=== PATIENT | female | born 1940 | race Caucasian/White ===

== ENCOUNTER → 2018-04-12 09:41 | Oncology outpatient (ONC) | payer OTHER, SELFPAY ==
--- NOTE | 2018-04-12 08:49 | ONC.APRN.PN ---
Assessment and Plan (1) Melanoma Current visit: No Status: Acute 04/12/18 08:50 The patient is a 77 year old Female who is being seen in the clinic 04/12/2018. She caries a diagnosis of stage III malignant melanoma in clinical remission since her original diagnosis was made in the summer. Patient presents today for her annual surveillance visit. On exam today patient has no clinical signs or symptoms of disease recurrence. She questions whether or not she needs to continue being seen at this clinic. She is followed by primary care also Dermatology Dr. Weinberg. Per patient's request she can be seen on an as needed basis. If she were to notice any skin changes, lesions she would need to see dermatology as soon as possible for biopsy. 04/12/18 10:14 PN -Subjective Interval history: The patient is a 77 year old Female who is being seen in the clinic 04/12/2018. She care recent diagnosis of stage III malignant melanoma in clinical remission since her original diagnosis was made in the summer. Patient presents today for her annual surveillance visit, her previous visit was April 21, 2017. During the interval she's done well offering no new complaints. Specifically denying any skin changes, lesions, rashes, headaches visual changes she is in no pain. No unusual fatigue abdominal discomfort chest pains or shortness of breath. No change in appetite, weight is stable. Activity tolerance remains unchanged. She will be changing primary care providers from Dr. Mallory to Dr Tasha Lima noting Dr Mallory's long-term from the clinic. Patient remains under the care of shift supervisor Dr. Weinberg whom she was seeing every 6 months, now seeing annually. Past Medical History The patient's past medical history is significant for: 1) malignant melanoma, originally diagnosed in August 2010, stage III presentation. Patient's recent imaging studies included a CT of the chest, abdomen, and pelvis dated January 27, 2015, showing an indeterminate 2-mm hypodense nodule near the hepatic dome. Repeat CT scan of the abdomen with contrast on 03/05/2015 shows resolution of the hypodensity. She remains in clinical remission at this time with her last CT of the chest abdomen and pelvis dated 04/21/2016. This reports no evidence of recurrent disease no evidence of or lesions. Imaging studies at this time aren't a when necessary basis only. Home Medications and Allergies Home Medications Medication Instructions Recorded Confirmed Type lamotrigine [Lamictal] 200 mg PO Q DAY #0 04/21/17 History losartan-hydrochlorothiazide 1 tab PO DAILY 04/12/18 04/12/18 History Allergies Allergy/AdvReac Type Severity Reaction Status Date / Time No Known Allergies Allergy Uncoded 12/27/17 12:13 Exam Narrative: well appearing - Constitutional positive no acute distress - Routine HEENT Exam Head: Present: normocephalic, atraumatic Eye: Present: conjunctivae pink. Absent: conjunctival icterus, scleral injection ENT: Present: mucous membranes moist, oropharynx clear - Routine Neck Exam Present: supple. Absent: lymphadenopathy - Routine Chest/Breast/Axilla Exam Axillae: Absent: lymphadenopathy, mass, tenderness - Routine Respiratory Exam Present: Clear to auscultation bilaterally - Routine Cardiovascular Exam Present: RRR - Routine Abdominal Exam Present: soft, normoactive bowel sounds. Absent: tenderness, distended, organomegaly, mass - Routine Extremities Exam Absent: edema - Routine Skin Exam Present: intact, normal turgor. Absent: petechiae, lesions, rash - Routine Neurological Exam Present: alert, oriented X3
[2018-04-12 09:35] VITALS: BP 157/78; PULSE 68; RESP 18; TEMP 36.2; O2SAT 97
== END ==
LOC: ONC 09:42
PROVIDERS: PCP Internal Medicine; Visit Provider Nurse Practitioner Gerontology
DX: Z85.820 Personal history of malignant melanoma of skin (principal)
CPT/HCPCS: 99214

== ENCOUNTER 2018-10-05 09:15 | Outpatient (RCR) | payer OTHER, SELFPAY ==
--- NOTE | 2018-10-05 10:50 | PT.OIE ---
Current Diagnoses Stress incontinence (female) (male) (10/05/18) Pelvic and perineal pain (10/05/18) Provider Visit Care Team Role Provider Type Tasha Lima MD Attending Provider Physician Primary Care Provider Specialty: Internal Medicine Address: [address] [place] [address], [id number] Email: Physical Therapy Initial Evaluation PT-OP-A Visit Information Start: 10/05/18 09:45 Freq: Status: Active Protocol: Document 10/05/18 09:45 AMB (Rec: 10/07/18 10:20 AMB [email or web address]) Out-Patient Physical Therapy Visit Information Visit Information Visit Type Initial Evaluation Visit Start Time 09:45 Visit Stop Time 10:30 Total Visit Minutes 45 Visit Number 1 PT-OP-B Current Condition Start: 10/05/18 09:45 Freq: Status: Active Protocol: Document 10/05/18 09:45 AMB (Rec: 10/07/18 10:20 AMB [email or web address]) Current Condition History of Current Condition Onset Date 6 months ago Current Complaints Large leaks of urine History of Current Condition Yue reports a recent worsening of urinary incontinence. She has at least a 2 decade history of leaking with activities like dancing, but now the leaks are much worse. She reports she drinks a lot of fluid, and urinates probably once an hour , and she can leak after going to the bathroom. She denies any fecal leakage. She denies pain. She notes that lifting really makes her leak large quantities. She also notes getting up to use the bathroom once per night and she can leak on her way to the bathroom but she denies urgency. Sometimes she is not even aware she is leaking. She had 3 children vaginally and reports no leaking with or after delivery. Prior Functional Status Baseline Function- Other Pt had history of stress urinary incontinence for years , but smaller leaks than this. Current Functional Impairments (Reported) Functional Limitations- Other Not currently wearing pads, but does wet pants with leaking, especially when lifting. Personal Factors Other Personal Factors That May Effect History of stage 3 melanoma Therapy/Recovery with resultant R LE lymphedema . Bipolar. Hypertension. Osteopenia. PT-OP-I Pelvic Floor Start: 10/05/18 09:45 Freq: Status: Active Protocol: Document 10/05/18 09:45 AMB (Rec: 10/07/18 10:30 AMB [email or web address]) Pelvic Floor Assessment Urine Pelvic Floor Surgery No Leakage Size Large Leakage Cause Exercise Lifting Voiding Frequency once an hour Nocturia 1 Bowel Bowel Surgery No Pelvic Clock Pelvic Clock 12-3 Atrophy Pelvic Clock 3-6 Atrophy Pelvic Clock 6-9 Atrophy Pelvic Clock 9-12 Atrophy Prolapse Cystocele Grade 2 Rectocele Grade 3 Contraction Ability Voluntary Contraction Weak Voluntary Relaxation Weak Manual Muscle Testing Left 1 Manual Muscle Testing Right 1 Manual Muscle Testing Anterior 1 Manual Muscle Testing Posterior 2 Muscle Endurance (Seconds) 3 Number of Quick Contractions In 10 4 Seconds Comments Pelvic Floor Comments While no skin irritation was visible, Yue's skin was wet with urine. PT-OP-T Assessment and Plan Start: 10/05/18 09:45 Freq: Status: Active Protocol: Document 10/05/18 09:45 AMB (Rec: 10/07/18 10:49 AMB [email or web address]) Physical Therapy Assessment Rehab Potential Rehabilitation Potential Good Evaluation Complexity Number of Personal Factors/Comorbidities 1-2 Number of Body Systems Impaired 3 Clinical Presentation at Evaluation Evolving Impairments Impairments Functional Activities Sensation Strength Goals Two Impairment Continence Short Term Goal (STG) Yue will lift 5# from the floor with good body mechanics while alee her pelvic floor. STG Duration 4 weeks Assembler Filters Goal (LTG) Yue will lift her suitcase from the floor to waist height without leaking urine. LTG Duration 8 weeks One Impairment Strength Short Term Goal (STG) Yue will be independent with a pelvic floor strengthening HEP. STG Duration 4 weeks Assembler Filters Goal (LTG) Yue will improve her pelvic floor strength to 3/5. LTG Duration 8 weeks Assessment Summary Assessment Yue attends physical therapy with a worsening of her stress urinary incontinence. She is going to be seeing Dr. Victoria soon, for possible pessary placement. I would recommend that she use pads at this time, given her large leaks, for the health of her skin. We will work on strengthening her pelvic floor , but given the long history of her urinary incontinence, progress may be slow. Physical Therapy Plan Frequency and Duration Frequency of Treatment 1x/Week Duration of Treatment 8 weeks Plan of Care Start Date 10/05/18 Plan of Care End Date 11/30/18 Therapeutic Interventions Therapeutic Interventions Home Exercise Program Manual Therapy Neuromuscular Re-education Self-Care/Home Management Therapeutic Activities Therapeutic Exercises Modalities Biofeedback Electric Stimulation Next Visit Focus/Plan Next Note Type Treatment Note Next Visit Plan Trial biofeedback and e-stim
--- NOTE | 2018-10-05 10:51 | PT.OPPOC ---
Current Diagnoses Stress incontinence (female) (male) (10/05/18) Pelvic and perineal pain (10/05/18) Provider Visit Care Team Role Provider Type Tasha Lima MD Attending Provider Physician Primary Care Provider Specialty: Internal Medicine Address: [address] [place] [address], [id number] Email: Plan Of Care PT-OP-T Assessment and Plan Start: 10/05/18 09:45 Freq: Status: Active Protocol: Document 10/05/18 09:45 AMB (Rec: 10/07/18 10:49 AMB [email or web address]) Physical Therapy Assessment Rehab Potential Rehabilitation Potential Good Evaluation Complexity Number of Personal Factors/Comorbidities 1-2 Number of Body Systems Impaired 3 Clinical Presentation at Evaluation Evolving Impairments Impairments Functional Activities Sensation Strength Goals Two Impairment Continence Short Term Goal (STG) Yue will lift 5# from the floor with good body mechanics while alee her pelvic floor. STG Duration 4 weeks Usp Goal (LTG) Yue will lift her suitcase from the floor to waist height without leaking urine. LTG Duration 8 weeks One Impairment Strength Short Term Goal (STG) Yue will be independent with a pelvic floor strengthening HEP. STG Duration 4 weeks Umbrella Finisher Goal (LTG) Yue will improve her pelvic floor strength to 3/5. LTG Duration 8 weeks Assessment Summary Assessment Yue attends physical therapy with a worsening of her stress urinary incontinence. She is going to be seeing Dr. Victoria soon, for possible pessary placement. I would recommend that she use pads at this time, given her large leaks, for the health of her skin. We will work on strengthening her pelvic floor , but given the long history of her urinary incontinence, progress may be slow. Physical Therapy Plan Frequency and Duration Frequency of Treatment 1x/Week Duration of Treatment 8 weeks Plan of Care Start Date 10/05/18 Plan of Care End Date 11/30/18 Therapeutic Interventions Therapeutic Interventions Home Exercise Program Manual Therapy Neuromuscular Re-education Self-Care/Home Management Therapeutic Activities Therapeutic Exercises Modalities Biofeedback Electric Stimulation Next Visit Focus/Plan Next Note Type Treatment Note Next Visit Plan Trial biofeedback and e-stim Plan of Care Dates Plan of Care Start Date 10/05/18 Plan of Care End Date 11/30/18 Please Sign and Return: I have reviewed this Plan of Care and certify that the skilled therapy services above are required to meet the patient?s needs. Physician Signature Date Printed Name and Credentials Clinical Instructor Signature Printed Name and Credentials
--- NOTE | 2018-11-30 07:54 | PT.OPDS ---
Current Diagnoses Stress incontinence (female) (male) (10/05/18) Pelvic and perineal pain (10/05/18) Provider Visit Care Team Role Provider Type Tasah Lima MD Attending Provider Physician Primary Care Provider Specialty: Internal Medicine Address: [address] [place] [address], [facility] Email: Visit Number Visit Number 1 Discharge Summary PT-OP-B Current Condition Start: 10/05/18 09:45 Freq: Status: Active Protocol: Document 10/05/18 09:45 AMB (Rec: 10/07/18 10:20 AMB [email or web address]) Current Condition History of Current Condition Onset Date 6 months ago Current Complaints Large leaks of urine History of Current Condition Yue reports a recent worsening of urinary incontinence. She has at least a 2 decade history of leaking with activities like dancing, but now the leaks are much worse. She reports she drinks a lot of fluid, and urinates probably once an hour , and she can leak after going to the bathroom. She denies any fecal leakage. She denies pain. She notes that lifting really makes her leak large quantities. She also notes getting up to use the bathroom once per night and she can leak on her way to the bathroom but she denies urgency. Sometimes she is not even aware she is leaking. She had 3 children vaginally and reports no leaking with or after delivery. Prior Functional Status Baseline Function- Other Pt had history of stress urinary incontinence for years , but smaller leaks than this. Current Functional Impairments (Reported) Functional Limitations- Other Not currently wearing pads, but does wet pants with leaking, especially when lifting. Personal Factors Other Personal Factors That May Effect History of stage 3 melanoma Therapy/Recovery with resultant R LE lymphedema . Bipolar. Hypertension. Osteopenia. PT-OP-I Pelvic Floor Start: 10/05/18 09:45 Freq: Status: Active Protocol: Document 10/05/18 09:45 AMB (Rec: 10/07/18 10:30 AMB [email or web address]) Pelvic Floor Assessment Urine Pelvic Floor Surgery No Leakage Size Large Leakage Cause Exercise Lifting Voiding Frequency once an hour Nocturia 1 Bowel Bowel Surgery No Pelvic Clock Pelvic Clock 12-3 Atrophy Pelvic Clock 3-6 Atrophy Pelvic Clock 6-9 Atrophy Pelvic Clock 9-12 Atrophy Prolapse Cystocele Grade 2 Rectocele Grade 3 Contraction Ability Voluntary Contraction Weak Voluntary Relaxation Weak Manual Muscle Testing Left 1 Manual Muscle Testing Right 1 Manual Muscle Testing Anterior 1 Manual Muscle Testing Posterior 2 Muscle Endurance (Seconds) 3 Number of Quick Contractions In 10 4 Seconds Comments Pelvic Floor Comments While no skin irritation was visible, Yue's skin was wet with urine. PT-OP-T Assessment and Plan Start: 10/05/18 09:45 Freq: Status: Active Protocol: Document 11/30/18 07:53 AMB (Rec: 11/30/18 07:54 AMB [email or web address]) Physical Therapy Assessment Assessment Summary Assessment Yue has not been seen since her initial evaluation in September. She canceled 3 follow up appointments and then no showed her last scheduled appointment. She has not returned a phone call to discuss scheduling. Please see initial evaluation for all objective data. Physical Therapy Plan Discharge Physical Therapy Discharge Reasons No Longer Attending PT
== END 2018-10-06 11:57 ==
LOC: PHYS 09:15
PROVIDERS: PCP Internal Medicine; Visit Provider Internal Medicine
DX: R10.2 Pelvic and perineal pain (principal); N39.3 Stress incontinence (female) (male)
CPT/HCPCS: 97162

== ENCOUNTER → 2020-02-19 12:52 | Outpatient (CLI) | payer OTHER, SELFPAY ==
--- NOTE | 2020-02-19 | DI.RAD.S_ITS ---
This blank DEXA report has been sent in error by the PACS system. The correct and complete report will be forthcoming in 1-2 days. Thank you for your patience and understanding. Dictated by: Leta Christopher MD, PhD on 02/19/2020 at 16:07 Approved by: Leta Christopher MD, PhD on 02/19/2020 at 16:07
== END ==
PROVIDERS: Visit Provider Nurse Practitioner Family
DX: Z13.820 Encounter for screening for osteoporosis (principal); M85.851 Other specified disorders of bone density and structure, right thigh; Z78.0 Asymptomatic menopausal state; Z82.62 Family history of osteoporosis
CPT/HCPCS: 77080

== ENCOUNTER 2021-01-05 22:01 | Emergency (ER) | payer OTHER, SELFPAY ==
[2021-01-05 22:17] VITALS: BP 176/83; PULSE 83; RESP 17; TEMP 36.9; O2SAT 96; BMI 26.6
--- NOTE | 2021-01-05 22:18 | ED_ITS ---
HPI - General Adult General Chief complaint: Eye Problems Stated complaint: BLEEDING FROM RIGHT EYE HAD SURGERY Time Seen by Provider: 01/05/21 22:06 Source: patient Mode of arrival: Ambulatory Limitations: no limitations History of Present Illness HPI narrative: Patient is an 80-year-old female. She is less than 1 week status post plastic surgery where she had an eyebrow left another cosmetic issues taking care of because of excessively drooping eyelids. She states the procedure went very well. She is not on blood thinners. She states that earlier this afternoon she started noticing bleeding coming from her right eye. She is afebrile. Related Data Home Medications Medication Instructions Recorded Confirmed lamotrigine [Lamictal] 200 mg PO Q DAY #0 04/21/17 losartan-hydrochlorothiazide 1 tab PO DAILY 04/12/18 04/12/18 amlodipine 10 mg tablet 10 mg PO DAILY 11/20/18 11/20/18 Allergies Allergy/AdvReac Type Severity Reaction Status Date / Time No Known Allergies Allergy Uncoded 12/27/17 12:13 Review of Systems Constitutional Constitutional: Denies fatigue, Denies fever(s) and Denies headache(s) Eyes Comments: Bleeding from the right eye ENT Ears, Nose, Mouth, and Throat: Denies headache(s) and Denies sore throat Cardiovascular Cardiovascular: Denies chest pain and Denies dyspnea Respiratory Respiratory: Denies dyspnea Gastrointestinal Gastrointestinal: Denies abdominal pain Integumentary/Breasts Comments: Bruising around her eyes Neurologic Neurologic: Denies behavioral changes and Denies headache(s) Psychiatric Psychiatric: Denies behavioral changes Endocrine Endocrine: Denies fatigue Hematologic/Lymphatic On Anticoagulants: No Allergic/Immunologic Allergic/Immunologic: Denies urticaria Patient History Medical History Contusion of knee, right Melanoma Social History Smoking Status: Never smoker Smoking Status: Never smoker Exam Initial Vital Signs Initial Vital Signs: Vital Signs Temperature 98.4 F 01/05/21 22:17 Pulse Rate 83 01/05/21 22:17 Respiratory Rate 17 01/05/21 22:17 Blood Pressure 176/83 H 01/05/21 22:17 Pulse Oximetry 96 01/05/21 22:17 Const General: cooperative, comfortable and well developed HENVA Nose: external nose normal Mouth: oral mucosae normal Eyes Other: Patient with the stitches in place just above her eyebrows bilaterally consistent with her stated history. She has no active bleeding. Her conjunctiva peer well. Sclera appears well. No foreign bodies noted. Does have bruising in the periorbital regions consistent with her stated surgical hi story but no signs of any infection. Resp Effort & Inspection: normal respiratory effort Skin Other: Surgical incisions and bruising consistent with stated history Neuro General: patient alert and patient awake Extrem General: capillary refill normal Course Vital Signs Vital signs: Vital Signs - 8 hr 01/05/21 22:17 Temperature 98.4 F Pulse Rate 83 Respiratory Rate 17 Blood Pressure 176/83 H Pulse Oximetry 96 Medical Decision Making MDM Narrative Medical decision making narrative: Her surgical incisions appear very well. She does have bruising around bilateral eyes that would expect at this point after her stated procedure. There is no signs of any infection. No signs of any hematoma. I suspect the bleeding that she has was related to the surgery potentially a hematoma that expressed itself through the surgical incisions however her does not appear to be any direct ocular/globe involvement. She has no subconjunctival hemorrhage noted. Patient be safely discharged home. She was instructed to continue all of the postoperative instructions given to her by their provider and also the follow-up instructions. She expressed understan ding and agreement. Discharge Plan Departure Patient Disposition: Home Clinical Impression: Post-op bleeding Activity Restrictions/Additional Instructions: All of the surgical incisions look well. There is no signs of any infections. Recommend that tomorrow you contact the operative provider and keep all of your scheduled follow-up appointments. Return to the emergency department for any new or worsening symptoms Prescriptions: No Action lamotrigine [Lamictal] 100 MG tablet 200 mg PO Q DAY Qty: 0 RF: 0 amlodipine 10 mg tablet 10 mg PO DAILY RF: 0 losartan-hydrochlorothiazide 100-25 mg Tablet 1 tab PO DAILY RF: 0
--- NOTE | 2021-01-05 22:37 | PC.NURSE ---
pt states notice bleeding in right eye tonight while going to be. Had surgery on Monday for an eyelid. sutures at eyebrow line and on Upper eyelid. No active bleeding noted.
== END 2021-01-05 22:30 | disposition home or self-care (01) ==
PROVIDERS: Emergency Provider Emergency Medicine
DX: H59.321 Postprocedural hemorrhage of right eye and adnexa following other procedure (principal)
CPT/HCPCS: 99281

== ENCOUNTER 2022-07-04 00:40 | Emergency (ER) | payer OTHER, SELFPAY ==
[2022-07-04] VITALS (14 sets, daily range): BP systolic 162–185; BP diastolic 83–86; PULSE 68–83; RESP 16–34; TEMP 36.5; O2SAT 94–99; BMI 28.8
--- NOTE | 2022-07-04 00:44 | ED.FALL ---
HPI - Fall General Chief Complaint: Fall Stated Complaint: GLF Time Seen by Provider: 07/04/22 00:44 History of Present Illness HPI Narrative: 82-year-old female nonsmoker with history of hypertension presents by EMS for evaluation of a ground level fall earlier tonight. She states that she was walking and got her feet caught up underneath her and fell to her left side striking the left side of her head and injuring the left side of her ribs. She does not take blood thinners and denies use of alcohol. She did not have any loss of consciousness and has full recall of the event. She denies any nausea, vomiting, blurred vision or any extremity numbness, tingling or weakness. She has no neck pain. She denies any shoulder, elbow, wrist or lower extremity pain. She denies abdominal pain. She does have left-sided rib pain that is sharp and stabbing and seems to be worse with deep breath, motion or palpation. Initially she had no back pain but during transport started noticing some midthoracic tenderness. She states that she has been somewhat short of breath for many months and has had the occasional cough. Related Data Home Medications Medication Instructions Recorded Confirmed lamotrigine 100 mg tablet 200 mg PO Q DAY ##0 04/21/17 (Lamictal) losartan 100 1 tab PO DAILY 04/12/18 04/12/18 mg-hydrochlorothiazide 25 mg tablet amlodipine 10 mg tablet 10 mg PO DAILY 11/20/18 11/20/18 Previous Rx's Medication Instructions Recorded furosemide 40 mg tablet (Lasix) 40 mg PO DAILY #5 tabs 07/04/22 Allergies Allergy/AdvReac Type Severity Reaction Status Date / Time No Known Allergies Allergy Uncoded 12/27/17 12:13 Review of Systems Review of Systems Narrative: GENERAL: Denies chills, fatigue, malaise, fever, sweats. HEENT: Denies sinus pain, ear pain, sore throat, difficulty swallowing, dizziness. RESPIRATORY: Denies dyspnea, cough, wheezing, hemoptysis, sputum. CARDIOVASCULAR: Denies chest pain, palpitations, orthopnea, edema, GASTROINTESTINAL: Denies nausea, vomiting, abdominal pain, diarrhea, constipation, melena. : Denies dysuria, frequency, incontinence, hematuria, urinary retention. MUSCULOSKELETAL: See HPI SKIN: Denies rash, skin lesions, or other NEUROLOGIC: Denies weakness, headache, numbness, change in speech, confusion, seizures, incoordination. PSYCHIATRIC: No concerning psychosocial issues. 12 point review of systems is negative except for those stated above Patient History Medical History Contusion of knee, right Melanoma Social History Smoking Status: Never smoker Smoking Status: Never smoker Substance Use Type: does not use Exam Narrative Exam Narrative: GENERAL: [82] year old patient appears stated age. Well-developed patient, in mild distress. GCS 15 HEAD: Mild hematoma on left forehead, no evidence of depressed skull fracture nor other abrasions, lacerations, contusions or other. EYES: Pupils equal round and reactive. No hyphema Extraocular motions intact. No scleral icterus. No injection or drainage. ENT: Nose without bleeding, purulent drainage. No nasal septal hematoma Throat without erythema, tonsillar hypertrophy or exudate. Airway patent. NECK: Trachea midline. Non tender CARDIOVASCULAR: Regular rate and rhythm without murmurs, gallops, or rubs. Left lateral rib pain to palpation without ecchymosis, crepitance or subcu emphysema RESPIRATORY: Clear to auscultation. Breath sounds equal bilaterally. No wheezes, rales, or rhonchi. GASTROINTESTINAL: Abdomen soft, non-tender, nondistended. EXTREMITIES: No edema or joint tenderness of shoulders, elbows, wrists, hips, knees or ankles. BACK: Nontender without deformity or crepitance. No flank tenderness. NEURO: AOx3. SKIN: No rash or erythema of visible areas Initial Vital Signs Initial Vital Signs: Vital Signs Temperature 97.7 F 07/04/22 00:44 Pulse Rate 79 07/04/22 00:44 Respiratory Rate 22 07/04/22 00:44 Blood Pressure 181/83 H 07/04/22 00:44 Pulse Oximetry 97 07/04/22 00:44 Oxygen Delivery Method 07/04/22 00:44 Course Orders Ordered: ED Orders 07/04/22 00:47 CT head/brain wo con Stat XR ribs LT min 3V w CXR1V Stat XR thoracic spine 3V Stat 07/04/22 02:00 Complete Blood Count AUTO DIFF Stat Comprehensive Metabolic Panel Stat D Dimer Stat NT-proBNP (BNP-Adult 18+) Stat Procalcitonin Stat Troponin & CK Cardiac Panel Stat 07/04/22 02:01 EKG-12 Lead Routine 07/04/22 02:06 COVID19 -Nasal RAPID/Pre-Proc Stat 07/04/22 02:21 CT angio chest PE protocol Stat Discontinued Medications Furosemide (Furosemide 40 Mg/4 Ml Vial) 40 mg IV NOW ONE Stop: 07/04/22 03:11 Last Admin: 07/04/22 03:19 Dose: 40 mg Documented By: HARLAN Reevaluation(s) Reevaluation #1: Upon completion of initial round of imaging we attempted an ambulation trial and she became rather impressively short of breath and had desaturations into the mid to upper 80s. Patient was taken back to her room, IV placed and labs drawn Vital Signs Vital signs: Vital Signs - 8 hr 07/04/22 00:44 07/04/22 00:51 07/04/22 01:21 Temperature 97.7 F Pulse Rate 79 79 82 Respiratory Rate 22 Blood Pressure 181/83 H Pulse Oximetry 97 96 94 Oxygen Delivery Method Room Air 07/04/22 01:30 07/04/22 02:00 07/04/22 02:03 Temperature Pulse Rate 76 82 Respiratory Rate 27 H Blood Pressure 185/86 H Pulse Oximetry 95 96 Oxygen Delivery Method 07/04/22 02:03 07/04/22 02:30 Temperature Pulse Rate 83 72 Respiratory Rate 25 H 22 Blood Pressure Pulse Oximetry 95 98 Oxygen Delivery Method MDM - Fall Lab Data Result diagrams: 07/04/22 02:00 07/04/22 02:00 Labs: Lab Results 07/04/22 07/04/22 07/04/22 Range/Units 02:00 02:00 02:00 WBC 12.6 H (4.5-11.0) X10^3/uL RBC 4.11 (4.0-5.2) X10^6/uL Hgb 10.4 L (12.0-16.0) g/dL Hct 32.3 L (36-46) % MCV 78.6 L (80-100) fL MCH 25.3 L (26-34) PG MCHC 32.2 (30-36) % RDW 16.4 H (11.6-14.8) % Plt Count 346 (150-400) X10^3/uL Neut % (Auto) 86.8 H (50-75) % Lymph % (Auto) 6.8 L (25-40) % [place] % (Auto) 4.8 (3-14) % Eos % (Auto) 1.3 L (2-4) % Baso % (Auto) 0.3 (0-2) % Neut # (Auto) 45900 H (9699-9583) /uL Lymph # (Auto) 900 L (1618-8648) /uL [place] # (Auto) 600 (0-900) /uL Eos # (Auto) 200 (0-450) /uL Baso # (Auto) 0 (0-100) /uL D-Dimer 6549 H (<500) ng/ml Sodium 133 L (137-145) mmol/L Potassium 3.3 L (3.4-5.1) mmol/L Chloride 97 L (98-107) mmol/L Carbon Dioxide 30 (22-32) mmol/L BUN 11 (7-17) mg/dL Creatinine 0.65 (0.52-1.04) mg/dL Estimated GFR > 60 (>60) mL/min BUN/Creatinine Ratio 16.9 (6-22) Glucose 108 (80-110) mg/dL Calcium 8.6 (8.4-10.2) mg/dL Total Bilirubin 0.4 (0.2-1.3) mg/dL AST 20 (14-36) IU/L ALT 11 (<35) IU/L Alkaline Phosphatase 101 (38-126) U/L Total Creatine Kinase 39 (30-135) U/L CK-MB (CK-2) TNP CK-MB (CK-2) Rel Index TNP Troponin I 0.047 H (0.01-0.034) ng/mL NT-Pro-B Natriuret Pep 4980 H (<450) pg/mL Total Protein 7.0 (6.3-8.2) g/dL Albumin 3.7 (3.5-5.0) g/dL Globulin 3.3 (1.7-4.1) g/dL Albumin/Globulin Ratio 1.1 (1.0-2.8) Procalcitonin 0.05 (<0.5) ng/mL SARS-CoV-2 (PCR) (Negative) 07/04/22 Range/Units 02:06 WBC (4.5-11.0) X10^3/uL RBC (4.0-5.2) X10^6/uL Hgb (12.0-16.0) g/dL Hct (36-46) % MCV (80-100) fL MCH (26-34) PG MCHC (30-36) % RDW (11.6-14.8) % Plt Count (150-400) X10^3/uL Neut % (Auto) (50-75) % Lymph % (Auto) (25-40) % [place] % (Auto) (3-14) % Eos % (Auto) (2-4) % Baso % (Auto) (0-2) % Neut # (Auto) (9017-4436) /uL Lymph # (Auto) (5543-2558) /uL [place] # (Auto) (0-900) /uL Eos # (Auto) (0-450) /uL Baso # (Auto) (0-100) /uL D-Dimer (<500) ng/ml Sodium (137-145) mmol/L Potassium (3.4-5.1) mmol/L Chloride (98-107) mmol/L Carbon Dioxide (22-32) mmol/L BUN (7-17) mg/dL Creatinine (0.52-1.04) mg/dL Estimated GFR (>60) mL/min BUN/Creatinine Ratio (6-22) Glucose (80-110) mg/dL Calcium (8.4-10.2) mg/dL Total Bilirubin (0.2-1.3) mg/dL AST (14-36) IU/L ALT (<35) IU/L Alkaline Phosphatase (38-126) U/L Total Creatine Kinase (30-135) U/L CK-MB (CK-2) CK-MB (CK-2) Rel Index Troponin I (0.01-0.034) ng/mL NT-Pro-B Natriuret Pep (<450) pg/mL Total Protein (6.3-8.2) g/dL Albumin (3.5-5.0) g/dL Globulin (1.7-4.1) g/dL Albumin/Globulin Ratio (1.0-2.8) Procalcitonin (<0.5) ng/mL SARS-CoV-2 (PCR) Negative (Negative) Urine Dip Bedside Urine Glucose Negative Bedside Urine Bilirubin - Negative Bedside Urine Ketone - Negative Bedside Urine Occult Blood - Negative Bedside Urine Protein - Negative Bedside Urine Urobilinogen - Negative Bedside Urine Nitrite - Negative Bedside Urine Leukocytes - Negative Esterase Imaging Data CT scan - head: Radiologist's Impression: [address] [address] [address] Scan Report Signed Patient: Yue Chinchilla MR#: [id number] : 1940 Acct:[id number] Age/Sex: 82 / F Date of Service: 07/04/22 Loc: ED Accession Number: [id number] ?? Procedure: CT head/brain wo con Ordering Provider: Isaiah Pepper D.O. PROCEDURE:? CT HEAD/BRAIN WO CON ? INDICATIONS:? fall with head injury ? TECHNIQUE:? Noncontrast 4.5 mm thick angled axial sections acquired from the foramen magnum to the vertex, with coronal and sagittal reformats.? For radiation dose reduction, the following was used:? automated exposure control, adjustment of mA and/or kV according to patient size.? ? COMPARISON:? None. ? FINDINGS:? Image quality:? Excellent.? ? CSF spaces:? Basal cisterns are patent.? No extra-axial fluid collections.? The ventricles are symmetric in size and shape.? ? Brain:? No intracranial bleeds or masses.? There is cerebral volume loss for age, with resultant ventricular and sulcal prominence.? There are periventricular and deep white matter chronic small vessel ischemic changes.? There is intracranial internal carotid artery atherosclerosis.? ? Skull and face:? Calvarium and visualized facial bones appear intact, without suspicious lesions.? ? Sinuses:? Visualized sinuses and mastoids are clear.? ? IMPRESSION:? 1. No CT evidence of acute intracranial bleed, midline shift or mass effect. 2. Diffuse age related volume loss and extensive white matter chronic small vessel ischemic changes. 3. No gross acute skull fracture.? ? ? Dictated by: Ed Jean Baptiste M.D. on 07/04/2022 at 1:36 ? ? Approved by: Ed Jean Baptiste M.D. on 07/04/2022 at 1:37 ? Chest x-ray: Radiologist's Impression: Close Thoracic Spine X-Ray (Signed) Ed Jean Baptiste - 07/04/22 Ribs X-Ray (Signed) Ed Jean Baptiste 07/04/[address] (Signed) Ed Jean Baptiste - 07/04/22 Bone Densitometry (Signed) Leta Christopher - 02/19/20 Launch?[address] [address] XRay Report Signed Patient: Yue Chinchilla MR#: [id number] : 1940 Acct:[id number] Age/Sex: 82 / F Date of Service: 07/04/22 Loc: ED Accession Number: [id number] ?? Procedure: XR ribs LT min 3V w CXR1V Ordering Provider: Isaiah Pepper D.O. PROCEDURE:? XR RIBS LT MIN 3V W CXR1V ? INDICATIONS:? fall with left lateral rib pain ? TECHNIQUE:? 2 views of the left ribs were acquired, along with a single view chest.? ? COMPARISON:? [facility], , XR CHEST 1 VIEW, 12/19/2021, 11:45. ? FINDINGS:? ? Surgical changes and devices:? None.? ? Bones and chest wall:? Chronic appearing left posterior lateral 4th and 5th rib fractures are seen unchanged from 12/19/2021 study.? Old right posterior lateral 5th through 8th rib fractures also seen.? No gross acute left rib fracture is noted? No suspicious bony lesions.? Overlying soft tissues appear unremarkable.? ? Lungs and pleura:? No pleural effusions or pneumothorax.? Lungs appear clear.? ? Mediastinum:? Mediastinal contours appear normal.? Heart size is enlarged.? ? IMPRESSION:? No gross acute displaced left rib fracture is seen. Old healed bilateral posterior lateral upper rib fractures.? No acute cardiopulmonary pathology.? ? Dictated by: Ed Jean Baptiste M.D. on 07/04/2022 at 1:28 ? ? Approved by: Ed Jean Baptiste M.D. on 07/04/2022 at 1:32 ? T Spine Xray: Radiologist's Impression: Close Thoracic Spine X-Ray (Signed) Ed Jean Baptiste 07/04/22 Ribs X-Ray (Signed) Ed Jean Baptiste 07/04/[address] (Signed) Ed Jean Baptiste 07/04/22 Bone Densitometry (Signed) Leta Christopher - 02/19/20 Launch?[address] [address] XRay Report Signed Patient: Yue Chinchilla MR#: [id number] : 1940 Acct:[id number] Age/Sex: 82 / F Date of Service: 07/04/22 Loc: ED Accession Number: [id number] ?? Procedure: XR thoracic spine 3V Ordering Provider: Isaiah Pepper D.O. PROCEDURE:? XR THORACIC SPINE 3V ? INDICATIONS:? fall with midline pain ? TECHNIQUE:? 3 views of the thoracic spine were acquired.? ? COMPARISON:? [facility], CR, XR CHEST 1 VIEW, 12/19/2021, 11:45. ? FINDINGS:? ? Bones:? Chronic appearing anterior wedge compression deformities are noted involving multiple thoracic spine vertebral bodies.? No definite acute vertebral body compression fracture.? Degenerative disc disease throughout thoracic spine is seen.? No suspicious bony lesions.? 12 pairs of ribs are noted, and appear intact where visualized.? ? Soft tissues:? No paravertebral stripe thickening.? ? ? IMPRESSION:? Chronic appearing compression deformities involving multiple mid to lower thoracic spine vertebral bodies.? No gross acute compression fracture or spondylolisthesis is seen in thoracic spine.? Degenerative disc disease throughout thoracic spine. ? ? Dictated by: Ed Jean Baptiste M.D. on 07/04/2022 at 1:32 ? ? Approved by: Ed Jean Baptiste M.D. on 07/04/2022 at 1:34 ? 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 She is had chronic cough for many months and evaluation suggests likely pulmonary edema. Given her critically elevated D-dimer a CT angiogram of her chest was performed which shows no pneumonia, large central pulmonary embolism. She is diuresed and produces a large amount of dilute urine, she is feeling much better. She is been given extensive return precautions and questions have been answered to her apparent satisfaction Discharge Plan Departure Patient Disposition: Home Clinical Impression: Contusion of rib on left side, Back pain, Pulmonary edema Instructions: How to Prevent Falls Activity Restrictions/Additional Instructions: *You have been diagnosed with [fall with minor injuries. As we discussed your history and physical exam are reassuring and imaging shows no rib fracture, collapsed lung, pneumonia, fractures in your back or other concerning findings. Due to your concern about your ongoing cough and trouble breathing we ordered labs and did a CT of your chest which suggests no pneumonia or blood clot but does show some fluid build up which we have treated with diuretic medication. ] *What to do: *Please continue to take your regular medications as directed. [ x] New medication prescriptions sent to your pharmacy: [[facility] ] [ ] New medication written as a paper prescription [ ] No new medications given *Please follow up with your primary care provider in 2-3 days, call for an appointment. Let them know you were seen in the Emergency Department and that we ask that you be seen in follow up. We will electronically transmit a record of today's note if your PCP is in our system *Return to Emergency Department if you should have any new, worsening or concerning symptoms, such as [fever greater than 101 F, shaking chills, worsening pain, persistent vomiting or other bothersome symptoms] Prescriptions: New furosemide [Lasix] 40 mg tablet 40 mg PO DAILY Qty: 5 0RF No Action lamotrigine [Lamictal] 100 MG tablet 200 mg PO Q DAY Qty: 0 amlodipine 10 mg tablet 10 mg PO DAILY losartan-hydrochlorothiazide 100-25 mg Tablet 1 tab PO DAILY Referrals: Rohit Zuniga MD [Primary Care Provider] -
--- NOTE | 2022-07-04 00:47 | DI.RAD.S_ITS ---
PROCEDURE: XR RIBS LT MIN 3V W CXR1V INDICATIONS: fall with left lateral rib pain TECHNIQUE: 2 views of the left ribs were acquired, along with a single view chest. COMPARISON: [facility], CR, XR CHEST 1 VIEW, 12/19/2021, 11:45. FINDINGS: Surgical changes and devices: None. Bones and chest wall: Chronic appearing left posterior lateral 4th and 5th rib fractures are seen unchanged from 12/19/2021 study. Old right posterior lateral 5th through 8th rib fractures also seen. No gross acute left rib fracture is noted No suspicious bony lesions. Overlying soft tissues appear unremarkable. Lungs and pleura: No pleural effusions or pneumothorax. Lungs appear clear. Mediastinum: Mediastinal contours appear normal. Heart size is enlarged. IMPRESSION: No gross acute displaced left rib fracture is seen. Old healed bilateral posterior lateral upper rib fractures. No acute cardiopulmonary pathology. Dictated by: Ed Jean Baptiste M.D. on 07/04/2022 at 1:28 Approved by: Ed Jean Baptiste M.D. on 07/04/2022 at 1:32
--- NOTE | 2022-07-04 00:47 | DI.RAD.S_ITS ---
PROCEDURE: XR THORACIC SPINE 3V INDICATIONS: fall with midline pain TECHNIQUE: 3 views of the thoracic spine were acquired. COMPARISON: [facility], CR, XR CHEST 1 VIEW, 12/19/2021, 11:45. FINDINGS: Bones: Chronic appearing anterior wedge compression deformities are noted involving multiple thoracic spine vertebral bodies. No definite acute vertebral body compression fracture. Degenerative disc disease throughout thoracic spine is seen. No suspicious bony lesions. 12 pairs of ribs are noted, and appear intact where visualized. Soft tissues: No paravertebral stripe thickening. IMPRESSION: Chronic appearing compression deformities involving multiple mid to lower thoracic spine vertebral bodies. No gross acute compression fracture or spondylolisthesis is seen in thoracic spine. Degenerative disc disease throughout thoracic spine. Dictated by: Ed Jean Baptiste M.D. on 07/04/2022 at 1:32 Approved by: Ed Jean Baptiste M.D. on 07/04/2022 at 1:34
--- NOTE | 2022-07-04 00:47 | DI.CT.S_ITS ---
PROCEDURE: CT HEAD/BRAIN WO CON INDICATIONS: fall with head injury TECHNIQUE: Noncontrast 4.5 mm thick angled axial sections acquired from the foramen magnum to the vertex, with coronal and sagittal reformats. For radiation dose reduction, the following was used: automated exposure control, adjustment of mA and/or kV according to patient size. COMPARISON: None. FINDINGS: Image quality: Excellent. CSF spaces: Basal cisterns are patent. No extra-axial fluid collections. The ventricles are symmetric in size and shape. Brain: No intracranial bleeds or masses. There is cerebral volume loss for age, with resultant ventricular and sulcal prominence. There are periventricular and deep white matter chronic small vessel ischemic changes. There is intracranial internal carotid artery atherosclerosis. Skull and face: Calvarium and visualized facial bones appear intact, without suspicious lesions. Sinuses: Visualized sinuses and mastoids are clear. IMPRESSION: 1. No CT evidence of acute intracranial bleed, midline shift or mass effect. 2. Diffuse age related volume loss and extensive white matter chronic small vessel ischemic changes. 3. No gross acute skull fracture. Dictated by: Ed Jean Baptiste M.D. on 07/04/2022 at 1:36 Approved by: Ed Jean Baptiste M.D. on 07/04/2022 at 1:37
[2022-07-04 02:10] LABS: Add Manual Diff / Slide Review NO; Basophils Absolute Auto 0 /uL (0-100); Basophils Percent Auto 0.3 % (0-2); Eosinophils Absolute Auto 200 /uL (0-450); Eosinophils Percent Auto 1.3 % (2-4); Hematocrit 32.3 % (36-46); Hemoglobin 10.4 g/dL (12.0-16.0); Lymphocytes Absolute Auto 900 /uL (1100-4500); Lymphocytes Percent Auto 6.8 % (25-40); Mean Corpuscular HGB Conc 32.2 % (30-36); Mean Corpuscular Hemoglobin 25.3 PG (26-34); Mean Corpuscular Volume 78.6 fL (80-100); Monocytes Absolute Auto 600 /uL (0-900); Monocytes Percent Auto 4.8 % (3-14); Neutrophils Absolute Auto 10900 /uL (1500-7000); Neutrophils Percent Auto 86.8 % (50-75); Platelet Count 346 X10^3/uL (150-400); Red Blood Cell Count 4.11 X10^6/uL (4.0-5.2); Red Cell Distribution Width 16.4 % (11.6-14.8); White Blood Cell Count 12.6 X10^3/uL (4.5-11.0)
--- NOTE | 2022-07-04 02:14 | PC.NURSE ---
[address] and is able to ambulate with slow and steady gait, with one person assist. Patient unsteady independently ambulating. Patient also visibly SOB with ambulation and verbalizes feeling more SOB than usual. Productive cough with large amounts of white sputum noted. notified.
[2022-07-04 02:16] LABS: D Dimer 6549 ng/ml (<500)
[2022-07-04 02:19] LABS: Alanine Aminotransferase 11 IU/L (<35); Albumin 3.7 g/dL (3.5-5.0); Albumin Globulin Ratio 1.1 (1.0-2.8); Alkaline Phosphatase 101 U/L (38-126); Aspartate Aminotransferase 20 IU/L (14-36); BUN Creatinine Ratio 16.9 (6-22); Bilirubin Total 0.4 mg/dL (0.2-1.3); Blood Urea Nitrogen 11 mg/dL (7-17); Calcium 8.6 mg/dL (8.4-10.2); Carbon Dioxide 30 mmol/L (22-32); Chloride 97 mmol/L (98-107); Creatine Kinase 39 U/L (30-135); Estimated Glomerular Filt Rate > 60 mL/min (>60); Globulin 3.3 g/dL (1.7-4.1); Glucose 108 mg/dL (80-110); HEMOLYSIS < 15 (0-50); Potassium 3.3 mmol/L (3.4-5.1); Sodium 133 mmol/L (137-145)
--- NOTE | 2022-07-04 02:21 | DI.CT.S_ITS ---
PROCEDURE: CT ANGIO CHEST PE PROTOCOL INDICATIONS: dyspnea, cough, critical D dimer TECHNIQUE: After the administration of intravenous contrast, 2 mm thick sections acquired from the pulmonary apices to the posterior costophrenic angles. 3-dimensional maximum intensity projection (MIP) coronal and sagittal reformats were then acquired through the thorax. For radiation dose reduction, the following was used: automated exposure control, adjustment of mA and/or kV according to patient size. COMPARISON: [facility], CR, L-SPINE 2-3 VIEWS, 07/20/2011, 13:18. [facility], CR, XR THORACIC SPINE 3V, 07/04/2022, 1:05. [facility], CT, CHEST/ABD/PEL WITH CONTRAST, 04/21/2016, 11:47. CT, CHEST/ABD/PEL WITH CONTRAST, 01/27/2015, 10:08. CT, CHEST/ABD/PEL WITH CONTRAST, 12/26/2013, 10:18. CT, CHEST/ABD/PEL WITH CONTRAST, 12/20/2012, 9:29. CT, CHEST ABDOMEN PELVIS WITH CONTRAST, 01/03/2012, 10:55. [facility], CR, XR CHEST 1 VIEW, 12/19/2021, 11:45. FINDINGS: Image quality: Central pulmonary arteries are slightly under enhanced. Pulmonary arteries: Pulmonary arteries are normal in size, and demonstrate no intraluminal filling defects to suggest central pulmonary embolism. Lungs and pleura: Mild bilateral subpleural septal thickening. Small pleural effusions are present. Bibasilar opacities may be consolidation or atelectasis. No pneumothorax. Central and peripheral airways are patent. Mild centrilobular emphysema. Mediastinum: Heart size is mildly increased. No pericardial effusion. Mild coronary artery calcification. There are enlarged mediastinal and hilar lymph nodes. For example, there is a 1.0 x 1.4 cm AP window lymph node. A 1.7 x 2.2 cm subcarinal lymph node is identified. Right hilar lymph node measures up to 1.9 cm. Moderate atherosclerotic calcifications in thoracic and upper abdominal aorta. There is small focal dissection in the descending thoracic aorta with an intimal flap (series 5, image 76). Small saccular aneurysm at the side of dissection. There is also mild fusiform descending thoracic aortic aneurysm measuring 3.7 cm x 3.6 cm. Esophagus is normal in caliber. There is a moderate-sized hiatal hernia. The ascending aorta is ectatic measuring 3.9 cm AP and 4.2 cm transverse. Bones and chest wall: No suspicious bony lesions. There are moderate compression fractures involving T10, T12 and L1, likely chronic. Old right rib fractures are noted. Thyroid gland is heterogeneous with multiple nodular densities. No axillary or supraclavicular adenopathy. Abdomen: There are multiple cyst in left kidney. The largest cyst measures 5.3 x 4.1 cm and is partially visualized. IMPRESSION: 1. Mild suboptimal opacification of central pulmonary arteries. No definitive pulmonary emboli. 2. 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 3. Mild descending thoracic aortic aneurysm. 4. Small pleural effusions bilaterally. Bibasilar opacities may be consolidations or atelectasis. 5. Mild cardiomegaly. Mildly subpleural septal thickening suggest mild CHF. 6. Mild mediastinal and hilar lymphadenopathy. This finding is nonspecific and may be secondary to infectious, inflammatory or neoplastic etiology. Recommend clinical correlation and follow up. 7. Moderate-sized hiatal hernia. 8. Chronic compression fractures of T10, T12 and L1. No significant discrepancy with the [facility] radiology preliminary report. Dictated by: Angle James M.D. on 07/04/2022 at 7:41 Approved by: Angle James M.D. on 07/04/2022 at 9:04
[2022-07-04 02:25] LABS: COVID19 -Nasal RAPID Negative (Negative)
[2022-07-04 02:31] LABS: NT-proBNP (BNP-Adult 18+) 4980 pg/mL (<450); Troponin I 0.047 ng/mL (0.01-0.034)
[2022-07-04 02:36] LABS: Procalcitonin 0.05 ng/mL (<0.5)
[2022-07-04] MEDS: FUROSEMIDE 40 MG/4 ML VIAL IV (03:19)
--- NOTE | 2022-07-04 05:40 | PC.NURSE ---
Patient verbalizes understanding of discharge. She reports no ride available to take her home. [facility] opens at 0600 which patient agrees to
[2022-07-04] MEDS: ACETAMINOPHEN 325 MG TABLET 975 MG PO (06:25)
== END 2022-07-04 06:40 | disposition home or self-care (01) ==
PROVIDERS: Emergency Provider Emergency Medicine; PCP Internal Medicine
DX: S20.212A Contusion of left front wall of thorax, initial encounter (principal); M54.9 Dorsalgia, unspecified; J81.1 Chronic pulmonary edema; W18.30XA Fall on same level, unspecified, initial encounter
CPT/HCPCS: 36415; 70450; 71101; 71275; 72072; 80053; 81003; 82550; 83880; 84145; 84484; 85025; 85379; 87635; 93005; 99285; C9803; J1940; Q9967

== ENCOUNTER 2022-07-05 12:43 | Emergency (ER) | payer OTHER, SELFPAY ==
[2022-07-05 13:21] VITALS: BP 151/68; PULSE 78; RESP 16; TEMP 36.4; O2SAT 98; BMI 28.3
--- NOTE | 2022-07-05 15:27 | DI.RAD.S_ITS ---
PROCEDURE: XR CHEST 2V INDICATIONS: shortness of breath TECHNIQUE: 2 views of the chest were acquired. [facility], CT, CT ANGIO CHEST PE PROTOCOL, 07/04/2022, 2:35. [facility]ISON: FINDINGS: Surgical changes and devices: None. Lungs and pleura: There is blunting of the costophrenic angles bilaterally. Mediastinum: Mediastinal contours are normal. Heart size is normal. Bones and chest wall: No suspicious bony abnormalities. Soft tissues appear unremarkable. IMPRESSION: Minimal to mild effusions bilaterally. Dictated by: Amalia Orta M.D. on 07/05/2022 at 16:03 Approved by: Amalia Orta M.D. on 07/05/2022 at 16:04
--- NOTE | 2022-07-05 16:13 | PC.NURSE ---
1534-Called patient back to start labs, but she did not answer. She apparently stepped outside for a cigarette.
--- NOTE | 2022-07-05 16:32 | PC.NURSE ---
Called patient again, no answer.
--- NOTE | 2022-07-05 16:38 | PC.NURSE ---
Pt called from [facility] by cubing machine tender multiple times without answer
--- NOTE | 2022-07-05 17:02 | PC.NURSE ---
Per hospital security, patient has been asking people in the hospital to wheel her around to cafeteria and back out front to smoke cigarettes. Asking multiple people for cigarettes. Went out to bring patient back and explained we have been calling her to take her back, patient states finally. Put cigarette out and patient asked for it back to smoke later. Advised patient we cannot have her going in and out to smoke.
--- NOTE | 2022-07-05 17:53 | ED_ITS ---
HPI - SOB/Dyspnea <Travis Blount MD - Last Filed: 07/05/22 17:59> General Chief Complaint: Shortness of Breath/Dyspnea Stated Complaint: SOB Time Seen by Provider: 07/05/22 17:14 Source: patient Mode of arrival: Wheelchair History of Present Illness HPI Narrative: This 82-year-old woman comes to the ER today feeling like she needs more diuretic medicine. She says she was here yesterday for a lengthy ER stay and felt somewhat better. When she got home she had 2 of her water pills left and she took them but it did not help. She got a cab to come back here today. She has waited in the lobby for nearly 5 hours to be seen because of the census. She denies chest pain other than left lateral rib pain which she attributes to a recent injury. She points out that her right leg is more swollen than the left and she says that she has severe lymphedema from extensive lymph node surgery secondary to malignant melanoma in the past. She says she needs the diuretic medicine because of her lymphedema. She denies recent fever or new injuries. Related Data Previous Rx's Medication Instructions Recorded acetaminophen 325 mg tablet 650 mg PO Q4H PRN Fever/Mild Pain 07/07/22 (1-3) #90 tabs amlodipine 5 mg tablet (Norvasc) 10 mg PO DAILY #60 tabs 07/07/22 azithromycin 250 mg tablet 500 mg PO DAILY #1 tab 07/07/22 (Zithromax Z-Anuel) lisinopril 5 mg tablet 5 mg PO DAILY #30 tabs 07/07/22 metoprolol tartrate 25 mg tablet 25 mg PO BID #60 tabs 07/07/22 pantoprazole 40 mg tablet,delayed 40 mg PO 0700 #30 tabs 07/07/22 release tramadol 50 mg tablet 50 mg PO TID PRN Pain, Moderate 07/07/22 (4-6) #30 tabs Allergies Allergy/AdvReac Type Severity Reaction Status Date / Time No Known Drug Allergies Allergy Verified 07/05/22 13:21 Review of Systems <Travis Blount MD - Last Filed: 07/05/22 17:59> Review of Systems Narrative: Complete review of systems is remarkable for no fever, chest pain, shortness of breath, right lower extremity edema, no nausea or vomiting and otherwise negative. Patient History <Travis Blount MD - Last Filed: 07/05/22 17:59> Medical History (Updated 07/06/22 @ 15:12 by Alyce Castro RN) Bipolar 1 disorder Contusion of knee, right Hypertension Melanoma Social History household members: none Smoking Status: Current some day smoker alcohol intake: never Smoking Status: Never smoker alcohol intake frequency: holidays/special occasions only Substance Use Type: does not use Exam <Travis Blount MD - Last Filed: 07/05/22 17:59> Narrative Exam Narrative: GENERAL: Alert, cooperative and in no distress. She speaks haltingly intermittently. It sometimes she will speak in full sentences very fluently and then at other times while she is describing her shortness of breath she will take a breath in between each word. HEAD: Atraumatic. Normocephalic. EYES: Sclera are clear without icterus. Extraocular movements are full. ENT: No rhinorrhea. Oropharynx is moist. Mouth exam is benign. NECK: Supple. Full range of motion. CARDIOVASCULAR: Normal rate and rhythm without murmur gallop or rub. RESPIRATORY: Clear to auscultation. Breath sounds equal bilaterally. No wheezes, rales, or rhonchi. GASTROINTESTINAL: Abdomen soft, non-tender, nondistended. EXTREMITIES: She has asymmetric swelling of her right lower extremity with minimal pitting edema. BACK: Normal inspection, no CVA tenderness. NEURO: Nonfocal examination, normal speech, normal gait. SKIN: No rash or erythema of visible areas PSYCH: Normally oriented. Normal range of affect. Appropriate behavior Initial Vital Signs Initial Vital Signs: Vital Signs Temperature 97.6 F 07/05/22 13:21 Pulse Rate 78 07/05/22 13:21 Respiratory Rate 16 07/05/22 13:21 Blood Pressure 151/68 H 07/05/22 13:21 Pulse Oximetry 98 07/05/22 13:21 Oxygen Delivery Method 07/05/22 13:21 <Isaiah Pepper DO - Last Filed: 07/09/22 07:03> Initial Vital Signs Initial Vital Signs: Vital Signs Temperature 97.6 F 07/05/22 13:21 Pulse Rate 78 07/05/22 13:21 Respiratory Rate 16 10/18/22 13:21 Blood Pressure 151/68 H 07/05/22 13:21 Pulse Oximetry 98 07/05/22 13:21 Oxygen Delivery Method 07/05/22 13:21 Course <Travis Blount MD - Last Filed: 07/05/22 17:59> Orders Ordered: Discontinued Medications Acetaminophen (Acetaminophen 325 Mg Tablet) 650 mg PO NOW ONE Stop: 07/05/22 19:07 Last Admin: 07/05/22 19:36 Dose: 650 mg Documented By: ALEJANDRO Vital Signs Vital signs: Vital Signs - 8 hr 07/05/22 13:21 Temperature 97.6 F Pulse Rate 78 Respiratory Rate 16 Blood Pressure 151/68 H Pulse Oximetry 98 Oxygen Delivery Method Room Air <Isaiah Pepper DO - Last Filed: 07/09/22 07:03> Orders Ordered: Discontinued Medications Acetaminophen (Acetaminophen 325 Mg Tablet) 650 mg PO NOW ONE Stop: 07/05/22 19:07 Last Admin: 07/05/22 19:36 Dose: 650 mg Documented By: ALEJANDRO Consultations Consultation #1: [facility] however patient eloped prior to my ability to hold this discussion Vital Signs Vital signs: Vital Signs - 8 hr 07/05/22 13:21 Temperature 97.6 F Pulse Rate 78 Respiratory Rate 16 Blood Pressure 151/68 H Pulse Oximetry 98 Oxygen Delivery Method Room Air MDM - SOB/Dyspnea <Travis Blount MD - Last Filed: 07/05/22 17:59> Lab Data Result diagrams: 07/05/22 18:25 07/05/22 18:25 Labs: Lab Results 07/05/22 07/05/22 07/05/22 Range/Units 18:25 18:25 18:25 WBC 9.8 (4.5-11.0) X10^3/uL RBC 4.23 (4.0-5.2) X10^6/uL Hgb 10.5 L (12.0-16.0) g/dL Hct 32.8 L (36-46) % MCV 77.6 L (80-100) fL MCH 24.9 L (26-34) PG MCHC 32.1 (30-36) % RDW 16.5 H (11.6-14.8) % Plt Count 342 (150-400) X10^3/uL Neut % (Auto) 72.1 (50-75) % Lymph % (Auto) 14.8 L (25-40) % [place] % (Auto) 7.8 (3-14) % Eos % (Auto) 4.5 H (2-4) % Baso % (Auto) 0.8 (0-2) % Neut # (Auto) 7100 H (0674-3633) /uL Lymph # (Auto) 1400 (7771-2193) /uL [place] # (Auto) 800 (0-900) /uL Eos # (Auto) 400 (0-450) /uL Baso # (Auto) 100 (0-100) /uL PT 11.9 (10.1-12.7) SECONDS INR 1.0 (0.9-1.3) Sodium 135 L (137-145) mmol/L Potassium 4.2 (3.4-5.1) mmol/L Chloride 98 (98-107) mmol/L Carbon Dioxide 29 (22-32) mmol/L BUN 22 H (7-17) mg/dL Creatinine 1.08 H (0.52-1.04) mg/dL Estimated GFR 51 L (>60) mL/min BUN/Creatinine Ratio 20.4 (6-22) Glucose 99 (80-110) mg/dL Lactate (0.7-2.1) mmol/L Calcium 8.6 (8.4-10.2) mg/dL Total Bilirubin 0.3 (0.2-1.3) mg/dL AST 20 (14-36) IU/L ALT 11 (<35) IU/L Alkaline Phosphatase 84 (38-126) U/L NT-Pro-B Natriuret Pep 1900 H (<450) pg/mL Total Protein 6.9 (6.3-8.2) g/dL Albumin 3.6 (3.5-5.0) g/dL Globulin 3.3 (1.7-4.1) g/dL Albumin/Globulin Ratio 1.1 (1.0-2.8) 07/05/22 Range/Units 18:25 WBC (4.5-11.0) X10^3/uL RBC (4.0-5.2) X10^6/uL Hgb (12.0-16.0) g/dL Hct (36-46) % MCV (80-100) fL MCH (26-34) PG MCHC (30-36) % RDW (11.6-14.8) % Plt Count (150-400) X10^3/uL Neut % (Auto) (50-75) % Lymph % (Auto) (25-40) % [place] % (Auto) (3-14) % Eos % (Auto) (2-4) % Baso % (Auto) (0-2) % Neut # (Auto) (5426-3678) /uL Lymph # (Auto) (6627-7895) /uL [place] # (Auto) (0-900) /uL Eos # (Auto) (0-450) /uL Baso # (Auto) (0-100) /uL PT (10.1-12.7) SECONDS INR (0.9-1.3) Sodium (137-145) mmol/L Potassium (3.4-5.1) mmol/L Chloride (98-107) mmol/L Carbon Dioxide (22-32) mmol/L BUN (7-17) mg/dL Creatinine (0.52-1.04) mg/dL Estimated GFR (>60) mL/min BUN/Creatinine Ratio (6-22) Glucose (80-110) mg/dL Lactate 1.4 (0.7-2.1) mmol/L Calcium (8.4-10.2) mg/dL Total Bilirubin (0.2-1.3) mg/dL AST (14-36) IU/L ALT (<35) IU/L Alkaline Phosphatase (38-126) U/L NT-Pro-B Natriuret Pep (<450) pg/mL Total Protein (6.3-8.2) g/dL Albumin (3.5-5.0) g/dL Globulin (1.7-4.1) g/dL Albumin/Globulin Ratio (1.0-2.8) <Isaiah Pepper, - Last Filed: 07/09/22 07:03> Lab Data Labs: Lab Results 07/05/22 07/05/22 07/05/22 Range/Units 18:25 18:25 18:25 WBC 9.8 (4.5-11.0) X10^3/uL RBC 4.23 (4.0-5.2) X10^6/uL Hgb 10.5 L (12.0-16.0) g/dL Hct 32.8 L (36-46) % MCV 77.6 L (80-100) fL MCH 24.9 L (26-34) PG MCHC 32.1 (30-36) % RDW 16.5 H (11.6-14.8) % Plt Count 342 (150-400) X10^3/uL Neut % (Auto) 72.1 (50-75) % Lymph % (Auto) 14.8 L (25-40) % [place] % (Auto) 7.8 (3-14) % Eos % (Auto) 4.5 H (2-4) % Baso % (Auto) 0.8 (0-2) % Neut # (Auto) 7100 H (3403-7519) /uL Lymph # (Auto) 1400 (9831-1707) /uL [place] # (Auto) 800 (0-900) /uL Eos # (Auto) 400 (0-450) /uL Baso # (Auto) 100 (0-100) /uL PT 11.9 (10.1-12.7) SECONDS INR 1.0 (0.9-1.3) Sodium 135 L (137-145) mmol/L Potassium 4.2 (3.4-5.1) mmol/L Chloride 98 (98-107) mmol/L Carbon Dioxide 29 (22-32) mmol/L BUN 22 H (7-17) mg/dL Creatinine 1.08 H (0.52-1.04) mg/dL Estimated GFR 51 L (>60) mL/min BUN/Creatinine Ratio 20.4 (6-22) Glucose 99 (80-110) mg/dL Lactate (0.7-2.1) mmol/L Calcium 8.6 (8.4-10.2) mg/dL Total Bilirubin 0.3 (0.2-1.3) mg/dL AST 20 (14-36) IU/L ALT 11 (<35) IU/L Alkaline Phosphatase 84 (38-126) U/L NT-Pro-B Natriuret Pep 1900 H (<450) pg/mL Total Protein 6.9 (6.3-8.2) g/dL Albumin 3.6 (3.5-5.0) g/dL Globulin 3.3 (1.7-4.1) g/dL Albumin/Globulin Ratio 1.1 (1.0-2.8) 07/05/22 Range/Units 18:25 WBC (4.5-11.0) X10^3/uL RBC (4.0-5.2) X10^6/uL Hgb (12.0-16.0) g/dL Hct (36-46) % MCV (80-100) fL MCH (26-34) PG MCHC (30-36) % RDW (11.6-14.8) % Plt Count (150-400) X10^3/uL Neut % (Auto) (50-75) % Lymph % (Auto) (25-40) % [place] % (Auto) (3-14) % Eos % (Auto) (2-4) % Baso % (Auto) (0-2) % Neut # (Auto) (6551-7008) /uL Lymph # (Auto) (7550-2603) /uL [place] # (Auto) (0-900) /uL Eos # (Auto) (0-450) /uL Baso # (Auto) (0-100) /uL PT (10.1-12.7) SECONDS INR (0.9-1.3) Sodium (137-145) mmol/L Potassium (3.4-5.1) mmol/L Chloride (98-107) mmol/L Carbon Dioxide (22-32) mmol/L BUN (7-17) mg/dL Creatinine (0.52-1.04) mg/dL Estimated GFR (>60) mL/min BUN/Creatinine Ratio (6-22) Glucose (80-110) mg/dL Lactate 1.4 (0.7-2.1) mmol/L Calcium (8.4-10.2) mg/dL Total Bilirubin (0.2-1.3) mg/dL AST (14-36) IU/L ALT (<35) IU/L Alkaline Phosphatase (38-126) U/L NT-Pro-B Natriuret Pep (<450) pg/mL Total Protein (6.3-8.2) g/dL Albumin (3.5-5.0) g/dL Globulin (1.7-4.1) g/dL Albumin/Globulin Ratio (1.0-2.8) Discharge Plan Departure Patient Disposition: Left Against Medical Advice Clinical Impression: Left against medical advice Prescriptions: No Action azithromycin [Zithromax Z-Anuel] 250 mg Tablet 500 mg PO DAILY Qty: 1 0RF amlodipine [Norvasc] 5 mg Tablet 10 mg PO DAILY Qty: 60 0RF tramadol 50 mg Tablet 50 mg PO TID PRN (Reason: Pain, Moderate (4-6)) Qty: 30 0RF pantoprazole 40 mg Tablet,Delayed Release (Dr/Ec) 40 mg PO 0700 Qty: 30 0RF lisinopril 5 mg Tablet 5 mg PO DAILY Qty: 30 0RF metoprolol tartrate 25 mg Tablet 25 mg PO BID Qty: 60 0RF acetaminophen 325 mg Tablet 650 mg PO Q4H PRN (Reason: Fever/Mild Pain (1-3)) Qty: 90 0RF Referrals: Rohit Zuniga MD [Primary Care Provider] - Stand Alone Forms: Against Medical Advice
[2022-07-05 18:30] VITALS: BP 159/71; PULSE 79; RESP 16; O2SAT 97
[2022-07-05 18:42] LABS: Prothrombin Time 11.9 SECONDS (10.1-12.7)
[2022-07-05 18:43] LABS: Add Manual Diff / Slide Review NO; Basophils Absolute Auto 100 /uL (0-100); Basophils Percent Auto 0.8 % (0-2); Eosinophils Absolute Auto 400 /uL (0-450); Eosinophils Percent Auto 4.5 % (2-4); Hematocrit 32.8 % (36-46); Hemoglobin 10.5 g/dL (12.0-16.0); Lymphocytes Absolute Auto 1400 /uL (1100-4500); Lymphocytes Percent Auto 14.8 % (25-40); Mean Corpuscular HGB Conc 32.1 % (30-36); Mean Corpuscular Hemoglobin 24.9 PG (26-34); Mean Corpuscular Volume 77.6 fL (80-100); Monocytes Absolute Auto 800 /uL (0-900); Monocytes Percent Auto 7.8 % (3-14); Neutrophils Absolute Auto 7100 /uL (1500-7000); Neutrophils Percent Auto 72.1 % (50-75); Platelet Count 342 X10^3/uL (150-400); Red Blood Cell Count 4.23 X10^6/uL (4.0-5.2); Red Cell Distribution Width 16.5 % (11.6-14.8); White Blood Cell Count 9.8 X10^3/uL (4.5-11.0)
[2022-07-05 18:46] LABS: Alanine Aminotransferase 11 IU/L (<35); Albumin 3.6 g/dL (3.5-5.0); Albumin Globulin Ratio 1.1 (1.0-2.8); Alkaline Phosphatase 84 U/L (38-126); Aspartate Aminotransferase 20 IU/L (14-36); BUN Creatinine Ratio 20.4 (6-22); Bilirubin Total 0.3 mg/dL (0.2-1.3); Blood Urea Nitrogen 22 mg/dL (7-17); Calcium 8.6 mg/dL (8.4-10.2); Carbon Dioxide 29 mmol/L (22-32); Chloride 98 mmol/L (98-107); Estimated Glomerular Filt Rate 51 mL/min (>60); Globulin 3.3 g/dL (1.7-4.1); Glucose 99 mg/dL (80-110); HEMOLYSIS 46 (0-50); Potassium 4.2 mmol/L (3.4-5.1); Sodium 135 mmol/L (137-145); Total Protein 6.9 g/dL (6.3-8.2)
[2022-07-05 18:47] LABS: Lactate (Lactic Acid) 1.4 mmol/L (0.7-2.1)
[2022-07-05 18:55] LABS: NT-proBNP (BNP-Adult 18+) 1900 pg/mL (<450)
--- NOTE | 2022-07-05 18:59 | CM.SWNOTE ---
MANAGER POWER/DCP Note Patient is 82 y/o female who presents to ED due to concern for SOB. Patient presented to ED yesterday due to concern for GLF. Patient's PCP is Dr. Zuniga, patient has [facility] insurance. Patient has hx of Hypertension, Melanoma, Contusion of right knee & Bipolar Disorder. Patient presents as A/Ox3, SOB when speaking and Anxious with concerns regarding her pets at home. Patient is repetitive with statement that she was reported to APS due to concern for her ability to care for her pets and self at home. Patient requests to call LE to f/u regarding this concern. 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 MANAGER POWER observes patient walk independently to bathroom without issues. Patient endorses she drives her car. Patient endorses she was too weak and sick to sweet pickled fruit maker rx for Lasix yesterday. Per ED provider and CT scan, patient has a small dissection of descending thoracic aorta which will likely need further medical attention. Plan: ED provider to evaluate patient further to determine POC. MANAGER POWER to f/u further for DCP needs. Jessica Valentin, [employer]
[2022-07-05 19:00] VITALS: BP 166/74; PULSE 78; RESP 17; O2SAT 95
[2022-07-05 19:30] VITALS: BP 153/69; PULSE 76; RESP 17; O2SAT 99
--- NOTE | 2022-07-05 19:35 | DI.US.S_ITS ---
PROCEDURE: US PERIPH VENOUS LOW EXTREM RT INDICATIONS: EDEMA TECHNIQUE: Real-time imaging, as well as color and pulse Doppler interrogation, were performed of the lower extremity deep veins from the inguinal ligament to the popliteal fossa. COMPARISON: None. FINDINGS: The common femoral, femoral and popliteal veins are normally compressible, and free of intraluminal thrombus. Color and pulse Doppler demonstrate normal phasic intraluminal flow. There is normal augmentation response to distal compression maneuver. IMPRESSION: No right lower extremity DVT. Dictated by: Von Chanel M.D. on 07/05/2022 at 20:38 Approved by: Von Chanel M.D. on 07/05/2022 at 20:39
[2022-07-05] MEDS: ACETAMINOPHEN 325 MG TABLET 650 MG PO (19:36)
--- NOTE | 2022-07-05 19:40 | PC.NURSE ---
185 Patient has refused all Iv, labs, commercial leasing agent until she is seen by Dr. Pepper. Dr. Pepper at bedside.
--- NOTE | 2022-07-05 19:41 | PC.NURSE ---
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 Has various complaints and requests. Has requested coffee upwards of 15 times despite being told repeatedly that she is NPO until Dr. Pepper speaks with the Vascular surgeon. She reports she is unhappy with this and continues to ask. Is A&Ox3, however does have Bipolar. Jessica has been invovled with the patient's case and helping to calm her and provide for any needs. She requested tylenol, this was provided by Dr. Pepper. Dr. Pepper has been at bedside multiple times to reassure patient and inform her of his process of care.
[2022-07-05 20:30] VITALS: BP 155/76; PULSE 87; RESP 18; O2SAT 99
--- NOTE | 2022-07-05 22:25 | PC.NURSE ---
2044 Patient requesting to leave at this time, wants to sign out AMA. Dr. Pepper informed and aware and approved AMA paperwork.
--- NOTE | 2022-07-05 22:27 | PC.NURSE ---
2100 AMA Paperwork signed. Patient given clean paper pants upon request. Taken out to lobby by GIGI Davis in Wheelchair for DC. [employer] taxi to home in [place] approved by Chrissy YU and called by Dominique YU.
== END 2022-07-05 21:00 | disposition left against medical advice (07) ==
PROVIDERS: Family Medicine Addiction Medicine; Emergency Provider Emergency Medicine; PCP Internal Medicine
DX: R06.02 Shortness of breath (principal); I89.0 Lymphedema, not elsewhere classified; Z53.29 Procedure and treatment not carried out because of patient's decision for other reasons
CPT/HCPCS: 36415; 71046; 80053; 83605; 83880; 85025; 85610; 93005; 93971; 99284

== ENCOUNTER 2022-07-06 04:23 | Inpatient (IN) | payer OTHER, SELFPAY ==
[2022-07-06] VITALS (50 sets, daily range): BP systolic 96–195; BP diastolic 50–92; PULSE 57–84; RESP 18–36; TEMP 36.6; O2SAT 90–98; BMI 28.3
--- NOTE | 2022-07-06 04:53 | PC.NURSE ---
0453 This RN left a message with patients son- Ashkan- as patient appears unable to take care of self at home. Patient verbalizes understanding and that she needs help and cannot make it to grocery store or medical appointments independently.
--- NOTE | 2022-07-06 05:57 | ED.SOB ---
HPI - SOB/Dyspnea <Isaiah Templeton, DO - Last Filed: 07/09/22 07:31> General Chief Complaint: Shortness of Breath/Dyspnea Stated Complaint: Shortness of Breath Time Seen by Provider: 07/06/22 04:36 Source: patient and EMS Mode of arrival: EMS Limitations: no limitations History of Present Illness HPI Narrative: 82-year-old female nonsmoker with history of hypertension presents by EMS for evaluation of ongoing cough and shortness of breath. She is been here multiple times in the past few days with complaints of ground level fall and shortness of breath. 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 She is been negative for COVID and has had no pneumonia or evidence of heart attack. She did have a CT scan of her chest to rule out PE but a follow-up over-read noted a possible small thoracic dissection with flap, however she left AMA before vascular consultation could be obtained. Patient left earlier today and went home then proceeded to the [facility] for awhile before going home again and developed shortness of breath and called EMS. There is some discussion about the living arrangements and there has been question of whether she can care for herself. She denies any suicidal or homicidal ideation and states that she is doing just fine. Apparently there was an APS activation recently Related Data Previous Rx's Medication Instructions Recorded acetaminophen 325 mg tablet 650 mg PO Q4H PRN Fever/Mild Pain 07/07/22 (1-3) #90 tabs amlodipine 5 mg tablet (Norvasc) 10 mg PO DAILY #60 tabs 07/07/22 azithromycin 250 mg tablet 500 mg PO DAILY #1 tab 07/07/22 (Zithromax Z-Anuel) lisinopril 5 mg tablet 5 mg PO DAILY #30 tabs 07/07/22 metoprolol tartrate 25 mg tablet 25 mg PO BID #60 tabs 07/07/22 pantoprazole 40 mg tablet,delayed 40 mg PO 0700 #30 tabs 07/07/22 release tramadol 50 mg tablet 50 mg PO TID PRN Pain, Moderate 07/07/22 (4-6) #30 tabs Allergies Allergy/AdvReac Type Severity Reaction Status Date / Time No Known Drug Allergies Allergy Verified 07/05/22 13:21 Review of Systems <Isaiah Pepper DO - Last Filed: 07/09/22 07:31> Review of Systems Narrative: GENERAL: Denies chills, fatigue, malaise, fever, sweats. HEENT: Denies sinus pain, ear pain, sore throat, difficulty swallowing, dizziness. RESPIRATORY: See HPI CARDIOVASCULAR: Denies chest pain, palpitations, orthopnea, edema, GASTROINTESTINAL: Denies nausea, vomiting, abdominal pain, diarrhea, constipation, melena. : Denies dysuria, frequency, incontinence, hematuria, urinary retention. MUSCULOSKELETAL: denies weakness, joint pain, or bony pain SKIN: Denies rash, skin lesions, or other NEUROLOGIC: Denies weakness, headache, numbness, change in speech, confusion, seizures, incoordination. PSYCHIATRIC: No concerning psychosocial issues. 12 point review of systems is negative except for those stated above Patient History <Isaiah Pepper DO - Last Filed: 07/09/22 07:31> Medical History (Updated 07/06/22 @ 15:12 by Alyce Castro RN) Bipolar 1 disorder Contusion of knee, right Hypertension Melanoma Social History household members: none Smoking Status: Current some day smoker alcohol intake: never Smoking Status: Never smoker alcohol intake frequency: holidays/special occasions only Substance Use Type: does not use Exam <Isaiah Pepper DO - Last Filed: 07/09/22 07:31> Narrative Exam Narrative: GENERAL: [82] year old patient appears stated age. Well-developed patient, in mild distress. Alert and oriented, no significant respiratory distress HEAD: Atraumatic. Normocephalic. EYES: Pupils equal round and reactive. Extraocular motions intact. No scleral icterus. No injection or drainage. ENT: Nose without bleeding, purulent drainage. Throat without erythema, tonsillar hypertrophy or exudate. Airway patent. NECK: Trachea midline. Non tender CARDIOVASCULAR: Regular rate and rhythm without murmurs, gallops, or rubs. RESPIRATORY: C no significant respiratory distress, faint crackles bilaterally, no need for supplemental oxygen GASTROINTESTINAL: Abdomen soft, non-tender, nondistended. EXTREMITIES: Right lower extremity with chronic 1+ edema BACK: Nontender without deformity or crepitance. No flank tenderness. NEURO: AOx3. SKIN: No rash or erythema of visible areas Initial Vital Signs Initial Vital Signs: Vital Signs Pulse Rate 84 07/06/22 04:34 Pulse Oximetry 98 07/06/22 04:34 <Marivel Mandujano DO - Last Filed: 07/06/22 15:56> Initial Vital Signs Initial Vital Signs: Vital Signs Pulse Rate 84 07/06/22 04:34 Pulse Oximetry 98 07/06/22 04:34 Course <Isaiah Pepper DO - Last Filed: 07/09/22 07:31> Orders Ordered: Discontinued Medications Acetaminophen (Acetaminophen 325 Mg Tablet) 975 mg PO NOW ONE Stop: 07/06/22 08:16 Last Admin: 07/06/22 08:21 Dose: 975 mg Documented By: CJ Acetaminophen (Acetaminophen 325 Mg Tablet) 650 mg PO Q4H PRN PRN Reason: Fever/Mild Pain (1-3) Last Admin: 07/07/22 10:24 Dose: 650 mg Documented By: Admin: 07/07/22 04:04 Dose: 650 mg Documented By: Admin: 07/06/22 22:06 Dose: 650 mg Documented By: Admin: 07/06/22 12:03 Dose: 650 mg Documented By: FERNY Amlodipine Besylate (Amlodipine 5 Mg Tablet) 10 mg PO NOW ONE Stop: 07/06/22 06:12 Last Admin: 07/06/22 06:25 Dose: 10 mg Documented By: HARLAN Amlodipine Besylate (Amlodipine 5 Mg Tablet) 10 mg PO DAILY [facility] Last Admin: 07/07/22 07:34 Dose: 10 mg Documented By: EMILY Amlodipine Besylate (Amlodipine 5 Mg Tablet) 10 mg PO DAILY Stop: 07/07/22 23:59 Azithromycin (Azithromycin 250 Mg Tablet) 500 mg PO DAILY [facility] Stop: 07/08/22 16:00 Last Admin: 07/07/22 09:23 Dose: 500 mg Documented By: Admin: 07/06/22 15:33 Dose: 500 mg Documented By: ZULEIMA Azithromycin (Azithromycin 250 Mg Tablet) 500 mg PO DAILY Stop: 07/07/22 23:59 Enoxaparin Sodium (Enoxaparin 40 Mg/0.4 Ml Syringe) 40 mg 0.5 mg/kg (40 mg) SUBCUT DAILY [facility] Last Admin: 07/07/22 09:22 Dose: 40 mg Documented By: EMILY Furosemide (Furosemide 40 Mg/4 Ml Vial) 40 mg IV NOW ONE Stop: 07/06/22 05:59 Last Admin: 07/06/22 06:31 Dose: 40 mg Documented By: HARLAN Sodium Chloride (Normal Saline 0.9%) 1,000 mls @ 150 mls/hr IV CONT [facility] Last Infusion: 07/06/22 10:40 Dose: 0 mls/hr Documented By: Admin: 07/06/22 06:30 Dose: 150 mls/hr Documented By: HARLAN Esmolol HCl (Brevibloc) 2.5 gm in 250 mls @ 23.133 mls/hr IV TITRATE [facility]; Protocol Last Titration: 07/06/22 14:30 Dose: 0 mcg/kg/min, 0 mls/hr Documented By: Titration: 07/06/22 13:03 Dose: 50 mcg/kg/min, 23.133 mls/hr Documented By: Titration: 07/06/22 10:42 Dose: 100 mcg/kg/min, 46.267 mls/hr Documented By: Titration: 07/06/22 09:08 Dose: 100 mcg/kg/min, 46.267 mls/hr Documented By: Admin: 07/06/22 08:45 Dose: 50 mcg/kg/min, 23.133 mls/hr Documented By: CJ Lisinopril (Lisinopril 5 Mg Tablet) 5 mg PO DAILY [facility] Last Admin: 07/07/22 09:25 Dose: 5 mg Documented By: EMILY Lisinopril (Lisinopril 5 Mg Tablet) 5 mg PO DAILY Stop: 07/07/22 23:59 Metoprolol Tartrate (Metoprolol Ir 25 Mg Tablet) 25 mg PO BID [facility] Last Admin: 07/07/22 16:59 Dose: 25 mg Documented By: Admin: 07/07/22 07:33 Dose: 25 mg Documented By: Admin: 07/06/22 20:38 Dose: 25 mg Documented By: Admin: 07/06/22 12:03 Dose: 25 mg Documented By: FERNY Metoprolol Tartrate (Metoprolol Ir 25 Mg Tablet) 25 mg PO DAILY Stop: 07/07/22 23:59 Pantoprazole Sodium (Pantoprazole Dr 40 Mg Tablet) 40 mg PO 0700 [facility] Last Admin: 07/07/22 06:10 Dose: 40 mg Documented By: TAMARA Pantoprazole Sodium (Pantoprazole Dr 40 Mg Tablet) 40 mg PO DAILY Stop: 07/07/22 23:59 Sodium Chloride (Sodium Chloride 0.9% Flush) 10 ml IV PRN PRN PRN Reason: Flush Sodium Chloride (Sodium Chloride 0.9% Flush) 10 ml IV BID [facility] Last Admin: 07/07/22 09:50 Dose: 10 ml Documented By: Admin: 07/06/22 20:38 Dose: 10 ml Documented By: TAMARA Tramadol HCl (Tramadol 50 Mg Tablet) 50 mg PO TID PRN PRN Reason: Pain, Moderate (4-6) Last Admin: 07/07/22 16:42 Dose: 50 mg Documented By: Admin: 07/07/22 12:42 Dose: 50 mg Documented By: EMILY Vital Signs Vital signs: Vital Signs - 8 hr 07/06/22 08:00 07/06/22 08:00 07/06/22 08:30 Pulse Rate 77 Respiratory Rate 26 H Blood Pressure 170/88 H 174/79 H Pulse Oximetry 96 07/06/22 08:30 07/06/22 08:55 07/06/22 08:55 Pulse Rate 74 73 Respiratory Rate 30 H 28 H Blood Pressure 168/77 H Pulse Oximetry 97 95 <Marivel Mandujano DO - Last Filed: 07/06/22 15:56> Orders Ordered: Discontinued Medications Acetaminophen (Acetaminophen 325 Mg Tablet) 975 mg PO NOW ONE Stop: 07/06/22 08:16 Last Admin: 07/06/22 08:21 Dose: 975 mg Documented By: CJ Acetaminophen (Acetaminophen 325 Mg Tablet) 650 mg PO Q4H PRN PRN Reason: Fever/Mild Pain (1-3) Last Admin: 07/07/22 10:24 Dose: 650 mg Documented By: Admin: 07/07/22 04:04 Dose: 650 mg Documented By: Admin: 07/06/22 22:06 Dose: 650 mg Documented By: Admin: 07/06/22 12:03 Dose: 650 mg Documented By: FERNY Amlodipine Besylate (Amlodipine 5 Mg Tablet) 10 mg PO NOW ONE Stop: 07/06/22 06:12 Last Admin: 07/06/22 06:25 Dose: 10 mg Documented By: HARLAN Amlodipine Besylate (Amlodipine 5 Mg Tablet) 10 mg PO DAILY [facility] Last Admin: 07/07/22 07:34 Dose: 10 mg Documented By: EMILY Amlodipine Besylate (Amlodipine 5 Mg Tablet) 10 mg PO DAILY Stop: 07/07/22 23:59 Azithromycin (Azithromycin 250 Mg Tablet) 500 mg PO DAILY [facility] Stop: 07/08/22 16:00 Last Admin: 07/07/22 09:23 Dose: 500 mg Documented By: Admin: 07/06/22 15:33 Dose: 500 mg Documented By: ZULEIMA Azithromycin (Azithromycin 250 Mg Tablet) 500 mg PO DAILY Stop: 07/07/22 23:59 Enoxaparin Sodium (Enoxaparin 40 Mg/0.4 Ml Syringe) 40 mg 0.5 mg/kg (40 mg) SUBCUT DAILY [facility] Last Admin: 07/07/22 09:22 Dose: 40 mg Documented By: EMILY Furosemide (Furosemide 40 Mg/4 Ml Vial) 40 mg IV NOW ONE Stop: 07/06/22 05:59 Last Admin: 07/06/22 06:31 Dose: 40 mg Documented By: HARLAN Sodium Chloride (Normal Saline 0.9%) 1,000 mls @ 150 mls/hr IV CONT [facility] Last Infusion: 07/06/22 10:40 Dose: 0 mls/hr Documented By: Admin: 07/06/22 06:30 Dose: 150 mls/hr Documented By: HARLAN Esmolol HCl (Brevibloc) 2.5 gm in 250 mls @ 23.133 mls/hr IV TITRATE [facility]; Protocol Last Titration: 07/06/22 14:30 Dose: 0 mcg/kg/min, 0 mls/hr Documented By: Titration: 07/06/22 13:03 Dose: 50 mcg/kg/min, 23.133 mls/hr Documented By: Titration: 07/06/22 10:42 Dose: 100 mcg/kg/min, 46.267 mls/hr Documented By: Titration: 07/06/22 09:08 Dose: 100 mcg/kg/min, 46.267 mls/hr Documented By: Admin: 07/06/22 08:45 Dose: 50 mcg/kg/min, 23.133 mls/hr Documented By: CJ Lisinopril (Lisinopril 5 Mg Tablet) 5 mg PO DAILY [facility] Last Admin: 07/07/22 09:25 Dose: 5 mg Documented By: EMILY Lisinopril (Lisinopril 5 Mg Tablet) 5 mg PO DAILY Stop: 07/07/22 23:59 Metoprolol Tartrate (Metoprolol Ir 25 Mg Tablet) 25 mg PO BID [facility] Last Admin: 07/07/22 16:59 Dose: 25 mg Documented By: Admin: 07/07/22 07:33 Dose: 25 mg Documented By: Admin: 07/06/22 20:38 Dose: 25 mg Documented By: Admin: 07/06/22 12:03 Dose: 25 mg Documented By: FERNY Metoprolol Tartrate (Metoprolol Ir 25 Mg Tablet) 25 mg PO DAILY Stop: 07/07/22 23:59 Pantoprazole Sodium (Pantoprazole Dr 40 Mg Tablet) 40 mg PO 0700 [facility] Last Admin: 07/07/22 06:10 Dose: 40 mg Documented By: TAMARA Pantoprazole Sodium (Pantoprazole Dr 40 Mg Tablet) 40 mg PO DAILY Stop: 07/07/22 23:59 Sodium Chloride (Sodium Chloride 0.9% Flush) 10 ml IV PRN PRN PRN Reason: Flush Sodium Chloride (Sodium Chloride 0.9% Flush) 10 ml IV BID [facility] Last Admin: 07/07/22 09:50 Dose: 10 ml Documented By: Admin: 07/06/22 20:38 Dose: 10 ml Documented By: TAMARA Tramadol HCl (Tramadol 50 Mg Tablet) 50 mg PO TID PRN PRN Reason: Pain, Moderate (4-6) Last Admin: 07/07/22 16:42 Dose: 50 mg Documented By: Admin: 07/07/22 12:42 Dose: 50 mg Documented By: EMILY Vital Signs Vital signs: Vital Signs - 8 hr 07/06/22 08:00 07/06/22 08:00 07/06/22 08:30 Pulse Rate 77 Respiratory Rate 26 H Blood Pressure 170/88 H 174/79 H Pulse Oximetry 96 07/06/22 08:30 07/06/22 08:55 07/06/22 08:55 Pulse Rate 74 73 Respiratory Rate 30 H 28 H Blood Pressure 168/77 H Pulse Oximetry 97 95 MDM - SOB/Dyspnea <Isaiah Pepper, DO - Last Filed: 07/09/22 07:31> Lab Data Result diagrams: 07/07/22 Unknown 07/07/22 08:02 Labs: Lab Results 07/06/22 07/06/22 07/06/22 Range/Units 04:35 04:35 07:14 WBC 9.5 (4.5-11.0) X10^3/uL RBC 4.19 (4.0-5.2) X10^6/uL Hgb 10.6 L (12.0-16.0) g/dL Hct 32.9 L (36-46) % MCV 78.5 L (80-100) fL MCH 25.3 L (26-34) PG MCHC 32.2 (30-36) % RDW 16.4 H (11.6-14.8) % Plt Count 354 (150-400) X10^3/uL Neut % (Auto) 74.2 (50-75) % Lymph % (Auto) 13.9 L (25-40) % [place] % (Auto) 7.5 (3-14) % Eos % (Auto) 3.9 (2-4) % Baso % (Auto) 0.5 (0-2) % Neut # (Auto) 7000 (1156-7286) /uL Lymph # (Auto) 1300 (0224-6340) /uL [place] # (Auto) 700 (0-900) /uL Eos # (Auto) 400 (0-450) /uL Baso # (Auto) 0 (0-100) /uL Sodium 136 L (137-145) mmol/L Potassium 3.6 (3.4-5.1) mmol/L Chloride 97 L (98-107) mmol/L Carbon Dioxide 28 (22-32) mmol/L BUN 21 H (7-17) mg/dL Creatinine 0.95 (0.52-1.04) mg/dL Estimated GFR 59 L (>60) mL/min BUN/Creatinine Ratio 22.1 H (6-22) Glucose 99 (80-110) mg/dL Calcium 9.1 (8.4-10.2) mg/dL Total Bilirubin 0.3 (0.2-1.3) mg/dL AST 21 (14-36) IU/L ALT 10 (<35) IU/L Alkaline Phosphatase 99 (38-126) U/L Total Creatine Kinase 40 (30-135) U/L CK-MB (CK-2) TNP CK-MB (CK-2) Rel Index TNP Troponin I 0.027 (0.01-0.034) ng/mL NT-Pro-B Natriuret Pep 1300 H (<450) pg/mL Total Protein 7.2 (6.3-8.2) g/dL Albumin 3.9 (3.5-5.0) g/dL Globulin 3.3 (1.7-4.1) g/dL Albumin/Globulin Ratio 1.2 (1.0-2.8) Lipase 55 (23-300) U/L Chlamy pneumoniae PCR Not detected (Not Detect) Adenovirus (PCR) Not detected (Not Detect) B. pertussis DNA (PCR) Not detected (Not Detecte) B.parapertussis DNA PCR Not detected (Not Detecte) Coronavirus OC43 (PCR) Not detected (Not Detect) Coronavirus HKU1 (PCR) Not detected (Not Detect) Coronavirus 229E (PCR) Not detected (Not Detect) SARS-CoV-2 (PCR) Not detected (Not Detecte) Coronavirus NL63 (PCR) Not detected (Not Detect) Human Metapneumovir PCR Not detected (Not Detect) Influenza Type A (PCR) Not detected (Not Detect) Influenza Type B (PCR) Not detected (Not Detect) M. pneumoniae (PCR) Not detected (Not Detect) Parainfluenza 1 (PCR) Not detected (Not Detect) Parainfluenza 2 (PCR) Not detected (Not Detect) Parainfluenza 3 (PCR) Not detected (Not Detect) Parainfluenza 4 (PCR) Not detected (Not Detect) RSV (PCR) Not detected (Not Detect) Entero/Rhino (PCR) Detected H (Not Detect) <Marivel Mandujano, - Last Filed: 07/06/22 15:56> Lab Data Labs: Lab Results 07/06/22 07/06/22 07/06/22 Range/Units 04:35 04:35 07:14 WBC 9.5 (4.5-11.0) X10^3/uL RBC 4.19 (4.0-5.2) X10^6/uL Hgb 10.6 L (12.0-16.0) g/dL Hct 32.9 L (36-46) % MCV 78.5 L (80-100) fL MCH 25.3 L (26-34) PG MCHC 32.2 (30-36) % RDW 16.4 H (11.6-14.8) % Plt Count 354 (150-400) X10^3/uL Neut % (Auto) 74.2 (50-75) % Lymph % (Auto) 13.9 L (25-40) % [place] % (Auto) 7.5 (3-14) % Eos % (Auto) 3.9 (2-4) % Baso % (Auto) 0.5 (0-2) % Neut # (Auto) 7000 (1471-4628) /uL Lymph # (Auto) 1300 (4283-2630) /uL [place] # (Auto) 700 (0-900) /uL Eos # (Auto) 400 (0-450) /uL Baso # (Auto) 0 (0-100) /uL Sodium 136 L (137-145) mmol/L Potassium 3.6 (3.4-5.1) mmol/L Chloride 97 L (98-107) mmol/L Carbon Dioxide 28 (22-32) mmol/L BUN 21 H (7-17) mg/dL Creatinine 0.95 (0.52-1.04) mg/dL Estimated GFR 59 L (>60) mL/min BUN/Creatinine Ratio 22.1 H (6-22) Glucose 99 (80-110) mg/dL Calcium 9.1 (8.4-10.2) mg/dL Total Bilirubin 0.3 (0.2-1.3) mg/dL AST 21 (14-36) IU/L ALT 10 (<35) IU/L Alkaline Phosphatase 99 (38-126) U/L Total Creatine Kinase 40 (30-135) U/L CK-MB (CK-2) TNP CK-MB (CK-2) Rel Index TNP Troponin I 0.027 (0.01-0.034) ng/mL NT-Pro-B Natriuret Pep 1300 H (<450) pg/mL Total Protein 7.2 (6.3-8.2) g/dL Albumin 3.9 (3.5-5.0) g/dL Globulin 3.3 (1.7-4.1) g/dL Albumin/Globulin Ratio 1.2 (1.0-2.8) Lipase 55 (23-300) U/L Chlamy pneumoniae PCR Not detected (Not Detect) Adenovirus (PCR) Not detected (Not Detect) B. pertussis DNA (PCR) Not detected (Not Detecte) B.parapertussis DNA PCR Not detected (Not Detecte) Coronavirus OC43 (PCR) Not detected (Not Detect) Coronavirus HKU1 (PCR) Not detected (Not Detect) Coronavirus 229E (PCR) Not detected (Not Detect) SARS-CoV-2 (PCR) Not detected (Not Detecte) Coronavirus NL63 (PCR) Not detected (Not Detect) Human Metapneumovir PCR Not detected (Not Detect) Influenza Type A (PCR) Not detected (Not Detect) Influenza Type B (PCR) Not detected (Not Detect) M. pneumoniae (PCR) Not detected (Not Detect) Parainfluenza 1 (PCR) Not detected (Not Detect) Parainfluenza 2 (PCR) Not detected (Not Detect) Parainfluenza 3 (PCR) Not detected (Not Detect) Parainfluenza 4 (PCR) Not detected (Not Detect) RSV (PCR) Not detected (Not Detect) Entero/Rhino (PCR) Detected H (Not Detect) Imaging Data CT chest 07/04/22: Radiologist's Impression: Signed Patient: Yue Chinchilla MR#: [id number] : 1940 Acct:[id number] Age/Sex: 82 / F Date of Service: 07/04/22 Loc: ED Accession Number: [id number] ?? Procedure: CT angio chest PE protocol Ordering Provider: Isaiah Pepper D.O. PROCEDURE:? CT ANGIO CHEST PE PROTOCOL ? INDICATIONS:? dyspnea, cough, critical D dimer ? TECHNIQUE:? After the administration of intravenous contrast, 2 mm thick sections acquired from the pulmonary apices to the posterior costophrenic angles.? 3-dimensional maximum intensity projection (MIP) coronal and sagittal reformats were then acquired through the thorax.? For radiation dose reduction, the following was used:? automated exposure control, adjustment of mA and/or kV according to patient size.? ? COMPARISON:? [facility], CR, L-SPINE 2-3 VIEWS, 07/20/2011, 13:18.? [facility], CR, XR THORACIC SPINE 3V, 07/04/2022, 1:05.? [facility], CT, CHEST/ABD/PEL WITH CONTRAST, 04/21/2016, 11:47.? CT, CHEST/ABD/PEL WITH CONTRAST, 01/27/2015, 10:08.? CT, CHEST/ABD/PEL WITH CONTRAST, 12/26/2013, 10:18.? CT, CHEST/ABD/PEL WITH CONTRAST, 12/20/2012, 9:29.? CT, CHEST ABDOMEN PELVIS WITH CONTRAST, 01/03/2012, 10:55.? [facility], CR, XR CHEST 1 VIEW, 12/19/2021, 11:45. ? FINDINGS:? Image quality:? Central pulmonary arteries are slightly under enhanced.? ? Pulmonary arteries:? Pulmonary arteries are normal in size, and demonstrate no intraluminal filling defects to suggest central pulmonary embolism.? ? Lungs and pleura:? Mild bilateral subpleural septal thickening.? Small pleural effusions are present.? Bibasilar opacities may be consolidation or atelectasis.? No pneumothorax.? Central and peripheral airways are patent.? Mild centrilobular emphysema. ? Mediastinum:? Heart size is mildly increased.? No pericardial effusion.? Mild coronary artery calcification.? ? There are enlarged mediastinal and hilar lymph nodes.? For example, there is a 1.0 x 1.4 cm AP window lymph node.? A 1.7 x 2.2 cm subcarinal lymph node is identified.? Right hilar lymph node measures up to 1.9 cm. ? Moderate atherosclerotic calcifications in thoracic and upper abdominal aorta.? There is small focal dissection in the descending thoracic aorta with an intimal flap (series 5, image 76).? Small saccular aneurysm at the side of dissection.? There is also mild fusiform descending thoracic aortic aneurysm measuring 3.7 cm x 3.6 cm.? Esophagus is normal in caliber.? There is a moderate-sized hiatal hernia.? ? The ascending aorta is ectatic measuring 3.9 cm AP and 4.2 cm transverse.? ? Bones and chest wall:? No suspicious bony lesions.? There are moderate compression fractures involving T10, T12 and L1, likely chronic.? Old right rib fractures are noted.? Thyroid gland is heterogeneous with multiple nodular densities.? No axillary or supraclavicular adenopathy.? ? Abdomen:? There are multiple cyst in left kidney.? The largest cyst measures 5.3 x 4.1 cm and is partially visualized.? ? IMPRESSION:? ? 1. Mild suboptimal opacification of central pulmonary arteries.? No definitive pulmonary emboli.? ? 2. 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 ? 3. Mild descending thoracic aortic aneurysm. ? 4. Small pleural effusions bilaterally. Bibasilar opacities may be consolidations or atelectasis. ? 5. Mild cardiomegaly.? Mildly subpleural septal thickening suggest mild CHF. ? 6. Mild mediastinal and hilar lymphadenopathy.? ? This finding is nonspecific and may be secondary to infectious, inflammatory or neoplastic etiology.? Recommend clinical correlation and follow up. ? 7. Moderate-sized hiatal hernia. ? 8. Chronic compression fractures of T10, T12 and L1.? No significant discrepancy with the police shift commander radiology preliminary report. ? ? Dictated by: Angle James M.D. on 07/04/2022 at 7:41 ? ? Approved by: Angle James M.D. on 07/04/2022 at 9:04 ? MDM Narrative Medical decision making narrative: Patient signed out to me by Dr. Pepper. Is seen evaluated patient currently in no respiratory distress or having any chest discomfort. Patient has multiple social issues. Concern for ability to care for self. Was seen by social work APS report was made. 8:00am Dr. Cortes, vascular a [facility] has been updated on patient's symptoms he has reviewed patient's CT from 2 days ago he says due to patient's noncompliance elevated blood pressure and very small dissection he says medication management only. He said is not surgical at this time and even if it for surgical it would not be surgical for the next 2-3 weeks. Recommended an esmolol drip with blood pressure goal less than 140 ideally 120 and heart rate 60-80. States that usually takes 12-24 hours for blood pressure to stabilize transfer over to p.o. meds. Bigger concern is obviously her social needs. Also recommends repeat CT in about 2 days (07/07/22) to be sure that there is no worsening Dr. McFarlene accepts patient Discharge Plan Departure Patient Disposition: Admitted As Inpatient Clinical Impression: Dissection of aorta, thoracic, Hypertension Admit Date/Time: 07/06/22 08:55 Admit Provider: Lauren Ferreira
--- NOTE | 2022-07-06 05:58 | DI.RAD.S_ITS ---
PROCEDURE: XR CHEST 1V INDICATIONS: SOB TECHNIQUE: One view of the chest was acquired. COMPARISON: [facility], CT, CT ANGIO CHEST PE PROTOCOL, 07/04/2022, 2:35. [facility], CR, XR CHEST 2V, 07/05/2022, 15:42. FINDINGS: Surgical changes and devices: None. Lungs and pleura: Small left pleural effusion with left basilar atelectasis, unchanged. Prominent pulmonary interstitium. No focal consolidation. No pneumothorax. Mediastinum: Mediastinal contours appear normal. Heart size is normal. Bones and chest wall: Intramedullary gustavo and fixation screw in left humerus. No suspicious bony lesions. Overlying soft tissues appear unremarkable. IMPRESSION: Small left pleural effusion with left basilar atelectasis. No significant discrepancy with the maintenance mechanic 2nd shift radiology preliminary report. Dictated by: Angle James M.D. on 07/06/2022 at 8:32 Approved by: Angle James M.D. on 07/06/2022 at 8:33
[2022-07-06 06:08] LABS: Add Manual Diff / Slide Review NO; Basophils Absolute Auto 0 /uL (0-100); Basophils Percent Auto 0.5 % (0-2); Eosinophils Absolute Auto 400 /uL (0-450); Eosinophils Percent Auto 3.9 % (2-4); Hematocrit 32.9 % (36-46); Hemoglobin 10.6 g/dL (12.0-16.0); Lymphocytes Absolute Auto 1300 /uL (1100-4500); Lymphocytes Percent Auto 13.9 % (25-40); Mean Corpuscular HGB Conc 32.2 % (30-36); Mean Corpuscular Hemoglobin 25.3 PG (26-34); Mean Corpuscular Volume 78.5 fL (80-100); Monocytes Absolute Auto 700 /uL (0-900); Monocytes Percent Auto 7.5 % (3-14); Neutrophils Absolute Auto 7000 /uL (1500-7000); Neutrophils Percent Auto 74.2 % (50-75); Platelet Count 354 X10^3/uL (150-400); Red Blood Cell Count 4.19 X10^6/uL (4.0-5.2); Red Cell Distribution Width 16.4 % (11.6-14.8); White Blood Cell Count 9.5 X10^3/uL (4.5-11.0)
[2022-07-06 06:11] LABS: Alanine Aminotransferase 10 IU/L (<35); Albumin 3.9 g/dL (3.5-5.0); Albumin Globulin Ratio 1.2 (1.0-2.8); Alkaline Phosphatase 99 U/L (38-126); Aspartate Aminotransferase 21 IU/L (14-36); BUN Creatinine Ratio 22.1 (6-22); Bilirubin Total 0.3 mg/dL (0.2-1.3); Blood Urea Nitrogen 21 mg/dL (7-17); Calcium 9.1 mg/dL (8.4-10.2); Carbon Dioxide 28 mmol/L (22-32); Chloride 97 mmol/L (98-107); Creatine Kinase 40 U/L (30-135); Estimated Glomerular Filt Rate 59 mL/min (>60); Globulin 3.3 g/dL (1.7-4.1); Glucose 99 mg/dL (80-110); HEMOLYSIS < 15 (0-50); Lipase 55 U/L (23-300); Potassium 3.6 mmol/L (3.4-5.1); Sodium 136 mmol/L (137-145); Total Protein 7.2 g/dL (6.3-8.2)
[2022-07-06 06:23] LABS: NT-proBNP (BNP-Adult 18+) 1300 pg/mL (<450); Troponin I 0.027 ng/mL (0.01-0.034)
[2022-07-06] MEDS: AMLODIPINE 5 MG TABLET 10 MG PO (06:25)
[2022-07-06] MEDS: SODIUM CHLORIDE 0.9% 1,000 ML 150 ML IV (06:30)
[2022-07-06] MEDS: FUROSEMIDE 40 MG/4 ML VIAL IV (06:31)
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
[2022-07-06] MEDS: ACETAMINOPHEN 325 MG TABLET 975 MG PO (08:21)
[2022-07-06 08:37] LABS: Adenovirus Not Detected (Not Detect); B. parapertussis Not Detected (Not Detecte); Bordetella pertussis Not Detected (Not Detecte); Chlamydophila pneumoniae Not Detected (Not Detect); Coronavirus 229E Not Detected (Not Detect); Coronavirus HKU1 Not Detected (Not Detect); Coronavirus NL 63 Not Detected (Not Detect); Coronavirus OC43 Not Detected (Not Detect); Human Metapneumovirus Not Detected (Not Detect); Human Rhinovirus/Enterovirus Detected (Not Detect); Influenza A Not Detected (Not Detect); Influenza B Not Detected (Not Detect); Mycoplasma pneumoniae Not Detected (Not Detect); Parainfluenza Virus 1 Not Detected (Not Detect); Parainfluenza Virus 2 Not Detected (Not Detect); Parainfluenza Virus 3 Not Detected (Not Detect); Parainfluenza Virus 4 Not Detected (Not Detect); Respiratory Syncytial Virus Not Detected (Not Detect); SARS- CoV-2 Not Detected (Not Detecte)
[2022-07-06] MEDS: ESMOLOL 2.5 GM/250 ML IV.SOLN IV (08:45)
--- NOTE | 2022-07-06 09:31 | DI.ECHO.S_ITS ---
[place] [facility] +---------+ : : [address] : [address] : : : : [id number] : : : : Phone: [phone]+ Echocardiogram Report + + :Name: JAYSON GOTTI Study Date: 07/06/2022 Height: 65 in : :[facility] ReadingLocation: Weight: 170 lb : : Gender: Female BSA: 1.8 m2 : :: 1940 Age: 82 yrs BP: 106/54 mmHg: :Reason For Study: SHORTNESS OF BREATH, HYPERTENSION : :Ordering Physician: KRISTEN, : :BELEN GOMEZ Performed By: Angie Morales : :Referring: BELEN PETERSON MD : + + Interpretation Summary The left ventricle is normal in size. Left ventricular systolic function is borderline reduced. The ejection fraction is estimated to be 45-50%. Diastolic parameters suggest a pseudonormalization pattern, consistent with probable elevated filling pressures. The right ventricle is borderline dilated. The right ventricular systolic function is normal. The right ventricular systolic pressure is estimated to be at least 37 mmHg based on an estimated right atrial pressure of 3 mm Hg. The left atrium is severely dilated. The right atrium is mild to moderately dilated. There is mild mitral regurgitation. There is no other significant valvular heart disease. The aortic root is normal size. Procedure: A two-dimensional transthoracic echocardiogram with color flow and Doppler was performed. The study quality was technically adequate. There is no prior echocardiogram noted for this patient. The patient was in sinus rhythm with heart rates between 62-69 bpm during the exam. Left Ventricle: The left ventricle is normal in size. Left ventricular wall thickness is borderline increased. Left ventricular systolic function is borderline reduced. The ejection fraction is estimated to be 45-50%. There is borderline global hypokinesis of the left ventricle. Diastolic parameters suggest a pseudonormalization pattern, consistent with probable elevated filling pressures. Right Ventricle: The right ventricle is borderline dilated. The right ventricular systolic function is normal. Atria: The left atrium is severely dilated. The right atrium is mild to moderately dilated. There is no Doppler evidence for an interatrial shunt. Mitral Valve: The mitral valve leaflets appear mildly thickened, but open well. There is mild mitral annular calcification. There is mild mitral regurgitation. Aortic Valve: The aortic valve is trileaflet. The aortic valve opens well. There is no aortic valve stenosis. There is trace aortic regurgitation. Tricuspid Valve: The tricuspid valve is normal in structure and function. There is mild tricuspid regurgitation. The right ventricular systolic pressure is estimated to be at least 37 mmHg based on an estimated right atrial pressure of 3 mm Hg. Pulmonic Valve: The pulmonic valve leaflets are thin and pliable; valve motion is normal. There is mild pulmonic regurgitation. There is no other significant valvular heart disease. Great Vessels: The aortic root is normal size. The dimensions of the ascending aorta are normal. The IVC is of normal diameter and collapses greater than 50% with a sniff. This suggests a low right atrial pressure of 3 mm Hg. Pericardium/ Pleura There is no pericardial effusion. There is no pleural effusion. MMode/2D Measurements & Calculations LVIDd: 5.1 cm LVOT diam: 2.2 cm LVIDs: 3.7 cm Ao root diam: 3.8 cm FS: 26.4 % asc Aorta Diam: 3.7 cm EPSS: 1.7 cm Ao Arch Diam (Prox Trans): 2.8 cm IVSd: 1.1 cm LVPWd: 1.0 cm LV quiñones. diameter/BSA (cm/m^2): 2.7 LV sys. diameter/BSA (cm/m^2): 2.0 LA A2 area: 29.5 cm2 RA long axis: 5.6 cm LA A4 area: 26.4 cm2 RA area: 22.6 cm2 LA length (vol): 6.2 cm RA vol: 76.7 ml LA vol: 107.5 ml RA : 41.5 ml/m2 LA vol index: 58.2 ml/m2 IVC diam: 1.8 cm RVD1 (basal): 4.2 cm RVD2 (mid): 3.2 cm TAPSE: 2.3 cm Doppler Measurements & Calculations Ao V2 max: 124.5 cm/sec LVOT Max Daniel: 69.9 cm/sec Ao V2 mean: 83.5 cm/sec LV V1 max P.0 mmHg Ao max P.2 mmHg LV V1 VTI: 14.6 cm Ao mean P.2 mmHg MIESHA(I,D): 2.3 cm2 Ao V2 VTI: 23.5 cm MIESHA(V,D): 2.1 cm2 sev ratio: 0.62 MIESHA indexed to BSA (cm^2/m^2): 1.3 MV E max daniel: 81.6 cm/sec TR max daniel: 290.0 cm/sec MV A max daniel: 110.9 cm/sec TR max P.6 mmHg MV E/A: 0.74 PA V2 max: 88.5 cm/sec Med Peak E' Daniel: 5.3 cm/sec PA V2 mean: 55.6 cm/sec E/E' med: 15.3 PA mean P.5 mmHg Lat Peak E' Daniel: 5.9 cm/sec PA pr(Accel): 43.0 mmHg E/E' lat: 13.8 E/e' average: 14.5 MV dec time: 0.28 sec SV(LVOT): 54.6 ml Reading Physician:06:17 PM
[2022-07-06 11:49] LABS: Creatine Kinase 37 U/L (30-135)
--- NOTE | 2022-07-06 11:58 | PM.CN.EICU ---
History of Present Illness Consult details IF CAMERA ACTIVATED, patient seen via real-time interactive audiovisual communication: Camera activated Chief complaint: Shortness of Breath Consent obtained for tele-commodities trader care: Yes Patient Location: ICU Provider location (State): [place] Other participants/roles: na [facility] Medical History Contusion of knee, right Melanoma Social History household members: none Smoking Status: Current some day smoker alcohol intake: never Current Medications Current Medications Medications: Home Medications lamotrigine 100 mg tablet (Lamictal) 200 mg PO Q DAY ##0 04/21/17 [History] losartan 100 mg-hydrochlorothiazide 25 mg tablet 1 tab PO DAILY 04/12/18 [History Confirmed 04/12/18] amlodipine 10 mg tablet 10 mg PO DAILY 11/20/18 [History Confirmed 11/20/18] furosemide 40 mg tablet (Lasix) 40 mg PO DAILY #5 tabs 07/04/22 [Rx] Visit Medications (administered) Generic Name Dose Route Start Last Admin Trade Name Freq PRN Reason Stop Dose Admin Sodium Chloride 1,000 mls @ 150 mls/hr 07/06/22 06:00 07/06/22 10:40 Normal Saline 0.9% IV 0 mls/hr CONT SHEILA Infusion Esmolol HCl 2.5 gm in 250 mls @ 23.133 mls/hr 07/06/22 08:15 07/06/22 10:42 Brevibloc IV 100 mcg/kg/min TITRATE HSEILA 46.267 mls/hr Titration Protocol 50 MCG/KG/MIN Exam Vital Signs (past 8 hours): - 07/06/22 04:38 07/06/22 04:34 07/06/22 05:00 Temperature 97.8 F Pulse Rate 80 84 79 Respiratory Rate 24 Blood Pressure 191/92 H Pulse Oximetry 98 98 97 Oxygen Delivery Method Room Air 07/06/22 05:30 07/06/22 07:10 07/06/22 07:10 Temperature Pulse Rate 81 69 Respiratory Rate 32 H Blood Pressure 195/83 H Pulse Oximetry 98 Oxygen Delivery Method 07/06/22 07:30 07/06/22 07:31 07/06/22 07:31 Temperature Pulse Rate 80 81 Respiratory Rate 24 31 H Blood Pressure 174/77 H Pulse Oximetry 97 96 Oxygen Delivery Method 07/06/22 08:00 07/06/22 08:00 07/06/22 08:30 Temperature Pulse Rate 77 Respiratory Rate 26 H Blood Pressure 170/88 H 174/79 H Pulse Oximetry 96 Oxygen Delivery Method 07/06/22 08:30 07/06/22 08:55 07/06/22 08:55 Temperature Pulse Rate 74 73 Respiratory Rate 30 H 28 H Blood Pressure 168/77 H Pulse Oximetry 97 95 Oxygen Delivery Method 07/06/22 09:00 07/06/22 09:00 07/06/22 09:05 Temperature Pulse Rate 67 65 Respiratory Rate 22 22 Blood Pressure 162/72 H Pulse Oximetry 97 95 Oxygen Delivery Method 07/06/22 09:05 07/06/22 09:10 07/06/22 09:10 Temperature Pulse Rate 63 Respiratory Rate 21 Blood Pressure 151/70 H 148/81 H Pulse Oximetry 96 Oxygen Delivery Method 07/06/22 09:15 07/06/22 09:15 07/06/22 09:21 Temperature Pulse Rate 63 Respiratory Rate 20 Blood Pressure 139/62 152/65 H Pulse Oximetry 96 Oxygen Delivery Method 07/06/22 09:21 07/06/22 09:25 07/06/22 09:25 Temperature Pulse Rate 64 64 Respiratory Rate 19 21 Blood Pressure 145/64 H Pulse Oximetry 97 95 Oxygen Delivery Method 07/06/22 09:30 07/06/22 09:30 07/06/22 09:36 Temperature Pulse Rate 62 63 Respiratory Rate 20 18 Blood Pressure 141/57 H Pulse Oximetry 94 96 Oxygen Delivery Method 07/06/22 09:36 07/06/22 09:40 07/06/22 09:40 Temperature Pulse Rate 63 Respiratory Rate 19 Blood Pressure 144/64 H 130/59 L Pulse Oximetry 96 Oxygen Delivery Method 07/06/22 09:45 07/06/22 09:45 07/06/22 09:50 Temperature Pulse Rate 62 62 Respiratory Rate 21 18 Blood Pressure 126/61 Pulse Oximetry 96 95 Oxygen Delivery Method 07/06/22 09:50 07/06/22 09:55 07/06/22 09:55 Temperature Pulse Rate 63 Respiratory Rate 25 H Blood Pressure 116/57 L 122/60 Pulse Oximetry 96 Oxygen Delivery Method 07/06/22 10:00 07/06/22 10:01 07/06/22 10:01 Temperature Pulse Rate 62 64 Respiratory Rate 22 20 Blood Pressure 124/55 L Pulse Oximetry 95 96 Oxygen Delivery Method 07/06/22 10:05 07/06/22 10:05 07/06/22 10:10 Temperature Pulse Rate 63 61 Respiratory Rate 24 18 Blood Pressure 108/56 L Pulse Oximetry 95 94 Oxygen Delivery Method 07/06/22 10:10 07/06/22 10:15 07/06/22 10:15 Temperature Pulse Rate 61 Respiratory Rate 19 Blood Pressure 101/54 L 100/51 L Pulse Oximetry 94 Oxygen Delivery Method 07/06/22 10:20 07/06/22 10:20 07/06/22 10:25 Temperature Pulse Rate 61 60 Respiratory Rate 19 19 Blood Pressure 96/50 L Pulse Oximetry 95 95 Oxygen Delivery Method 07/06/22 10:25 07/06/22 10:30 07/06/22 10:30 Temperature Pulse Rate 60 Respiratory Rate 20 Blood Pressure 106/54 L 103/52 L Pulse Oximetry 94 Oxygen Delivery Method 07/06/22 07:30 Temperature 98 F Pulse Rate Respiratory Rate Blood Pressure Pulse Oximetry Oxygen Delivery Method Oxygen Delivery Method Room Air Objective Labs Result Diagrams: 07/06/22 04:35 07/06/22 04:35 Labs: Laboratory Results - last 24 hr 07/06/22 07/06/22 07/06/22 04:35 04:35 07:14 WBC 9.5 RBC 4.19 Hgb 10.6 L Hct 32.9 L MCV 78.5 L MCH 25.3 L MCHC 32.2 RDW 16.4 H Plt Count 354 Neut % (Auto) 74.2 Lymph % (Auto) 13.9 L Apache % (Auto) 7.5 Eos % (Auto) 3.9 Baso % (Auto) 0.5 Neut # (Auto) 7000 Lymph # (Auto) 1300 [place] # (Auto) 700 Eos # (Auto) 400 Baso # (Auto) 0 Sodium 136 L Potassium 3.6 Chloride 97 L Carbon Dioxide 28 BUN 21 H Creatinine 0.95 Estimated GFR 59 L BUN/Creatinine Ratio 22.1 H Glucose 99 Calcium 9.1 Total Bilirubin 0.3 AST 21 ALT 10 Alkaline Phosphatase 99 Total Creatine Kinase 40 CK-MB (CK-2) TNP CK-MB (CK-2) Rel Index TNP Troponin I 0.027 NT-Pro-B Natriuret Pep 1300 H Total Protein 7.2 Albumin 3.9 Globulin 3.3 Albumin/Globulin Ratio 1.2 Lipase 55 Chlamy pneumoniae PCR Not detected Adenovirus (PCR) Not detected B. pertussis DNA (PCR) Not detected B.parapertussis DNA PCR Not detected Coronavirus OC43 (PCR) Not detected Coronavirus HKU1 (PCR) Not detected Coronavirus 229E (PCR) Not detected SARS-CoV-2 (PCR) Not detected Coronavirus NL63 (PCR) Not detected Human Metapneumovir PCR Not detected Influenza Type A (PCR) Not detected Influenza Type B (PCR) Not detected M. pneumoniae (PCR) Not detected Parainfluenza 1 (PCR) Not detected Parainfluenza 2 (PCR) Not detected Parainfluenza 3 (PCR) Not detected Parainfluenza 4 (PCR) Not detected RSV (PCR) Not detected Entero/Rhino (PCR) Detected H 07/06/22 11:01 WBC RBC Hgb Hct MCV MCH MCHC RDW Plt Count Neut % (Auto) Lymph % (Auto) Apache % (Auto) Eos % (Auto) Baso % (Auto) Neut # (Auto) Lymph # (Auto) [place] # (Auto) Eos # (Auto) Baso # (Auto) Sodium Potassium Chloride Carbon Dioxide BUN Creatinine Estimated GFR BUN/Creatinine Ratio Glucose Calcium Total Bilirubin AST ALT Alkaline Phosphatase Total Creatine Kinase 37 CK-MB (CK-2) TNP CK-MB (CK-2) Rel Index TNP Troponin I NT-Pro-B Natriuret Pep Total Protein Albumin Globulin Albumin/Globulin Ratio Lipase Chlamy pneumoniae PCR Adenovirus (PCR) B. pertussis DNA (PCR) B.parapertussis DNA PCR Coronavirus OC43 (PCR) Coronavirus HKU1 (PCR) Coronavirus 229E (PCR) SARS-CoV-2 (PCR) Coronavirus NL63 (PCR) Human Metapneumovir PCR Influenza Type A (PCR) Influenza Type B (PCR) M. pneumoniae (PCR) Parainfluenza 1 (PCR) Parainfluenza 2 (PCR) Parainfluenza 3 (PCR) Parainfluenza 4 (PCR) RSV (PCR) Entero/Rhino (PCR) Assessment & Plan Assessment & Plan narrative: patient seen with bedside nurse and d/w Dr. 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
[2022-07-06] MEDS: METOPROLOL IR 25 MG TABLET PO ×2 (12:03→20:38)
[2022-07-06] MEDS: ACETAMINOPHEN 325 MG TABLET 650 MG PO ×2 (12:03→22:06)
--- NOTE | 2022-07-06 12:43 | CM.SWNOTE ---
Addendum entered by Jessica Valentin 07/06/22 16:47: CHILD CARE TEAM LEAD/SRIDHARP Note CHILD CARE TEAM LEAD receives call from APS SW Todd (Ph. # [phone]) it is reported that he is the assigned APS SW and will plan to meet with patient tomorrow or Monday, or f/u with patient at home next week. Todd requests H&P, CHILD CARE TEAM LEAD faxes records to APS. DAVID Dueñas Original Note: CHILD CARE TEAM LEAD Note CHILD CARE TEAM LEAD reviews EMR and identifies that this patient left ED AMA yesterday and proceeded to return to ED today. Due to RN note regarding patient concerns for self neglect CHILD CARE TEAM LEAD reports to APS to ensure there is a current APS investigation for patient. APS Online Report Confirmation Number: [id number] Plan: CHILD CARE TEAM LEAD and DCP to assess patient for further patient needs and identify POC once patient is medically stable. DAVID Dueñas
--- NOTE | 2022-07-06 12:55 | OT.IP.EVAL ---
Past Medical History (Last Reviewed 07/06/22 @ 06:01 by Isaiah Pepper DO) Contusion of knee, right Melanoma Occupational Therapy Inpatient Evaluation/Re-Eval M1 PT/OT-IP Prior Functional Status Start: 07/06/22 14:13 Freq: NEEDED Status: Active Protocol: Document 07/06/22 14:14 [facility] (Rec: 07/06/22 14:45 [facility] [id number]) Medical Review Prior Functional Status Mobility and Gait Pt states able to walk without any devices. 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 Pt states since her car has gotten a flat tire and in the shop, that in the past week has used a taxi for transportation. Social History Household Members none Living Arrangements House Number of Floors (Floors) Two Floors Number of Stairs To Enter/Railing? 4 steps with right hand rail to enter her iWatt style house and able to stay on the main level. Home Environment Standard Height Toilet,Walk in Shower,Tub/Shower Home Equipment Hand Held Shower,Grab Bars Near Toilet,Grab Bars In Shower M2 OT-IP Current Condition Start: 07/06/22 14:13 Freq: Status: Active Protocol: Document 07/06/22 14:14 [facility] (Rec: 07/06/22 14:45 [facility] [id number]) Occupational Therapy Current Condition Current Condition Evaluation Date 07/06/22 Treatment Diagnosis Acute respiratory failure, small left pleural effusion Diagnosis Onset Date 07/06/22 M3 OT- IP Subjective and Pain Start: 07/06/22 14:13 Freq: Status: Active Protocol: Document 07/06/22 14:14 [facility] (Rec: 07/06/22 14:45 [facility] [id number]) OT- Subjective Occupational Therapy Visit Type Type Initial Evaluation Visit Start Time 12:17 Visit Stop Time 12:55 Total Visit Minutes 38 Occupational Therapy Visit Comments Patient Comments Pt's nurse states best to have pt stay in bed do to IV drip at this time, but able to do cognitive eval with the pt. Patient/Caregiver Goals TO go home. OT Pain Assessment Pain When Pain Assessed At Rest Pain Present Pain Present Pain Reported Location Ribs Intensity 3 Scale Used Numeric (0 - 10) M4 OT- IP ADL's Start: 07/06/22 14:13 Freq: Status: Active Protocol: Document 07/06/22 14:14 [facility] (Rec: 07/06/22 14:45 [facility] [id number]) OT [id number] Comments OT Self-Feeding Comments Not at meal time. OT ADL-Grooming Comments OT Grooming Comments Pt able to wash her face after set-up of wash cloth. OT ADL-Oral Care Comments Oral Care Comments Not performed. OT ADL-Dressing Comments OT Dressing Comments NOt performed. OT ADL-Toileting Comments OT Toileting Comments Pt not having to go. OT ADL-Bathing Comments OT Bathing Comments Not performed. M5 OT- IP IADL's Start: 07/06/22 14:13 Freq: Status: Active Protocol: Document 07/06/22 14:14 [facility] (Rec: 07/06/22 14:45 [facility] [id number]) OT-Instrumental Activities of Daily Living Deficits IADL Deficits Identified Deficits Home Safety Awareness Awareness of Need for Assistance at Home Good Awareness Ability to Problem Solve Emergency Able to Problem Solve Situations Home Safety Comments Pt is very SOB and if going home would benefit from assist for at least IADl needs. Pt feels that she is not thinking as clearly but able to answer all home safety situations with good accuracy. Pt states that she has not slept well due to being in the ER for 8hrs and 12 hrs at a time. Driving Driving Concerns Identified Regarding Safety Driving Comments Concerns for safety as pt not thinking well due to lack of sleep. M6 OT- IP Functional Cognition Start: 07/06/22 14:13 Freq: Status: Active Protocol: Document 07/06/22 14:14 [facility] (Rec: 07/06/22 14:45 [facility] [id number]) Cognitive Factors Limiting Selfcare Function Cognitive Ability Level of Alertness Alert Patient Orientation Name,Place,Situation Attention Span Ability Capable of Focused Attention, Capable of Sustained Attention Ability to Follow Commands Able to Follow Multi-Step Commands Memory Description Working Impaired Cognitive Tests SLUMS Pt scored 25/30 which implies mild cognitive deficits however may be influenced by the fact the pt has not slept well. Pt able to recall 4/5 objects after time passed, pt not able to draw the numbers on the clock proportionally , and not able to draw the numbers of the clock accurately after time given Cognitive Comments Cognitive Assessment Comments Pt scored 180 seconds on Carey Making B which implies severe impairment for speed of processing, task switching, visual attention, mental flexibility, and executive functioning. Pt feels that she is not thinking well from lack of sleep and would be good to reassess when pt is more alert and has rested well . OT- Vision and Hearing OT- Hearing Assessment OT- Hearing Assessment WFL OT- Vision Assessment Visual Acuity Glasses For Reading Vision Assessment Comments Pt wears glasses at twilight and for computer work. M7 OT- IP Mobility and Balance Start: 07/06/22 14:13 Freq: Status: Active Protocol: Document 07/06/22 14:14 [facility] (Rec: 07/06/22 14:45 [facility] [id number]) OT-Transfer Assessment Comments Mobility Comments To assess mobility tomorrow. M8 OT- IP Objective Assessments Start: 07/06/22 14:13 Freq: Status: Active Protocol: Document 07/06/22 14:14 [facility] (Rec: 07/06/22 14:45 [facility] [id number]) OT Gross Range of Motion Upper Extremity Range of Motion Assessment Left Impaired OT Strength Upper Extremity Strength Assessment Left Impaired Comments Strength Comments Pt states fell and broke her arm on black ice 4 years ago and recently had arm surgery on the same arm 4 mos ago. M9 OT- IP Assessment and Plan Start: 07/06/22 14:13 Freq: Status: Active Protocol: Document 07/06/22 14:14 [facility] (Rec: 07/06/22 14:45 [facility] [id number]) OT Summary Assessment and Plan Potential Rehabilitation Potential Good Analytic Complexity at Evaluation Moderate Summary OT Impairments Functional Mobility,Activity Tolerance Progress Towards Goals Slow Progress due to Medical Issues,Slow Progress due to Activity Tolerance Assessment Summary Pt MOD complexity and main barriers are pt is complaining of being SOB and feels that she is not thinking well due to lack of sleep. Pt scored 25 /30 on the SLUMS which implies mild congitive impairments. Pt on IV drip and therefore agreed with nursing to do assessment while in bed and therefore to fully assess mobility needs tomorrow. Goals Grooming Goal Independent Dressing Goal Independent Toileting Goal Independent Bathing Goal Independent Toilet Transfer Goal Independent Shower Transfer Goal Independent Days to Meet Goals 10 Frequency of Treatment Frequency Of Treatment Once a Day Treatment Plan OT Treatment Plan ADL Training,Functional Mobility,Patient/Family Education,Discharge Planning Other Treatment Recommendations and Next assess mobility for ADl and Treatment Focus IADl needs Discharge Recommendations OT Discharge Recommendations Home with Assistance, possible needs for home health Other Discharge Recommendations pending ADl mobility needs most likely when pt medically stable to go home with assist and possibly home health
--- NOTE | 2022-07-06 13:45 | CM.DANOTE ---
Pt is an 82 year old female with history of hypertension presents for evaluation of ongoing cough and shortness of breath. Pt reports that she lives alone and has friends/employed caregivers that assist her. Pt reports that one particular friend is supposed to be visiting her house today to help clean up the mess that her new puppy made. Pt reports that she has not been able to work, as she has been feeling sick and weak for several months. Pt has two sons; Ashkan who lives in [place] and Brian who lives in [place]. Pt reports that she does not take any medication, besides my water pills. Pt reports that she stopped taking her lamotrigine 6 weeks ago and that her PCP, Dr. Zuniga is aware. Pt is open to help at home and is agreeable to HH referral. Pt does not have a preference for agency. Plan: continue to follow pt until she is medically ready to discharge home. Send HH referral when appropriate. WILDA Rios Discharge Planning/Care Management Advanced directive, confirm from FAMILY Start: 07/06/22 11:50 Freq: Q24H Status: Active Protocol: Document 07/06/22 12:16 [facility] (Rec: 07/06/22 12:16 [facility] [id number]) Advance Directive, confirm on record Time 12:16 Person contacted pt Copy received No CM Discharge Assessment Start: 07/06/22 13:39 Freq: Status: Active Protocol: Document 07/06/22 13:39 [facility] (Rec: 07/06/22 13:45 [facility] [id number]) Discharge Planning Assessment Assigned Tank Carpenter WILDA Rios Advance Directives? Yes Advance Directives on File No History Provided By Patient Has Patient been admitted in last 30 No days? Prior Living Arrangements House Household Members none Type of transporation used prior to Drives own vehicle admit Comment Pt reports that she drives herself, takes a shuttle, and sometimes takes a taxi for transport. Independent with ADL's Yes Is patient alert and oriented? Yes Needs Assistance With Managing Medications,Home Chores / Shopping Caregiver for Another No Comment none Patient/Family Preference Home with Home Health Barriers to Discharge No Discharge Plan Home with Home Health Community Services Home Health Aid,Home Delivered Meals,Social Work Referrals Initiated Home Health If patient plan is home with home health Yes : Has signed face to face form been completed? Medicare Choice List Provided Yes SNF/HH Preference no preference Has Agency SNF been contacted No Whiteboard Updated in Patient Room with Yes name and ext. # of Tank Carpenter Review Status In Process Please Provide Date Initial DC 07/06/22 Assessment Was Performed Next Review Type Continued Stay Review
--- NOTE | 2022-07-06 13:55 | PM.HP.1 ---
History of Present Illness History of Present Illness Chief complaint: Shortness of Breath Narrative: Presented to the hospital following an episode of coughing and shortness of breath. Benefit from intravenous furosemide in the ER. Patient continues to complain of cough with mucus production that is yellow tinge. 82-year-old female nonsmoker with history of hypertension presented by EMS for evaluation of ongoing cough and shortness of breath.? She is been here multiple times in the past few days with complaints of ground level fall and shortness of breath.? 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 On this presentation the ER physician discussed this finding with the vascular surgery at . Their recommendation was no surgery but very good control of hypertension with admission initially with intravenous control with esmolol and then transitioning to oral medication with control of ideally 120 or less systolic but acceptable 140 or less. Patient not complaining of any fever chills and nausea vomiting. No diaphoresis. No chest pain. No palpitations. No wheezing. No abdominal pain constipation or diarrhea. No dysuria or hematuria. Has been treated in the past with Lamictal but the side effects made her shaky and her psychiatrist advised her to discontinue the medication. Was apparently taking this for bipolar disorder. With the advice of her psychiatrist to discontinue the medication she feels that she does not need this medication or any other treatment for supposed diagnosis of bipolar disorder. 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 Patient History Medical History Contusion of knee, right Melanoma Family & Social History Social History: household members none Prior Living Arrangements House Safety & Behavioral: Feels Safe in Current Yes Environment Been Physically Hurt or No Threatened By a Person Tobacco & Substance use: Tobacco type cigarettes Smoking Status Current some day smoker alcohol intake never alcohol intake frequency holiday/special occasion Substance Use Type does not use Meds Home Medications and Allergies Home Medications Medication Instructions Recorded Confirmed Type lamotrigine 100 mg tablet 200 mg PO Q DAY ##0 04/21/17 History (Lamictal) losartan 100 1 tab PO DAILY 04/12/18 04/12/18 History mg-hydrochlorothiazide 25 mg tablet amlodipine 10 mg tablet 10 mg PO DAILY 11/20/18 11/20/18 History furosemide 40 mg tablet (Lasix) 40 mg PO DAILY #5 tabs 07/04/22 Rx Allergies Allergy/AdvReac Type Severity Reaction Status Date / Time No Known Drug Allergies Allergy Verified 07/05/22 13:21 Review of Systems Review of Systems Narrative: Fourteen systems were reviewed and pertinent findings are in history of chief complaint. Exam Vital Signs (past 8 hours): - 07/06/22 07:10 07/06/22 07:10 07/06/22 07:30 Temperature Pulse Rate 69 80 Respiratory Rate 32 H 24 Blood Pressure 195/83 H Pulse Oximetry 98 97 Oxygen Delivery Method 07/06/22 07:31 07/06/22 07:31 07/06/22 08:00 Temperature Pulse Rate 81 Respiratory Rate 31 H Blood Pressure 174/77 H 170/88 H Pulse Oximetry 96 Oxygen Delivery Method 07/06/22 08:00 07/06/22 08:30 07/06/22 08:30 Temperature Pulse Rate 77 74 Respiratory Rate 26 H 30 H Blood Pressure 174/79 H Pulse Oximetry 96 97 Oxygen Delivery Method 07/06/22 08:55 07/06/22 08:55 07/06/22 09:00 Temperature Pulse Rate 73 Respiratory Rate 28 H Blood Pressure 168/77 H 162/72 H Pulse Oximetry 95 Oxygen Delivery Method 07/06/22 09:00 07/06/22 09:05 07/06/22 09:05 Temperature Pulse Rate 67 65 Respiratory Rate 22 22 Blood Pressure 151/70 H Pulse Oximetry 97 95 Oxygen Delivery Method 07/06/22 09:10 07/06/22 09:10 07/06/22 09:15 Temperature Pulse Rate 63 Respiratory Rate 21 Blood Pressure 148/81 H 139/62 Pulse Oximetry 96 Oxygen Delivery Method 07/06/22 09:15 07/06/22 09:21 07/06/22 09:21 Temperature Pulse Rate 63 64 Respiratory Rate 20 19 Blood Pressure 152/65 H Pulse Oximetry 96 97 Oxygen Delivery Method 07/06/22 09:25 07/06/22 09:25 07/06/22 09:30 Temperature Pulse Rate 64 Respiratory Rate 21 Blood Pressure 145/64 H 141/57 H Pulse Oximetry 95 Oxygen Delivery Method 07/06/22 09:30 07/06/22 09:36 07/06/22 09:36 Temperature Pulse Rate 62 63 Respiratory Rate 20 18 Blood Pressure 144/64 H Pulse Oximetry 94 96 Oxygen Delivery Method 07/06/22 09:40 07/06/22 09:40 07/06/22 09:45 Temperature Pulse Rate 63 Respiratory Rate 19 Blood Pressure 130/59 L 126/61 Pulse Oximetry 96 Oxygen Delivery Method 07/06/22 09:45 07/06/22 09:50 07/06/22 09:50 Temperature Pulse Rate 62 62 Respiratory Rate 21 18 Blood Pressure 116/57 L Pulse Oximetry 96 95 Oxygen Delivery Method 07/06/22 09:55 07/06/22 09:55 07/06/22 10:00 Temperature Pulse Rate 63 62 Respiratory Rate 25 H 22 Blood Pressure 122/60 Pulse Oximetry 96 95 Oxygen Delivery Method 07/06/22 10:01 07/06/22 10:01 07/06/22 10:05 Temperature Pulse Rate 64 63 Respiratory Rate 20 24 Blood Pressure 124/55 L Pulse Oximetry 96 95 Oxygen Delivery Method 07/06/22 10:05 07/06/22 10:10 07/06/22 10:10 Temperature Pulse Rate 61 Respiratory Rate 18 Blood Pressure 108/56 L 101/54 L Pulse Oximetry 94 Oxygen Delivery Method 07/06/22 10:15 07/06/22 10:15 07/06/22 10:20 Temperature Pulse Rate 61 Respiratory Rate 19 Blood Pressure 100/51 L 96/50 L Pulse Oximetry 94 Oxygen Delivery Method 07/06/22 10:20 07/06/22 10:25 07/06/22 10:25 Temperature Pulse Rate 61 60 Respiratory Rate 19 19 Blood Pressure 106/54 L Pulse Oximetry 95 95 Oxygen Delivery Method 07/06/22 10:30 07/06/22 10:30 07/06/22 07:30 Temperature 98 F Pulse Rate 60 Respiratory Rate 20 Blood Pressure 103/52 L Pulse Oximetry 94 Oxygen Delivery Method 07/06/22 12:16 Temperature Pulse Rate Respiratory Rate Blood Pressure Pulse Oximetry Oxygen Delivery Method Room Air Oxygen Delivery Method Room Air Narrative Exam Narrative: GENERAL: appears stated age. Well-developed patient, in no distress.? Alert and oriented, no significant respiratory distress HEAD: Atraumatic. Normocephalic. EYES: Pupils equal round and reactive. Extraocular motions intact. No scleral icterus. No injection or drainage. ENT: Nose without bleeding, purulent drainage. Throat without erythema, tonsillar hypertrophy or exudate. Airway patent. NECK: Trachea midline. Non tender CARDIOVASCULAR: Regular rate and rhythm without murmurs, gallops, or rubs. RESPIRATORY: no significant respiratory distress, faint crackles bilaterally, no need for supplemental oxygen GASTROINTESTINAL: Abdomen soft, non-tender, nondistended. EXTREMITIES:? Right lower extremity with chronic 1+ edema BACK: Nontender without deformity or crepitance. No flank tenderness. NEURO: AOx3. Speech is somewhat staccato and it is unclear whether this is part of her bipolar disorder. SKIN: No rash or erythema of visible areas. Objective Labs Result Diagrams: 07/06/22 04:35 07/06/22 04:35 Labs: Laboratory Results - last 24 hr 07/06/22 07/06/22 07/06/22 04:35 04:35 07:14 WBC 9.5 RBC 4.19 Hgb 10.6 L Hct 32.9 L MCV 78.5 L MCH 25.3 L MCHC 32.2 RDW 16.4 H Plt Count 354 Neut % (Auto) 74.2 Lymph % (Auto) 13.9 L [place] % (Auto) 7.5 Eos % (Auto) 3.9 Baso % (Auto) 0.5 Neut # (Auto) 7000 Lymph # (Auto) 1300 [place] # (Auto) 700 Eos # (Auto) 400 Baso # (Auto) 0 Sodium 136 L Potassium 3.6 Chloride 97 L Carbon Dioxide 28 BUN 21 H Creatinine 0.95 Estimated GFR 59 L BUN/Creatinine Ratio 22.1 H Glucose 99 Calcium 9.1 Total Bilirubin 0.3 AST 21 ALT 10 Alkaline Phosphatase 99 Total Creatine Kinase 40 CK-MB (CK-2) TNP CK-MB (CK-2) Rel Index TNP Troponin I 0.027 NT-Pro-B Natriuret Pep 1300 H Total Protein 7.2 Albumin 3.9 Globulin 3.3 Albumin/Globulin Ratio 1.2 Lipase 55 Nasal Screen MRSA (PCR) Chlamy pneumoniae PCR Not detected Adenovirus (PCR) Not detected B. pertussis DNA (PCR) Not detected B.parapertussis DNA PCR Not detected Coronavirus OC43 (PCR) Not detected Coronavirus HKU1 (PCR) Not detected Coronavirus 229E (PCR) Not detected SARS-CoV-2 (PCR) Not detected Coronavirus NL63 (PCR) Not detected Human Metapneumovir PCR Not detected Influenza Type A (PCR) Not detected Influenza Type B (PCR) Not detected M. pneumoniae (PCR) Not detected Parainfluenza 1 (PCR) Not detected Parainfluenza 2 (PCR) Not detected Parainfluenza 3 (PCR) Not detected Parainfluenza 4 (PCR) Not detected RSV (PCR) Not detected Entero/Rhino (PCR) Detected H 07/06/22 07/06/22 11:01 11:28 WBC RBC Hgb Hct MCV MCH MCHC RDW Plt Count Neut % (Auto) Lymph % (Auto) [place] % (Auto) Eos % (Auto) Baso % (Auto) Neut # (Auto) Lymph # (Auto) [place] # (Auto) Eos # (Auto) Baso # (Auto) Sodium Potassium Chloride Carbon Dioxide BUN Creatinine Estimated GFR BUN/Creatinine Ratio Glucose Calcium Total Bilirubin AST ALT Alkaline Phosphatase Total Creatine Kinase 37 CK-MB (CK-2) TNP CK-MB (CK-2) Rel Index TNP Troponin I 0.020 NT-Pro-B Natriuret Pep Total Protein Albumin Globulin Albumin/Globulin Ratio Lipase Nasal Screen MRSA (PCR) Negative for mrsa Chlamy pneumoniae PCR Adenovirus (PCR) B. pertussis DNA (PCR) B.parapertussis DNA PCR Coronavirus OC43 (PCR) Coronavirus HKU1 (PCR) Coronavirus 229E (PCR) SARS-CoV-2 (PCR) Coronavirus NL63 (PCR) Human Metapneumovir PCR Influenza Type A (PCR) Influenza Type B (PCR) M. pneumoniae (PCR) Parainfluenza 1 (PCR) Parainfluenza 2 (PCR) Parainfluenza 3 (PCR) Parainfluenza 4 (PCR) RSV (PCR) Entero/Rhino (PCR) Assessment & Plan Assessment & Plan narrative: 1. Hypertensive emergency. Patient admitted to ICU for esmolol infusion to control blood pressure as per recommendation of the vascular surgeon. 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 Ideally with systolic 120 or less but acceptable to be 140 or less. Told the blood pressure is a best prevention for further dissection of the descending thoracic aorta as per vascular surgery advised from .. Reestablish patient's regular use of furosemide and amlodipine. Continue metoprolol initiated by casing cleaner. 2. Noncompliance with use of furosemide. Reestablish uses furosemide in the hospital stay. Patient has underlying pleural effusion needing treatment. 3. Apparent bipolar disorder under psychiatric care with advice from the psychiatrist to discontinue Lamictal due to side effects. Patient has once monthly visits with his psychiatrist. 4. History of melanoma with no active treatment currently. 5. Productive sputum. Will cover with a short course of azithromycin 500 mg daily for 3 days orally mainly for preventative treatment. Patient has been admitted for inpatient care regarding diagnosis is requiring medically necessary hospital care that can be only safely given an inpatient basis due to the complexity and severity of the diagnoses which include hypertensive emergency requiring intravenous medication to control and settle. Hospital stay is expected to be at least 2 midnight to treated with intravenous medication as well as transition to oral medication for appropriate control of her blood pressure. Code status: Full code Surrogate decision maker: Patient's son Johnnie Chinchilla who lives in [place]. DVT prophylaxis: Lovenox 40 mg subQ daily GI prophylaxis: Pantoprazole 40 mg daily Time Spent With Patient Critical Care time: I spent a total of [] minutes of critical care time on this patient's care today; this time is exclusive of procedural time.
[2022-07-06] MEDS: AZITHROMYCIN 250 MG TABLET 500 MG PO (15:33)
--- NOTE | 2022-07-06 18:19 | PC.NURSE ---
Admit Note Pt arrived to room 1105 from ER via stretcher, assisted to bed via slider board. Bed bath given as pt was soaked in urine. Skin intact, rashes present under both breasts. Scattered bruising to BUEs. Alert and oriented x3. Coarse cough, crackles to bases. Denies pain, denies shortness of breath when sitting up. SpO2 94-96% on RA. HR in the 60s SR and SBP in the 120-130s, remaining within goals. PO metoprolol administered and esmolol gtt titrated to off at 1430. Denies pain. Purewick in place to low suction (40 mmHg). Oriented to room and to bed/tv/call light controls. Call light within reach, using appropriately to make needs known.
[2022-07-06] MEDS: SODIUM CHLORIDE 0.9% FLUSH 10 ML IV (20:38)
[2022-07-07] VITALS (13 sets, daily range): BP systolic 123–163; BP diastolic 59–72; PULSE 59–69; RESP 19–32; TEMP 36.9–37.3; O2SAT 93–96
[2022-07-07] MEDS: ACETAMINOPHEN 325 MG TABLET 650 MG PO ×2 (04:04→10:24)
[2022-07-07] MEDS: PANTOPRAZOLE DR 40 MG TABLET PO (06:10)
--- NOTE | 2022-07-07 06:52 | PC.NURSE ---
Director Of Special Education Note-Patient has dozed intermittently, Tylenol given for rib pain from coughing. Goal to keep HR 60-80 and SBP < 140 was met until 0600 when BP 155/72, reported to hospitalist, order received to give am dose amlodipine and metoprolol now.
[2022-07-07] MEDS: METOPROLOL IR 25 MG TABLET PO ×2 (07:33→16:59)
[2022-07-07] MEDS: AMLODIPINE 5 MG TABLET 10 MG PO (07:34)
[2022-07-07 07:53] LABS: Add Manual Diff / Slide Review NO; Basophils Absolute Auto 0 /uL (0-100); Basophils Percent Auto 0.2 % (0-2); Eosinophils Absolute Auto 600 /uL (0-450); Eosinophils Percent Auto 5.6 % (2-4); Hematocrit 29.6 % (36-46); Hemoglobin 9.7 g/dL (12.0-16.0); Lymphocytes Absolute Auto 1400 /uL (1100-4500); Lymphocytes Percent Auto 13.4 % (25-40); Mean Corpuscular HGB Conc 32.8 % (30-36); Mean Corpuscular Hemoglobin 25.3 PG (26-34); Mean Corpuscular Volume 77.1 fL (80-100); Monocytes Absolute Auto 800 /uL (0-900); Monocytes Percent Auto 7.5 % (3-14); Neutrophils Absolute Auto 7400 /uL (1500-7000); Neutrophils Percent Auto 73.3 % (50-75); Platelet Count 307 X10^3/uL (150-400); Red Blood Cell Count 3.84 X10^6/uL (4.0-5.2); Red Cell Distribution Width 15.8 % (11.6-14.8); White Blood Cell Count 10.1 X10^3/uL (4.5-11.0)
[2022-07-07 08:10] LABS: Alanine Aminotransferase 11 IU/L (<35); Albumin 3.1 g/dL (3.5-5.0); Alkaline Phosphatase 77 U/L (38-126); Aspartate Aminotransferase 18 IU/L (14-36); Bilirubin Total 0.5 mg/dL (0.2-1.3); Blood Urea Nitrogen 16 mg/dL (7-17); Calcium 8.4 mg/dL (8.4-10.2); Carbon Dioxide 27 mmol/L (22-32); Chloride 89 mmol/L (98-107); Estimated Glomerular Filt Rate > 60 mL/min (>60); Globulin 3.1 g/dL (1.7-4.1); Glucose 102 mg/dL (80-110); HEMOLYSIS 19 (0-50); Potassium 3.8 mmol/L (3.4-5.1); Sodium 122 mmol/L (137-145); Total Protein 6.2 g/dL (6.3-8.2)
[2022-07-07 08:19] LABS: NT-proBNP (BNP-Adult 18+) 803 pg/mL (<450)
[2022-07-07] MEDS: ENOXAPARIN 40 MG/0.4 ML SYRINGE SUBCUT (09:22)
[2022-07-07] MEDS: AZITHROMYCIN 250 MG TABLET 500 MG PO (09:23)
[2022-07-07] MEDS: lisinopriL 5 MG TABLET PO (09:25)
--- NOTE | 2022-07-07 09:31 | CM.DPC ---
DCP Cont: [facility] referral to be faxed. Orders placed. [facility] was called and updated on new referral. Pt anticipating discharge today 07/07. Tracey Choudhury RN/DCP
[2022-07-07] MEDS: SODIUM CHLORIDE 0.9% FLUSH 10 ML IV (09:50)
--- NOTE | 2022-07-07 12:21 | PC.NURSE ---
Addendum entered by Didi Carranza R.N. 07/07/22 18:23: I agree with all assessments and interventions completed by this student nurse-Didi Carranza RN Original Note: Day shift note: patient hypertensive at start of shift. Given metoprolol and amlodipine early per provider to manage BP and pulse. Responded with BP and pulse within parameters set. Assisted patient to shower with SBA. Tolerated well. Complaints of rib pain. PRN acetaminophen given. Pain persisted. Obtained provider order for tramadol. Up to chair for lunch. Chair locked, alarm set, call light within reach and able to verbal needs and use call light. Will continue to monitor.
--- NOTE | 2022-07-07 12:25 | OT.IP.TRT ---
Occupational Therapy Treatment Note M2 OT-IP Current Condition Start: 07/06/22 14:13 Freq: Status: Active Protocol: Document 07/06/22 14:14 [facility] (Rec: 07/06/22 14:45 [facility] [id number]) Occupational Therapy Current Condition Current Condition Evaluation Date 07/06/22 Treatment Diagnosis Acute respiratory failure, small left pleural effusion Diagnosis Onset Date 07/06/22 M3 OT- IP Subjective and Pain Start: 07/06/22 14:13 Freq: Status: Active Protocol: Document 07/07/22 12:59 [facility] (Rec: 07/07/22 13:15 [facility] [id number]) OT- Subjective Occupational Therapy Visit Type Type Treatment Note Visit Start Time 11:45 Visit Stop Time 12:25 Total Visit Minutes 40 Occupational Therapy Visit Comments Patient Comments Pt agreed to do balance assessment. Per nursing aid, pt able to shower with SBA. Patient/Caregiver Goals To go home. OT Pain Assessment Pain When Pain Assessed During Mobility Pain Present Pain Present Pain Reported Location Ribs Pain Behaviors Facial Grimacing,Guarding, Wincing M4 OT- IP ADL's Start: 07/06/22 14:13 Freq: Status: Active Protocol: Document 07/07/22 12:59 [facility] (Rec: 07/07/22 13:15 [facility] [id number]) OT [id number] General Evaluation Self-Feeding Ability Independent Comments OT Self-Feeding Comments Not at meal time. OT ADL-Grooming Comments OT Grooming Comments Not performed. OT ADL-Oral Care General Eval Oral Care Ability Independent OT ADL-Dressing General Eval Lower Body Dressing Ability Independent Comments OT Dressing Comments Pt independently able to aj her sandals while seated. OT ADL-Toileting Comments OT Toileting Comments Pt not having to go. OT ADL-Bathing Comments OT Bathing Comments Nursing aid states just needing SBA. M6 OT- IP Functional Cognition Start: 07/06/22 14:13 Freq: Status: Active Protocol: Document 07/07/22 12:59 [facility] (Rec: 07/07/22 13:15 [facility] [id number]) Cognitive Factors Limiting Selfcare Function Cognitive Ability Safety Awareness Underestimates Need for Assistance Cognitive Comments Cognitive Assessment Comments Pt appears to be thinking better today. Pt is insistent that her balance is off due to being in bed and having left rib pain. Pt states not wanting any devices to use for ambulation and will be fine. M7 OT- IP Mobility and Balance Start: 07/06/22 14:13 Freq: Status: Active Protocol: Document 07/07/22 12:59 [facility] (Rec: 07/07/22 13:15 [facility] [id number]) OT-Transfer Assessment Sit to and From Stand Sit to and from Stand Standby Assistance Transfers Transfer Ability Independent,Standby Assistance Technique Transfer Destination Chair Transfer Technique Stand Step Pivot Devices Transfer Assistive Devices None,Front Wheeled Walker Comments Mobility Comments Pt needing close SBA without the FWW and then to furniture cruise. Pt is independent with the FWW for mobility needs. Pt not wanting to try use of cane at this time and insistent that she will be fine at home. OT- Balance Assessment Sitting Balance and Reactions Static Sitting Balance Ability Normal Dynamic Sitting Balance Ability Normal Standing Balance and Reactions Static Standing Balance Ability Good Dynamic Standing Balance Ability Fair M8 OT- IP Objective Assessments Start: 07/06/22 14:13 Freq: Status: Active Protocol: Document 07/07/22 12:59 [facility] (Rec: 07/07/22 13:15 [facility] [id number]) OT-Muscle Tone Assessment Muscle Tone WNL Yes M9 OT- IP Assessment and Plan Start: 07/06/22 14:13 Freq: Status: Active Protocol: Document 07/07/22 12:59 [facility] (Rec: 07/07/22 13:15 [facility] [id number]) OT Summary Assessment and Plan Potential Rehabilitation Potential Good Analytic Complexity at Evaluation Moderate Summary OT Impairments Functional Mobility,Activity Tolerance Progress Towards Goals Progressing Toward Goals Assessment Summary Pt scored 32/56 on the THOMASON which implies walking with assistance. Pt insists that being off balance is due to her left rib pain and not having moved much in the past day. Pt states has a cane at home if she needs it. Pt has a caregiver that she uses to assist with her art shows and states can ask the caregiver for assist if needed for IADL needs. Pt would benefit from assist and home health when medically stable. Goals Dressing Goal Independent Bathing Goal Independent Shower Transfer Goal Independent Days to Meet Goals 5 Frequency of Treatment Frequency Of Treatment Once a Day Treatment Plan OT Treatment Plan ADL Training,Functional Mobility,Patient/Family Education,Discharge Planning Discharge Recommendations OT Discharge Recommendations Home with Assistance,Home Health Home Equipment Needs Pt refuses any devices at this time. Safe with FWW and refusing to try a cane at this time. Transportation Needs at Discharge Private Vehicle
[2022-07-07] MEDS: TRAMADOL 50 MG TABLET PO ×2 (12:42→16:42)
--- NOTE | 2022-07-07 16:48 | CM.DPNOTE ---
Discharge Planning Note: Nurse Tanvi notified this afternoon that patient has discharge orders for home. Patient lives alone, apparently has friends and a son Raoul in town. She does not have her phone with her and cannot access any numbers. The face sheet has her son Ashkan listed who lives in [place]. This DCP left message for Ashkan to return my call so I can get Raoul's phone number and he has not returned call for nearly 2 hours. This DCP and [employer] admin called 8 cab or cabulance companies and none are available to transport today. Tyra lemus refuses to service her at all, having had bad experiences with her. Patient states that the [facility] will help, as they have before. This DCP called [facility] office of [facility] [phone] and requested transport. They have no one at this time but will call the ICU nurses station at about 8 pm and let them know if this is possible for them. Called [facility], they have availability but cost would be $1600.00. Let nurse Tanvi and Dr Ferreira know this update. Left message with [facility] for transport in am as she had said earlier they could provide in am. Follow up with them* Nurse Coordinator Alberta is also working on and calling additional cab companies from her list. [place] has just know arranged transport. Patient to leave this pm. Cydney Jane RN/DCP
--- NOTE | 2022-07-13 20:19 | P.DS_ITS ---
History of Present Illness History of Present Illness Date Patient Seen: 07/07/22 Chief complaint: Shortness of Breath Narrative: Presented to the hospital following an episode of coughing and shortness of breath. Benefit from intravenous furosemide in the ER. Patient continues to complain of cough with mucus production that is yellow tinge. 82-year-old female nonsmoker with history of hypertension presented by EMS for evaluation of ongoing cough and shortness of breath.? She is been here multiple times in the past few days with complaints of ground level fall and shortness of breath.? She is had extensive evaluation including multiple sets of labs and was found to be slightly fluid overload and has been given furosemide but is unable to poultry picking machine tender the prescription thus far.? 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 On this presentation the ER physician discussed this finding with the vascular surgery at . Their recommendation was no surgery but very good control of hypertension with admission initially with intravenous control with esmolol and then transitioning to oral medication with control of ideally 120 or less systolic but acceptable 140 or less. Patient not complaining of any fever chills and nausea vomiting. No diaphoresis. No chest pain. No palpitations. No wheezing. No abdominal pain constipation or diarrhea. No dysuria or hematuria. Has been treated in the past with Lamictal but the side effects made her shaky and her psychiatrist advised her to discontinue the medication. Was apparently taking this for bipolar disorder. With the advice of her psychiatrist to discontinue the medication she feels that she does not need this medication or any other treatment for supposed diagnosis of bipolar disorder. 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 Discharge Providers Provider Date of admission: 07/06/22 08:55 Discharge Date: 07/07/22 Primary care physician: Rohit Zuniga MD Consults: 07/06/22 08:38 Consult to ARTIFICIAL LEATHER CALENDER OPERATOR - Idea Worker Stat Comment: 07/06/22 11:02 Consult to Occupational Therapy Evaluate & Treat Comment: SLUMS/cog assess please Physician Instructions: Evaluate and treat 07/07/22 09:23 Consult to Home Health Routine Comment: Reason For Exam: Evaluate and treat- RN, OT, SW, Aide Discharge provider: Lauren Ferreira MD Summary Hospital Course Discharge Diagnosis: Dissection of descending thoracic aorta Hypertensive Emergency Congestive Heart Failure exacerbation (HFrEF) History of Melanoma History of Bipolar Disorder Productive cough Medication noncompliance Bronchitis Hospital Course: Patient presented with shortness and breath and coughing. She had been prescribed furosemide recently but did not get her precsription filled. In the ER, she benefitted from intravenous furosemide. Furosemide was continued as oral medication during the hospital stay. Due to significant hypertension on presentation, with a previously noted descending thoracic aorta dissection with a intimal flap, the ER physician discussed the patient with a Vascular Surgeon at and was advised to treat the patient with intravenous esmolol to control the blood pressure effectively (195/83 on presentation) and keep it controlled with systolic less than 140 and close to 120 if possible prior to discharge. The patient was admitted to the ICU for the intravenous treatment. Patient's regular blood pressure medications were restarted as well as the regular daily furosemide. In conjuction with consultation of the Production Truck Driver, the blood pressure medications were adjusted to effectively control blood pressure and benefit her congestive heart failure as well. On discharge, the patient was on amlodipine, lisinopril and metoprolol. The final dose of the azithromax treatment for productive cough concerning for bronchitis was also prescribed. It was re-iterated with the patient several times prior to discharge the importance of taking her medication and to help with compliance the patient was given medication both for the evening and morning doses so patient did not have to go to the pharmacy on the way home. Patient admitted to recently beginning to smoke cigarettes and cessation counseling was given on both days of her ad mission. Status at Discharge Cognitive/behavioral status at discharge: at baseline, oriented Functional status at discharge: independent ambulation Overall status at discharge: patient is back to baseline Time Spent with Patient Time spent: Greater than 30 minutes Time spent discussing smoking cessation with patient: more than 10 minutes Exam Vital Signs (past 8 hours): Oxygen Delivery Method Room Air Oxygen Flow Rate 0 Narrative Exam Narrative: General: Appears in no acute distress. Cardiovascular: Heart sounds S1 and S2. No pedal edema. Respiratory: Clear to auscultation. MSK: Able to ambulate well. Objective Labs Result Diagrams: 07/07/22 Unknown 07/07/22 08:02 [facility] Medical History Bipolar 1 disorder Contusion of knee, right Hypertension Melanoma Social History household members: none Smoking Status: Current some day smoker alcohol intake: never Discharge Plan Discharge Plan Patient Disposition: Home Health Service Provider Discharge Comment: The patient must take her blood pressure medications. This is important for the problems with the aortic aneurysm/intimal tear. As well, patient should not smoke since this can also have a negative affect. Discharge orders & Medications Prescriptions: New azithromycin [Zithromax Z-Anuel] 250 mg Tablet 500 mg PO DAILY Qty: 1 0RF amlodipine [Norvasc] 5 mg Tablet 10 mg PO DAILY Qty: 60 0RF tramadol 50 mg Tablet 50 mg PO TID PRN (Reason: Pain, Moderate (4-6)) Qty: 30 0RF pantoprazole 40 mg Tablet,Delayed Release (Dr/Ec) 40 mg PO 0700 Qty: 30 0RF lisinopril 5 mg Tablet 5 mg PO DAILY Qty: 30 0RF metoprolol tartrate 25 mg Tablet 25 mg PO BID Qty: 60 0RF acetaminophen 325 mg Tablet 650 mg PO Q4H PRN (Reason: Fever/Mild Pain (1-3)) Qty: 90 0RF Discontinued losartan-hydrochlorothiazide 100-25 mg Tablet 1 tab PO DAILY furosemide [Lasix] 40 mg tablet 40 mg PO DAILY Qty: 5 0RF Follow up/Referrals: Rohit Zuniga MD [Primary Care Provider] - Discharge Data Primary Care Provider: Rohit Zuniga
== END 2022-07-07 17:34 | disposition home health service (06) | DRG 291 ==
LOC: ED 08:21 → AC 08:56 → ICU 10:48
PROVIDERS: Emergency Medicine; Admitting Provider Neuromusculoskeletal Medicine, Sports Medicine; Emergency Provider Emergency Medicine; PCP Internal Medicine; Referring Provider Emergency Medicine; Visit Provider Neuromusculoskeletal Medicine, Sports Medicine
DX: I11.0 Hypertensive heart disease with heart failure (principal); I50.23 Acute on chronic systolic (congestive) heart failure; J96.00 Acute respiratory failure, unspecified whether with hypoxia or hypercapnia; J81.1 Chronic pulmonary edema; I72.8 Aneurysm of other specified arteries; F17.210 Nicotine dependence, cigarettes, uncomplicated; Z91.14 Patient's other noncompliance with medication regimen; Z20.822 Contact with and (suspected) exposure to COVID-19; S20.212A Contusion of left front wall of thorax, initial encounter; M54.9 Dorsalgia, unspecified; W18.30XA Fall on same level, unspecified, initial encounter; I89.0 Lymphedema, not elsewhere classified; Z53.29 Procedure and treatment not carried out because of patient's decision for other reasons
CPT/HCPCS: 36415; 70450; 71045; 71046; 71101; 71275; 72072; 80053; 81003; 82550; 83605; 83690; 83880; 84145; 84484; 85025; 85379; 85610; 87633; 87635; 87797; 93005; 93010; 93306; 93971; 96365; 96366; 96374; 96375; 97166; 97530; 97535; 99283; 99284; 99285; 99291; 99292; C9803; J1650; J1940; Q9967

== ENCOUNTER 2022-07-11 00:24 | Emergency (ER) | payer OTHER, SELFPAY ==
[2022-07-06 11:31] VITALS: BMI 28.3
[2022-07-11 00:29] VITALS: BP 145/71; PULSE 72; RESP 20; TEMP 36.8; O2SAT 98
--- NOTE | 2022-07-11 00:42 | PC.NURSE ---
MD at bedside speaking to pt. Pt requests to be taken to [facility] and to be given food. As MD asks assessment questions, pt keeps redirecting the conversation back to these two requests. After MD leaves room pt begins to eat crackers in bed. Respirations are regular and unlabored.
--- NOTE | 2022-07-11 00:44 | ED_ITS ---
HPI - General Adult General Chief complaint: Shortness of Breath/Dyspnea Stated complaint: SOB Time Seen by Provider: 07/11/22 00:28 Source: patient and EMS Mode of arrival: EMS History of Present Illness HPI narrative: Patient is an 82-year-old female who arrives emergency department by EMS for what she describes as shortness of breath. Patient denies chest pain. She states she was recently admitted here at the hospital was discharged with medications to help decrease the amount of fluid that she was retaining. States that over the weekend she could not feel these medications. We soon found that the patient had just been discharged from [facility] emergency department. Initially these records were not available for review. It turns out that the patient was brought home by the police department. When she retur [facility] home she felt like she needed to come back to the emergency department so she contacted EMS. She asked to be brought to this emergency department. Upon arrival patient states that she is not having any lower extremity swelling. No cough. No fevers. She states she is not eaten all day and would like some food. She also stated that she would like some coffee. Patient has a unopened box of wheat thins in her purse. Related Data Previous Rx's Medication Instructions Recorded acetaminophen 325 mg tablet 650 mg PO Q4H PRN Fever/Mild Pain 07/07/22 (1-3) #90 tabs amlodipine 5 mg tablet (Norvasc) 10 mg PO DAILY #60 tabs 07/07/22 azithromycin 250 mg tablet 500 mg PO DAILY #1 tab 07/07/22 (Zithromax Z-Anuel) lisinopril 5 mg tablet 5 mg PO DAILY #30 tabs 07/07/22 metoprolol tartrate 25 mg tablet 25 mg PO BID #60 tabs 07/07/22 pantoprazole 40 mg tablet,delayed 40 mg PO 0700 #30 tabs 07/07/22 release tramadol 50 mg tablet 50 mg PO TID PRN Pain, Moderate 07/07/22 (4-6) #30 tabs Allergies Allergy/AdvReac Type Severity Reaction Status Date / Time No Known Drug Allergies Allergy Verified 07/05/22 13:21 Review of Systems Review of Systems ROS Unobtainable: All systems reviewed & are unremarkable except as noted in HPI and below Patient History Medical History Bipolar 1 disorder Contusion of knee, right Hypertension Melanoma Social History household members: none Smoking Status: Current some day smoker alcohol intake: never Smoking Status: Current some day smoker alcohol intake frequency: holidays/special occasions only Substance Use Type: does not use Exam Initial Vital Signs Initial Vital Signs: Vital Signs Temperature 98.2 F 07/11/22 00:29 Pulse Rate 72 07/11/22 00:29 Respiratory Rate 20 07/11/22 00:29 Blood Pressure 145/71 H 07/11/22 00:29 Pulse Oximetry 98 07/11/22 00:29 Oxygen Delivery Method 07/11/22 00:29 Const General: cooperative and comfortable HENMT Head: normal to inspection and normocephalic Resp Effort & Inspection: not labored and not tachypneic Auscultation: clear to auscultation bilaterally Cardio Rate: regular rate Rhythm: regular rhythm GI Inspection: normal to inspection Skin General: no rashes or lesions noted Neuro General: patient alert, patient awake and moves all extremities Extrem General: No edema Course Orders Ordered: ED Orders 07/11/22 00:36 Consult to GANG BOSS - Client Experience Specialist Stat 07/11/22 00:44 XR chest 1V Stat 07/11/22 00:45 EKG-12 Lead Stat 07/11/22 00:55 Complete Blood Count AUTO DIFF Stat Comprehensive Metabolic Panel Stat Lipase Stat NT-proBNP (BNP-Adult 18+) Stat Troponin & CK Cardiac Panel Stat Discontinued Medications Acetaminophen (Acetaminophen 325 Mg Tablet) 650 mg PO NOW ONE Stop: 07/11/22 01:47 Last Admin: 07/11/22 01:51 Dose: 650 mg Documented By: HARLAN Furosemide (Furosemide 40 Mg/4 Ml Vial) 40 mg IV NOW ONE Stop: 07/11/22 00:45 Last Admin: 07/11/22 00:55 Dose: 40 mg Documented By: MAK Vital Signs Vital signs: Vital Signs - 8 hr 07/11/22 00:29 07/11/22 01:42 07/11/22 01:42 Temperature 98.2 F Pulse Rate 72 69 Respiratory Rate 20 32 H Blood Pressure 145/71 H 145/65 H Pulse Oximetry 98 Oxygen Delivery Method Room Air 07/11/22 02:00 Temperature Pulse Rate 71 Respiratory Rate 24 Blood Pressure 136/94 H Pulse Oximetry 94 Oxygen Delivery Method Room Air Medical Decision Making Lab Data Lab results reviewed: Yes I reviewed the patient's lab results. Result diagrams: 07/11/22 00:55 07/11/22 00:55 Labs: Lab Results 07/11/22 07/11/22 Range/Units 00:55 00:55 WBC 8.9 (4.5-11.0) X10^3/uL RBC 4.18 (4.0-5.2) X10^6/uL Hgb 10.6 L (12.0-16.0) g/dL Hct 32.2 L (36-46) % MCV 77.0 L (80-100) fL MCH 25.3 L (26-34) PG MCHC 32.8 (30-36) % RDW 16.5 H (11.6-14.8) % Plt Count 391 (150-400) X10^3/uL Neut % (Auto) 76.5 H (50-75) % Lymph % (Auto) 12.0 L (25-40) % Storey % (Auto) 6.6 (3-14) % Eos % (Auto) 3.9 (2-4) % Baso % (Auto) 1.0 (0-2) % Neut # (Auto) 6800 (5636-4680) /uL Lymph # (Auto) 1100 (9111-3749) /uL Storey # (Auto) 600 (0-900) /uL Eos # (Auto) 300 (0-450) /uL Baso # (Auto) 100 (0-100) /uL Sodium 131 L (137-145) mmol/L Potassium 3.9 (3.4-5.1) mmol/L Chloride 95 L (98-107) mmol/L Carbon Dioxide 27 (22-32) mmol/L BUN 15 (7-17) mg/dL Creatinine 0.75 (0.52-1.04) mg/dL Estimated GFR > 60 (>60) mL/min BUN/Creatinine Ratio 20.0 (6-22) Glucose 112 H (80-110) mg/dL Calcium 9.1 (8.4-10.2) mg/dL Total Bilirubin 0.4 (0.2-1.3) mg/dL AST 32 (14-36) IU/L ALT 33 (<35) IU/L Alkaline Phosphatase 117 (38-126) U/L Total Creatine Kinase 36 (30-135) U/L CK-MB (CK-2) TNP CK-MB (CK-2) Rel Index TNP Troponin I 0.015 (0.01-0.034) ng/mL NT-Pro-B Natriuret Pep 1570 H (<450) pg/mL Total Protein 7.6 (6.3-8.2) g/dL Albumin 4.1 (3.5-5.0) g/dL Globulin 3.5 (1.7-4.1) g/dL Albumin/Globulin Ratio 1.2 (1.0-2.8) Lipase 98 D (23-300) U/L Imaging Data Chest x-ray: Radiologist's Impression: [address] [address] XRay Report Signed Patient: Yue Chinchilla MR#: [id number] : 1940 Acct:[id number] Age/Sex: 82 / F Date of Service: 07/11/22 Loc: ED Accession Number: [id number] ?? Procedure: XR chest 1V Ordering Provider: Julio Chavira D.O. PROCEDURE:? XR CHEST 1V ? INDICATIONS:? SOB ? TECHNIQUE:? One view of the chest was acquired.? ? COMPARISON:? [facility], CT, CT ANGIO CHEST PE PROTOCOL, 07/04/2022, 2:35.? [facility], CR, XR CHEST 1 VIEW, 12/19/2021, 11:45.? [facility], CR, XR CHEST 2V, 07/05/2022, 15:42.? [facility], CR, XR CHEST 1V, 07/06/2022, 6:08. ? FINDINGS:? ? Surgical changes and devices:? Surgical hardware partially visualized within the proximal left humerus. ? Lungs and pleura:? There is a persistent small left pleural effusion with associated left basilar opacities consistent with compressive atelectasis or consolidation.? A minimal right pleural effusion is also redemonstrated.? A few linear opacities in the right lung base likely represent atelectasis. ? Mediastinum:? Mediastinal contours are unchanged.? Heart size is mildly enlarged. ? Bones and chest wall:? Multiple healed right rib fractures are redemonstrated.? No suspicious bony lesions.? Overlying soft tissues appear unremarkable.? ? IMPRESSION:? ? 1. Persistent small left and minimal right pleural effusions with associated left basilar compressive atelectasis or consolidation.? Findings appear similar to the recent prior studies. ? ? Dictated by: Hill Chavez M.D. on 07/11/2022 at 1:35 ? ? Approved by: Hill Chavez M.D. on 07/11/2022 at 1:38?? ECG Data Attestation: I personally reviewed and interpreted this ECG as follows: Interpretation: Sinus rhythm Ventricular rate is 68 LVH Left anterior fascicular block No ST T wave changes MDM Narrative Medical decision making narrative: Patient is not in respiratory distress. She is not hypoxic. Lungs are clear. She was given Lasix. The patient made multiple requests for coffee and food. I informed her that she could have some of the weight thins that she had in her purse. We gave her water. Her labs are at baseline. Chest x-ray is at [facility]. Patient made multiple statements that she wanted a ?private ambulance ?to take her to [facility] because they had ?[employer] money ?. I informed her that I did not have a reason to transfer her from this facility. Patient requested discharge from the emergency department. She stated that she would find her own way home. Discharge Plan Departure Patient Disposition: Home Clinical Impression: Shortness of Breath Instructions: DI for Shortness of Breath Activity Restrictions/Additional Instructions: I recommend that you continue to take all of your medications as directed. Sure to fill the prescriptions that have already been given to you when the pharmacy opens later today. Contact your primary provider for a follow-up. Prescriptions: No Action azithromycin [Zithromax Z-Anuel] 250 mg Tablet 500 mg PO DAILY Qty: 1 0RF amlodipine [Norvasc] 5 mg Tablet 10 mg PO DAILY Qty: 60 0RF tramadol 50 mg Tablet 50 mg PO TID PRN (Reason: Pain, Moderate (4-6)) Qty: 30 0RF pantoprazole 40 mg Tablet,Delayed Release (Dr/Ec) 40 mg PO 0700 Qty: 30 0RF lisinopril 5 mg Tablet 5 mg PO DAILY Qty: 30 0RF metoprolol tartrate 25 mg Tablet 25 mg PO BID Qty: 60 0RF acetaminophen 325 mg Tablet 650 mg PO Q4H PRN (Reason: Fever/Mild Pain (1-3)) Qty: 90 0RF Referrals: Rohit Zuniga MD [Primary Care Provider] - Visit Report Forms: Patient Portal/API
--- NOTE | 2022-07-11 00:44 | DI.RAD.S_ITS ---
PROCEDURE: XR CHEST 1V INDICATIONS: SOB TECHNIQUE: One view of the chest was acquired. COMPARISON: [facility], CT, CT ANGIO CHEST PE PROTOCOL, 07/04/2022, 2:35. [facility], CR, XR CHEST 1 VIEW, 12/19/2021, 11:45. [facility], CR, XR CHEST 2V, 07/05/2022, 15:42. [facility], CR, XR CHEST 1V, 07/06/2022, 6:08. FINDINGS: Surgical changes and devices: Surgical hardware partially visualized within the proximal left humerus. Lungs and pleura: There is a persistent small left pleural effusion with associated left basilar opacities consistent with compressive atelectasis or consolidation. A minimal right pleural effusion is also redemonstrated. A few linear opacities in the right lung base likely represent atelectasis. Mediastinum: Mediastinal contours are unchanged. Heart size is mildly enlarged. Bones and chest wall: Multiple healed right rib fractures are redemonstrated. No suspicious bony lesions. Overlying soft tissues appear unremarkable. IMPRESSION: 1. Persistent small left and minimal right pleural effusions with associated left basilar compressive atelectasis or consolidation. Findings appear similar to the recent prior studies. Dictated by: Hill Chavez M.D. on 07/11/2022 at 1:35 Approved by: Hill Chavez M.D. on 07/11/2022 at 1:38
[2022-07-11] MEDS: FUROSEMIDE 40 MG/4 ML VIAL IV (00:55)
[2022-07-11 01:08] LABS: Add Manual Diff / Slide Review NO; Basophils Absolute Auto 100 /uL (0-100); Eosinophils Absolute Auto 300 /uL (0-450); Eosinophils Percent Auto 3.9 % (2-4); Hematocrit 32.2 % (36-46); Hemoglobin 10.6 g/dL (12.0-16.0); Lymphocytes Absolute Auto 1100 /uL (1100-4500); Mean Corpuscular HGB Conc 32.8 % (30-36); Mean Corpuscular Hemoglobin 25.3 PG (26-34); Monocytes Absolute Auto 600 /uL (0-900); Monocytes Percent Auto 6.6 % (3-14); Neutrophils Absolute Auto 6800 /uL (1500-7000); Neutrophils Percent Auto 76.5 % (50-75); Platelet Count 391 X10^3/uL (150-400); Red Blood Cell Count 4.18 X10^6/uL (4.0-5.2); Red Cell Distribution Width 16.5 % (11.6-14.8); White Blood Cell Count 8.9 X10^3/uL (4.5-11.0)
[2022-07-11 01:18] LABS: Alanine Aminotransferase 33 IU/L (<35); Albumin 4.1 g/dL (3.5-5.0); Albumin Globulin Ratio 1.2 (1.0-2.8); Alkaline Phosphatase 117 U/L (38-126); Aspartate Aminotransferase 32 IU/L (14-36); Bilirubin Total 0.4 mg/dL (0.2-1.3); Blood Urea Nitrogen 15 mg/dL (7-17); Calcium 9.1 mg/dL (8.4-10.2); Carbon Dioxide 27 mmol/L (22-32); Chloride 95 mmol/L (98-107); Creatine Kinase 36 U/L (30-135); Estimated Glomerular Filt Rate > 60 mL/min (>60); Globulin 3.5 g/dL (1.7-4.1); Glucose 112 mg/dL (80-110); HEMOLYSIS < 15 (0-50); Lipase 98 U/L (23-300); Potassium 3.9 mmol/L (3.4-5.1); Sodium 131 mmol/L (137-145); Total Protein 7.6 g/dL (6.3-8.2)
[2022-07-11 01:29] LABS: NT-proBNP (BNP-Adult 18+) 1570 pg/mL (<450); Troponin I 0.015 ng/mL (0.01-0.034)
[2022-07-11 01:42] VITALS: BP 145/65; PULSE 69; RESP 32
[2022-07-11] MEDS: ACETAMINOPHEN 325 MG TABLET 650 MG PO (01:51)
[2022-07-11 02:00] VITALS: BP 136/94; PULSE 71; RESP 24; O2SAT 94
--- NOTE | 2022-07-12 20:07 | CM.SWNOTE ---
FINANCIAL RECRUITER ED Note SW received a call from APS worker, Todd Carter . Todd was following up on a referral sent by ED SW last week. SW explained that pt discharged home with a referral to home health. SW explained that the referral was made due to a report from EMT that pt's living situation was not safe. SW provided information requested by APS worker and instructed worker to reach out to medical records for further documentation. WILDA Rios
== END 2022-07-11 02:23 | disposition home or self-care (01) ==
PROVIDERS: Emergency Provider Emergency Medicine; PCP Internal Medicine
DX: R06.02 Shortness of breath (principal)
CPT/HCPCS: 36415; 71045; 80053; 82550; 83690; 83880; 84484; 85025; 93005; 96374; 99284; J1940

== ENCOUNTER 2022-08-12 03:25 | Emergency (ER) | payer OTHER, SELFPAY ==
[2022-07-06 11:31] VITALS: BMI 28.3
[2022-08-12] VITALS (9 sets, daily range): BP systolic 162–183; BP diastolic 79–82; PULSE 75–85; RESP 17–39; TEMP 36.7; O2SAT 95–97
--- NOTE | 2022-08-12 03:37 | DI.RAD.S_ITS ---
PROCEDURE: XR CHEST 1V INDICATIONS: chest pain TECHNIQUE: One view of the chest was acquired. COMPARISON: [facility], CR, XR CHEST 2 VIEWS, 08/09/2022, 22:34. [facility], CT, CT ANGIO CHEST ABDOMEN PELVIS, 07/29/2022, 5:25. [facility], CR, XR CHEST 1V, 07/11/2022, 0:44. [facility], CR, XR CHEST 1V, 07/06/2022, 6:08. FINDINGS: Surgical changes and devices: Left humerus intramedullary gustavo and screw fixation. Lungs and pleura: Bilateral hazy opacity. Small bilateral pleural effusions, similar. No pneumothorax. Mediastinum: Mediastinal contours appear unchanged. Heart size is prominent. Bones and chest wall: No suspicious bony lesions. Overlying soft tissues appear unremarkable. IMPRESSION: Small bilateral pleural effusions are similar. Bilateral hazy opacity. Suspect atelectasis or pulmonary edema over pneumonia. This report is concordant with the overnight preliminary interpretation. Dictated by: Von Chanel M.D. on 08/12/2022 at 8:01 Approved by: Von Chanel M.D. on 08/12/2022 at 8:04
--- NOTE | 2022-08-12 03:37 | ED.CHESTPAIN ---
HPI - Chest Pain General Chief Complaint: Chest Pain Stated Complaint: Chest pain Time Seen by Provider: 08/12/22 03:30 Source: patient Mode of arrival: EMS Limitations: no limitations History of Present Illness HPI narrative: 82-year-old female with history of pneumonia, hypertension, hyperlipidemia, LA, type B aortic dissection with recent hospitalization at [facility] for influenza presents by EMS from home for evaluation of shortness of breath and chest pain. She states that she has a sharp and stabbing left-sided pleuritic-type chest pain that has been present for many months. She has shortness of breath with exertion and continues to have some cough. She denies any ongoing fever or chills. She has no nausea, vomiting or diarrhea. She denies abdominal pain nor urinary complaints such as dysuria, frequency or urgency. She denies any missed doses of her medications or change in her diet. Related Data Previous Rx's Medication Instructions Recorded acetaminophen 325 mg tablet 650 mg PO Q4H PRN Fever/Mild Pain 07/07/22 (1-3) #90 tabs amlodipine 5 mg tablet (Norvasc) 10 mg PO DAILY #60 tabs 07/07/22 azithromycin 250 mg tablet 500 mg PO DAILY #1 tab 07/07/22 (Zithromax Z-Anuel) lisinopril 5 mg tablet 5 mg PO DAILY #30 tabs 07/07/22 metoprolol tartrate 25 mg tablet 25 mg PO BID #60 tabs 07/07/22 pantoprazole 40 mg tablet,delayed 40 mg PO 0700 #30 tabs 07/07/22 release tramadol 50 mg tablet 50 mg PO TID PRN Pain, Moderate 07/07/22 (4-6) #30 tabs furosemide 40 mg tablet (Lasix) 40 mg PO DAILY #7 tabs 08/12/22 Allergies Allergy/AdvReac Type Severity Reaction Status Date / Time No Known Drug Allergies Allergy Verified 07/05/22 13:21 Review of Systems Review of Systems Narrative: GENERAL: See HPI HEENT: Denies sinus pain, ear pain, sore throat, difficulty swallowing, dizziness. RESPIRATORY: See HPI CARDIOVASCULAR: See HPI GASTROINTESTINAL: Denies nausea, vomiting, abdominal pain, diarrhea, constipation, melena. : Denies dysuria, frequency, incontinence, hematuria, urinary retention. MUSCULOSKELETAL: denies weakness, joint pain, or bony pain SKIN: Denies rash, skin lesions, or other NEUROLOGIC: Denies weakness, headache, numbness, change in speech, confusion, seizures, incoordination. PSYCHIATRIC: No concerning psychosocial issues. 12 point review of systems is negative except for those stated above Patient History Medical History Bipolar 1 disorder Contusion of knee, right Hypertension Melanoma Social History household members: none Smoking Status: Current some day smoker alcohol intake: never Smoking Status: Current some day smoker alcohol intake frequency: holidays/special occasions only Substance Use Type: does not use Exam Narrative Exam Narrative: GENERAL: [82] year old patient appears stated age. Well-developed patient, in mild distress. HEAD: Atraumatic. Normocephalic. EYES: Pupils equal round and reactive. Extraocular motions intact. No scleral icterus. No injection or drainage. ENT: Nose without bleeding, purulent drainage. Throat without erythema, tonsillar hypertrophy or exudate. Airway patent. NECK: Trachea midline. Non tender CARDIOVASCULAR: Regular rate and rhythm without murmurs, gallops, or rubs. RESPIRATORY: Clear to auscultation. Breath sounds equal bilaterally. No wheezes, rales, or rhonchi. GASTROINTESTINAL: Abdomen soft, non-tender, nondistended. EXTREMITIES: No edema or joint tenderness. BACK: Nontender without deformity or crepitance. No flank tenderness. NEURO: AOx3. SKIN: No rash or erythema of visible areas Initial Vital Signs Initial Vital Signs: Vital Signs Temperature 98.1 F 08/12/22 03:29 Pulse Rate 80 08/12/22 03:29 Respiratory Rate 20 08/12/22 03:29 Blood Pressure 162/82 H 08/12/22 03:29 Pulse Oximetry 96 08/12/22 03:29 Oxygen Delivery Method 08/12/22 03:29 Course Orders Ordered: ED Orders 08/12/22 03:33 Consult to PHYSICAL THERAPY DIRECTOR - Atomic Spectroscopist Stat 08/12/22 03:37 XR chest 1V Stat EKG-12 Lead Stat 08/12/22 04:15 Complete Blood Count AUTO DIFF Stat Comprehensive Metabolic Panel Stat Lipase Stat NT-proBNP (BNP-Adult 18+) Stat Troponin & CK Cardiac Panel Stat Sodium Chloride (Normal Saline 0.9%) 1,000 mls @ 150 mls/hr IV CONT SHEILA Last Admin: 08/12/22 04:00 Dose: 150 mls/hr Documented By: OW Discontinued Medications Aspirin (Aspirin 81 Mg Chew Tab) 324 mg PO NOW ONE Stop: 08/12/22 03:38 Last Admin: 08/12/22 04:03 Dose: 324 mg Documented By: OW Vital Signs Vital signs: Vital Signs - 8 hr 08/12/22 03:29 08/12/22 06:42 Temperature 98.1 F Pulse Rate 80 77 Respiratory Rate 20 24 Blood Pressure 162/82 H 183/79 H Pulse Oximetry 96 95 Oxygen Delivery Method Room Air Room Air MDM - Chest Pain Lab Data Result diagrams: 08/12/22 04:15 08/12/22 04:15 Labs: Lab Results 08/12/22 08/12/22 08/12/22 Range/Units 04:15 04:15 04:15 WBC 4.3 L (4.5-11.0) X10^3/uL RBC 3.91 L (4.0-5.2) X10^6/uL Hgb 9.7 L (12.0-16.0) g/dL Hct 30.0 L (36-46) % MCV 76.7 L (80-100) fL MCH 24.8 L (26-34) PG MCHC 32.4 (30-36) % RDW 16.7 H (11.6-14.8) % Plt Count 255 (150-400) X10^3/uL Neut % (Auto) 63.9 (50-75) % Lymph % (Auto) 11.4 L (25-40) % Mclennan % (Auto) 16.6 H (3-14) % Eos % (Auto) 6.9 H (2-4) % Baso % (Auto) 1.2 (0-2) % Neut # (Auto) 2700 (1963-7200) /uL Lymph # (Auto) 500 L (7670-8795) /uL Mclennan # (Auto) 700 (0-900) /uL Eos # (Auto) 300 (0-450) /uL Baso # (Auto) 100 (0-100) /uL Sodium 131 L (137-145) mmol/L Potassium 4.2 (3.4-5.1) mmol/L Chloride 98 (98-107) mmol/L Carbon Dioxide 23 (22-32) mmol/L BUN 10 (7-17) mg/dL Creatinine 0.61 (0.52-1.04) mg/dL Estimated GFR > 60 (>60) mL/min BUN/Creatinine Ratio 16.4 (6-22) Glucose 108 (80-110) mg/dL Calcium 8.8 (8.4-10.2) mg/dL Total Bilirubin 0.3 (0.2-1.3) mg/dL AST 19 (14-36) IU/L ALT 12 (<35) IU/L Alkaline Phosphatase 110 (38-126) U/L Total Creatine Kinase 27 L (30-135) U/L CK-MB (CK-2) TNP CK-MB (CK-2) Rel Index TNP Troponin I 0.018 (0.01-0.034) ng/mL NT-Pro-B Natriuret Pep 2570 H (<450) pg/mL Total Protein 6.5 (6.3-8.2) g/dL Albumin 3.5 (3.5-5.0) g/dL Globulin 3.0 (1.7-4.1) g/dL Albumin/Globulin Ratio 1.2 (1.0-2.8) Lipase 65 (23-300) U/L Imaging Data Chest x-ray: Radiologist's Impression: Cardiomegaly with small bilateral pleural effusions and bibasilar linear opacities MDM Narrative Medical decision making narrative: Patient with very reassuring history and physical exam. She is in no respiratory distress, there is no abnormal lung sounds, she has no cough and has no hypoxemia. Labs, EKG and imaging are very reassuring. Though chest x-ray suggests the possibility of infiltrate versus atelectasis versus other the patient has no fever, purulent sputum, abnormal lung sounds, fever or elevated white blood cell count. Discussed with patient and will treat with diuretic for now, return precautions discussed and questions answered to her apparent satisfaction Discharge Plan Departure Patient Disposition: Home Clinical Impression: Atypical chest pain, CHF (congestive heart failure) Instructions: DI for Atypical Chest Pain Activity Restrictions/Additional Instructions: *You have been diagnosed with [atypical chest pain and mild CHF *What to do: *Please continue to take your regular medications as directed. [ x] New medication prescriptions sent to your pharmacy: [ [facility]] [ ] New medication written as a paper prescription [ ] No new medications given *Please follow up with your primary care provider in 2-3 days, call for an appointment. Let them know you were seen in the Emergency Department and that we ask that you be seen in follow up. We will electronically transmit a record of today's note if your PCP is in our system *If you do not have a primary care provider please contact the [facility] Resource line at [phone]. They will ask some questions about your medical history and help get you set up with a doctor in the community. *Return to Emergency Department if you should have any new, worsening or concerning symptoms, such as [fever greater than 101 F, shaking chills, worsening pain, persistent vomiting or other bothersome symptoms] Prescriptions: New furosemide [Lasix] 40 mg tablet 40 mg PO DAILY Qty: 7 0RF No Action azithromycin [Zithromax Z-Anuel] 250 mg Tablet 500 mg PO DAILY Qty: 1 0RF amlodipine [Norvasc] 5 mg Tablet 10 mg PO DAILY Qty: 60 0RF tramadol 50 mg Tablet 50 mg PO TID PRN (Reason: Pain, Moderate (4-6)) Qty: 30 0RF pantoprazole 40 mg Tablet,Delayed Release (Dr/Ec) 40 mg PO 0700 Qty: 30 0RF lisinopril 5 mg Tablet 5 mg PO DAILY Qty: 30 0RF metoprolol tartrate 25 mg Tablet 25 mg PO BID Qty: 60 0RF acetaminophen 325 mg Tablet 650 mg PO Q4H PRN (Reason: Fever/Mild Pain (1-3)) Qty: 90 0RF Referrals: Rohit Zuniga MD [Primary Care Provider] -
[2022-08-12] MEDS: SODIUM CHLORIDE 0.9% 1,000 ML 150 ML IV (04:00)
[2022-08-12] MEDS: ASPIRIN 81 MG CHEW TAB 324 MG PO (04:03)
[2022-08-12 04:23] LABS: Add Manual Diff / Slide Review NO; Basophils Absolute Auto 100 /uL (0-100); Basophils Percent Auto 1.2 % (0-2); Eosinophils Absolute Auto 300 /uL (0-450); Eosinophils Percent Auto 6.9 % (2-4); Hemoglobin 9.7 g/dL (12.0-16.0); Lymphocytes Absolute Auto 500 /uL (1100-4500); Lymphocytes Percent Auto 11.4 % (25-40); Mean Corpuscular HGB Conc 32.4 % (30-36); Mean Corpuscular Hemoglobin 24.8 PG (26-34); Mean Corpuscular Volume 76.7 fL (80-100); Monocytes Absolute Auto 700 /uL (0-900); Monocytes Percent Auto 16.6 % (3-14); Neutrophils Absolute Auto 2700 /uL (1500-7000); Neutrophils Percent Auto 63.9 % (50-75); Platelet Count 255 X10^3/uL (150-400); Red Blood Cell Count 3.91 X10^6/uL (4.0-5.2); Red Cell Distribution Width 16.7 % (11.6-14.8); White Blood Cell Count 4.3 X10^3/uL (4.5-11.0)
[2022-08-12 04:37] LABS: Alanine Aminotransferase 12 IU/L (<35); Albumin 3.5 g/dL (3.5-5.0); Albumin Globulin Ratio 1.2 (1.0-2.8); Alkaline Phosphatase 110 U/L (38-126); Aspartate Aminotransferase 19 IU/L (14-36); BUN Creatinine Ratio 16.4 (6-22); Bilirubin Total 0.3 mg/dL (0.2-1.3); Blood Urea Nitrogen 10 mg/dL (7-17); Calcium 8.8 mg/dL (8.4-10.2); Carbon Dioxide 23 mmol/L (22-32); Chloride 98 mmol/L (98-107); Creatine Kinase 27 U/L (30-135); Estimated Glomerular Filt Rate > 60 mL/min (>60); Glucose 108 mg/dL (80-110); HEMOLYSIS < 15 (0-50); Lipase 65 U/L (23-300); Potassium 4.2 mmol/L (3.4-5.1); Sodium 131 mmol/L (137-145); Total Protein 6.5 g/dL (6.3-8.2)
[2022-08-12 04:47] LABS: NT-proBNP (BNP-Adult 18+) 2570 pg/mL (<450)
[2022-08-12 04:49] LABS: Troponin I 0.018 ng/mL (0.01-0.034)
--- NOTE | 2022-08-12 07:45 | PC.NURSE ---
pt assisted OOB, was independent dressing and awake alert and ambulatory. assisted into WC. pt wheeled to [facility] where she is trying to call a friend for a ride home.
== END 2022-08-12 07:40 | disposition home or self-care (01) ==
PROVIDERS: Emergency Provider Emergency Medicine; PCP Internal Medicine
DX: R07.89 Other chest pain (principal); I50.9 Heart failure, unspecified
CPT/HCPCS: 71045; 80053; 82550; 83690; 83880; 84484; 85025; 93005; 99284

== ENCOUNTER 2022-08-12 17:55 | Inpatient (IN) | payer OTHER, SELFPAY ==
[2022-07-06 11:31] VITALS: BMI 28.3
[2022-08-12 18:14] VITALS: BP 193/93; PULSE 84; RESP 20; TEMP 36.6; O2SAT 94; BMI 30.1
--- NOTE | 2022-08-12 18:21 | PC.NURSE ---
spoke with dr. lockett about orders. no ekg or further orders at this time.
[2022-08-12 21:14] VITALS: BP 167/76; PULSE 88; RESP 22; TEMP 37.1; O2SAT 100
[2022-08-12] MEDS: ACETAMINOPHEN 325 MG TABLET 650 MG PO (21:35)
--- NOTE | 2022-08-12 22:30 | ED_ITS ---
HPI - URI/Sore Throat General Chief Complaint: Upper Respiratory Symptoms Stated Complaint: Body Aches, Flu Time Seen by Provider: 08/12/22 22:24 Source: patient Mode of arrival: EMS History of Present Illness HPI Narrative: Patient is a 82-year-old female history of hypertension, hyperlipidemia type B aortic dissection, coronary artery disease recent hospitalization at [facility] for influenza presents today for the 2nd time with shortness of breath. She was diagnosed this morning with congestive heart failure she had el evated BNP of greater than 2000 his and some bilateral pleural effusions. She said that it took her 4 hours to home she did not get any Lasix when she was here in the ED but she did get a prescription. 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 She now complains of shortness of breath she continues to have right-sided chest pain intermittently. She says she generally does not feel good. She is hungry she walks coffee and orange juice. She is having some obvious shortness of breath with his conversation. She denies fever or chills she says that part is a little bit better. According to records she actually was seen earlier this month at [facility] for some shortness of breath she was then seen again and admitted is test [facility] this to with influenza a. Now presenting for a 2nd time today with increasing shortness of. Related Data Previous Rx's Medication Instructions Recorded acetaminophen 325 mg tablet 650 mg PO Q4H PRN Fever/Mild Pain 07/07/22 (1-3) #90 tabs amlodipine 5 mg tablet (Norvasc) 10 mg PO DAILY #60 tabs 07/07/22 azithromycin 250 mg tablet 500 mg PO DAILY #1 tab 07/07/22 (Zithromax Z-Anuel) lisinopril 5 mg tablet 5 mg PO DAILY #30 tabs 07/07/22 metoprolol tartrate 25 mg tablet 25 mg PO BID #60 tabs 07/07/22 pantoprazole 40 mg tablet,delayed 40 mg PO 0700 #30 tabs 07/07/22 release tramadol 50 mg tablet 50 mg PO TID PRN Pain, Moderate 07/07/22 (4-6) #30 tabs furosemide 40 mg tablet (Lasix) 40 mg PO DAILY #7 tabs 08/12/22 Allergies Allergy/AdvReac Type Severity Reaction Status Date / Time No Known Drug Allergies Allergy Verified 07/05/22 13:21 Review of Systems Review of Systems Narrative: GENERAL: Denies chills, fatigue, malaise, fever, sweats, travel HEENT: Denies sinus pain, ear pain, sore throat, difficulty swallowing, neck pain RESPIRATORY: see HPI CARDIOVASCULAR: See HPI GASTROINTESTINAL: Denies nausea, vomiting, abdominal pain, diarrhea, constipation, melena. : Denies dysuria, frequency, incontinence, hematuria, urinary retention, flank pain. MUSCULOSKELETAL: Denies weakness, joint pain, or bony pain SKIN: No rash, no erythema, no pruritus NEUROLOGIC: Denies weakness, dizziness, headache, numbness, change in speech, confusion PSYCHIATRIC: No concerning psychosocial issues. 12 point review of systems is negative except for those stated above and HPI Patient History Medical History Bipolar 1 disorder Contusion of knee, right Hypertension Melanoma Social History household members: none Smoking Status: Current some day smoker alcohol intake: never Smoking Status: Current some day smoker alcohol intake frequency: holidays/special occasions only Substance Use Type: does not use Exam Initial Vital Signs Initial Vital Signs: Vital Signs Temperature 97.8 F 08/12/22 18:14 Pulse Rate 84 08/12/22 18:14 Respiratory Rate 20 08/12/22 18:14 Blood Pressure 193/93 H 08/12/22 18:14 Pulse Oximetry 94 08/12/22 18:14 Oxygen Delivery Method 08/12/22 18:14 GENERAL: Alert disheveled 82-year-old female HEENT: Head atraumatic,EOMI, pupils reactive, face symmetric, moist mucous membranes CARDIOVASCULAR: Regular rate and rhythm without murmurs, rubs or gallops. RESPIRATORY: Crackles at bases conversational dyspnea ABDOMEN: Soft, nontender. Normoactive bowel sounds all 4 quadrants. No guarding or rebound. EXTREMITIES: Normal range of motion, no clubbing or edema. Neurovascularly intact NEUROLOGICAL: Alert and oriented x4.Normal gait and speech. Cranial nerves II through XII grossly intact. SKIN: Warm, dry, no laceration, no petechiae, no rashes or lesions. Course Orders Ordered: ED Orders 08/12/22 22:31 XR chest 1V Stat EKG-12 Lead Stat 08/12/22 23:20 Complete Blood Count AUTO DIFF Stat Comprehensive Metabolic Panel Stat D Dimer Stat Lipase Stat NT-proBNP (BNP-Adult 18+) Stat Troponin & CK Cardiac Panel Stat 08/12/22 23:58 CT angio chest PE protocol Stat 08/13/22 01:21 Trop I [Troponin I] Stat 08/13/22 02:14 Education, smoking cessation ONGOING Acetaminophen (Acetaminophen 325 Mg Tablet) 650 mg PO Q6H PRN PRN Reason: Fever/Mild Pain (1-3) Last Admin: 08/13/22 04:14 Dose: 650 mg Documented By: OW Amlodipine Besylate (Amlodipine 5 Mg Tablet) 10 mg PO DAILY SHEILA Enoxaparin Sodium (Enoxaparin 40 Mg/0.4 Ml Syringe) 40 mg SUBCUT DAILY SHEILA Furosemide (Furosemide 20 Mg/2 Ml Vial) 20 mg IV BID SHEILA Lisinopril (Lisinopril 5 Mg Tablet) 5 mg PO DAILY SHEILA Metoprolol Tartrate (Metoprolol Ir 25 Mg Tablet) 25 mg PO BID SHEILA Naloxone HCl (Naloxone 0.4 Mg/Ml Vial) 0.2 mg IV Q2MIN PRN PRN Reason: Opiate Reversal Discontinued Medications Acetaminophen (Acetaminophen 325 Mg Tablet) 650 mg PO NOW ONE Stop: 08/12/22 21:26 Last Admin: 08/12/22 21:35 Dose: 650 mg Documented By: MLM Furosemide (Furosemide 40 Mg/4 Ml Vial) 40 mg IV NOW ONE Stop: 08/12/22 22:48 Last Admin: 08/12/22 22:56 Dose: 40 mg Documented By: SB Vital Signs Vital signs: Vital Signs - 8 hr 08/12/22 21:14 08/12/22 23:00 08/13/22 00:30 Temperature 98.8 F Pulse Rate 88 77 72 Respiratory Rate 22 19 Blood Pressure 167/76 H 160/74 H 154/73 H Blood Pressure [Left Arm] Pulse Oximetry 100 95 Oxygen Delivery Method Room Air Room Air 08/12/22 23:15 08/12/22 23:30 08/13/22 00:00 Temperature Pulse Rate 76 74 73 Respiratory Rate 18 Blood Pressure 146/67 H 158/74 H 143/77 H Blood Pressure [Left Arm] Pulse Oximetry 95 95 95 Oxygen Delivery Method Room Air Room Air 08/13/22 01:00 08/13/22 01:30 08/13/22 02:00 Temperature Pulse Rate 73 69 68 Respiratory Rate 20 20 24 Blood Pressure 155/72 H 148/65 H Blood Pressure [Left Arm] 150/67 H Pulse Oximetry 97 95 96 Oxygen Delivery Method Room Air Room Air Room Air MDM - URI/Sore Throat Lab Data Result diagrams: 08/12/22 23:20 08/12/22 23:20 Labs: Lab Results 08/12/22 08/12/22 08/12/22 Range/Units 23:20 23:20 23:20 WBC 5.4 (4.5-11.0) X10^3/uL RBC 4.00 (4.0-5.2) X10^6/uL Hgb 9.9 L (12.0-16.0) g/dL Hct 30.5 L (36-46) % MCV 76.2 L (80-100) fL MCH 24.8 L (26-34) PG MCHC 32.5 (30-36) % RDW 16.5 H (11.6-14.8) % Plt Count 261 (150-400) X10^3/uL Neut % (Auto) 73.8 (50-75) % Lymph % (Auto) 10.7 L (25-40) % Stokes % (Auto) 11.9 (3-14) % Eos % (Auto) 2.5 (2-4) % Baso % (Auto) 1.1 (0-2) % Neut # (Auto) 4000 (8047-3524) /uL Lymph # (Auto) 600 L (6490-5856) /uL Stokes # (Auto) 600 (0-900) /uL Eos # (Auto) 100 (0-450) /uL Baso # (Auto) 100 (0-100) /uL D-Dimer 2052 H (<500) ng/ml Sodium 127 L (137-145) mmol/L Potassium 3.6 (3.4-5.1) mmol/L Chloride 96 L (98-107) mmol/L Carbon Dioxide 23 (22-32) mmol/L BUN 9 (7-17) mg/dL Creatinine 0.59 (0.52-1.04) mg/dL Estimated GFR > 60 (>60) mL/min BUN/Creatinine Ratio 15.3 (6-22) Glucose 130 H (80-110) mg/dL Calcium 8.7 (8.4-10.2) mg/dL Total Bilirubin 0.2 (0.2-1.3) mg/dL AST 18 (14-36) IU/L ALT 12 (<35) IU/L Alkaline Phosphatase 116 (38-126) U/L Total Creatine Kinase 34 (30-135) U/L CK-MB (CK-2) TNP CK-MB (CK-2) Rel Index TNP Troponin I 0.063 H (0.01-0.034) ng/mL NT-Pro-B Natriuret Pep 6850 H (<450) pg/mL Total Protein 6.8 (6.3-8.2) g/dL Albumin 3.7 (3.5-5.0) g/dL Globulin 3.1 (1.7-4.1) g/dL Albumin/Globulin Ratio 1.2 (1.0-2.8) Lipase 46 (23-300) U/L Procalcitonin (<0.5) ng/mL 08/13/22 08/13/22 Range/Units 01:21 01:21 WBC (4.5-11.0) X10^3/uL RBC (4.0-5.2) X10^6/uL Hgb (12.0-16.0) g/dL Hct (36-46) % MCV (80-100) fL MCH (26-34) PG MCHC (30-36) % RDW (11.6-14.8) % Plt Count (150-400) X10^3/uL Neut % (Auto) (50-75) % Lymph % (Auto) (25-40) % Stokes % (Auto) (3-14) % Eos % (Auto) (2-4) % Baso % (Auto) (0-2) % Neut # (Auto) (0989-9901) /uL Lymph # (Auto) (0159-6845) /uL Stokes # (Auto) (0-900) /uL Eos # (Auto) (0-450) /uL Baso # (Auto) (0-100) /uL D-Dimer (<500) ng/ml Sodium (137-145) mmol/L Potassium (3.4-5.1) mmol/L Chloride (98-107) mmol/L Carbon Dioxide (22-32) mmol/L BUN (7-17) mg/dL Creatinine (0.52-1.04) mg/dL Estimated GFR (>60) mL/min BUN/Creatinine Ratio (6-22) Glucose (80-110) mg/dL Calcium (8.4-10.2) mg/dL Total Bilirubin (0.2-1.3) mg/dL AST (14-36) IU/L ALT (<35) IU/L Alkaline Phosphatase (38-126) U/L Total Creatine Kinase (30-135) U/L CK-MB (CK-2) CK-MB (CK-2) Rel Index Troponin I 0.051 H (0.01-0.034) ng/mL NT-Pro-B Natriuret Pep (<450) pg/mL Total Protein (6.3-8.2) g/dL Albumin (3.5-5.0) g/dL Globulin (1.7-4.1) g/dL Albumin/Globulin Ratio (1.0-2.8) Lipase (23-300) U/L Procalcitonin 0.06 (<0.5) ng/mL Imaging Data Chest x-ray: Radiologist's Impression: XRay Report Signed Patient: Yue Klein MR#: [id number] : 1940 Acct:[id number] Age/Sex: 82 / F Date of Service: 08/12/22 Loc: ED Accession Number: [id number] ?? Procedure: XR chest 1V Ordering Provider: Marivel Mandujano D.O. PROCEDURE:? XR CHEST 1V ? INDICATIONS:? chest pain ? TECHNIQUE:? One view of the chest was acquired.? ? COMPARISON:? [facility], CR, XR CHEST 2 VIEWS, 08/09/2022, 22:34.? [facility], CR, XR CHEST 1V, 08/12/2022, 3:54. ? FINDINGS:? ? Surgical changes and devices:? Postsurgical changes partially visualized within the proximal left humerus.? ? Lungs and pleura:? There are increased confluent right basilar airspace opacities suggestive of consolidation, versus atelectasis.? Persistent small bilateral pleural effusions with associated compressive atelectasis are also redemonstrated.? There is pulmonary edema which appears similar to slightly increased.? No pneumothorax. ? Mediastinum:? Mediastinal contours are unchanged.? Heart size is enlarged. ? Bones and chest wall:? No suspicious bony lesions.? Overlying soft tissues appear unremarkable.? ? IMPRESSION:? ? 1. Increased confluent right basilar airspace opacities suggestive of consolidation and pneumonia but the differential also includes increased atelectasis. ? 2. Persistent small bilateral pleural effusions with associated compressive atelectasis. ? 3. Pulmonary edema appears similar to slightly increased compared to the prior study.? ? ? Dictated by: Hill Chavez M.D. on 08/12/2022 at 22:53 ? ? CT scan - chest: Radiologist's Impression: CT Scan Report Signed Patient: Yue Klein MR#: [id number] : 1940 Acct:[id number] Age/Sex: 82 / F Date of Service: 08/12/22 Loc: ED Accession Number: [id number] ?? Procedure: CT angio chest PE protocol Ordering Provider: Marivel Mandujano D.O. PROCEDURE:? CT ANGIO CHEST PE PROTOCOL ? INDICATIONS:? high dimer, hx dissection, sob ? TECHNIQUE:? After the administration of intravenous contrast, 2 mm thick sections acquired from the pulmonary apices to the posterior costophrenic angles.? 3-dimensional maximum intensity projection (MIP) coronal and sagittal reformats were then acquired through the thorax.? For radiation dose reduction, the following was used:? automated exposure cont rol, adjustment of mA and/or kV according to patient size.? ? COMPARISON:? [facility], CT, CT ANGIO CHEST ABDOMEN PELVIS, 07/29/2022, 5:25[facility], CT, CT ANGIO CHEST PE PROTOCOL, 07/04/2022, 2:35. ? FINDINGS:? Image quality:? ? Pulmonary arteries:? Pulmonary arteries demonstrate no intraluminal filling defects to suggest central pulmonary embolism.? There is enlargement of the pulmonary arteries, with the main pulmonary artery measuring up to 3.4 cm suggestive of pulmonary ar terial hypertension.? ? Lower Neck: No lymphadenopathy by size criteria. Thyroid:? Visualized thyroid redemonstrates multiple hypoattenuating nodules within the bilateral thyroid lobes. Axillae: No lymphadenopathy by size criteria. Chest Wall:? Unremarkable.? Bones: Visualized osseous structures demonstrate no suspicious lesions. ? Lungs and Airways:? There is new peribronchial consolidation within the right lower lobe. ?There are linear areas of scarring and atelectasis also demonstrated bilate rally. Pleura: No pneumothorax.? There are small bilateral pleural effusions which are increased on the left and new on the right.? Associated compressive atelectasis is demonstrated within the lungs bilaterally.? ? Heart: Heart size is borderline enlarged.? No pericardial effusion. Thoracic Vessels:? There is ectasia of the ascending thoracic aorta which measures up to 3.8 cm.? The aortic arch is within normal size limits.? There is aneurysmal dilatation of the descending aorta which measures up to 3.8 cm proximally and 3.1 cm at the level of the diaphragmatic hiatus.? There are short segment dissections redemonstrated within the proximal and distal descending aorta which appear similar to the prior study. Mediastinum and [place]: No lymphadenopathy by size criteria. Esophagus: No wall thickening.? There is a small hiatal hernia. ? Abdomen:? Visualized upper abdomen redemonstrates multiple cysts within the partially visualized left kidney. ? IMPRESSION:? ? 1. No evidence of pulmonary embolism.? There is enlargement of the pulmonary arteries suggestive of pulmonary arterial hypertension. ? 2. 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 Findings are similar to the prior study. ? 3. Small bilateral pleural effusions, increased on the left and new on the right, with associated compressive atelectasis. ? 4. New peribronchial consolidation in the right lower lobe suggestive of pneumonia.? ? ? Dictated by: Hill Chavez M.D. on 08/13/2022 at 0:32 ? ? ECG Data Interpretation: Sinus rhythm rate [address] changes MDM Narrative Medical decision making narrative: This is patient's 3rd visit to an emergency department this month. And her 2nd and less than 24 hours. She has increasing BNP from 2658-5444 increasing obvious dyspnea. An indeterminate troponin. She has been noncompliant with Lasix. She did recently just have an admission for influenza. CT angio shows no evidence of pulmonary embolism or dissection. Looks relatively stable. Possible pneumonia on x-ray but no fever or leukocytosis, at this time I do not see need for antibiotics. She is not hypoxic or hypotensive but is needing diuresis and monitoring. Rohith SALDANA except patient Discharge Plan Departure Patient Disposition: Admitted as Observation Clinical Impression: Congestive heart failure Admit Date/Time: 08/13/22 02:17 Admit Provider: Kimberly Newberry
--- NOTE | 2022-08-12 22:31 | DI.RAD.S_ITS ---
PROCEDURE: XR CHEST 1V INDICATIONS: chest pain TECHNIQUE: One view of the chest was acquired. COMPARISON: [facility], CR, XR CHEST 2 VIEWS, 08/09/2022, 22:34. [facility], CR, XR CHEST 1V, 08/12/2022, 3:54. FINDINGS: Surgical changes and devices: Postsurgical changes partially visualized within the proximal left humerus. Lungs and pleura: There are increased confluent right basilar airspace opacities suggestive of consolidation, versus atelectasis. Persistent small bilateral pleural effusions with associated compressive atelectasis are also redemonstrated. There is pulmonary edema which appears similar to slightly increased. No pneumothorax. Mediastinum: Mediastinal contours are unchanged. Heart size is enlarged. Bones and chest wall: No suspicious bony lesions. Overlying soft tissues appear unremarkable. IMPRESSION: 1. Increased confluent right basilar airspace opacities suggestive of consolidation and pneumonia but the differential also includes increased atelectasis. 2. Persistent small bilateral pleural effusions with associated compressive atelectasis. 3. Pulmonary edema appears similar to slightly increased compared to the prior study. Dictated by: Hill Chavez M.D. on 08/12/2022 at 22:53 Approved by: Hill Chavez M.D. on 08/12/2022 at 22:56
[2022-08-12] MEDS: FUROSEMIDE 40 MG/4 ML VIAL IV (22:56)
[2022-08-12 23:00] VITALS: BP 160/74; PULSE 77
[2022-08-12 23:15] VITALS: BP 146/67; PULSE 76; O2SAT 95
--- NOTE | 2022-08-12 23:18 | PC.NURSE ---
Pt here for a recheck and reports declining since discharge from ED earlier today. Pt has SOB with exertion and coarse crackles heard in all anterior lung farr. Provider aware. Call light within reach.
[2022-08-12 23:30] VITALS: BP 158/74; PULSE 74; O2SAT 95
[2022-08-12 23:35] LABS: Add Manual Diff / Slide Review NO; Basophils Absolute Auto 100 /uL (0-100); Basophils Percent Auto 1.1 % (0-2); Eosinophils Absolute Auto 100 /uL (0-450); Eosinophils Percent Auto 2.5 % (2-4); Hematocrit 30.5 % (36-46); Hemoglobin 9.9 g/dL (12.0-16.0); Lymphocytes Absolute Auto 600 /uL (1100-4500); Lymphocytes Percent Auto 10.7 % (25-40); Mean Corpuscular HGB Conc 32.5 % (30-36); Mean Corpuscular Hemoglobin 24.8 PG (26-34); Mean Corpuscular Volume 76.2 fL (80-100); Monocytes Absolute Auto 600 /uL (0-900); Monocytes Percent Auto 11.9 % (3-14); Neutrophils Absolute Auto 4000 /uL (1500-7000); Neutrophils Percent Auto 73.8 % (50-75); Platelet Count 261 X10^3/uL (150-400); Red Cell Distribution Width 16.5 % (11.6-14.8); White Blood Cell Count 5.4 X10^3/uL (4.5-11.0)
[2022-08-12 23:43] LABS: D Dimer 2052 ng/ml (<500)
[2022-08-12 23:45] LABS: Alanine Aminotransferase 12 IU/L (<35); Albumin 3.7 g/dL (3.5-5.0); Albumin Globulin Ratio 1.2 (1.0-2.8); Alkaline Phosphatase 116 U/L (38-126); Aspartate Aminotransferase 18 IU/L (14-36); BUN Creatinine Ratio 15.3 (6-22); Bilirubin Total 0.2 mg/dL (0.2-1.3); Blood Urea Nitrogen 9 mg/dL (7-17); Calcium 8.7 mg/dL (8.4-10.2); Carbon Dioxide 23 mmol/L (22-32); Chloride 96 mmol/L (98-107); Creatine Kinase 34 U/L (30-135); Estimated Glomerular Filt Rate > 60 mL/min (>60); Globulin 3.1 g/dL (1.7-4.1); Glucose 130 mg/dL (80-110); HEMOLYSIS < 15 (0-50); Lipase 46 U/L (23-300); Potassium 3.6 mmol/L (3.4-5.1); Sodium 127 mmol/L (137-145); Total Protein 6.8 g/dL (6.3-8.2)
[2022-08-12 23:56] LABS: NT-proBNP (BNP-Adult 18+) 6850 pg/mL (<450); Troponin I 0.063 ng/mL (0.01-0.034)
--- NOTE | 2022-08-12 23:58 | DI.CT.S_ITS ---
PROCEDURE: CT ANGIO CHEST PE PROTOCOL INDICATIONS: high dimer, hx dissection, sob TECHNIQUE: After the administration of intravenous contrast, 2 mm thick sections acquired from the pulmonary apices to the posterior costophrenic angles. 3-dimensional maximum intensity projection (MIP) coronal and sagittal reformats were then acquired through the thorax. For radiation dose reduction, the following was used: automated exposure control, adjustment of mA and/or kV according to patient size. COMPARISON: [facility], CT, CT ANGIO CHEST ABDOMEN PELVIS, 07/29/2022, 5:25[facility], CT, CT ANGIO CHEST PE PROTOCOL, 07/04/2022, 2:35. FINDINGS: Image quality: Pulmonary arteries: Pulmonary arteries demonstrate no intraluminal filling defects to suggest central pulmonary embolism. There is enlargement of the pulmonary arteries, with the main pulmonary artery measuring up to 3.4 cm suggestive of pulmonary arterial hypertension. Lower Neck: No lymphadenopathy by size criteria. Thyroid: Visualized thyroid redemonstrates multiple hypoattenuating nodules within the bilateral thyroid lobes. Axillae: No lymphadenopathy by size criteria. Chest Wall: Unremarkable. Bones: Visualized osseous structures demonstrate no suspicious lesions. Lungs and Airways: There is new peribronchial consolidation within the right lower lobe. There are linear areas of scarring and atelectasis also demonstrated bilaterally. Pleura: No pneumothorax. There are small bilateral pleural effusions which are increased on the left and new on the right. Associated compressive atelectasis is demonstrated within the lungs bilaterally. Heart: Heart size is borderline enlarged. No pericardial effusion. Thoracic Vessels: There is ectasia of the ascending thoracic aorta which measures up to 3.8 cm. The aortic arch is within normal size limits. There is aneurysmal dilatation of the descending aorta which measures up to 3.8 cm proximally and 3.1 cm at the level of the diaphragmatic hiatus. There are short segment dissections redemonstrated within the proximal and distal descending aorta which appear similar to the prior study. Mediastinum and [place]: No lymphadenopathy by size criteria. Esophagus: No wall thickening. There is a small hiatal hernia. Abdomen: Visualized upper abdomen redemonstrates multiple cysts within the partially visualized left kidney. IMPRESSION: 1. No evidence of pulmonary embolism. There is enlargement of the pulmonary arteries suggestive of pulmonary arterial hypertension. 2. Aneurysmal dilatation of the descending thoracic aorta with 2 short-segment areas of dissection redemonstrated. Findings are similar to the prior study. 3. Small bilateral pleural effusions, increased on the left and new on the right, with associated compressive atelectasis. 4. New peribronchial consolidation in the right lower lobe suggestive of pneumonia. Dictated by: Hill Chavez M.D. on 08/13/2022 at 0:32 Approved by: Hill Chavez M.D. on 08/13/2022 at 0:54
[2022-08-13] VITALS (12 sets, daily range): BP systolic 134–181; BP diastolic 64–85; PULSE 66–85; RESP 15–24; TEMP 35.7–36.7; O2SAT 94–97; BMI 69.9
--- NOTE | 2022-08-13 00:45 | PC.NURSE ---
Pt had incontinent void. Linens changed and pure wick applied. Call light within reach.
[2022-08-13 01:58] LABS: Troponin I 0.051 ng/mL (0.01-0.034)
[2022-08-13 03:13] LABS: Procalcitonin 0.06 ng/mL (<0.5)
[2022-08-13] MEDS: ACETAMINOPHEN 325 MG TABLET 650 MG PO ×3 (04:14→18:35)
--- NOTE | 2022-08-13 06:29 | PM.HP.1 ---
History of Present Illness History of Present Illness Date Patient Seen: 08/13/22 Time Patient Seen: 02:33 Chief complaint: Body Aches, Flu Narrative: Yue Klein is an 82-year-old female with a medical history of arterial pulmonary hypertension, bipolar disease, hyperlipidemia, obesity, congestive heart failure with preserved ejection fraction, type B aortic dissection, coronary artery disease recent hospitalization at [facility] 07/31/2022, [facility] 08/03 and 08/09/2022 for influenza presents today for the 2nd time to the ED with shortness of breath.? She was diagnosed with congestive heart failure on 07/06/2022, this morning she had a elevated BNP of greater than 2000 this am and some bilateral pleural effusions.? Patient had previously been prescribed Lasix but had not picked up or started the medication. In ED She complained of shortness of breath she continues to have right-sided chest pain intermittently.? She says she generally does not feel good.? She is hungry she wamts coffee and orange juice.? She is having some obvious shortness of breath with his conversation.? She denies fever or chills she says that part is a little bit better. Patient denied abdominal pain, nausea, vomiting, diarrhea, urinary symptoms. At the time of admit patient is sleeping heavily in no distress, requiring no oxygenation. Patient was initially hypertensive in the ED BP 193/93, 154/73, at the time of admit patient's vitals were stable temp 98.8?, BP 144/67, HR 72, R 19, O2 saturation 95% on room air. Patient's H&H 9.9/HCT 30, MCV 76.2, MCH 24.8, sodium 127, chloride 96, glucose 130, D-dimer 2052, CTA negative for PE,enlargement of the pulmonary arteries, Aneurysmal dilatation of the descending thoracic aorta with 2 short-segment areas of dissection redemonstrated.? Findings are similar to the prior study, Small bilateral pleural effusions, increased on the left and new on the right, with associated compressive atelectasis, and New peribronchial consolidation in the right lower lobe suggestive of pneumonia.? Initial troponin 0.063, repeat 0.051, BNP 6850. EKG normal sinus rhythm with a rate of 75 left access possible LVH anterior infarction comparable to previous EKG, reviewed [facility] records from 08/03 & 08/09, and [facility] 07/31/2022. Patient admitted for acute on chronic congestive systolic heart failure exacerbation, with myocardial injury. ? Patient History Medical History (Updated 08/13/22 @ 06:45 by ABIGAIL Carpenter-NELSON) Bipolar 1 disorder Contusion of knee, right Hypertension Melanoma Systolic heart failure Surgical History (Updated 08/13/22 @ 06:45 by ABIGAIL Carpenter-NELSON) History of appendectomy History of cholecystectomy Family & Social History Family History Other No family history of disorders Social History: household members Patients living status is questionable, concern for social issues. Safety & Behavioral: Feels Safe in Current Yes Environment Been Physically Hurt or No Threatened By a Person Tobacco & Substance use: Tobacco type cigarettes Smoking Status Current some day smoker alcohol intake never alcohol intake frequency holiday/special occasion Substance Use Type does not use Meds Home Medications and Allergies Home Medications Medication Instructions Recorded Confirmed Type acetaminophen 325 mg tablet 650 mg PO Q4H PRN Fever/Mild Pain 07/07/22 Rx (1-3) #90 tabs amlodipine 5 mg tablet (Norvasc) 10 mg PO DAILY #60 tabs 07/07/22 Rx azithromycin 250 mg tablet 500 mg PO DAILY #1 tab 07/07/22 Rx (Zithromax Z-Anuel) lisinopril 5 mg tablet 5 mg PO DAILY #30 tabs 07/07/22 Rx metoprolol tartrate 25 mg tablet 25 mg PO BID #60 tabs 07/07/22 Rx pantoprazole 40 mg tablet,delayed 40 mg PO 0700 #30 tabs 07/07/22 Rx release tramadol 50 mg tablet 50 mg PO TID PRN Pain, Moderate 07/07/22 Rx (4-6) #30 tabs furosemide 40 mg tablet (Lasix) 40 mg PO DAILY #7 tabs 08/12/22 Rx Allergies Allergy/AdvReac Type Severity Reaction Status Date / Time No Known Drug Allergies Allergy Verified 07/05/22 13:21 Review of Systems Review of Systems Narrative: All 12 point systems reviewed with the patient and are negative except otherwise documented. Exam Vital Signs (past 8 hours): - 08/12/22 23:00 08/13/22 00:30 08/12/22 23:15 Temperature Pulse Rate 77 72 76 Respiratory Rate 19 Blood Pressure 160/74 H 154/73 H 146/67 H Blood Pressure [Left Arm] Pulse Oximetry 95 95 Oxygen Delivery Method Room Air Room Air 08/12/22 23:30 08/13/22 00:00 08/13/22 01:00 Temperature Pulse Rate 74 73 73 Respiratory Rate 18 20 Blood Pressure 158/74 H 143/77 H 155/72 H Blood Pressure [Left Arm] Pulse Oximetry 95 95 97 Oxygen Delivery Method Room Air Room Air 08/13/22 01:30 08/13/22 02:00 08/13/22 02:30 Temperature Pulse Rate 69 68 68 Respiratory Rate 20 24 24 Blood Pressure 148/65 H Blood Pressure [Left Arm] 150/67 H 144/67 H Pulse Oximetry 95 96 96 Oxygen Delivery Method Room Air Room Air Room Air 08/13/22 03:00 Temperature 98.1 F Pulse Rate 66 Respiratory Rate 24 Blood Pressure Blood Pressure [Left Arm] 134/64 Pulse Oximetry 95 Oxygen Delivery Method Room Air Oxygen Delivery Method Room Air Narrative Exam Narrative: General: Patient is a disheveled chronically ill appearing female, in no distress at this time. HEENT: Normocephalic, atraumatic, extraocular muscles intact, oral pharynx is clear and mucous membranes are moist. Neck is supple and symmetric, trachea is midline, no adenopathy, no thyroid enlargement, nontender, no masses palpated. Negative for JVD Chest: Normal AP diameter and contour without kyphoscoliosis, no nasal flaring, retractions, or tachypneic labored Lungs: Auscultation of all lung farr are equal, crackles at bases Cardio: regular rate and rhythm without murmur, rubs, or gallops, no carotid bruit, no cardiac pulsations present. Abdomen: Soft nontender, negative for organomegaly, or masses. Bowel sounds are present in all 4 quadrants without guarding or rebound, no CVA tenderness. Musculoskeletal: Muscle strength and tone are equal within normal limits, no deformity, crepitus, effusions, cyanosis, clubbing, positive bilateral +1 nonpitting edema in lower extremities. Full range of motion intact radial and pedal pulses are normal. Skin: Warm dry and intact Neuro: Drowsy,moves all extremities, sensation to touch intact, no gross deficits noted of cranial nerves. Psych: Patient has a poorly kempt appearance, chronically ill-appearing, disheveled. Objective Labs Result Diagrams: 08/12/22 23:20 08/12/22 23:20 Labs: Laboratory Results - last 24 hr 08/12/22 08/12/22 08/12/22 23:20 23:20 23:20 WBC 5.4 RBC 4.00 Hgb 9.9 L Hct 30.5 L MCV 76.2 L MCH 24.8 L MCHC 32.5 RDW 16.5 H Plt Count 261 Neut % (Auto) 73.8 Lymph % (Auto) 10.7 L [place] % (Auto) 11.9 Eos % (Auto) 2.5 Baso % (Auto) 1.1 Neut # (Auto) 4000 Lymph # (Auto) 600 L [place] # (Auto) 600 Eos # (Auto) 100 Baso # (Auto) 100 D-Dimer 2052 H Sodium 127 L Potassium 3.6 Chloride 96 L Carbon Dioxide 23 BUN 9 Creatinine 0.59 Estimated GFR > 60 BUN/Creatinine Ratio 15.3 Glucose 130 H Calcium 8.7 Total Bilirubin 0.2 AST 18 ALT 12 Alkaline Phosphatase 116 Total Creatine Kinase 34 CK-MB (CK-2) TNP CK-MB (CK-2) Rel Index TNP Troponin I 0.063 H NT-Pro-B Natriuret Pep 6850 H Total Protein 6.8 Albumin 3.7 Globulin 3.1 Albumin/Globulin Ratio 1.2 Lipase 46 Procalcitonin 08/13/22 08/13/22 01:21 01:21 WBC RBC Hgb Hct MCV MCH MCHC RDW Plt Count Neut % (Auto) Lymph % (Auto) [place] % (Auto) Eos % (Auto) Baso % (Auto) Neut # (Auto) Lymph # (Auto) [place] # (Auto) Eos # (Auto) Baso # (Auto) D-Dimer Sodium Potassium Chloride Carbon Dioxide BUN Creatinine Estimated GFR BUN/Creatinine Ratio Glucose Calcium Total Bilirubin AST ALT Alkaline Phosphatase Total Creatine Kinase CK-MB (CK-2) CK-MB (CK-2) Rel Index Troponin I 0.051 H NT-Pro-B Natriuret Pep Total Protein Albumin Globulin Albumin/Globulin Ratio Lipase Procalcitonin 0.06 Assessment & Plan Assessment & Plan narrative: Yue Klein is an 82-year-old female with a medical history of arterial pulmonary hypertension, bipolar disease, hyperlipidemia, obesity, congestive heart failure with preserved ejection fraction, type B aortic dissection, coronary artery disease recent hospitalization at [facility] 07/31/2022, [facility] 08/03 and 08/09/2022 for influenza presents today for the 2nd time to the ED with shortness of breath.? She was diagnosed with congestive heart failure on 07/06/2022, presented to the emergency department twice today complaining of shortness of breath with right-sided chest pain intermittently. Patient requires observational admit due to frequent recurrent hospitalizations ER visits medication noncompliance and social barriers. Admitted for observation for systolic heart failure exacerbation with myocardial injury. 1. Congestive systolic heart failure, exacerbation, acute on chronic, with hyponatremia, present on admission with shortness of breath -Possible pneumonia-ordered respiratory panel, procalcitonin, blood cultures. -initial BNP of greater than 2000, repeat BNP 6850. -patient is stable requires no oxygen support at this time. -temp 98.8?, BP 144/67, HR 72, R 19, O2 saturation 95% on room air. -mild bilateral +1 nonpitting lower extremity edema -2000 cc fluid restriction, Lasix 20 mg b.i.d. IV -CTA negative for PE,enlargement of the pulmonary arteries, Aneurysmal dilatation of the descending thoracic aorta with 2 short-segment areas of dissection redemonstrated.? Findings are similar to the prior study, Small bilateral pleural effusions, increased on the left and new on the right, with associated compressive atelectasis, and New peribronchial consolidation in the right lower lobe suggestive of pneumonia.? 2. Myocardial injury, acute, present on admission -initial troponin 0.063, repeat 0.051-will trend x3 -patient monitored on telemedicine -EKG normal sinus rhythm with a rate of 75 left access possible LVH anterior infarction comparable to previous EKG -reviewed [facility] records from 08/03 & 08/09, and [facility] 07/31/2022. 3. Pulmonary hypertension, acute on chronic, present on admission - ED BP 193/93, 154/73, repeat 144/67 -continue amlodipine, lisinopril, metoprolol 4. Anemia, chronic, unknown etiology, present on admission -H&H 9.9/HCT 30, MCV 76.2, MCH 24.8,- baseline for patient- reviewed previous labs. 5. Bipolar chronic, present on admission -no documented medications 6. Malnutrition, mild, moderate, severe, acute on chronic, present on admission -patient's malnutrition places them at high risk for medical and surgical complications because of the severe malnutrition in relation to acute illness/chronic illness. This increases the difficulty in complexity of medical management and increases the chances poor outcomes such as mortality and morbidity as well as impaired wound healing, and immune suppression. -dietary consult ordered to evaluate and implement steps to improve caloric intake and nutrition. 7. Obesity, mild, acute on chronic, present on admission -dietary consult ordered regarding nutritional education and information for dietary, lifestyle, exercise, and weight changes. -the patient is at much higher risk for medical and surgical complications due to obesity as it relates to chronic illnesses and acute illness. The patient's obesity increases the difficulty and complexity of medical and/or surgical interventions, management and increases the chances of poor outcome such as morbidity and mortality. Code status:Full Surrogate decision maker: Johnnie DAY PCR:Negative DVT/VTE prophylaxis: Lovenox and SCDs Disposition: Patient admitted for observation expected length of stay less than 2 midnights. I have utilized all available immediate resources to obtain, update, or review the patient's current medications. I confirmed that the patient's advanced care plan is present, Code status is documented and/or surrogate decision maker is listed in the patient's medical record. I have personally reviewed patient's chart notes from PCP, specialists, diagnostic imaging, and laboratory, Time Spent With Patient Critical Care time: I spent a total of [] minutes of critical care time on this patient's care today; this time is exclusive of procedural time.
[2022-08-13 06:55] LABS: Magnesium 1.9 mg/dL (1.6-2.3)
[2022-08-13 06:57] LABS: Alanine Aminotransferase 12 IU/L (<35); Albumin 3.3 g/dL (3.5-5.0); Albumin Globulin Ratio 1.1 (1.0-2.8); Alkaline Phosphatase 96 U/L (38-126); Aspartate Aminotransferase 17 IU/L (14-36); BUN Creatinine Ratio 14.3 (6-22); Bilirubin Total 0.3 mg/dL (0.2-1.3); Blood Urea Nitrogen 8 mg/dL (7-17); Calcium 8.8 mg/dL (8.4-10.2); Carbon Dioxide 27 mmol/L (22-32); Chloride 97 mmol/L (98-107); Estimated Glomerular Filt Rate > 60 mL/min (>60); Glucose 105 mg/dL (80-110); HEMOLYSIS < 15 (0-50); Potassium 3.4 mmol/L (3.4-5.1); Sodium 131 mmol/L (137-145); Total Protein 6.3 g/dL (6.3-8.2)
[2022-08-13] MEDS: POTASSIUM CHLORIDE 20 MEQ TAB PO (08:13)
[2022-08-13] MEDS: METOPROLOL IR 25 MG TABLET PO ×2 (08:14→21:06)
[2022-08-13] MEDS: lisinopriL 5 MG TABLET PO (08:14)
[2022-08-13] MEDS: ENOXAPARIN 40 MG/0.4 ML SYRINGE SUBCUT ×2 (08:14→08:17)
[2022-08-13] MEDS: AMLODIPINE 5 MG TABLET 10 MG PO (08:25)
[2022-08-13] MEDS: FUROSEMIDE 20 MG/2 ML VIAL 40 MG IV ×2 (08:27→21:06)
[2022-08-13 08:42] LABS: Adenovirus Not Detected (Not Detect); B. parapertussis Not Detected (Not Detecte); Bordetella pertussis Not Detected (Not Detecte); Chlamydophila pneumoniae Not Detected (Not Detect); Coronavirus 229E Not Detected (Not Detect); Coronavirus HKU1 Not Detected (Not Detect); Coronavirus NL 63 Not Detected (Not Detect); Coronavirus OC43 Not Detected (Not Detect); Human Metapneumovirus Not Detected (Not Detect); Human Rhinovirus/Enterovirus Not Detected (Not Detect); Influenza A Detected (Not Detect); Influenza B Not Detected (Not Detect); Mycoplasma pneumoniae Not Detected (Not Detect); Parainfluenza Virus 1 Not Detected (Not Detect); Parainfluenza Virus 2 Not Detected (Not Detect); Parainfluenza Virus 3 Not Detected (Not Detect); Parainfluenza Virus 4 Not Detected (Not Detect); Respiratory Syncytial Virus Not Detected (Not Detect); SARS- CoV-2 Not Detected (Not Detecte)
--- NOTE | 2022-08-13 11:45 | CM.DANOTE ---
Initial DCP Assessment Note Pt is an 82 yo female, resident of [place], PMH of Bipolar Disorder, arrives w/increasing shortness of breath, body aches and admitted for CHF exacerbation w/possible pneumonia, Flu A+. 6th visit in a month, other Hospitalizations include: [facility] 07/31/2022, [facility] 08/03 and 08/09/2022 for influenza ; today for the 2nd time to the ED with shortness of breath PCP: Rohit Zuniga Payer: [facility] FIBERGLASS TUBE MOLDER consult requested to assist in assessment of need and identification of barriers to care in the outpatient setting. Notes indicate APS report had been made during prior ER visit and assigned worker is Todd Carter Met w/patient in room, introduced role and patient tells this FIBERGLASS TUBE MOLDER she needs to go the BR; OIL RECOVERY OPERATOR aware Patient reports she lives alone in [place], states the city turned off her water because she has been too sick to pay her bill. Patient gets agitated with questioning and tells this FIBERGLASS TUBE MOLDER that APS has visited multiple times and that no one, anywhere, has done shit for me. Patient says she is going to owen the city for shutting off her utilities. Patient getting increasingly agitated. Ended conversation at this point and suggested FIBERGLASS TUBE MOLDER team would follow closely and return to continue this conversation. WILDA Watkins Discharge Planning/Care Management CM Discharge Assessment Start: 08/13/22 11:24 Freq: Status: Active Protocol: Document 08/13/22 11:32 ROSA MARIA (Rec: 08/13/22 11:45 ROSA MARIA [id number]) Discharge Planning Assessment Assigned Obgyn Specialist WILDA Lutz DPOA/Assigned Designee Name Ashkan Chinchilla, yajaira Sepulveda) Contact Information [phone] Advance Directives? Yes Advance Directives on File No History Provided By Patient,Medical Record Has Patient been admitted in last 30 Yes days? Comment 6th visit in approx one month. Notes indicate patient has been to [facility] and [facility] as well w/in the last month. CHF Prior Living Arrangements House Household Members none Independent with ADL's Unknown Is patient alert and oriented? A+O; to what degree is unknown (?) Needs Assistance With Home Chores / Shopping Community Services used prior to Home Health Nurse admission: Comment Signature Comment none Patient/Family Preference Home with Home Health Barriers to Discharge Yes Comment According to notes, patient has been flagged for potential self neglectful behavior- APS report made by the ED FIBERGLASS TUBE MOLDER. Patient w/multiple visits to the ED d/t CHF exacerbation and suspected medication noncompliance at home Discharge Plan Home with Home Health Referrals Initiated Home Health Additional Comment Referral faxed to Signature [phone]., confirm w/Signature that patient is active If patient plan is home with home health Yes : Has signed face to face form been completed?
[2022-08-13] MEDS: OSELTAMIVIR 75 MG CAPSULE PO ×2 (12:13→21:10)
[2022-08-13 17:17] LABS: Appearance Urine UA CLEAR; Bilirubin Urine UA NEGATIVE (NEGATIVE); Color Urine UA YELLOW; Glucose Urine UA NEGATIVE (Negative); Ketones Urine UA NEGATIVE (NEGATIVE); Leukocyte Esterase Urine UA TRACE (NEGATIVE); Nitrite Urine UA NEGATIVE (Negative); Occult Blood Urine UA TRACE-INTACT (Negative); Protein Urine UA NEGATIVE (Negative); Urobilinogen Urine UA 0.2 E.U./dL (0.2)
[2022-08-13 17:18] LABS: pH Urine UA 7.5 (4.5-8.0)
[2022-08-13 18:06] LABS: Bacteria Urine Many (>30); Culture Indicated Urine Specimen Cultured; RBC Urine 0-1/HPF (0-5/HPF); Squamous Epithelial Cell Urine 0-1 /HPF (0-5/HPF); WBC Urine 0-1/HPF (0-5/HPF)
[2022-08-13] MEDS: SODIUM CHLORIDE 0.9% FLUSH 10 ML IV (21:07)
--- NOTE | 2022-08-13 23:38 | PC.NURSE ---
Patient is alert and oriented but can be anxious and hollers out intermittently. Breath sounds with rhonchi in right lobes and patient is SOB with conversation; RA sat 95%. Reports frequent cough which she states is productive of clear sputum. HRR w/telemetry reading of SR w/BBB. BP elevated at 146/73. Denies nausea. BT present and was incontinent of small stool. Incontinent of urine so using Purewick as is receiving Lasix. States she has chronic numbness in right foot. Complains of diffuse rib cage pain both anterior and posterior for which she is taking Tylenol prn. Bilateral calf SCD's applied. Fall risk score is high and bed alarm is activated. On droplet precautions as is positive for influenza A.
[2022-08-14] VITALS: BP 138/70; PULSE 72; RESP 16; TEMP 36.5; O2SAT 94
[2022-08-14] MEDS: ACETAMINOPHEN 325 MG TABLET 650 MG PO ×2 (02:02→08:55)
[2022-08-14 04:00] VITALS: BP 148/73; PULSE 70; RESP 16; TEMP 36.6; O2SAT 94
[2022-08-14 08:00] VITALS: BP 147/74; PULSE 68; RESP 20; TEMP 36.1; O2SAT 95
--- NOTE | 2022-08-14 08:07 | PM.PN.1 ---
Subjective Subjective Date Patient Seen: 08/14/22 Time Patient Seen: 12:00 Interval history: Patient didn't know she has heart failure. She said she has been short of breath, fatigued and coughing for several months. Wants to make sure she feels better before going home. Exam Vital Signs (past 8 hours): - 08/14/22 04:00 Temperature 97.9 F Pulse Rate 70 Respiratory Rate 16 Blood Pressure 148/73 H Pulse Oximetry 94 Oxygen Flow Rate 0 Oxygen Delivery Method Room Air Oxygen Flow Rate 0 Narrative Exam Narrative: General: Patient is a disheveled chronically ill appearing female, in no distress at this time. Possible mild cognitive impairment. HEENT: Normocephalic, atraumatic, extraocular muscles intact, oral pharynx is clear and mucous membranes are moist. Neck is supple and symmetric, trachea is midline, no adenopathy, no thyroid enlargement, nontender, no masses palpated. Negative for JVD Chest: Normal AP diameter and contour without kyphoscoliosis, no nasal flaring, retractions, or tachypneic labored Lungs: Auscultation of all lung farr are equal, crackles at bases Cardio: regular rate and rhythm without murmur, rubs, or gallops, no carotid bruit, no cardiac pulsations present. Abdomen: Soft nontender, negative for organomegaly, or masses. Bowel sounds are present in all 4 quadrants without guarding or rebound, no CVA tenderness. Musculoskeletal: Muscle strength and tone are equal within normal limits, no deformity, crepitus, effusions, cyanosis, clubbing, positive bilateral +1 nonpitting edema in lower extremities. Full range of motion intact radial and pedal pulses are normal. Skin: Warm dry and intact Neuro: Drowsy,moves all extremities, sensation to touch intact, no gross deficits noted of cranial nerves. Psych: Patient has a poorly kempt appearance, chronically ill-appearing, disheveled. Objective Labs Result Diagrams: 08/12/22 23:20 08/13/22 06:35 Labs: Laboratory Results - last 24 hr 08/13/22 08/13/22 07:38 17:14 Urine Color Yellow Urine Appearance Clear Urine pH 7.5 Ur Specific [place] 1.010 Urine Protein Negative Urine Glucose (UA) Negative Urine Ketones Negative Urine Occult Blood Trace-intact Urine Nitrate Negative Urine Bilirubin Negative Urine Urobilinogen 0.2 Ur Leukocyte Esterase Trace H Urine RBC 0-1/hpf Urine WBC 0-1/hpf Ur Squamous Epith Cells 0-1 /hpf Urine Bacteria Many (>30) H Ur Culture Indicated? Specimen cultured Chlamy pneumoniae PCR Not detected Adenovirus (PCR) Not detected B. pertussis DNA (PCR) Not detected B.parapertussis DNA PCR Not detected Coronavirus OC43 (PCR) Not detected Coronavirus HKU1 (PCR) Not detected Coronavirus 229E (PCR) Not detected SARS-CoV-2 (PCR) Not detected Coronavirus NL63 (PCR) Not detected Human Metapneumovir PCR Not detected Influenza Type A (PCR) Detected H Influenza Type B (PCR) Not detected M. pneumoniae (PCR) Not detected Parainfluenza 1 (PCR) Not detected Parainfluenza 2 (PCR) Not detected Parainfluenza 3 (PCR) Not detected Parainfluenza 4 (PCR) Not detected RSV (PCR) Not detected Entero/Rhino (PCR) Not detected PFSH Medical History (Updated 08/13/22 @ 06:45 by NIKI Carpenter) Bipolar 1 disorder Contusion of knee, right Hypertension Melanoma Systolic heart failure Surgical History (Updated 08/13/22 @ 06:45 by NIKI Carpenter) History of appendectomy History of cholecystectomy Family History Other No family history of disorders Social History household members: none Smoking Status: Current some day smoker alcohol intake: never Assessment & Plan Assessment & Plan narrative: Yue Klein is an 82-year-old female with a medical history of arterial pulmonary hypertension, bipolar disease, hyperlipidemia, obesity, congestive heart failure with preserved ejection fraction, type B aortic dissection, coronary artery disease recent hospitalization at [facility] 07/31/2022, [facility] 08/03 and 08/09/2022 for influenza presents today for the 2nd time to the ED with shortness of breath.? She was diagnosed with congestive heart failure on 07/06/2022, presented to the emergency department twice today complaining of shortness of breath with right-sided chest pain intermittently. Patient requires observational admit due to frequent recurrent hospitalizations ER visits medication noncompliance and social barriers. Admitted for observation for systolic heart failure exacerbation with myocardial injury. 1. Congestive systolic heart failure, exacerbation, acute on chronic, with hyponatremia, present on admission with shortness of breath -Possible pneumonia-ordered respiratory panel, procalcitonin, blood cultures. -initial BNP of greater than 2000, repeat BNP 6850. -patient is stable requires no oxygen support at this time. -temp 98.8?, BP 144/67, HR 72, R 19, O2 saturation 95% on room air. -mild bilateral +1 nonpitting lower extremity edema -2000 cc fluid restriction, Lasix 40 mg b.i.d. IV -CTA negative for PE,enlargement of the pulmonary arteries, Aneurysmal dilatation of the descending thoracic aorta with 2 short-segment areas of dissection redemonstrated.? Findings are similar to the prior study, Small bilateral pleural effusions, increased on the left and new on the right, with associated compressive atelectasis, and New peribronchial consolidation in the right lower lobe suggestive of pneumonia.? -echo 1 month ago on 07/06/22 with systolic/diastolic failure, EF 45-50%, RVSP 37 2. Myocardial injury, acute, present on admission -initial troponin 0.063, repeat 0.051, 0.040 -patient monitored on telemedicine -EKG normal sinus rhythm with a rate of 75 left access possible LVH anterior infarction comparable to previous EKG -reviewed [facility] records from 08/03 & 08/09, and [facility] 07/31/2022. 3. Pulmonary hypertension, acute on chronic, present on admission - ED BP 193/93, 154/73, repeat 144/67 -continue amlodipine, lisinopril, metoprolol 4. Anemia, chronic, unknown etiology, present on admission -H&H 9.9/HCT 30, MCV 76.2, MCH 24.8,- baseline for patient- reviewed previous labs. 5. Bipolar chronic, present on admission -no documented medications 6. Malnutrition, mild, moderate, severe, acute on chronic, present on admission -patient's malnutrition places them at high risk for medical and surgical complications because of the severe malnutrition in relation to acute illness/chronic illness. This increases the difficulty in complexity of medical management and increases the chances poor outcomes such as mortality and morbidity as well as impaired wound healing, and immune suppression. -dietary consult ordered to evaluate and implement steps to improve caloric intake and nutrition. 7. Obesity, mild, acute on chronic, present on admission -dietary consult ordered regarding nutritional education and information for dietary, lifestyle, exercise, and weight changes. -the patient is at much higher risk for medical and surgical complications due to obesity as it relates to chronic illnesses and acute illness. The patient's obesity increases the difficulty and complexity of medical and/or surgical interventions, management and increases the chances of poor outcome such as morbidity and mortality. Code status:Full Surrogate decision maker: Johnnie DAY PCR:Negative DVT/VTE prophylaxis: Lovenox and SCDs Disposition: Home in 1-2 days pending improved breathing with diuresis. Time Spent With Patient Critical Care time: I spent a total of [] minutes of critical care time on this patient's care today; this time is exclusive of procedural time.
[2022-08-14] MEDS: AMLODIPINE 5 MG TABLET 10 MG PO (08:52)
[2022-08-14] MEDS: POTASSIUM CHLORIDE 20 MEQ TAB PO (08:52)
[2022-08-14] MEDS: FUROSEMIDE 20 MG/2 ML VIAL 40 MG IV ×2 (08:53→22:19)
[2022-08-14] MEDS: METOPROLOL IR 25 MG TABLET PO ×2 (08:54→22:19)
[2022-08-14] MEDS: ENOXAPARIN 40 MG/0.4 ML SYRINGE SUBCUT (08:54)
[2022-08-14] MEDS: lisinopriL 5 MG TABLET PO (08:54)
[2022-08-14] MEDS: SODIUM CHLORIDE 0.9% FLUSH 10 ML IV ×2 (08:54→22:19)
[2022-08-14] MEDS: OSELTAMIVIR 75 MG CAPSULE PO ×2 (09:00→22:23)
[2022-08-14 12:00] VITALS: BP 133/64; PULSE 67; RESP 22; TEMP 36.2; O2SAT 96
--- NOTE | 2022-08-14 13:02 | CM.DPNOTE ---
Discharge Planning Note: Estelle ASTUDILLO conducted patient eval yesterday. Patient is known to us from previous admissions. An initial HH referral was sent to [facility] yesterday by Estelle. When patient was here last time had difficulty finding ride back to [place] for patient. Tyra Hector refuses to provide transport for her due to past history with her. Plan: When medically cleared, home with HH, send dc summary to them. Secure transport for her. Cydney Jane RN/DCP
[2022-08-14 16:00] VITALS: BP 144/72; PULSE 67; RESP 20; TEMP 35.9; O2SAT 95
[2022-08-14 20:00] VITALS: BP 135/63; PULSE 70; RESP 17; TEMP 37.5; O2SAT 95
[2022-08-15] VITALS: BP 133/63; PULSE 64; RESP 17; TEMP 36.9; O2SAT 95
[2022-08-15] MEDS: ACETAMINOPHEN 325 MG TABLET 650 MG PO ×3 (03:15→14:52)
[2022-08-15 04:15] VITALS: BP 130/50; PULSE 58; RESP 17; TEMP 35.9; O2SAT 94
[2022-08-15 06:06] LABS: Add Manual Diff / Slide Review NO; Basophils Absolute Auto 0 /uL (0-100); Basophils Percent Auto 0.2 % (0-2); Eosinophils Absolute Auto 400 /uL (0-450); Eosinophils Percent Auto 10.4 % (2-4); Hematocrit 31.6 % (36-46); Hemoglobin 10.1 g/dL (12.0-16.0); Lymphocytes Absolute Auto 1000 /uL (1100-4500); Lymphocytes Percent Auto 26.2 % (25-40); Mean Corpuscular HGB Conc 32.1 % (30-36); Mean Corpuscular Hemoglobin 24.3 PG (26-34); Mean Corpuscular Volume 75.8 fL (80-100); Monocytes Absolute Auto 600 /uL (0-900); Monocytes Percent Auto 16.9 % (3-14); Neutrophils Absolute Auto 1700 /uL (1500-7000); Neutrophils Percent Auto 46.3 % (50-75); Platelet Count 272 X10^3/uL (150-400); Red Blood Cell Count 4.16 X10^6/uL (4.0-5.2); Red Cell Distribution Width 16.5 % (11.6-14.8); White Blood Cell Count 3.8 X10^3/uL (4.5-11.0)
[2022-08-15 06:16] LABS: Blood Urea Nitrogen 14 mg/dL (7-17); Calcium 8.6 mg/dL (8.4-10.2); Carbon Dioxide 29 mmol/L (22-32); Chloride 93 mmol/L (98-107); Estimated Glomerular Filt Rate > 60 mL/min (>60); Glucose 105 mg/dL (80-110); HEMOLYSIS < 15 (0-50); Potassium 3.8 mmol/L (3.4-5.1); Sodium 130 mmol/L (137-145)
[2022-08-15 08:00] VITALS: BP 135/70; PULSE 64; RESP 18; TEMP 36.4; O2SAT 96
--- NOTE | 2022-08-15 08:06 | P.DS_ITS ---
History of Present Illness History of Present Illness Date Patient Seen: 08/13/22 Time Patient Seen: 02:33 Chief complaint: Body Aches, Flu Narrative: Per admitting provider: Yue Klein is an 82-year-old female with a medical history of arterial pulmonary hypertension, bipolar disease, hyperlipidemia, obesity, congestive heart failure with preserved ejection fraction, type B aortic dissection, coronary artery disease recent hospitalization at [facility] 07/31/2022, [facility] 08/03 and 08/09/2022 for influenza presents today for the 2nd time to the ED with shortness of breath.? She was diagnosed with congestive heart failure on 07/06/2022, this morning she had a elevated BNP of greater than 2000 this am and some bilateral pleural effusions.? Patient had previously been prescribed Lasix but had not picked up or started the medication. In ED She complained of shortness of breath she continues to have right-sided chest pain intermittently.? She says she generally does not feel good.? She is hungry she wamts coffee and orange juice.? She is having some obvious shortness of breath with his conversation.? She denies fever or chills she says that part is a little bit better. Patient denied abdominal pain, nausea, vomiting, diarrhea, urinary symptoms. At the time of admit patient is sleeping heavily in no distress, requiring no oxygenation. Patient was initially hypertensive in the ED BP 193/93, 154/73, at the time of admit patient's vitals were stable temp 98.8?, BP 144/67, HR 72, R 19, O2 saturation 95% on room air. Patient's H&H 9.9/HCT 30, MCV 76.2, MCH 24.8, sodium 127, chloride 96, glucose 130, D-dimer 2052, CTA negative for PE,enlargement of the pulmonary arteries, Aneurysmal dilatation of the descending thoracic aorta with 2 short-segment areas of dissection redemonstrated.? Findings are similar to the prior study, Small bilateral pleural effusions, increased on the left and new on the right, with associated compressive atelectasis, and New peribronchial consolidation in the right lower lobe suggestive of pneumonia.? Initial troponin 0.063, repeat 0.051, BNP 6850. EKG normal sinus rhythm with a rate of 75 left access possible LVH anterior infarction comparable to previous EKG, reviewed [facility] records from 08/03 & 08/09, and [facility] 07/31/2022. Patient admitted for acute on chronic congestive systolic heart failure exacerbation, with myocardial injury. ? Discharge Providers Provider Date of admission: 08/15/22 09:50 Discharge Date: 08/15/22 Primary care physician: Rohit Zuniga MD Consults: 08/13/22 02:29 Consult to [facility] [place] [facility] Attendant Stat Comment: repeat admits, noncompliance social barriers [employer] Consult needed for:: Behavioral Health Assess Social Determinants issue 08/13/22 07:34 Consult to [employer] - Museum Attendant Routine Comment: repeat admissions [employer] Consult needed for:: Behavioral Health Assess Social Determinants issue 08/13/22 07:35 Consult to Dietitian, Adult Routine Comment: Reason For Exam: BMI 30.1 08/15/22 11:35 Consult to Physical Therapy Evaluate & Treat Comment: Physician Instructions: Evaluate and Treat 08/15/22 11:43 Consult to Dietitian, Adult Urgent Comment: Reason For Exam: chf, low salt diet, 2L fluid restriction 08/15/22 12:35 Consult to Home Health Routine Comment: Reason For Exam: Home Health RN, P.T. Discharge provider: Jeffrey Perkins MD Summary Hospital Course Discharge Diagnosis: 1. Acute on chronic congestive heart failure exacerbation, EF 45-50% 2. Influenza A 3. Cardiac demand ischemia 4. Pulmonary hypertension 5. Anemia 6. Bipolar disorder 7. Malnutrition Hospital Course: Ms. Klein was admitted with shortness of breath. She was found to have volume overload consistent with a CHF exacerbation. She was placed on lasix and diuresed well, length of stay she was 6L net negative. She also was Flu A positive and started on tamiflu. On day of discharge she was feeling much be tter. Her shortness of breath had improved. She was able to ambulate well without symptoms, and she was not requiring oxygen. She was encourage to continue taking her lasix, and finish her prescription of tamiflu and follow up with her PCP within a week. Exam Vital Signs (past 8 hours): Oxygen Delivery Method Nasal Cannula Oxygen Flow Rate 0 Narrative Exam Narrative: GEN: no acute distress CV: regular rate and rhythm PULM: clear bilaterally Objective Labs Result Diagrams: 08/15/22 06:00 08/15/22 06:00 [facility] Medical History (Updated 08/13/22 @ 06:45 by NIKI Carpenter) Bipolar 1 disorder Contusion of knee, right Hypertension Melanoma Systolic heart failure Surgical History (Updated 08/13/22 @ 06:45 by NIKI Carpenter) History of appendectomy History of cholecystectomy Family History Other No family history of disorders Social History household members: none Smoking Status: Current some day smoker alcohol intake: never Discharge Plan Discharge Plan Patient Disposition: Home Provider Discharge Comment: You were admitted with trouble breathing. This is due to a flare of congestive heart failure, and also to having the flu. For your congestive heart failure you should take lasix every day. Avoid eating lots of salt, and have only a moderate amount of fluid every day to prevent retaining more fluid. For your flu please take the rest of the tamiflu Please follow up with your PCP this week. Discharge orders & Medications Prescriptions: New amlodipine [Norvasc] 5 mg Tablet 10 mg PO DAILY Qty: 30 0RF oseltamivir [Tamiflu] 75 mg Capsule 75 mg PO BID Qty: 8 0RF Continued furosemide [Lasix] 40 mg tablet 40 mg PO DAILY Qty: 30 0RF Label Comments: states just recently got the Rx, has not started lisinopril 5 mg Tablet 5 mg PO DAILY Qty: 30 0RF metoprolol tartrate 25 mg Tablet 25 mg PO BID Qty: 60 0RF acetaminophen 325 mg Tablet 650 mg PO Q4H PRN (Reason: Fever/Mild Pain (1-3)) Qty: 90 0RF Follow up/Referrals: Rohit Zuniga MD [Primary Care Provider] - 3-5 Days (follow up admit for CHF and flu) Diet/Activity/Treatments Diet: Low-sodium Diet comment: 2L fluid restriction Visit Report/Discharge Packet Instructions: DI for Heart Failure, DI for Influenza -- Adult, Amlodipine, Oseltamivir, How to Restrict Fluids Discharge Data Primary Care Provider: Rohit Zuniga
[2022-08-15] MEDS: lisinopriL 5 MG TABLET PO (09:55)
[2022-08-15] MEDS: POTASSIUM CHLORIDE 20 MEQ TAB PO (09:55)
[2022-08-15] MEDS: METOPROLOL IR 25 MG TABLET PO (09:55)
[2022-08-15] MEDS: OSELTAMIVIR 75 MG CAPSULE PO (09:55)
[2022-08-15] MEDS: FUROSEMIDE 20 MG/2 ML VIAL 40 MG IV (09:55)
[2022-08-15] MEDS: SODIUM CHLORIDE 0.9% FLUSH 10 ML IV (09:56)
[2022-08-15] MEDS: AMLODIPINE 5 MG TABLET 10 MG PO (09:59)
--- NOTE | 2022-08-15 11:40 | PC.NURSE ---
Addendum entered by Kathrine Galvan R.N. 08/15/22 15:50: Patient discharged home via ride to [facility]. IV was not taken out. Will call patient and let her know about this. We are unable to get a hold of her on her phone, message also left for son to call us. Will continue to try calling her. Original Note: Assess- Patient is adamant about getting coffee and water every 15 minutes. She knows that she is on a 2l restriction over 24 hours. She denies pain or fever. Receives tylenol on occasion. LS cta, mid 90s on ra. Patient can ambulate but would rather be waited on. She is getting lasix and is using a pure wick for urinating. Patient had a shower yesterday. She is eating well at meals and denies discomfort at this time.
[2022-08-15 12:00] VITALS: BP 133/63; PULSE 61; RESP 22; TEMP 36.1; O2SAT 96
--- NOTE | 2022-08-15 12:14 | CM.DPC ---
Addendum entered by Patricia Zheng R.N. 08/15/22 14:30: Trip Byrne called back. He indicated that he found someone to transport patient. He indicated that his name is SAÚL. Gave his phone number of: [phone]. Called him and verifed that he will be at ER entrance at 1500. Updated the manager front by the ER, patient is driving a fierro Honda CRV. Home Health has already been updated. Addendum entered by Patricia Zheng R.N. 08/15/22 12:42: For patient to take Dial-a-Ride ([employer]), they need to be registered in the system. Called Trip Byrne back, he will look into getting in touch with his religious volunteers. He did ask for a time, this [employer] mentioned approximately 1530. Did call [facility], and spoke to Narcisa. Let her know that patient is supposed to discharge home today. DC Summary is not yet completed, but sent over face to face and orders. RN, and P.T. is ordered. Original Note: DCP Cont: Patient is to be discharged home today. Did not enter patient's room, but spoke to her by the door. Asked her if she has any type of transportation home, and she stated, she does not. Dial-a-ride is available, but they want at least $[address], patient stated, she has not money. [employer] will no longer provide any type of transportation. Called pastor Schuyler, and asked him to call this [employer] back, as he indicated before that he has some individuals at his religious that may pay for an uber. P: Patient has discharge orders for home today. Will update and contact [facility], and await call back from Trip Byrne. Patricia Zheng RN/Oracle Database Analyst
--- NOTE | 2022-08-15 15:05 | PT-IP ANOTE ---
Received PT orders and reviewed the chart. Pt had already discharged by 1505. Per RN, had no PT needs. Will dc PT orders.
== END 2022-08-15 15:00 | disposition home health service (06) | DRG 291 ==
LOC: ED 22:24 → AC 08-13 02:17
PROVIDERS: Student in an Organized Health Care Education/Training Program; Admitting Provider Nurse Practitioner Family; Emergency Provider Emergency Medicine; PCP Internal Medicine; Referring Provider Emergency Medicine; Visit Provider Nurse Practitioner Family
DX: I11.0 Hypertensive heart disease with heart failure (principal); E43 Unspecified severe protein-calorie malnutrition; I50.23 Acute on chronic systolic (congestive) heart failure; E87.1 Hypo-osmolality and hyponatremia; I24.8 Other forms of acute ischemic heart disease; F17.210 Nicotine dependence, cigarettes, uncomplicated; I27.20 Pulmonary hypertension, unspecified; E66.9 Obesity, unspecified; I25.10 Atherosclerotic heart disease of native coronary artery without angina pectoris; J10.1 Influenza due to other identified influenza virus with other respiratory manifestations; Z68.30 Body mass index [BMI] 30.0-30.9, adult; Z20.822 Contact with and (suspected) exposure to COVID-19; R07.89 Other chest pain
CPT/HCPCS: 36415; 71045; 71275; 80048; 80053; 81001; 82550; 83690; 83735; 83880; 84145; 84484; 85025; 85379; 87040; 87086; 87633; 93005; 96374; 99284; G0378; J1650; J1940; Q9967

== ENCOUNTER 2022-08-17 22:11 | Emergency (ER) | payer OTHER, SELFPAY ==
[2022-08-13 08:05] VITALS: BMI 69.9
[2022-08-17 22:24] VITALS: BP 143/66; PULSE 66; RESP 28; TEMP 36.4; O2SAT 99
[2022-08-17 22:27] VITALS: PULSE 66; RESP 33; O2SAT 99
--- NOTE | 2022-08-17 22:27 | ED.CHESTPAIN ---
HPI - Chest Pain General Chief Complaint: Chest Pain Stated Complaint: SOB Time Seen by Provider: 08/17/22 22:27 Source: patient and EMS Mode of arrival: EMS Limitations: no limitations History of Present Illness HPI narrative: 82-year-old female with history of pneumonia, hypertension, hyperlipidemia, DE, type B aortic dissection with recent hospitalization?here at our facility a few days ago for acute on chronic CHF exacerbation with EF 45-50%, influenza a, cardiac demand ischemia, pulmonary hypertension, anemia, bipolar disorder and malnutrition. Records are reviewed and over the course of the visit she was diuresed and had negative fluid balance of 6 L. patient was discharged on amlodipine 10 mg and Tamiflu. She is continued on her Lasix, lisinopril, metoprolol. She presents today by EMS for evaluation of reproducible sharp and stabbing left-sided chest pain. She states it is worse with motion, palpation and with deep breath. She is had no fever or chills. She did have a CTA of her chest as part of the most recent hospitalization which shows no interval change in her known dissection. Related Data Previous Rx's Medication Instructions Recorded acetaminophen 325 mg tablet 650 mg PO Q4H PRN Fever/Mild Pain 07/07/22 (1-3) #90 tabs lisinopril 5 mg tablet 5 mg PO DAILY #30 tabs 07/07/22 metoprolol tartrate 25 mg tablet 25 mg PO BID #60 tabs 07/07/22 amlodipine 5 mg tablet (Norvasc) 10 mg PO DAILY #30 tabs 08/15/22 furosemide 40 mg tablet (Lasix) 40 mg PO DAILY #30 tabs 08/15/22 oseltamivir 75 mg capsule (Tamiflu) 75 mg PO BID #8 caps 08/15/22 Allergies Allergy/AdvReac Type Severity Reaction Status Date / Time No Known Drug Allergies Allergy Verified 08/17/22 22:58 Patient History Medical History (Updated 08/17/22 @ 23:46 by Isaiah Pepper DO) Bipolar 1 disorder Contusion of knee, right Hypertension Melanoma Systolic heart failure Surgical History (Updated 08/13/22 @ 06:45 by NIKI Carpenter) History of appendectomy History of cholecystectomy Family History Other No family history of disorders Social History household members: none Smoking Status: Current some day smoker alcohol intake: never Smoking Status: Current some day smoker alcohol intake frequency: holidays/special occasions only Substance Use Type: does not use Exam Initial Vital Signs Initial Vital Signs: Vital Signs Temperature 97.5 F L 08/17/22 22:24 Pulse Rate 66 08/17/22 22:24 Respiratory Rate 28 H 08/17/22 22:24 Blood Pressure 143/66 H 08/17/22 22:24 Pulse Oximetry 99 08/17/22 22:24 Oxygen Delivery Method 08/17/22 22:24 Scores HEART Score Heart Score history: Slightly Suspicious Heart Score EKG: Normal Heart Score Age: > or = 65 years old Heart Score risk factors: 1-2 risk factors Heart Score troponin: < or = to normal limit Heart Score Total: 3 Course Orders Ordered: ED Orders 08/17/22 22:28 XR chest 1V Stat 08/17/22 22:30 Complete Blood Count AUTO DIFF Stat Comprehensive Metabolic Panel Stat Lipase Stat Magnesium Stat NT-proBNP (BNP-Adult 18+) Stat Partial Thromboplastin Time Stat Prothrombin Time INR Stat Troponin & CK Cardiac Panel Stat 08/17/22 22:43 EKG-12 Lead Stat Discontinued Medications Acetaminophen (Acetaminophen 325 Mg Tablet) 650 mg PO NOW ONE Stop: 08/17/22 23:46 Last Admin: 08/17/22 23:59 Dose: 650 mg Documented By: OW Aspirin (Aspirin 81 Mg Chew Tab) 324 mg PO NOW ONE Stop: 08/17/22 22:44 Last Admin: 08/17/22 23:44 Dose: Not Given Documented By: OW Lidocaine (Lidocaine Patch 1 Each Adh..Patch) 1 each TOP NOW ONE Stop: 08/17/22 23:46 Last Admin: 08/17/22 23:59 Dose: 1 each Documented By: OW Vital Signs Vital signs: Vital Signs - 8 hr 08/17/22 22:24 08/17/22 22:27 08/17/22 22:30 Temperature 97.5 F L Pulse Rate 66 66 71 Respiratory Rate 28 H 33 H 36 H Blood Pressure 143/66 H Pulse Oximetry 99 99 97 Oxygen Delivery Method Room Air 08/17/22 23:00 08/17/22 23:30 Temperature Pulse Rate 70 67 Respiratory Rate 25 H 24 Blood Pressure 128/60 Pulse Oximetry 96 98 Oxygen Delivery Method Room Air MDM - Chest Pain Lab Data Result diagrams: 08/17/22 22:30 08/17/22 22:30 Labs: Lab Results 08/17/22 08/17/22 08/17/22 Range/Units 22:30 22:30 22:30 WBC 6.0 (4.5-11.0) X10^3/uL RBC 4.35 (4.0-5.2) X10^6/uL Hgb 10.6 L (12.0-16.0) g/dL Hct 33.7 L (36-46) % MCV 77.5 L (80-100) fL MCH 24.4 L (26-34) PG MCHC 31.5 (30-36) % RDW 16.7 H (11.6-14.8) % Plt Count 324 (150-400) X10^3/uL Neut % (Auto) 59.0 (50-75) % Lymph % (Auto) 25.9 (25-40) % [place] % (Auto) 9.3 (3-14) % Eos % (Auto) 5.1 H (2-4) % Baso % (Auto) 0.7 (0-2) % Neut # (Auto) 3500 (7772-4019) /uL Lymph # (Auto) 1500 (5920-6034) /uL [place] # (Auto) 600 (0-900) /uL Eos # (Auto) 300 (0-450) /uL Baso # (Auto) 0 (0-100) /uL PT 11.4 (10.1-12.7) SECONDS INR 1.0 (0.9-1.3) APTT 29 (26-36) SECONDS Sodium 135 L (137-145) mmol/L Potassium 4.5 (3.4-5.1) mmol/L Chloride 98 (98-107) mmol/L Carbon Dioxide 30 (22-32) mmol/L BUN 27 H (7-17) mg/dL Creatinine 0.93 (0.52-1.04) mg/dL Estimated GFR > 60 (>60) mL/min BUN/Creatinine Ratio 29.0 H (6-22) Glucose 78 L (80-110) mg/dL Calcium 9.3 (8.4-10.2) mg/dL Magnesium 2.3 (1.6-2.3) mg/dL Total Bilirubin 0.1 L (0.2-1.3) mg/dL AST 21 (14-36) IU/L ALT 13 (<35) IU/L Alkaline Phosphatase 122 (38-126) U/L Total Creatine Kinase < 20 L (30-135) U/L CK-MB (CK-2) TNP CK-MB (CK-2) Rel Index TNP Troponin I 0.016 (0.01-0.034) ng/mL NT-Pro-B Natriuret Pep 656 H (<450) pg/mL Total Protein 7.0 (6.3-8.2) g/dL Albumin 3.9 (3.5-5.0) g/dL Globulin 3.1 (1.7-4.1) g/dL Albumin/Globulin Ratio 1.3 (1.0-2.8) Lipase 70 D (23-300) U/L Imaging Data Chest x-ray: Radiologist's Impression: [address] [address] XRay Report Signed Patient: Yue Klein MR#: [id number] : 1940 Acct:[id number] Age/Sex: 82 / F Date of Service: 08/17/22 Loc: ED Accession Number: [id number] ?? Procedure: XR chest 1V Ordering Provider: Isaiah Pepper D.O. PROCEDURE:? XR CHEST 1V ? INDICATIONS:? pain, SOB ? TECHNIQUE:? One view of the chest was acquired.? ? COMPARISON:? [facility], CR, XR CHEST 1V, 08/12/2022, 22:30. ? FINDINGS:? ? Surgical changes and devices:? Postsurgical changes are partially visualized within the left femur status post prior ORIF.? ? Lungs and pleura:? There is hyperinflation of the lungs with flattening of the hemidiaphragms compatible with COPD.? No acute consolidation.? There is resolution of the bibasilar opacities seen on the prior study with mild residual atelectasis in the left lung base.? There is a small residual left pleural effusion, decreased from the prior study. ? Mediastinum:? Mediastinal contours are unchanged.? Heart size is enlarged. ? Bones and chest wall:? There are old healed right posterior rib fractures redemonstrated. ?No suspicious bony lesions.? Overlying soft tissues appear unremarkable.? ? IMPRESSION:? ? 1. Small residual left pleural effusion decreased from the prior study. ? 2.? Mild residual atelectasis in the left lung base.? ? Dictated by: Hill Chavez M.D. on 08/18/2022 at 0:06 ? ? Approved by: Hill Chavez M.D. on 08/18/2022 at 0:26 ? MDM Narrative Medical decision making narrative: 82-year-old female with medical history consisting of known dissection, CHF and frequent visits for chest wall pain presents by EMS in the chief complaint of ongoing left-sided chest pain that is reproducible and has been present for many months if not longer. Patient has extensive visit history at this facility and multiple prior charts including EKGs, labs and imaging have been reviewed. Chest x-ray shows no rib fracture, pneumothorax or pneumonia, radiology has reviewed and demonstrate improvement of pleural effusion over recent hospitalization. Labs are unremarkable and in fact greatly improved from her baseline. Patient has stable vital signs and no hypoxemia or shortness of breath over the duration of her visit. Her chest pain is improved with Tylenol and Lidoderm. Heart score is 3, patient recently hospitalized with extensive evaluation. Differential diagnosis includes chest wall pain, pneumonia, pleural effusion, CHF, pneumothorax and other. Patient stable without any indication of a diagnosis that would require hospitalization or further intervention. Patient given return precautions including chest pain, increasing shortness of breath, fever, persistent vomiting among others. She is encouraged to continue taking her medications as previously directed and follow-up with her primary care provider's. Questions answered to her apparent satisfaction Discharge Plan Departure Patient Disposition: Home Clinical Impression: Atypical chest pain Instructions: DI for Atypical Chest Pain Activity Restrictions/Additional Instructions: *You have been diagnosed with [atypical chest pain. As we discussed your history and physical exam as well as EKG, labs and imaging are reassuring.] *What to do: *Please continue to take your regular medications as directed. [ ] New medication prescriptions sent to your pharmacy: [ ] [ ] New medication written as a paper prescription [ ] No new medications given *Please follow up with your primary care provider in 2-3 days, call for an appointment. Let them know you were seen in the Emergency Department and that we ask that you be seen in follow up. We will electronically transmit a record of today's note if your PCP is in our system *If you do not have a primary care provider please contact the [facility] Resource line at [phone]. They will ask some questions about your medical history and help get you set up with a doctor in the community. *Return to Emergency Department if you should have any new, worsening or concerning symptoms, such as [fever greater than 101 F, shaking chills, worsening pain, persistent vomiting or other bothersome symptoms] Prescriptions: No Action amlodipine [Norvasc] 5 mg Tablet 10 mg PO DAILY Qty: 30 0RF oseltamivir [Tamiflu] 75 mg Capsule 75 mg PO BID Qty: 8 0RF furosemide [Lasix] 40 mg tablet 40 mg PO DAILY Qty: 30 0RF Label Comments: states just recently got the Rx, has not started lisinopril 5 mg Tablet 5 mg PO DAILY Qty: 30 0RF metoprolol tartrate 25 mg Tablet 25 mg PO BID Qty: 60 0RF acetaminophen 325 mg Tablet 650 mg PO Q4H PRN (Reason: Fever/Mild Pain (1-3)) Qty: 90 0RF Referrals: Rohit Zuniga MD [Primary Care Provider] - Visit Report Forms: Patient Portal/API
--- NOTE | 2022-08-17 22:28 | DI.RAD.S_ITS ---
PROCEDURE: XR CHEST 1V INDICATIONS: pain, SOB TECHNIQUE: One view of the chest was acquired. COMPARISON: [facility], CR, XR CHEST 1V, 08/12/2022, 22:30. FINDINGS: Surgical changes and devices: Postsurgical changes are partially visualized within the left femur status post prior ORIF. Lungs and pleura: There is hyperinflation of the lungs with flattening of the hemidiaphragms compatible with COPD. No acute consolidation. There is resolution of the bibasilar opacities seen on the prior study with mild residual atelectasis in the left lung base. There is a small residual left pleural effusion, decreased from the prior study. Mediastinum: Mediastinal contours are unchanged. Heart size is enlarged. Bones and chest wall: There are old healed right posterior rib fractures redemonstrated. No suspicious bony lesions. Overlying soft tissues appear unremarkable. IMPRESSION: 1. Small residual left pleural effusion decreased from the prior study. 2. Mild residual atelectasis in the left lung base. Dictated by: Hill Chavez M.D. on 08/18/2022 at 0:06 Approved by: Hill Chavez M.D. on 08/18/2022 at 0:26
[2022-08-17 22:30] VITALS: PULSE 71; RESP 36; O2SAT 97
--- NOTE | 2022-08-17 22:49 | PC.NURSE ---
This RN put in nurse initiated orders for CP. COVID swab not ordered per Dr. Pepper verbal order.
[2022-08-17 22:51] LABS: Prothrombin Time 11.4 SECONDS (10.1-12.7)
[2022-08-17 22:54] LABS: PTT Partial Thromboplastin Tim 29 SECONDS (26-36)
[2022-08-17 22:55] LABS: Add Manual Diff / Slide Review NO; Alanine Aminotransferase 13 IU/L (<35); Albumin 3.9 g/dL (3.5-5.0); Albumin Globulin Ratio 1.3 (1.0-2.8); Alkaline Phosphatase 122 U/L (38-126); Aspartate Aminotransferase 21 IU/L (14-36); Basophils Absolute Auto 0 /uL (0-100); Basophils Percent Auto 0.7 % (0-2); Bilirubin Total 0.1 mg/dL (0.2-1.3); Blood Urea Nitrogen 27 mg/dL (7-17); Calcium 9.3 mg/dL (8.4-10.2); Carbon Dioxide 30 mmol/L (22-32); Chloride 98 mmol/L (98-107); Creatine Kinase < 20 U/L (30-135); Eosinophils Absolute Auto 300 /uL (0-450); Eosinophils Percent Auto 5.1 % (2-4); Estimated Glomerular Filt Rate > 60 mL/min (>60); Globulin 3.1 g/dL (1.7-4.1); Glucose 78 mg/dL (80-110); HEMOLYSIS < 15 (0-50); Hematocrit 33.7 % (36-46); Hemoglobin 10.6 g/dL (12.0-16.0); Lipase 70 U/L (23-300); Lymphocytes Absolute Auto 1500 /uL (1100-4500); Lymphocytes Percent Auto 25.9 % (25-40); Magnesium 2.3 mg/dL (1.6-2.3); Mean Corpuscular HGB Conc 31.5 % (30-36); Mean Corpuscular Hemoglobin 24.4 PG (26-34); Mean Corpuscular Volume 77.5 fL (80-100); Monocytes Absolute Auto 600 /uL (0-900); Monocytes Percent Auto 9.3 % (3-14); Neutrophils Absolute Auto 3500 /uL (1500-7000); Platelet Count 324 X10^3/uL (150-400); Potassium 4.5 mmol/L (3.4-5.1); Red Blood Cell Count 4.35 X10^6/uL (4.0-5.2); Red Cell Distribution Width 16.7 % (11.6-14.8); Sodium 135 mmol/L (137-145)
[2022-08-17 23:00] VITALS: PULSE 70; RESP 25; O2SAT 96
[2022-08-17 23:07] LABS: Troponin I 0.016 ng/mL (0.01-0.034)
--- NOTE | 2022-08-17 23:27 | PC.NURSE ---
Pt removed all cardiac leads, pt is refusing further cardiac monitoring. Pt also removed SPO2. refusing SPO2 monitoring.
[2022-08-17 23:30] VITALS: BP 128/60; PULSE 67; RESP 24; O2SAT 98
[2022-08-17 23:32] LABS: NT-proBNP (BNP-Adult 18+) 656 pg/mL (<450)
[2022-08-17] MEDS: ACETAMINOPHEN 325 MG TABLET 650 MG PO (23:59)
[2022-08-17] MEDS: LIDOCAINE PATCH 1 EACH ADH..PATCH TOP (23:59)
--- NOTE | 2022-08-18 00:38 | PC.NURSE ---
0010: This RN sat down with pt and after informing pt of her unusual frequency of visits to this ED, asked the patient what she is seeking from her ED visits and if we are overlooking a need she has. Her response was that she wanted relief of her L rib pain. This RN then told the patient that we have been treating her pain with Tylenol which has been the treatment of choice by multiple ED MDs who have assessed her through out her frequent visits. Pt is educated on why tylenol is the treatment of choice and that if she chooses to, she can get the medication OTC. Pt then becomes angry and stops talking to this RN. Another RN enters, gives the pt her discharge paperwork and is taken to the lobby via wheelchair. Pt ambulated independently to the wheelchair.
== END 2022-08-18 00:25 | disposition home or self-care (01) ==
PROVIDERS: Emergency Provider Emergency Medicine; PCP Internal Medicine
DX: R07.89 Other chest pain (principal)
CPT/HCPCS: 36415; 71045; 80053; 82550; 83690; 83735; 83880; 84484; 85025; 85610; 85730; 93005; 99284

== ENCOUNTER 2022-10-23 02:50 | Inpatient (IN) | payer OTHER, SELFPAY ==
[2022-08-13 08:05] VITALS: BMI 69.9
[2022-10-23] VITALS (10 sets, daily range): BP systolic 102–172; BP diastolic 58–116; PULSE 60–97; RESP 18–35; TEMP 35.9–37; O2SAT 90–97; BMI 27.8; BMI 27.3
--- NOTE | 2022-10-23 02:57 | ED.GENADULT ---
HPI - General Adult General Chief complaint: Shortness of Breath/Dyspnea Stated complaint: weakness Time Seen by Provider: 10/23/22 02:53 History of Present Illness HPI narrative: 82-year-old woman with a history of pulmonary hypertension, hyperlipidemia, congestive heart failure coronary artery disease, type B aortic dissection, called medics this evening complaining of severe dyspnea. She states it has been getting worse for the past 2 weeks and has gotten to the point where she can not even walk around the house without becoming severely dyspneic. Medics describe initial saturations at 91% and increasing to 97% on 3 L. Slight tachypnea in the 30s dropping down to the 20s with oxygen. She notes that she is lost about 20 lb in the last 3 months without significant effort. She has significant lower extremity edema right greater than left, significant orthopnea and in transferring from the stretcher to the bed and moving her self 2 or 3 scoots over to be positioned appropriately in bed, she became dramatically dyspneic to the point she was unable to speak with saturations dropping to 87%. With rest and oxygen she recovered nicely. She denies fever, cough, chills, chest pain or palpitation. She is had a number of hospitalizations over the last 6 months with coronary artery disease evaluation in July of 2022, influenza on admission to [facility] in July of 2022, initial diagnosis of congestive heart failure in June of 2022. Related Data Previous Rx's Medication Instructions Recorded acetaminophen 325 mg tablet 650 mg PO Q4H PRN Fever/Mild Pain 07/07/22 (1-3) #90 tabs lisinopril 5 mg tablet 5 mg PO DAILY #30 tabs 07/07/22 metoprolol tartrate 25 mg tablet 25 mg PO BID #60 tabs 07/07/22 amlodipine 5 mg tablet (Norvasc) 10 mg PO DAILY #30 tabs 08/15/22 furosemide 40 mg tablet (Lasix) 40 mg PO DAILY #30 tabs 08/15/22 oseltamivir 75 mg capsule (Tamiflu) 75 mg PO BID #8 caps 08/15/22 Allergies Allergy/AdvReac Type Severity Reaction Status Date / Time No Known Drug Allergies Allergy Verified 08/17/22 22:58 Review of Systems Review of Systems Narrative: Remainder of complete review of systems is otherwise unremarkable except for that included in the HPI. Patient History Medical History (Updated 10/23/22 @ 05:04 by Mendy Chávez MD) Bipolar 1 disorder Contusion of knee, right Dissection of aorta, thoracic Hypertension Melanoma Pulmonary hypertension Systolic heart failure Surgical History History of appendectomy History of cholecystectomy Family History Other No family history of disorders Social History household members: none Smoking Status: Current some day smoker alcohol intake: never Smoking Status: Current some day smoker alcohol intake frequency: holidays/special occasions only Substance Use Type: does not use Exam Initial Vital Signs Initial Vital Signs: Vital Signs Temperature 97.2 F L 10/23/22 02:57 Pulse Rate 97 H 10/23/22 02:57 Respiratory Rate 35 H 10/23/22 02:57 Blood Pressure 172/116 H 10/23/22 02:57 Pulse Oximetry 90 L 10/23/22 02:57 Oxygen Delivery Method 10/23/22 02:57 General: Frail, disheveled, moderate respiratory distress to the point she is unable to speak with any movement HEENT: Dry mucous membranes, normal sclera with reactive pupils, Respiratory: Lungs with poor air movement minimal wheezing, air movement is shallow enough I am unable to appreciate crackles. Pursed lip breathing and needing to sit upright Cardiac: Regular rate and rhythm no murmurs no bruits Abdomen: Soft, nontender, good bowel tones, no flank pain Skin: Warm and dry, no rashes Neurologic: Globally weak but Grossly neurologically intact with no obvious asymmetries or abnormalities Extremities: No trauma, significant lower extremity edema right greater than left Psych: Cooperative, appropriate affect Course Orders Ordered: ED Orders 10/23/22 EKG-12 Lead Routine 10/23/22 03:08 XR chest 1V Stat Venous Blood Gas Stat 10/23/22 03:13 Complete Blood Count AUTO DIFF Stat Comprehensive Metabolic Panel Stat Covid-19 + FLU A/B + RSV - PCR Stat D Dimer Stat Lactate (Lactic Acid) Stat Magnesium Stat NT-proBNP (BNP-Adult 18+) Stat Procalcitonin Stat Troponin I Stat 10/23/22 03:48 Blood Culture Stat 10/23/22 04:25 Urinalysis and Microscopic Stat Discontinued Medications Aspirin (Aspirin 81 Mg Chew Tab) 324 mg PO NOW ONE Stop: 10/23/22 03:08 Last Admin: 10/23/22 03:21 Dose: 324 mg Documented By: HIRA Furosemide 80 mg/ Sodium (Chloride) 58 mls @ 116 mls/hr IV NOW ONE Stop: 10/23/22 03:39 Last Infusion: 10/23/22 04:38 Dose: 0 mls/hr Documented By: Admin: 10/23/22 04:01 Dose: 116 mls/hr Documented By: NIKUNJ Vital Signs Vital signs: Vital Signs - 8 hr 10/23/22 02:57 Temperature 97.2 F L Pulse Rate 97 H Respiratory Rate 35 H Blood Pressure 172/116 H Pulse Oximetry 90 L Oxygen Delivery Method Room Air Medical Decision Making Lab Data 10/23/22 03:13 10/23/22 03:13 Labs: Lab Results 10/23/22 10/23/22 10/23/22 Range/Units 03:13 03:13 03:13 WBC 8.3 (4.5-11.0) X10^3/uL RBC 4.42 (4.0-5.2) X10^6/uL Hgb 10.9 L (12.0-16.0) g/dL Hct 33.9 L (36-46) % MCV 76.7 L (80-100) fL MCH 24.7 L (26-34) PG MCHC 32.2 (30-36) % RDW 18.0 H (11.6-14.8) % Plt Count 284 (150-400) X10^3/uL Neut % (Auto) 87.9 H (50-75) % Lymph % (Auto) 6.2 L (25-40) % [place] % (Auto) 5.5 (3-14) % Eos % (Auto) 0.1 L (2-4) % Baso % (Auto) 0.3 (0-2) % Neut # (Auto) 7300 H (4542-6798) /uL Lymph # (Auto) 500 L (9938-3877) /uL [place] # (Auto) 500 (0-900) /uL Eos # (Auto) 0 (0-450) /uL Baso # (Auto) 0 (0-100) /uL D-Dimer 1478 H (<500) ng/ml Sodium 131 L (137-145) mmol/L Potassium 3.7 (3.4-5.1) mmol/L Chloride 95 L (98-107) mmol/L Carbon Dioxide 24 (22-32) mmol/L BUN 15 (7-17) mg/dL Creatinine 0.52 (0.52-1.04) mg/dL Estimated GFR > 60 (>60) mL/min BUN/Creatinine Ratio 28.8 H (6-22) Glucose 133 H (80-110) mg/dL Lactate (0.7-2.1) mmol/L Calcium 9.2 (8.4-10.2) mg/dL Magnesium 1.8 (1.6-2.3) mg/dL Total Bilirubin 0.7 (0.2-1.3) mg/dL AST 29 (14-36) IU/L ALT 22 (<35) IU/L Alkaline Phosphatase 120 (38-126) U/L Troponin I (0.01-0.034) ng/mL NT-Pro-B Natriuret Pep 9650 H (<450) pg/mL Total Protein 7.1 (6.3-8.2) g/dL Albumin 4.0 (3.5-5.0) g/dL Globulin 3.1 (1.7-4.1) g/dL Albumin/Globulin Ratio 1.3 (1.0-2.8) Procalcitonin (<0.5) ng/mL Urine Color Urine Appearance Urine pH (4.5-8.0) Ur Specific [place] (1.000-1.035) Urine Protein (Negative) Urine Glucose (UA) (Negative) g/dL Urine Ketones (NEGATIVE) Urine Occult Blood (Negative) Urine Nitrate (Negative) Urine Bilirubin (NEGATIVE) Urine Urobilinogen (0.2) E.U./dL Ur Leukocyte Esterase (NEGATIVE) Urine RBC (0-5/HPF) Urine WBC (0-5/HPF) Ur Squamous Epith Cells (0-5/HPF) Urine Bacteria (None) Hyaline Casts (None) Urine Mucus (Negative) Ur Culture Indicated? SARS-CoV-2 (PCR) (Negative) Influenza A (RT-PCR) (NEGATIVE) Influenza B (RT-PCR) (NEGATIVE) RSV (PCR) (Negative) 10/23/22 10/23/22 10/23/22 Range/Units 03:13 03:13 03:13 WBC (4.5-11.0) X10^3/uL RBC (4.0-5.2) X10^6/uL Hgb (12.0-16.0) g/dL Hct (36-46) % MCV (80-100) fL MCH (26-34) PG MCHC (30-36) % RDW (11.6-14.8) % Plt Count (150-400) X10^3/uL Neut % (Auto) (50-75) % Lymph % (Auto) (25-40) % [place] % (Auto) (3-14) % Eos % (Auto) (2-4) % Baso % (Auto) (0-2) % Neut # (Auto) (6975-2465) /uL Lymph # (Auto) (3456-7204) /uL [place] # (Auto) (0-900) /uL Eos # (Auto) (0-450) /uL Baso # (Auto) (0-100) /uL D-Dimer (<500) ng/ml Sodium (137-145) mmol/L Potassium (3.4-5.1) mmol/L Chloride (98-107) mmol/L Carbon Dioxide (22-32) mmol/L BUN (7-17) mg/dL Creatinine (0.52-1.04) mg/dL Estimated GFR (>60) mL/min BUN/Creatinine Ratio (6-22) Glucose (80-110) mg/dL Lactate 1.5 (0.7-2.1) mmol/L Calcium (8.4-10.2) mg/dL Magnesium (1.6-2.3) mg/dL Total Bilirubin (0.2-1.3) mg/dL AST (14-36) IU/L ALT (<35) IU/L Alkaline Phosphatase (38-126) U/L Troponin I 0.051 H (0.01-0.034) ng/mL NT-Pro-B Natriuret Pep (<450) pg/mL Total Protein (6.3-8.2) g/dL Albumin (3.5-5.0) g/dL Globulin (1.7-4.1) g/dL Albumin/Globulin Ratio (1.0-2.8) Procalcitonin 0.03 (<0.5) ng/mL Urine Color Urine Appearance Urine pH (4.5-8.0) Ur Specific [place] (1.000-1.035) Urine Protein (Negative) Urine Glucose (UA) (Negative) g/dL Urine Ketones (NEGATIVE) Urine Occult Blood (Negative) Urine Nitrate (Negative) Urine Bilirubin (NEGATIVE) Urine Urobilinogen (0.2) E.U./dL Ur Leukocyte Esterase (NEGATIVE) Urine RBC (0-5/HPF) Urine WBC (0-5/HPF) Ur Squamous Epith Cells (0-5/HPF) Urine Bacteria (None) Hyaline Casts (None) Urine Mucus (Negative) Ur Culture Indicated? SARS-CoV-2 (PCR) Negative (Negative) Influenza A (RT-PCR) Flu a negative (NEGATIVE) Influenza B (RT-PCR) Flu b negative (NEGATIVE) RSV (PCR) Negative (Negative) 10/23/22 Range/Units 04:25 WBC (4.5-11.0) X10^3/uL RBC (4.0-5.2) X10^6/uL Hgb (12.0-16.0) g/dL Hct (36-46) % MCV (80-100) fL MCH (26-34) PG MCHC (30-36) % RDW (11.6-14.8) % Plt Count (150-400) X10^3/uL Neut % (Auto) (50-75) % Lymph % (Auto) (25-40) % [place] % (Auto) (3-14) % Eos % (Auto) (2-4) % Baso % (Auto) (0-2) % Neut # (Auto) (3280-4554) /uL Lymph # (Auto) (0379-6004) /uL [place] # (Auto) (0-900) /uL Eos # (Auto) (0-450) /uL Baso # (Auto) (0-100) /uL D-Dimer (<500) ng/ml Sodium (137-145) mmol/L Potassium (3.4-5.1) mmol/L Chloride (98-107) mmol/L Carbon Dioxide (22-32) mmol/L BUN (7-17) mg/dL Creatinine (0.52-1.04) mg/dL Estimated GFR (>60) mL/min BUN/Creatinine Ratio (6-22) Glucose (80-110) mg/dL Lactate (0.7-2.1) mmol/L Calcium (8.4-10.2) mg/dL Magnesium (1.6-2.3) mg/dL Total Bilirubin (0.2-1.3) mg/dL AST (14-36) IU/L ALT (<35) IU/L Alkaline Phosphatase (38-126) U/L Troponin I (0.01-0.034) ng/mL NT-Pro-B Natriuret Pep (<450) pg/mL Total Protein (6.3-8.2) g/dL Albumin (3.5-5.0) g/dL Globulin (1.7-4.1) g/dL Albumin/Globulin Ratio (1.0-2.8) Procalcitonin (<0.5) ng/mL Urine Color Yellow Urine Appearance Clear Urine pH 6.0 (4.5-8.0) Ur Specific [place] 1.010 (1.000-1.035) Urine Protein Negative (Negative) Urine Glucose (UA) Negative (Negative) g/dL Urine Ketones Trace H (NEGATIVE) Urine Occult Blood Trace-intact (Negative) Urine Nitrate Negative (Negative) Urine Bilirubin Negative (NEGATIVE) Urine Urobilinogen 0.2 (0.2) E.U./dL Ur Leukocyte Esterase Negative (NEGATIVE) Urine RBC 1-5/hpf (0-5/HPF) Urine WBC None seen (0-5/HPF) Ur Squamous Epith Cells 1-5 /hpf (0-5/HPF) Urine Bacteria Occasional (0-1) (None) Hyaline Casts 0-1/lpf (None) Urine Mucus 1+ H (Negative) Ur Culture Indicated? Cult not indicated SARS-CoV-2 (PCR) (Negative) Influenza A (RT-PCR) (NEGATIVE) Influenza B (RT-PCR) (NEGATIVE) RSV (PCR) (Negative) ECG Data Interpretation: Sinus rhythm with frequent PVCs at a rate of 91 Left ventricular hypertrophy, repolarization abnormality Nonspecific ST T wave changes MDM Narrative Medical decision making narrative: CC: Severe shortness of breath. This is an acute problem, uncertain prognosis, potential for significant systemic involvement Complicating co-morbidities: Medical noncompliance, lives alone, apparently has had her water turned off for the last 3 months so no access to clean the house and she states that she is continued to use her toilet and bathrooms despite lack of water. Medics report multiple animals also living in the house with conditions on sanitary an unhealthy. Will definitely need social work consult Corroborating data: Data collected from: patient, EMS staff that dropped patient in the emergency department Social determinants of health that may influence the patients condition: Difficulty getting to appointments, social isolation Medical records reviewed: Recent hospital admission notes and echocardiogram results Differential considered: Severe congestive heart failure, pulmonary embolism, pneumothorax, pericardial effusion, pleural effusion, infection both viral and bacterial Exam documented above, pertinent findings include: Severe dyspnea with overall poor air movement but no accessory muscle use. Significant lower extremity edema right greater than left Lab Test results independently reviewed as above. Pertinent findings: CBC: Chronic anemia unchanged, no leukocytosis Coagulation, D-dimer is elevated however it is lower than D-dimer in June of 2022 and July of 2022. With both of those instances she did have CT angiogram that did not show pulmonary emboli but did suggest pulmonary artery hypertension. Because of this, I am going to choose to not move to CT angiogram at this time [place] at 9650 Troponin is elevated at 0.051 consistent with troponin leak. EKG does not suggest acute STEMI Independently reviewed EKG as above Imaging studies independently reviewed: Chest x-ray is consistent with congestive heart failure with small bilateral pleural effusions and cardiomegaly Consultations: 5am Hospitalist. Accepts admit Treatments: She is given 80 mg of IV Lasix for presumed severe congestive heart failure exacerbation. Looking at most recent discharge summary she was supposed to be on 40 mg daily it is not clear that she is actually taking any of her medications Re-evaluations: 5am review findings with patient. Explained to her that she has congestive heart failure likely because she is not taking medications as prescribed. She is wondering if this will actually shorten her life span. She is beginning to respond to the Lasix. Currently with 2 L per nasal cannula oxygen oxygen saturations are in the 96% range. She is still short of breath and speaking in shortened sentences. She is not complaining of heart pain at this time. Discussion: Patient is presenting with evidence of severe congestive heart failure with profound exertional dyspnea and orthopnea. Chest x-ray, proBNP, clinical exam and chemistries all support congestive heart failure. Troponin is slightly elevated I suspect that this is more troponin leak rather than acute coronary syndrome but will need to be trended. Patient will need to be admitted to [facility]. She has begun to respond to the 80 mg of Lasix. On nasal cannula oxygen her oxygen rates are in the upper 90s and breathing is much more comfortable. At this point I do not believe she needs to move toward BiPAP. Disposition: see below, along with detailed discharge instructions that have been reviewed with patient as well as indications for ED re-evaluation and additional outpatient follow up Discharge Plan Departure Patient Disposition: Admitted As Inpatient Clinical Impression: Congestive heart failure, Shortness of Breath, Elevated troponin Prescriptions: No Action amlodipine [Norvasc] 5 mg Tablet 10 mg PO DAILY Qty: 30 0RF oseltamivir [Tamiflu] 75 mg Capsule 75 mg PO BID Qty: 8 0RF furosemide [Lasix] 40 mg tablet 40 mg PO DAILY Qty: 30 0RF Label Comments: states just recently got the Rx, has not started lisinopril 5 mg Tablet 5 mg PO DAILY Qty: 30 0RF metoprolol tartrate 25 mg Tablet 25 mg PO BID Qty: 60 0RF acetaminophen 325 mg Tablet 650 mg PO Q4H PRN (Reason: Fever/Mild Pain (1-3)) Qty: 90 0RF Referrals: Rohit Zuniga MD [Primary Care Provider] -
--- NOTE | 2022-10-23 03:08 | DI.RAD.S_ITS ---
PROCEDURE: XR CHEST 1V INDICATIONS: dyspnea TECHNIQUE: One view of the chest was acquired. COMPARISON: [facility], CR, XR CHEST 1V, 08/17/2022, 22:56. FINDINGS: Surgical changes and devices: Left humeral intramedullary gustavo and fixation screws present. Lungs and pleura: Lungs are clear. No pleural effusions or pneumothorax. Mediastinum: Heart size enlarged. Vascular congestion with bibasilar pleural effusions present. Associated atelectasis and or infiltrate. Bones and chest wall: No suspicious bony lesions. Overlying soft tissues appear unremarkable. Atherosclerotic vascular calcification noted in the aortic arch. IMPRESSION: Cardiomegaly, vascular congestion bibasilar pleural effusions atelectasis and or infiltrate Note: Final report is concordant with preliminary interpretation by [employer] Approved by: Jairo Oconnor M.D. on 10/23/2022 at 8:06
[2022-10-23] MEDS: ASPIRIN 81 MG CHEW TAB 324 MG PO (03:21)
[2022-10-23 03:24] LABS: Add Manual Diff / Slide Review NO; Basophils Absolute Auto 0 /uL (0-100); Basophils Percent Auto 0.3 % (0-2); Eosinophils Absolute Auto 0 /uL (0-450); Eosinophils Percent Auto 0.1 % (2-4); Hematocrit 33.9 % (36-46); Hemoglobin 10.9 g/dL (12.0-16.0); Lymphocytes Absolute Auto 500 /uL (1100-4500); Lymphocytes Percent Auto 6.2 % (25-40); Mean Corpuscular HGB Conc 32.2 % (30-36); Mean Corpuscular Hemoglobin 24.7 PG (26-34); Mean Corpuscular Volume 76.7 fL (80-100); Monocytes Absolute Auto 500 /uL (0-900); Monocytes Percent Auto 5.5 % (3-14); Neutrophils Absolute Auto 7300 /uL (1500-7000); Neutrophils Percent Auto 87.9 % (50-75); Platelet Count 284 X10^3/uL (150-400); Red Blood Cell Count 4.42 X10^6/uL (4.0-5.2); White Blood Cell Count 8.3 X10^3/uL (4.5-11.0)
[2022-10-23 03:32] LABS: D Dimer 1478 ng/ml (<500)
[2022-10-23 03:34] LABS: Lactate (Lactic Acid) 1.5 mmol/L (0.7-2.1)
[2022-10-23 03:35] LABS: Alanine Aminotransferase 22 IU/L (<35); Albumin Globulin Ratio 1.3 (1.0-2.8); Alkaline Phosphatase 120 U/L (38-126); Aspartate Aminotransferase 29 IU/L (14-36); BUN Creatinine Ratio 28.8 (6-22); Bilirubin Total 0.7 mg/dL (0.2-1.3); Blood Urea Nitrogen 15 mg/dL (7-17); Calcium 9.2 mg/dL (8.4-10.2); Carbon Dioxide 24 mmol/L (22-32); Chloride 95 mmol/L (98-107); Estimated Glomerular Filt Rate > 60 mL/min (>60); Globulin 3.1 g/dL (1.7-4.1); Glucose 133 mg/dL (80-110); HEMOLYSIS < 15 (0-50); Magnesium 1.8 mg/dL (1.6-2.3); Potassium 3.7 mmol/L (3.4-5.1); Sodium 131 mmol/L (137-145); Total Protein 7.1 g/dL (6.3-8.2)
[2022-10-23 03:43] LABS: NT-proBNP (BNP-Adult 18+) 9650 pg/mL (<450)
[2022-10-23 03:47] LABS: Troponin I 0.051 ng/mL (0.01-0.034)
[2022-10-23 03:52] LABS: Procalcitonin 0.03 ng/mL (<0.5)
[2022-10-23] MEDS: FUROSEMIDE 80 MG in SODIUM CHLORIDE 0.9% 50 ML 116 MG IV (04:01)
[2022-10-23 04:25] LABS: Influenza A - CEPHEID Flu A NEGATIVE (NEGATIVE); Influenza B - CEPHEID Flu B NEGATIVE (NEGATIVE); Respiratory Syncytial Virus Negative (Negative)
[2022-10-23 04:26] LABS: COVID-19 CEPHEID 4-PLEX PCR Negative (Negative)
[2022-10-23 04:36] LABS: Appearance Urine UA CLEAR; Bilirubin Urine UA NEGATIVE (NEGATIVE); Color Urine UA YELLOW; Glucose Urine UA NEGATIVE (Negative); Ketones Urine UA TRACE (NEGATIVE); Leukocyte Esterase Urine UA NEGATIVE (NEGATIVE); Nitrite Urine UA NEGATIVE (Negative); Occult Blood Urine UA TRACE-INTACT (Negative); Protein Urine UA NEGATIVE (Negative); Urobilinogen Urine UA 0.2 E.U./dL (0.2)
[2022-10-23 04:40] LABS: RBC Urine 1-5/HPF (0-5/HPF); Squamous Epithelial Cell Urine 1-5 /HPF (0-5/HPF); WBC Urine None Seen (0-5/HPF)
[2022-10-23 04:41] LABS: Bacteria Urine Occasional (0-1); Hyaline Casts Urine 0-1/LPF; Mucus Urine 1+ (Negative)
[2022-10-23 04:42] LABS: Culture Indicated Urine Cult Not Indicated
--- NOTE | 2022-10-23 05:13 | DI.ECHO.S_ITS ---
[facility] +---------+ : : [address] : [address] : : : : [id number] : : : : Phone: [phone]+ Echocardiogram Report + + :Name: JAYSON GOTTI Study Date: 10/23/2022 Height: 63 in : [facility] ReadingLocation: Weight: 157 lb : : Gender: Female BSA: 1.7 m2 : :: 1940 Age: 82 yrs BP: 149/86 mmHg: :Reason For Study: LEFT VENTRICULAR FUNCTION : :Ordering Physician: Ann LOPESformed By: Angie Morales : :Referring: QING LOPES : + + Interpretation Summary Limited Echo: 1) Normal left ventricular size with severely reduced systolic function (EF 20-25%). 2) There is a small left-sided pleural effusion. 3) Compared to the Echo done 07/06/2022, LVEF has dropped from mildly reduced to severely reduced on this study. Procedure: A two-dimensional transthoracic echocardiogram with color flow and Doppler was performed in limited views only to assess ejection fraction. The study quality was technically adequate. Comparison is made with the echocardiogram of 07/06/2022. The heart rate ranged between 83-85 bpm during the study. Left Ventricle: The left ventricle is normal in size. Left ventricular wall thickness is mildly increased. The ejection fraction is estimated to be 20- 25%. There is severe global hypokinesis of the left ventricle. Right Ventricle: The right ventricular systolic function is normal. Atria: The left atrium is severely dilated. The right atrium is severely dilated. Great Vessels: The dimensions of the ascending aorta are normal. Pericardium/ Pleura There is no pericardial effusion. There is a small left- sided pleural effusion. MMode/2D Measurements & Calculations LVIDd: 5.5 cm asc Aorta Diam: 3.8 cm LVIDs: 4.9 cm FS: 11.5 % EPSS: 2.1 cm IVSd: 0.99 cm LVPWd: 1.2 cm LV quiñones. diameter/BSA (cm/m^2): 3.2 LV sys. diameter/BSA (cm/m^2): 2.8 LA A2 area: 33.6 cm2 RA long axis: 4.9 cm LA A4 area: 27.0 cm2 RA area: 23.0 cm2 LA length (vol): 6.2 cm RA vol: 91.1 ml LA vol: 123.3 ml RA : 52.2 ml/m2 LA vol index: 70.7 ml/m2 IVC diam: 2.1 cm TAPSE: 1.8 cm Reading Physician:11:31 AM
--- NOTE | 2022-10-23 05:16 | P.HP_ITS ---
History of Present Illness History of Present Illness Date Patient Seen: 10/23/22 Time Patient Seen: 05:21 Chief complaint: CHF exacerbation, dyspnea, med non-compliance Narrative: Yue Klein is an 82-year-old female smoker with a medical history of arterial pulmonary hypertension, bipolar disease, hyperlipidemia, obesity, congestive heart failure with preserved ejection fraction, type B aortic dissection, coronary artery disease with recent hospitalizations at [facility] 07/31/2022, [facility] 08/03 and 08/09/2022 for influenza presents today to the ED with shortness of breath.? She was diagnosed with congestive heart failure on 07/06/2022,she has an elevated BNP of 9650, a troponin leak and was mildly hypoxic on presentation to the ED.? Patient had previously been prescribed Lasix but had not picked up or started the medication. In ED She complained of shortness of breath, unable to get from her bed to the bathroom and is having incontinence episodes due to this. She continues to have chest pain described as twinges for the past several months.? She has chronic swelling of her right leg due to a lymph node dissection as a result of a malignant melanoma removed from her right foot years ago. She denies fever or chills and wants to know why she caught the flu despite receiving the flu vaccine.? Patient denied abdominal pain, nausea, vomiting, diarrhea, urinary symptoms. States she is pleased to be admitted as she has been without water for 3 months. States her water was cut off because a consumer insight analyst left the hose on. States her house is very dirty. She states she started smoking cigarettes 6 weeks ago to have fun. She states she is able to walk across the street to a medical center but that her insurance stopped covering Dr. Lima who she had been seeing and that now she has to go to [place]. She ran out of her lasix a while ago. Chest x-ray was ordered in the ED and the read is pending. She is afebrile, bl ood pressure 172/116 heart rate 97 respiratory rate 35 oxygen saturation of 90% on 2 L nasal cannula, she weighs 71.2 kg with a BMI 27.8. She she is mildly anemic with hemoglobin and hematocrit of 10.9 and 33.9 respectively, D-dimer is elevated at 14 78 though it has been previously much higher, sodium 131 chloride 95 glucose 133 troponin 0.51 proBNP 9650 procalcitonin is negative UA is negative for UTI and respiratory viral panel including COVID-19 PCRs are all negative. She did have an ultrasound done in June of 2022 during previous hospitalization and at that time she had an EF of 45-50% with elevated filling pressures. She has had a history of a class B aortic aneurysm which appears to be stable. It appeared to be dissecting slowly and at that time it was found, cardiology recommendations were made to control her blood pressure as prevention. FH: Patient states mother at the age of 90 of heart disease, father at the age of 77 due to traumatic motor vehicle accident and thinks he might have had a UT or CVA. Patient History Medical History Bipolar 1 disorder Contusion of knee, right Dissection of aorta, thoracic Hypertension Melanoma Pulmonary hypertension Systolic heart failure Surgical History History of appendectomy History of cholecystectomy Family & Social History Family History Other No family history of disorders Social History: household members none Safety & Behavioral: Feels Safe in Current Yes Environment Tobacco & Substance use: Tobacco type cigarettes Smoking Status Current some day smoker alcohol intake never alcohol intake frequency holiday/special occasion Substance Use Type does not use Meds Home Medications and Allergies Home Medications Medication Instructions Recorded Confirmed Type acetaminophen 325 mg tablet 650 mg PO Q4H PRN Fever/Mild Pain 07/07/22 08/13/22 Rx (1-3) #90 tabs lisinopril 5 mg tablet 5 mg PO DAILY #30 tabs 07/07/22 08/13/22 Rx metoprolol tartrate 25 mg tablet 25 mg PO BID #60 tabs 07/07/22 08/13/22 Rx amlodipine 5 mg tablet (Norvasc) 10 mg PO DAILY #30 tabs 08/15/22 Rx furosemide 40 mg tablet (Lasix) 40 mg PO DAILY #30 tabs 08/15/22 Rx oseltamivir 75 mg capsule (Tamiflu) 75 mg PO BID #8 caps 08/15/22 Rx Allergies Allergy/AdvReac Type Severity Reaction Status Date / Time No Known Drug Allergies Allergy Verified 08/17/22 22:58 Review of Systems Review of Systems ROS: Yes All systems reviewed with the patient and are negative except as otherwise documented Exam Vital Signs (past 8 hours): - 10/23/22 02:57 Temperature 97.2 F L Pulse Rate 97 H Respiratory Rate 35 H Blood Pressure 172/116 H Pulse Oximetry 90 L Oxygen Delivery Method Room Air Oxygen Delivery Method Room Air Narrative Exam Narrative: Gen: Alert, oriented, all nurse but disheveled 82 y.o. female, NAD HEENT: normocephalic, atraumatic, conjunctiva clear, sclera non-icteric, oral mucosa pink and moist Neck: supple, full ROM, no JVD, trachea is midline Resp: Lungs sounds are diminished, labored breathing, patient is having difficulty speaking in normal length sentences CV: RRR, no murmur or rubs Abd: soft, non-tender, normoactive BTs Skin: no lesions or rashes, dry and intact Neuro: Alert and oriented X 4 w/no focal deficits. Speech clear and coherent. Extremities: Left leg with trace edema right leg with +2 pitting edema, moves all 4 extremities, is ambulatory, negative Tahmina?s sign Psyche: Pressured speech, questionable judgment, normal mood and affect. Objective Labs 10/23/22 03:13 10/23/22 03:13 Labs: Laboratory Results - last 24 hr 10/23/22 10/23/22 10/23/22 03:13 03:13 03:13 WBC 8.3 RBC 4.42 Hgb 10.9 L Hct 33.9 L MCV 76.7 L MCH 24.7 L MCHC 32.2 RDW 18.0 H Plt Count 284 Neut % (Auto) 87.9 H Lymph % (Auto) 6.2 L [place] % (Auto) 5.5 Eos % (Auto) 0.1 L Baso % (Auto) 0.3 Neut # (Auto) 7300 H Lymph # (Auto) 500 L [place] # (Auto) 500 Eos # (Auto) 0 Baso # (Auto) 0 D-Dimer 1478 H Sodium 131 L Potassium 3.7 Chloride 95 L Carbon Dioxide 24 BUN 15 Creatinine 0.52 Estimated GFR > 60 BUN/Creatinine Ratio 28.8 H Glucose 133 H Lactate Calcium 9.2 Magnesium 1.8 Total Bilirubin 0.7 AST 29 ALT 22 Alkaline Phosphatase 120 Troponin I NT-Pro-B Natriuret Pep 9650 H Total Protein 7.1 Albumin 4.0 Globulin 3.1 Albumin/Globulin Ratio 1.3 Procalcitonin Urine Color Urine Appearance Urine pH Ur Specific [place] Urine Protein Urine Glucose (UA) Urine Ketones Urine Occult Blood Urine Nitrate Urine Bilirubin Urine Urobilinogen Ur Leukocyte Esterase Urine RBC Urine WBC Ur Squamous Epith Cells Urine Bacteria Hyaline Casts Urine Mucus Ur Culture Indicated? SARS-CoV-2 (PCR) Influenza A (RT-PCR) Influenza B (RT-PCR) RSV (PCR) 10/23/22 10/23/22 10/23/22 03:13 03:13 03:13 WBC RBC Hgb Hct MCV MCH MCHC RDW Plt Count Neut % (Auto) Lymph % (Auto) [place] % (Auto) Eos % (Auto) Baso % (Auto) Neut # (Auto) Lymph # (Auto) [place] # (Auto) Eos # (Auto) Baso # (Auto) D-Dimer Sodium Potassium Chloride Carbon Dioxide BUN Creatinine Estimated GFR BUN/Creatinine Ratio Glucose Lactate 1.5 Calcium Magnesium Total Bilirubin AST ALT Alkaline Phosphatase Troponin I 0.051 H NT-Pro-B Natriuret Pep Total Protein Albumin Globulin Albumin/Globulin Ratio Procalcitonin 0.03 Urine Color Urine Appearance Urine pH Ur Specific [place] Urine Protein Urine Glucose (UA) Urine Ketones Urine Occult Blood Urine Nitrate Urine Bilirubin Urine Urobilinogen Ur Leukocyte Esterase Urine RBC Urine WBC Ur Squamous Epith Cells Urine Bacteria Hyaline Casts Urine Mucus Ur Culture Indicated? SARS-CoV-2 (PCR) Negative Influenza A (RT-PCR) Flu a negative Influenza B (RT-PCR) Flu b negative RSV (PCR) Negative 10/23/22 04:25 WBC RBC Hgb Hct MCV MCH MCHC RDW Plt Count Neut % (Auto) Lymph % (Auto) [place] % (Auto) Eos % (Auto) Baso % (Auto) Neut # (Auto) Lymph # (Auto) [place] # (Auto) Eos # (Auto) Baso # (Auto) D-Dimer Sodium Potassium Chloride Carbon Dioxide BUN Creatinine Estimated GFR BUN/Creatinine Ratio Glucose Lactate Calcium Magnesium Total Bilirubin AST ALT Alkaline Phosphatase Troponin I NT-Pro-B Natriuret Pep Total Protein Albumin Globulin Albumin/Globulin Ratio Procalcitonin Urine Color Yellow Urine Appearance Clear Urine pH 6.0 Ur Specific [place] 1.010 Urine Protein Negative Urine Glucose (UA) Negative Urine Ketones Trace H Urine Occult Blood Trace-intact Urine Nitrate Negative Urine Bilirubin Negative Urine Urobilinogen 0.2 Ur Leukocyte Esterase Negative Urine RBC 1-5/hpf Urine WBC None seen Ur Squamous Epith Cells 1-5 /hpf Urine Bacteria Occasional (0-1) Hyaline Casts 0-1/lpf Urine Mucus 1+ H Ur Culture Indicated? Cult not indicated SARS-CoV-2 (PCR) Influenza A (RT-PCR) Influenza B (RT-PCR) RSV (PCR) Assessment & Plan Assessment & Plan narrative: Yue Klein is admitted for an acute on chronic CHF exacerbation and adult failure to thrive. Acute respiratory failure secondary to acute on chronic CHF exacerbation * She is borderline HFrEF * Echocardiogram this morning * She received Lasix in the ED consider an additional dose sometime around noon * Cardiac diet with no added salt * Strict I's and O's * Patient is on supplemental oxygen in the hospital but has not been ordered for home O2. Hypertension, poorly controlled * She will be resumed on amlodipine, lisinopril, and metoprolol home doses. It appears she may not even be taking these medications. Adult failure to thrive * Patient was reportedly without water during the of winter, she denies her pipes froze * She states she was unable to maintain personal hygiene because of this. * Recommended that SW make an APS referral, this has occurred in the past. * She may benefit from independent assisted living Risk assessment * Lipid panel tomorrow morning Other independent historians: None Discussion of results, plan of care with independent HCP/other ED provider Reviewed outside records: Previous admissions, most recent echocardiogram VTE Prophylaxis: Wells risk score 6 Enoxaparin 40 mg subQ once daily Bilateral SCDs Patient is admitted to the inpatient service due to the severity of disease, risks of further disease progression and this stay is expected to exceed 2 m idnights. FEN: IV fluids: saline lock, diet: heart healthy w/no added salt, labs: CBC, C/BMP, liver enzymes, Mag, PT/INR Consultants None Social determinants of health: Lack of access to custodial PCP, poor living conditions Dispo: unknown at this time Code status: full code as discussed with the patient who identifies friends Piero and Alba as her surrogate and POA. Advanced care planning 16 minutes. [X] I have utilized all available immediate resources to obtain, update, or revi ew of the patient's current medications VTE Deep Vein Thrombosis/Pulmonary Embolism Present on Admission: No MIPS - Admit I confirm the patient?s Advance Care Plan is present, Code status is documented, Surrogate decision maker is in patient?s record: Yes MIPS - DC The patient has current or prior documentation of left ventricular ejection fraction (LVEF) less than 40%, or moderate or severely depressed left ventricular systolic function.: No Scores Wells' Criteria for PE Clinical signs and symptoms of DVT: Yes PE is #1 Dx or equally likely: No Heart rate > 100: No Immobilization at least 3 days or surg in previous 4 weeks: Yes History of PE or DVT: Yes Hemoptysis: No Malignancy w/Treatment within 6 months or palliative: No Wells' PE Score total: 6.0
[2022-10-23 06:22] LABS: Fractionated Inspired Oxygen 28; HCO3 VBG 25 mmol/L (24-28); Oxygen Saturation VBG 82 % (70-75); PCO2 VBG 39.9 mmHg (45-50); PO2 VBG 46 mmHg (35-45); Total CO2 VBG 26 mmol/L (24-29)
[2022-10-23] MEDS: ASPIRIN EC 81 MG TABLET PO (09:22)
[2022-10-23] MEDS: AMLODIPINE 5 MG TABLET 10 MG PO (09:22)
[2022-10-23] MEDS: METOPROLOL IR 25 MG TABLET PO ×2 (09:22→20:11)
[2022-10-23] MEDS: lisinopriL 5 MG TABLET PO (09:22)
[2022-10-23] MEDS: ENOXAPARIN 40 MG/0.4 ML SYRINGE SUBCUT (09:22)
[2022-10-23 09:35] LABS: Troponin I 0.068 ng/mL (0.01-0.034)
--- NOTE | 2022-10-23 10:05 | CM.DANOTE ---
Addendum entered by Gini Perea R.N. 10/23/22 11:36: APS report filed at 11:33am. Online Report Confirmation Number: [id number] Addendum entered by Gini Perea R.N. 10/23/22 11:13: Gini Perea RN, Wire Web Worker Original Note: DCP: Assessment: 82 yo female arrived via ambulance to ED and admitted inpatient to the care of hospitalist with c/o SOB that had been getting worse over the last two weeks, and she was unable to walk around the house. Pt was noted to have stopped taking her medications and is noted to have acute respiratory failure secondary to acute on chronic CHF exacerbation, Htn, Failure to thrive. Medical hx arterial pulmonary hypertension, bipolar disease, hyperlipidemia, obesity, CHF with preserved ejection fraction, type B aortic dissection, CAD with recent hospitalizations at [facility] 07/31/2022, [facility] 08/03 and 08/09. PCP: Rohit Zuniga Insurance: [facility] This CM met with pt in her room. She is A+Ox3. She is sitting up in her bed. Introduced self and role. Pt reports that her water is now turned back on and was turned on in August, a few days before Harry. Pt reports that her water was turned off by the [facility] in June because of a high bill. and that a lady licensed occupational therapy assistant supported pt with having her water turned back on. Pt reports that she has been unable to clean her house very well because she becomes very short of breath when she attempts to clean or cook, and that she has been unable to thoroughly clean since her water was turned back on. She reports that she has a dog and two cats. She states that the EMT's gave them water before bringing her to the ED yesterday, but that her dog needs food picked up from the store and her animals need to be fed each day while she is here. Pt states that she does drive, but that she has not driven since she was hospitalized in July because her car broke down. She states that there are no taxi cabs in [facility] and that when she needs to go somewhere in town I usually hitchhike. She states that it is a small community and that many people know her. This CM educated pt of the risks that she is taking when hitchhiking. Pt verbalized understanding. She sais that she feels safe when she is hitchhiking. She states that she uses no DME. Pt expressed concerns of her embarrassment due to the need to have support to clean her home. Pt expressed the need to have support with gathering her bills and support with making phone calls to get her finances in order. Pt gave this CM permission to contact her son Ashkan who is listed as her main contact. She stated that he may or may not answer. This RN attempted to contact pt's son Ashkan and left a VM for him to return a call. This CM left a VM with [facility] Office Lewis/DAMON at [phone] as pt did confirm that she does have a Wire Web Worker that does nothing for me per pt report. APS report filed via online as well by this CM at 1110 this am. P: Will follow closely to determine plan. Discussed SNF placement with pt who is reluctant at this time due to the concern for her animals well being and any cost that may arise. Pt is in agreement to services. CM Discharge Assessment Start: 10/23/22 09:35 Freq: Status: Active Protocol: Document 10/23/22 09:36 SHANNON (Rec: 10/23/22 09:44 [id number]) Discharge Planning Assessment Assigned Director Mobile Media Solutions Gini Perea RN/Wire Web Worker Advance Directives? Yes Advance Directives on File No History Provided By Patient,Medical Record Has Patient been admitted in last 30 No days? Prior Living Arrangements House Household Members none Comment Pt lives alone. She reports that she has a Wire Web Worker who does nothing for me. [facility] [phone] to establish a plan for discharge when pt is medically stable. Type of transporation used prior to Drives own vehicle admit Comment Pt report that she drives and that her car is broke down. Independent with ADL's Yes Is patient alert and oriented? Yes Caregiver for Another No Patient/Family Preference Home with Home Health Barriers to Discharge No Discharge Plan Home with Home Health Referrals Initiated Home Health If patient plan is home with home health No : Has signed face to face form been completed? Whiteboard Updated in Patient Room with Yes name and ext. # of Director [employer] Review Status In Process Next Review Type Continued Stay Review
--- NOTE | 2022-10-23 11:12 | CM.DANOTE ---
Discharge Planning/Care Management CM Discharge Assessment Start: 10/23/22 09:35 Freq: Status: Active Protocol: Document 10/23/22 09:36 SHANNON (Rec: 10/23/22 09:44 SHANNON [id number]) Discharge Planning Assessment Assigned Circulation Assistant Gini Perea RN/Social Insurance Administrator Advance Directives? Yes Advance Directives on File No History Provided By Patient,Medical Record Has Patient been admitted in last 30 No days? Prior Living Arrangements House Household Members none Comment Pt lives alone. She reports that she has a Social Insurance Administrator who does nothing for me. This RN [facility] this CM [facility] [phone] to establish a plan for discharge when pt is medically stable. Type of transporation used prior to Drives own vehicle admit Comment Pt report that she drives and that her car is broke down. Independent with ADL's Yes Is patient alert and oriented? Yes Caregiver for Another No Patient/Family Preference Home with Home Health Barriers to Discharge No Discharge Plan Home with Home Health Referrals Initiated Home Health If patient plan is home with home health No : Has signed face to face form been completed? Whiteboard Updated in Patient Room with Yes name and ext. # of Circulation Assistant Review Status In Process Next Review Type Continued Stay Review
[2022-10-23] MEDS: CALCIUM CARBONATE 500 MG TAB 1000 MG PO (13:03)
[2022-10-23] MEDS: DOCUSATE 100 MG CAPSULE PO ×2 (14:57→20:11)
[2022-10-23 15:52] LABS: Troponin I 0.067 ng/mL (0.01-0.034)
[2022-10-23] MEDS: FUROSEMIDE 60 MG in SODIUM CHLORIDE 0.9% 50 ML 112 MG IV (17:19)
[2022-10-23] MEDS: SENNOSIDES 8.6 MG TABLET PO (20:11)
[2022-10-24] VITALS (7 sets, daily range): BP systolic 112–130; BP diastolic 56–82; PULSE 65–73; RESP 15–24; TEMP 36.6–36.7; O2SAT 90–98
[2022-10-24 06:28] LABS: Add Manual Diff / Slide Review NO; Basophils Absolute Auto 0 /uL (0-100); Basophils Percent Auto 0.6 % (0-2); Eosinophils Absolute Auto 200 /uL (0-450); Eosinophils Percent Auto 2.8 % (2-4); Hematocrit 30.6 % (36-46); Hemoglobin 9.9 g/dL (12.0-16.0); Lymphocytes Absolute Auto 1000 /uL (1100-4500); Mean Corpuscular HGB Conc 32.3 % (30-36); Mean Corpuscular Volume 77.5 fL (80-100); Monocytes Absolute Auto 600 /uL (0-900); Monocytes Percent Auto 10.1 % (3-14); Neutrophils Absolute Auto 3900 /uL (1500-7000); Neutrophils Percent Auto 69.5 % (50-75); Platelet Count 226 X10^3/uL (150-400); Red Blood Cell Count 3.96 X10^6/uL (4.0-5.2); Red Cell Distribution Width 18.1 % (11.6-14.8); White Blood Cell Count 5.6 X10^3/uL (4.5-11.0)
[2022-10-24 06:44] LABS: Alanine Aminotransferase 20 IU/L (<35); Albumin 3.2 g/dL (3.5-5.0); Albumin Globulin Ratio 1.1 (1.0-2.8); Alkaline Phosphatase 91 U/L (38-126); Aspartate Aminotransferase 23 IU/L (14-36); BUN Creatinine Ratio 21.5 (6-22); Bilirubin Total 0.5 mg/dL (0.2-1.3); Blood Urea Nitrogen 17 mg/dL (7-17); Calcium 8.5 mg/dL (8.4-10.2); Carbon Dioxide 31 mmol/L (22-32); Chloride 97 mmol/L (98-107); Cholesterol 137 mg/dL (140-199); Estimated Glomerular Filt Rate > 60 mL/min (>60); Globulin 2.8 g/dL (1.7-4.1); Glucose 91 mg/dL (80-110); HDL Cholesterol 40 mg/dL (40-60); HEMOLYSIS < 15 (0-50); LDL Cholesterol Calculated 83 mg/dL (<100); Magnesium 1.9 mg/dL (1.6-2.3); Potassium 3.6 mmol/L (3.4-5.1); Sodium 134 mmol/L (137-145); Triglycerides 69 mg/dL (35-150)
--- NOTE | 2022-10-24 08:27 | CM.DPC ---
Addendum entered by Patricia Zheng R.N. 10/24/22 16:07: Faxed over [facility] referral, including H&P, face sheet, face to face, P.T. notes. Will fax DC Summary and orders upon discharge. Ordered RN, as patient may not be taking her meds as directed, P.T, O.T, GRAIN PROCESSOR for food resources, Medicaid. Had spoken to Viola at [facility] regarding this patient earlier. Addendum entered by Patricia Zheng R.N. 10/24/22 15:12: Dieticians had spoken to patient, patient had mentioned getting food from the food bank. They also suggested that patient could qualify for food stamps. She is not currently on Medicaid, but did speak to WILDA Ferguson, regarding this matter. She would need to be on Medicaid to qualify for food stamps. She suggested contacting admission counselors to see if they can find out more about patient's finances, to see if she would qualify. Sent an email to the change group to see if she qualifies. Addendum entered by Patricia Zheng R.N. 10/24/22 14:19: Confirmed with [facility], that patient does not have Medicaid. Was going to attempt meeting with patient regarding applying for Medicaid, but she was sleeping. Was informed, she did ok with P.T. Was also going to discuss home health. If unable to meet today, can attempt tomorrow. Addendum entered by Patricia Zheng R.N. 10/24/22 13:42: Todd Mckeon called back, spoke to ANDREW Douglas tourist information assistant, for this [place] Addiction Psychiatrist was out of the office. He had closed the case, after last APS. Gloria from APS called, to follow up from recent APS call. Updated her, let her know that patient was here in July, sent home with [employer]. She mentioned that she is unaware of any [facility] case finishing machine adjuster, is not currently on Medicaid. Let her know that [facility] was not able to see her, she was either not home, or not answering the door. Amina will follow up with investigation. This [place] Addiction Psychiatrist called [facility] to follow up to see if she has applied for Medicaid services. Will await call back. At this time, may have patient go home with [facility], adding GRAIN PROCESSOR. Addendum entered by Patricia Zheng R.N. 10/24/22 12:44: Called Todd Radhaaditya, who was listed as case finishing machine adjuster from last admission. His voice mail indicated that he was with APS. Asked him to call this [place] Addiction Psychiatrist back, but did not give out patient's name on the message. Will await response. It is noted from [facility] [place] Addiction Psychiatrist, that she did file an APS report, have nut yet heard back from them. Original Note: DCP Cont: Patient had been here in July, this case finishing machine adjuster had her on caseload. Note from GRAIN PROCESSOR, Estelle, at last admit noted that patient has a case finishing machine adjuster named: Todd Mckeon. Phone number is: [phone]. Will attempt to contact today. At last admit, it was noted that she went home with [facility]. Had to call river driver, Trip Byrne, for transportation, for she can't use [facility] [employer], they refuse to transport her due to her history. Called Viola at [facility] and stated that they had never been able to open her due to her not being home, or not answering the door. They are willing to accept her if she needs home health. P: DCP to continue to follow for needs. Patient has not yet worked with P.T. as of yet. Will see how she does. Patricia Zheng RN/Rn Shift Mgr
[2022-10-24] MEDS: DOCUSATE 100 MG CAPSULE PO ×2 (10:18→20:37)
[2022-10-24] MEDS: FUROSEMIDE 60 MG in SODIUM CHLORIDE 0.9% 50 ML 112 MG IV ×2 (10:18→17:10)
[2022-10-24] MEDS: lisinopriL 5 MG TABLET PO (10:18)
[2022-10-24] MEDS: ASPIRIN EC 81 MG TABLET PO (10:18)
[2022-10-24] MEDS: AMLODIPINE 5 MG TABLET 10 MG PO (10:18)
[2022-10-24] MEDS: ENOXAPARIN 40 MG/0.4 ML SYRINGE SUBCUT (10:18)
[2022-10-24] MEDS: METOPROLOL IR 25 MG TABLET PO (10:18)
--- NOTE | 2022-10-24 11:13 | P.PN_ITS ---
Subjective Subjective Date Patient Seen: 10/24/22 Interval history: Continues to feel weak today, though her shortness of breath is improving. She continued to desaturate on room air to 88%, though improves quickly. She is bordering now between room air and 1L via nasal cannula. Exam Vital Signs (past 8 hours): - 10/24/22 03:48 10/24/22 07:52 Temperature 97.8 F 98.1 F Pulse Rate 65 73 Respiratory Rate 24 18 Blood Pressure 122/70 130/82 Pulse Oximetry 92 98 Oxygen Flow Rate 2 0 Oxygen Delivery Method Nasal Cannula Oxygen Flow Rate 0 Narrative Exam Narrative: Gen: Alert, oriented, all nurse but disheveled 82 y.o. female, NAD HEENT: normocephalic, atraumatic, conjunctiva clear, sclera non-icteric, oral mucosa pink and moist Neck: supple, full ROM, no JVD, trachea is midline Resp: Lungs sounds are diminished, labored breathing, patient is having difficulty speaking in normal length sentences CV: RRR, no murmur or rubs Abd: soft, non-tender, normoactive BTs Skin: no lesions or rashes, dry and intact Neuro: Alert and oriented X 4 w/no focal deficits. Speech clear and coherent. Extremities: Left leg with trace edema right leg with +2 pitting edema, moves all 4 extremities, is ambulatory, negative Tahmina?s sign Psyche: Pressured speech, questionable judgment, normal mood and affect. Objective Labs 10/24/22 06:08 10/24/22 06:08 Labs: Laboratory Results - last 24 hr 10/23/22 10/24/22 10/24/22 15:05 06:08 06:08 WBC 5.6 RBC 3.96 L Hgb 9.9 L Hct 30.6 L MCV 77.5 L MCH 25.0 L MCHC 32.3 RDW 18.1 H Plt Count 226 Neut % (Auto) 69.5 Lymph % (Auto) 17.0 L [place] % (Auto) 10.1 Eos % (Auto) 2.8 Baso % (Auto) 0.6 Neut # (Auto) 3900 Lymph # (Auto) 1000 L [place] # (Auto) 600 Eos # (Auto) 200 Baso # (Auto) 0 Sodium 134 L Potassium 3.6 Chloride 97 L Carbon Dioxide 31 BUN 17 Creatinine 0.79 Estimated GFR > 60 BUN/Creatinine Ratio 21.5 Glucose 91 Calcium 8.5 Magnesium 1.9 Total Bilirubin 0.5 AST 23 ALT 20 Alkaline Phosphatase 91 Troponin I 0.067 H Total Protein 6.0 L Albumin 3.2 L Globulin 2.8 Albumin/Globulin Ratio 1.1 Triglycerides 69 Cholesterol 137 L LDL Cholesterol, Calc 83 HDL Cholesterol 40 PFSH Medical History Bipolar 1 disorder Contusion of knee, right Dissection of aorta, thoracic Hypertension Melanoma Pulmonary hypertension Systolic heart failure Surgical History History of appendectomy History of cholecystectomy Family History Other No family history of disorders Social History household members: none Smoking Status: Current some day smoker alcohol intake: never Assessment & Plan Assessment & Plan narrative: Yue Klein is admitted for an acute on chronic CHF exacerbation, echo now showing new reduced EF. #Acute respiratory failure secondary to acute on chronic systolic heart failure - prior echo with borderline EF, now EF 20-25% on limited TTE yesterday. - continue diuresis 60 mg IV BID, daily electrolytes ordered. - continue metoprolol, lisinopril - counseled on the importance of medication compliance. #Hypertension, poorly controlled - appears controlled currently on home medications. #myocardial injury - troponin peaked at 0.068, downtrended. No chest pain or acute ischemia on EKG. # Bipolar disorder, chronic, present on admission -no documented medications #Malnutrition, acute on chronic, present on admission -patient's malnutrition places them at high risk for medical and surgical complications because of her malnutrition. This increases the difficulty in complexity of medical management and increases the chances poor outcomes such as mortality and morbidity as well as impaired wound healing, and immune suppression. -dietary consult ordered to evaluate and implement steps to improve caloric intake and nutrition. # Obesity, mild, acute on chronic, present on admission -dietary consult ordered regarding nutritional education and information for d ietary, lifestyle, exercise, and weight changes. -the patient is at much higher risk for medical and surgical complications due to obesity as it relates to chronic illnesses and acute illness.? The patient's obesity increases the difficulty and complexity of medical and/or surgical interventions, management and increases the chances of poor outcome such as morbidity and mortality. Reviewed outside records: Previous admissions, most recent echocardiogram VTE Prophylaxis:Enoxaparin 40 mg subQ once daily Patient is admitted to the inpatient service due to the severity of disease, risks of further disease progression and this stay is expected to exceed 2 midnights. Social determinants of health: Lack of access to technician terminal and repeater PCP, poor living conditions Dispo: PT / OT evaluations. SNF vs home with home healthy. Code status: full code as discussed with the patient who identifies friends Silvana allen and Alba as her surrogate and POA. Time Spent With Patient Critical Care time: I spent a total of [] minutes of critical care time on this patient's care today; this time is exclusive of procedural time.
--- NOTE | 2022-10-24 11:39 | OT.IP.EVAL ---
Current Diagnoses Adult failure to thrive (10/23/22) Past Medical History (Last Reviewed 10/23/22 @ 06:07 by SHANA Roy) Bipolar 1 disorder Contusion of knee, right Dissection of aorta, thoracic Hypertension Melanoma Pulmonary hypertension Systolic heart failure Surgical History (Last Reviewed 10/23/22 @ 06:07 by SHANA Roy) History of appendectomy History of cholecystectomy Occupational Therapy Inpatient Evaluation/Re-Eval M1 PT/OT-IP Prior Functional Status Start: 10/24/22 11:58 Freq: NEEDED Status: Active Protocol: Document 10/24/22 11:58 [facility] (Rec: 10/24/22 12:21 [facility] [id number]) Medical Review Prior Functional Status Medical History Reviewed Yes Communication Pt is an effective verbal communicator. Pt states she is not KOOT[place]I but appears at time to be KOOTENAI. Mobility and Gait Pt is IND in all mobility at baseline Activities of Daily Living and IADL's Pt is IND in all ADLs and IADLs at baseline. Pt does her own grocery shopping and manages her own bills. Social History Household Members none Living Arrangements House Number of Floors (Floors) Two Floors Number of Stairs To Enter/Railing? Pt has 4 steps to enter from the front with R rail assending and 3 steps to enter from the back with R rail assending. Pt can stay on the main level. 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 OT-IP Current Condition Start: 10/24/22 11:58 Freq: Status: Active Protocol: Document 10/24/22 11:58 CGR (Rec: 10/24/22 12:21 CGR [id number]) Occupational Therapy Current Condition Current Condition Evaluation Date 10/24/22 Treatment Diagnosis SOB, CHF exacerbation, failure to thrive Diagnosis Onset Date 10/23/22 M3 OT- IP Subjective and Pain Start: 10/24/22 11:58 Freq: Status: Active Protocol: Document 10/24/22 11:58 [facility]GR (Rec: 10/24/22 12:21 CGR [id number]) OT- Subjective Occupational Therapy Visit Type Type Initial Evaluation Visit Start Time 11:13 Visit Stop Time 11:39 Total Visit Minutes 26 Notes Pt is ready to get up. OT Pain Assessment Pain When Pain Assessed At Rest Pain Present Pain Present Denied Pain M4 OT- IP ADL's Start: 10/24/22 11:58 Freq: Status: Active Protocol: Document 10/24/22 11:58 CGR (Rec: 10/24/22 12:21 CGR [id number]) OT [id number] Comments OT Self-Feeding Comments not meal time OT ADL-Grooming General Evaluation Grooming Ability Standby Assistance Areas Needing Assistance Face Washing Comments OT Grooming Comments standing at sink OT ADL-Oral Care General Eval Oral Care Ability Standby Assistance Areas of Assistance Brushing Teeth Comments Oral Care Comments standing at sink OT ADL-Dressing General Eval Lower Body Dressing Ability Standby Assistance Areas Needing Assistance Underpants/Brief Comments OT Dressing Comments Pt is able to don clean brief with extra time and SBA while seated on the toielt. OT ADL-Toileting General Evaluation Toileting Ability Standby Assistance Comments OT Toileting Comments Pt was able to perform pericare without assist and manage clothing but pericare could have been more thorough. OT ADL-Bathing Comments OT Bathing Comments not performed M5 OT- IP IADL's Start: 10/24/22 11:58 Freq: Status: Active Protocol: Document 10/24/22 11:58 CGR (Rec: 10/24/22 12:21 CGR [id number]) OT-Instrumental Activities of Daily Living Deficits IADL Deficits Identified No Deficits Home Safety Awareness Awareness of Need for Assistance at Home Good Awareness Ability to Problem Solve Emergency Able to Problem Solve Situations Medication Management Medication Management Comments concerns regarding pts ability to perform Money Management Money Management Comments concerns regarding pts ability to perform however, nothing in chart states that pt has had difficulty with task. 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 M6 OT- IP Functional Cognition Start: 10/24/22 11:58 Freq: Status: Active Protocol: Document 10/24/22 11:58 CGR (Rec: 10/24/22 12:21 CGR [id number]) Cognitive Factors Limiting Selfcare Function Cognitive Ability Level of Alertness Alert Patient Orientation Name,Age,Birthday,Month,Date, Year,Day of Week,Place, Situation Attention Span Ability Capable of Focused Attention, Capable of Sustained Attention Ability to Follow Commands Able to Follow One Step Commands with Increased Time, Able to Follow One Step Commands with Repetition Cognitive Comments Cognitive Assessment Comments pt would benefit from formal cog assessment. OT- Vision and Hearing OT- Hearing Assessment OT- Hearing Assessment WFL OT- Vision Assessment Visual Acuity Glasses For Reading Visual Attentiveness WFL Occular Pursuits WFL Visual Convergence WFL M7 OT- IP Mobility and Balance Start: 10/24/22 11:58 Freq: Status: Active Protocol: Document 10/24/22 11:58 CGR (Rec: 10/24/22 12:21 CGR [id number]) OT- Bed Mobility Assessment Rolling Level of Assistance Independent Supine to Sit Supine to Sit Assist Independent Sit to Supine Sit to Supine Assist Independent OT-Transfer Assessment Sit to and From Stand Sit to and from Stand Standby Assistance Transfers Transfer Ability Standby Assistance Technique Transfer Destination Bed,Chair,Toilet Transfer Technique Stand Step Pivot Devices Transfer Assistive Devices Gait Belt Comments Mobility Comments pt declined to use DME. OT- Gait Assessment Gait Gait Assistance Required: Standby Assistance Assistive Devices Assistive Device Gait Belt Comments Gait Ability Comments pt declined use of DMe OT- Balance Assessment Sitting Balance and Reactions Static Sitting Balance Ability Normal Dynamic Sitting Balance Ability Normal Standing Balance and Reactions Static Standing Balance Ability Good Dynamic Standing Balance Ability Good M8 OT- IP Objective Assessments Start: 10/24/22 11:58 Freq: Status: Active Protocol: Document 10/24/22 11:58 CGR (Rec: 10/24/22 12:21 CGR [id number]) OT Gross Range of Motion Upper Extremity Range of Motion Assessment Within Functional Limits OT Strength Upper Extremity Strength Assessment Within Functional Limits Shoulder L 3+/5, R 4 Elbow 4 Forearm 4 Wrist 4 Hand 4 Comments Strength Comments Pt states she had a sx in March 2022 on the L shld OT- Coordination Assessment Upper Extremity Finger to Nose Test Within Functional Limits Finger Tapping Test Within Functional Limits OT-Muscle Tone Assessment Muscle Tone WNL Yes OT Sensation Assessment Edema Edema Absent M9 OT- IP Assessment and Plan Start: 10/24/22 11:58 Freq: Status: Active Protocol: Document 10/24/22 11:58 CGR (Rec: 10/24/22 12:21 CGR [id number]) OT Summary Assessment and Plan Potential Rehabilitation Potential Excellent Analytic Complexity at Evaluation Low Summary OT Impairments Functional Cognition, Functional Mobility,Shower Transfers,Activity Tolerance Progress Towards Goals Slow Progress due to Activity Tolerance Assessment Summary Pt presents as a low complexity evaluation s/p admit for SOB. Pt is mobile without AD and SBA but would benefit from cog assessment and shower assessment. Pt is likely safe for discharge home . Per MD in rounds, pt is non compliant with her medications . She may benefit from some assist with medications. Goals Grooming Goal Independent Dressing Goal Independent Toileting Goal Independent Bathing Goal Independent Toilet Transfer Goal Independent Shower Transfer Goal Independent Days to Meet Goals 2 Frequency of Treatment Frequency Of Treatment Once a Day Treatment Plan OT Treatment Plan ADL Training,Functional Cognition Training,Functional Mobility,Patient/Family Education,Discharge Planning Other Treatment Recommendations and Next shower assessment and cog Treatment Focus assessment. Discharge Recommendations OT Discharge Recommendations Home Transportation Needs at Discharge Private Vehicle
--- NOTE | 2022-10-24 13:38 | PT.IIE ---
Current Diagnoses Adult failure to thrive (10/23/22) Surgical History (Last Reviewed 10/23/22 @ 06:07 by SHANA Roy) History of appendectomy History of cholecystectomy Medical History (Last Reviewed 10/23/22 @ 06:07 by SHANA Roy) Bipolar 1 disorder Contusion of knee, right Dissection of aorta, thoracic Hypertension Melanoma Pulmonary hypertension Systolic heart failure Physical Therapy Inpatient Evaluation/Re-Eval M1 PT/OT-IP Prior Functional Status Start: 10/24/22 11:58 Freq: NEEDED Status: Active Protocol: Document 10/24/22 13:21 [facility] (Rec: 10/24/22 13:38 [facility] [id number]) Medical Review Prior Functional Status Medical History Reviewed Yes Communication Pt is an effective verbal communicator. Pt states she is not ELIM IRA but appears at time to be ELIM IRA. Mobility and Gait Pt is IND in all mobility at baseline Activities of Daily Living and IADL's Pt is IND in all ADLs and IADLs at baseline. Pt does her own grocery shopping and manages her own bills. Social History Household Members none Living Arrangements House Number of Floors (Floors) Two Floors Number of Stairs To Enter/Railing? Pt has 4 steps to enter from the front with R rail assending and 3 steps to enter from the back with R rail assending. Pt can stay on the main level. 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 M1 PT/OT-IP Prior Functional Status Start: 10/24/22 13:20 Freq: NEEDED Status: Active Protocol: Document 10/24/22 13:21 [facility] (Rec: 10/24/22 13:38 [facility] [id number]) Medical Review Prior Functional Status Medical History Reviewed Yes Communication Pt is an effective verbal communicator. Pt states she is not ELIM IRA but appears at time to be ELIM IRA. Mobility and Gait Pt is IND in all mobility at baseline Activities of Daily Living and IADL's Pt is IND in all ADLs and IADLs at baseline. Pt does her own grocery shopping and manages her own bills. Social History Household Members none Living Arrangements House Number of Floors (Floors) Two Floors Number of Stairs To Enter/Railing? Pt has 4 steps to enter from the front with R rail assending and 3 steps to enter from the back with R rail assending. Pt can stay on the main level. 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 PT-IP Current Condition Start: 10/24/22 13:20 Freq: NEEDED Status: Active Protocol: Document 10/24/22 13:21 [facility] (Rec: 10/24/22 13:38 [facility] [id number]) Physical Therapy Current Condition Current Condition Evaluation Date 10/24/22 Treatment Diagnosis shortness of breath Onset Date last 2 weeks, pt seen in ER on 10/23/22 with severe dyspnea M3 PT-IP Subjective Start: 10/24/22 13:20 Freq: NEEDED Status: Active Protocol: Document 10/24/22 13:21 [facility] (Rec: 10/24/22 13:38 [facility] [id number]) Subjective Physical Therapy Visit Type Type Initial Evaluation Visit Start Time 12:45 Visit Stop Time 13:15 Total Visit Minutes 30 Physical Therapy Visit Comments Patient Comments Pt has finished lunch and agrees to PT Patient Goals Pt would like to get stronger so she can return to her routine of walking 1 mile every day and lifts weights Therapy Pain Assessment Pain Present Pain Present Denied Pain M4 PT-IP Mobility and Gait Start: 10/24/22 13:20 Freq: NEEDED Status: Active Protocol: Document 10/24/22 13:21 [facility] (Rec: 10/24/22 13:38 [facility] [id number]) PT-Transfer Assessment Sit to and From Stand Sit to and from Stand Contact Guard Assistance Equipment Transfer Assistive Device Gait Belt,Front Wheeled Walker Transfers Transfer Technique ambulation Transfer Ability Level of Assist Contact Guard Assistance Comments Mobility Comments pt demonstrated CGA for transfers from bedside chair to her fww for ambulation. Her O2 sats were 87 at rest with RA. She was given 1 Liter O2 for mobility training and gait training Gait Assessment Gait Gait Assistance Required: Contact Guard Assist Distance (Feet) 250 Able to Maintain Weight Bearing Status Yes During Gait Assistive Devices Assistive Device Gait Belt,Front Wheeled Walker Orthotic/Prosthetic Devices or Brace: No Gait Deviations General Gait Pattern Decreased Stride Length,Flexed Trunk Factors Limiting Gait Function Factors Limiting Gait Function Decreased Strength,Respiratory Distress Comments Gait Comments Pt was able to ambulate with fww and CGA x 250 feet. She was given 1 liter O2 for gait. At 150 feet her O2 sats were rechecked and she had dropped to 81. She was given another .5 O2 to reach 1/5 L and this increased her to 90 O2 sats. She remained at 90 until she returned to her bedside chair. She was monitored for 5 min on 1.5 liters O2 following gait. At 5 min she was 94 O2 sats so her O2 was taken off at that time and she was left on RA only. Pt was no longer out of breath. The chair alarm was placed, call light was placed within reach, and Yue was given a warm blanket . PT-Balance Assessment Sitting Balance and Reactions Static Sitting Balance Ability Good Dynamic Sitting Balance Ability Good Standing Balance and Reactions Static Standing Balance Ability Good Dynamic Standing Balance Ability Good Device Used fww M5 PT-IP Objective Assessments Start: 10/24/22 13:20 Freq: NEEDED Status: Active Protocol: Document 10/24/22 13:21 [facility] (Rec: 10/24/22 13:38 [facility] [id number]) Orientation Orientation/Cognition Level of Alertness Alert Gross Range of Motion Upper Extremity ROM Assessment Within Functional Limits Lower Extremity ROM Assessment Within Functional Limits Strength Upper Extremity Strength Assessment Left Impaired Shoulder 3+/5 Lower Extremity Strength Assessment Bilaterally Impaired Hip 4/5 Knee 4/5 Coordination Assessment Gross Coordination Gross Coordination WNL Sensation Assessment Sensation Gross Sensation WNL Muscle Tone Muscle Tone WNL Yes M7 PT-IP Assessment and Plan Start: 10/24/22 13:20 Freq: NEEDED Status: Active Protocol: Document 10/24/22 13:21 [facility] (Rec: 10/24/22 13:38 [facility] [id number]) PT Summary Assessment and Plan Potential Rehabilitation Potential Excellent Status of Condition at Evaluation Evolving Summary Impairments Strength,Balance,Gait,Activity Tolerance Assessment Summary 82 year old female with weakness and SOB that is improving. She is now on Room air and was 87 at rest when I checked her after eating lunch. She was given 1 liter O2 for PT evaluation and during gait her O2 sats dropped to 81 so she was increased to 1.5 Liters. This brought her up to 90. Yue demonstrated CGA for mobility . She was given a fww to use for safety and needed cues to lift from her chest as she tends to bend forward. Yue reports her usual routine is to walk a mile every day and lift weights and she would like to get back to this. She ambulated 250 feet with fww and was SOB following today. She sat x 5 min following her walk and her O2 sats increased to 94. At that time she was taken off O2 back to room air and she had no complaints of SOB after that time period. Yue is a good candidate for PT for endurance and strength training monitoring her O2 sats. She would benefit from a stair evaluation next visit Goals Bed Mobility Goal Independent Transfer Goal Independent Gait Goal Independent Gait Distance 350 Other Goals pt is able to maintain her O2 sats with RA only with gait. Days to Meet Goals 5 Frequency of Treatment Frequency Of Treatment Once a Day Treatment Plan Physical Therapy Treatment Plan Gait Training,Therapeutic Exercise Other Recommendations and Next Treatment stair training next visit as Focus pt has 4 stairs to go up Discharge Recommendations PT Discharge Recommendations Home Other Discharge Recommendations continue to assess O2 status but functionally Pt is demonstrating good mobility to be able to return home. She may benefit from FWW for home use. Equipment Needed for Home Before possibly fww until strength is Discharge built back up Transportation Needs at Discharge Private Vehicle
--- NOTE | 2022-10-24 16:20 | DIET.CONS ---
Addendum entered by Ramonita Montez 10/24/22 16:29: RD agrees with Etiquette Coach note below. Original Note: Dietary Consultation Note Admission Date: 10/23/2022 05:16 Assessment: 82 y/o F admitted for CHF exacerbation. Consulted to nutrition for systolic HF and possible malnutrition. Met with pt at bedside to discuss dietary intake and recent wt loss of 10% in 2 months. Pt states wt loss is due to previous hospital visits, illnesses, and cost of food. Pt reports eating more canned and convenient foods due to prices. Additionally, pt has been a vegetarian for 15 yrs making protein intake more of a challenge. Pt gets weekly food delivered from the [employer]. Would like [employer] support. Due to recent water shut off (total of 4 months) / inability to flush toilet, pt has discontinued diuretics for HF. Pt reports water issue has now been resolved. Pt seemed knowledgeable in terms of nutrition and the need to increase protein/kcal intake. 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 Ht: 160.02 cm Wt: 70 kg BMI: 27.3 UBW: Last BM: 10/23/22 (10/23/22 14:42) MNA: 10 Edmond Score: 20 Diet: 10/23/22 Breakfast Fluid Restriction Diet Diet Modifications: Heart healthy Total fluid amount: 1,200 Amount allotted to patient trays: 400 Free water included in total: Yes Fluid in addition to trays: 2437-8820 amount: 800 4192-1565 amount: 400 Heart Healthy Diet Diet Modifications: Sodium Level: No Added Salt Nutrition Percent Meal Consumed 50% 10/24/22 14:21 Percent Meal Consumed 75% 10/24/22 09:08 Percent Meal Consumed 50% 10/23/22 18:00 Percent Meal Consumed 10% 10/23/22 13:45 Percent Meal Consumed 25% 10/23/22 10:00 Labs: RBC 3.96 X10^6/uL (4.0-5.2) L 10/24/22 06:08 Hgb 9.9 g/dL (12.0-16.0) L 10/24/22 06:08 Hct 30.6 % (36-46) L 10/24/22 06:08 Creatinine 0.79 mg/dL (0.52-1.04) 10/24/22 06:08 Lactate 1.5 mmol/L (0.7-2.1) 10/23/22 03:13 NT-Pro-B Natriuret Pep 9650 pg/mL (<450) H 10/23/22 03:13 Nutrition Diagnosis: Acute on chronic moderate malnutrition r/t food insecurity and poor appetite aeb 10% wt loss in 2 months, diet recall revealing inadequate protein/kcal intake, weekly food bank deliveries, pt reporting the need for SNAP benefits. Interventions: 1. Discussed the importance of adding more protein in diet to reserve lean body mass and to maintain wt. Recc protein shakes, especially when appetite is lacking. 2. Collaborated on ways to gain better access to affordable foods such as SNAP benefits. 3. While hospitalized ONS enure BID. EER: 90-105 g protein (1.3-1.5 g/kg per malnutrition), 7903-1723 kcal (25-30 g/kg per malnutrition) Monitoring/Evaluations: ONS tolerance. Electronically Signed by: Shirley Davila 10/24/22 16:20 Clinical Dietitian [address] [address]
[2022-10-24] MEDS: SODIUM CHLORIDE 0.9% FLUSH 10 ML IV (20:37)
[2022-10-24] MEDS: SENNOSIDES 8.6 MG TABLET PO (20:37)
[2022-10-25 03:00] VITALS: BP 112/55; PULSE 67; RESP 24; TEMP 36.4; O2SAT 93
[2022-10-25 06:17] LABS: Add Manual Diff / Slide Review NO; Basophils Absolute Auto 0 /uL (0-100); Basophils Percent Auto 0.9 % (0-2); Eosinophils Absolute Auto 300 /uL (0-450); Eosinophils Percent Auto 5.1 % (2-4); Hematocrit 30.8 % (36-46); Hemoglobin 9.8 g/dL (12.0-16.0); Lymphocytes Absolute Auto 1100 /uL (1100-4500); Lymphocytes Percent Auto 20.2 % (25-40); Mean Corpuscular HGB Conc 31.7 % (30-36); Mean Corpuscular Hemoglobin 24.8 PG (26-34); Mean Corpuscular Volume 78.1 fL (80-100); Monocytes Absolute Auto 600 /uL (0-900); Monocytes Percent Auto 10.9 % (3-14); Neutrophils Absolute Auto 3400 /uL (1500-7000); Neutrophils Percent Auto 62.9 % (50-75); Platelet Count 236 X10^3/uL (150-400); Red Blood Cell Count 3.95 X10^6/uL (4.0-5.2); White Blood Cell Count 5.4 X10^3/uL (4.5-11.0)
[2022-10-25 06:20] LABS: Alanine Aminotransferase 16 IU/L (<35); Albumin 3.1 g/dL (3.5-5.0); Albumin Globulin Ratio 1.1 (1.0-2.8); Alkaline Phosphatase 90 U/L (38-126); Aspartate Aminotransferase 17 IU/L (14-36); BUN Creatinine Ratio 30.4 (6-22); Bilirubin Total 0.4 mg/dL (0.2-1.3); Blood Urea Nitrogen 24 mg/dL (7-17); Calcium 8.5 mg/dL (8.4-10.2); Carbon Dioxide 34 mmol/L (22-32); Chloride 94 mmol/L (98-107); Estimated Glomerular Filt Rate > 60 mL/min (>60); Globulin 2.8 g/dL (1.7-4.1); Glucose 95 mg/dL (80-110); HEMOLYSIS < 15 (0-50); Magnesium 1.9 mg/dL (1.6-2.3); Potassium 3.6 mmol/L (3.4-5.1); Sodium 135 mmol/L (137-145); Total Protein 5.9 g/dL (6.3-8.2)
[2022-10-25 06:21] VITALS: O2SAT 91
[2022-10-25] MEDS: SODIUM CHLORIDE 0.9% FLUSH 10 ML IV ×2 (08:34→21:31)
[2022-10-25] MEDS: METOPROLOL IR 25 MG TABLET PO (08:34)
[2022-10-25] MEDS: ASPIRIN EC 81 MG TABLET PO (08:34)
[2022-10-25] MEDS: ENOXAPARIN 40 MG/0.4 ML SYRINGE SUBCUT (08:34)
[2022-10-25 09:11] VITALS: BP 111/63; PULSE 72; RESP 20; TEMP 36.7; O2SAT 90
[2022-10-25] MEDS: FUROSEMIDE 60 MG in SODIUM CHLORIDE 0.9% 50 ML 112 MG IV ×2 (09:36→18:28)
--- NOTE | 2022-10-25 10:43 | PT.IPTN ---
Current Diagnoses Adult failure to thrive (10/23/22) Physical Therapy Treatment Note M2 PT-IP Current Condition Start: 10/24/22 13:20 Freq: NEEDED Status: Active Protocol: Document 10/24/22 13:21 [facility] (Rec: 10/24/22 13:38 [facility] [id number]) Physical Therapy Current Condition Current Condition Evaluation Date 10/24/22 Treatment Diagnosis shortness of breath Onset Date last 2 weeks, pt seen in ER on 10/23/22 with severe dyspnea M3 PT-IP Subjective Start: 10/24/22 13:20 Freq: NEEDED Status: Active Protocol: Document 10/25/22 10:19 LJ (Rec: 10/25/22 10:42 LJ [id number]) Subjective Physical Therapy Visit Type Type Treatment Note Visit Start Time 09:50 Visit Stop Time 10:07 Total Visit Minutes 17 Number of FINANCIAL PROJECT MANAGER Visits 1 Physical Therapy Visit Comments Patient Comments Lying in bed. Willing to get up and ambulate with PT. Therapy Pain Assessment Pain Present Pain Present Denied Pain M4 PT-IP Mobility and Gait Start: 10/24/22 13:20 Freq: NEEDED Status: Active Protocol: Document 10/25/22 10:19 LJ (Rec: 10/25/22 10:42 LJ [id number]) PT-Bed Mobility Assessment Supine to Sit Supine to Sit Independent Sit to Supine Sit to Supine Independent Scooting Scooting to Edge of Bed Independent Scooting Up and Down in Bed Independent PT-Transfer Assessment Sit to and From Stand Sit to and from Stand Standby Assistance Equipment Transfer Assistive Device Gait Belt,Front Wheeled Walker Transfers Transfer Destination Bed,Toilet Transfer Technique ambulation Comments Mobility Comments Pt independent for bed mobility. SBA for sit<>stand Gait Assessment Gait Gait Assistance Required: Standby Assistance Distance (Feet) 300 Able to Maintain Weight Bearing Status Yes During Gait Assistive Devices Assistive Device Gait Belt,Front Wheeled Walker Orthotic/Prosthetic Devices or Brace: No Gait Deviations General Gait Pattern Flexed Trunk Factors Limiting Gait Function Factors Limiting Gait Function Decreased Strength,Respiratory Distress Comments Gait Comments Pt ambulated in hallway with FWW and assist with IV pole from therapist. Ambulated to stairs ~150 on RA. O2 dropped to 88%. Pt then stood for several seconds while cued to take several deep breaths. O2 climbed to 93%. Pt then went up and down the stairs x1. O2 dropped to 83% and again she was cued to take several deep breaths after which O2% crow to 98%. Pt stated she needed to use the bathroom so ambulated back to room. She left the FWW outside the bathroom door and walked in unassisted. Pt sat on toilet and voided. Cleaned herself up then ambulated without FWW to bed. Pt got herself back into bed independently. O2% at 97% -98% after mobility while resting in bed. Pt given all needs within reach. Nursing notified about O2 fluctuations . Stair Climbing Assessment Evaluation Level of Assist On Stairs Standby Assistance Devices Stair Climbing Assistive Devices Right Railing Technique/Endurance Stair Climbing Direction Ascend and Descend Stair Climbing Technique Step Over Step Number of Steps Climbed 3 Stair Climbing Set # Repetitions (reps) 1 Comments Stair Climbing Comments Pt able to safely go up/dowdn stairs using R railing only. Denied SOB even though O2 dropped. M5 PT-IP Objective Assessments Start: 10/24/22 13:20 Freq: NEEDED Status: Active Protocol: Document 10/24/22 13:21 [facility] (Rec: 10/24/22 13:38 [facility] [id number]) Orientation Orientation/Cognition Level of Alertness Alert Gross Range of Motion Upper Extremity ROM Assessment Within Functional Limits Lower Extremity ROM Assessment Within Functional Limits Strength Upper Extremity Strength Assessment Left Impaired Shoulder 3+/5 Lower Extremity Strength Assessment Bilaterally Impaired Hip 4/5 Knee 4/5 Coordination Assessment Gross Coordination Gross Coordination WNL Sensation Assessment Sensation Gross Sensation WNL Muscle Tone Muscle Tone WNL Yes M6 PT-IP Treatment Start: 10/24/22 13:20 Freq: NEEDED Status: Active Protocol: Document 10/25/22 10:19 (Rec: 10/25/22 10:42 [id number]) Physical Therapy Treatment Education Education Provided Safety M7 PT-IP Assessment and Plan Start: 10/24/22 13:20 Freq: NEEDED Status: Active Protocol: Document 10/25/22 10:19 DANIELLE (Rec: 10/25/22 10:42 [id number]) PT Summary Assessment and Plan Potential Rehabilitation Potential Excellent Status of Condition at Evaluation Evolving Summary Impairments Strength,Balance,Gait,Activity Tolerance Progress Towards Goals Progressing Toward Goals Assessment Summary Pt able to complete hallway ambulation while wearing a mask without respiratory distress Denied SOB. When O2 dips she quickly recovers with several deep breaths. Balance with ambulation without FWW appeared good however only observed ~20'. Pt is impulsive and required directioning back to room from stairs. She is progressing towards goals. Unsure if FWW will be required . Spoke to OT about trialing ambulation without FWW. Goals Bed Mobility Goal Independent Transfer Goal Independent Gait Goal Independent Gait Distance 350 Other Goals pt is able to maintain her O2 sats with RA only with gait. Days to Meet Goals 5 Frequency of Treatment Frequency Of Treatment Once a Day Treatment Plan Physical Therapy Treatment Plan Gait Training,Therapeutic Exercise Other Recommendations and Next Treatment progress gait without AD Focus Discharge Recommendations PT Discharge Recommendations Home Other Discharge Recommendations continue to assess O2 status but functionally Pt is demonstrating good mobility to be able to return home. She may benefit from FWW for home use if unable to be safe without AD. Equipment Needed for Home Before possibly fww until strength is Discharge built back up Transportation Needs at Discharge Private Vehicle
--- NOTE | 2022-10-25 10:55 | OT.IP.TRT ---
Current Diagnoses Adult failure to thrive (10/23/22) Occupational Therapy Treatment Note M2 OT-IP Current Condition Start: 10/24/22 11:58 Freq: Status: Active Protocol: Document 10/24/22 11:58 CGR (Rec: 10/24/22 12:21 CGR [id number]) Occupational Therapy Current Condition Current Condition Evaluation Date 10/24/22 Treatment Diagnosis SOB, CHF exacerbation, failure to thrive Diagnosis Onset Date 10/23/22 M3 OT- IP Subjective and Pain Start: 10/24/22 11:58 Freq: Status: Active Protocol: Document 10/25/22 10:55 [facility] (Rec: 10/25/22 12:09 [facility] [id number]) OT- Subjective Occupational Therapy Visit Type Type Treatment Note Visit Start Time 10:55 Visit Stop Time 13:34 Total Visit Minutes 39 Occupational Therapy Visit Comments Patient Comments Pt agreed to shower. Patient/Caregiver Goals To go home. M4 OT- IP ADL's Start: 10/24/22 11:58 Freq: Status: Active Protocol: Document 10/25/22 10:55 [facility] (Rec: 10/25/22 12:09 [facility] [id number]) OT [id number] Comments OT Self-Feeding Comments NOt at meal time. OT ADL-Grooming Comments OT Grooming Comments Pt wanting to do after her shower at too tired. OT ADL-Oral Care Comments Oral Care Comments Pt refused. OT ADL-Dressing General Eval Lower Body Dressing Ability Standby Assistance Areas Needing Assistance Underpants/Brief Comments OT Dressing Comments Pt is able to don clean brief with extra time and SBA while seated on the shower chair. OT ADL-Toileting General Evaluation Toileting Ability Standby Assistance Comments OT Toileting Comments Pt was able to perform pericare without assist and manage clothing but pericare could have been more thorough. OT ADL-Bathing Bathing Type Bathing Type Shower General Evaluation Bathing Ability Standby Assistance Devices Bathing Equipment Shower Chair with Arms Comments OT Bathing Comments Pt able to stand from most for the shower and needing use of the grab bars to occasional balance needs. Pt having to sit down to the shower chair to dry off. O2 on RA dropped to 70% and after one minutes increased to 93%. Pt states has a place to sit down in her shower if needed. Also suggested pt have someone present in the house for shower s for safety. M5 OT- IP IADL's Start: 10/24/22 11:58 Freq: Status: Active Protocol: Document 10/24/22 11:58 [facility] (Rec: 10/24/22 12:21 CGR [id number]) OT-Instrumental Activities of Daily Living Deficits IADL Deficits Identified No Deficits Home Safety Awareness Awareness of Need for Assistance at Home Good Awareness Ability to Problem Solve Emergency Able to Problem Solve Situations Medication Management Medication Management Comments concerns regarding pts ability to perform Money Management Money Management Comments concerns regarding pts ability to perform however, nothing in chart states that pt has had difficulty with task. 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 M6 OT- IP Functional Cognition Start: 10/24/22 11:58 Freq: Status: Active Protocol: Document 10/25/22 10:55 [facility] (Rec: 10/25/22 12:09 [facility] [id number]) Cognitive Factors Limiting Selfcare Function Cognitive Comments Cognitive Assessment Comments Pt able to follow all commands for ADl's but lack thoroughness for hygiene needs . To do SLUMS tomorrow. M7 OT- IP Mobility and Balance Start: 10/24/22 11:58 Freq: Status: Active Protocol: Document 10/25/22 10:55 [facility] (Rec: 10/25/22 12:09 [facility] [id number]) OT-Transfer Assessment Sit to and From Stand Sit to and from Stand Standby Assistance Transfers Transfer Ability Standby Assistance Technique Transfer Destination Bed,Shower Stall,Toilet Transfer Technique Stand Step Pivot Comments Mobility Comments Pt able to walk in and out of the bathroom with distant to close SBA, pt needing occasional touch to the wall for balance. Pt not wanting to use a DME. OT- Balance Assessment Sitting Balance and Reactions Static Sitting Balance Ability Normal Dynamic Sitting Balance Ability Normal Standing Balance and Reactions Static Standing Balance Ability Good Dynamic Standing Balance Ability Good M8 OT- IP Objective Assessments Start: 10/24/22 11:58 Freq: Status: Active Protocol: Document 10/24/22 11:58 [facility] (Rec: 10/24/22 12:21 CGR [id number]) OT Gross Range of Motion Upper Extremity Range of Motion Assessment Within Functional Limits OT Strength Upper Extremity Strength Assessment Within Functional Limits Shoulder L 3+/5, R 4 Elbow 4 Forearm 4 Wrist 4 Hand 4 Comments Strength Comments Pt states she had a sx in March 2022 on the L shld OT- Coordination Assessment Upper Extremity Finger to Nose Test Within Functional Limits Finger Tapping Test Within Functional Limits OT-Muscle Tone Assessment Muscle Tone WNL Yes OT Sensation Assessment Edema Edema Absent M9 OT- IP Assessment and Plan Start: 10/24/22 11:58 Freq: Status: Active Protocol: Document 10/25/22 10:55 [facility] (Rec: 10/25/22 12:09 [facility] [id number]) OT Summary Assessment and Plan Potential Rehabilitation Potential Excellent Analytic Complexity at Evaluation Low Summary OT Impairments Functional Cognition, Functional Mobility,Shower Transfers,Activity Tolerance Progress Towards Goals Slow Progress due to Activity Tolerance Assessment Summary Pt continues to get winded after shower on RA dropped to 71% and increased to 93% after 1 minute. Pt after walking back to the bed O2 on RA decreased to 85% and able to get to 93% after 40 seconds. Pt would benefit from home health and assist for IADl and help to take care of her pets . Pt looking to call a caregiver for assist. Pt to go home when medically stable with assist. Goals Grooming Goal Independent Dressing Goal Independent Toileting Goal Independent Bathing Goal Independent Toilet Transfer Goal Independent Shower Transfer Goal Independent Days to Meet Goals 1 Frequency of Treatment Frequency Of Treatment Once a Day Treatment Plan OT Treatment Plan ADL Training,Functional Cognition Training,Functional Mobility,Patient/Family Education,Discharge Planning Other Treatment Recommendations and Next cog assessment Treatment Focus Discharge Recommendations OT Discharge Recommendations Home with Assistance,Home Health Transportation Needs at Discharge Private Vehicle
[2022-10-25 13:00] VITALS: BP 104/55; PULSE 66; RESP 20; TEMP 36.6; O2SAT 91
--- NOTE | 2022-10-25 14:19 | PM.PN.1 ---
Subjective Subjective Date Patient Seen: 10/25/22 Interval history: Continues to feel weak today, though her shortness of breath is improving. She continued to desaturate on room air to 88% but now with exertion, though improves quickly. She is bordering now between room air and 1L via nasal cannula. Exam Vital Signs (past 8 hours): - 10/25/22 06:21 10/25/22 09:11 10/25/22 13:00 Temperature 98.0 F 97.8 F Pulse Rate 72 66 Respiratory Rate 20 20 Blood Pressure 111/63 104/55 L Pulse Oximetry 91 90 L 91 Oxygen Flow Rate 1.5 1 0 Oxygen Delivery Method Nasal Cannula Oxygen Flow Rate 0 Narrative Exam Narrative: Gen: Alert, oriented, all nurse but disheveled 82 y.o. female, NAD HEENT: normocephalic, atraumatic, conjunctiva clear, sclera non-icteric, oral mucosa pink and moist Neck: supple, full ROM, no JVD, trachea is midline Resp: Lungs sounds are diminished, labored breathing, patient is having difficulty speaking in normal length sentences CV: RRR, no murmur or rubs Abd: soft, non-tender, normoactive BTs Skin: no lesions or rashes, dry and intact Neuro: Alert and oriented X 4 w/no focal deficits. Speech clear and coherent. Extremities: trace edema bilaterally, no joint effusion. Psyche: normal mood and affect. Objective Labs 10/25/22 05:41 10/25/22 05:41 Labs: Laboratory Results - last 24 hr 10/25/22 10/25/22 05:41 05:41 WBC 5.4 RBC 3.95 L Hgb 9.8 L Hct 30.8 L MCV 78.1 L MCH 24.8 L MCHC 31.7 RDW 18.0 H Plt Count 236 Neut % (Auto) 62.9 Lymph % (Auto) 20.2 L Overton % (Auto) 10.9 Eos % (Auto) 5.1 H Baso % (Auto) 0.9 Neut # (Auto) 3400 Lymph # (Auto) 1100 Overton # (Auto) 600 Eos # (Auto) 300 Baso # (Auto) 0 Sodium 135 L Potassium 3.6 Chloride 94 L Carbon Dioxide 34 H BUN 24 H Creatinine 0.79 Estimated GFR > 60 BUN/Creatinine Ratio 30.4 H Glucose 95 Calcium 8.5 Magnesium 1.9 Total Bilirubin 0.4 AST 17 ALT 16 Alkaline Phosphatase 90 Total Protein 5.9 L Albumin 3.1 L Globulin 2.8 Albumin/Globulin Ratio 1.1 [facility] Medical History Bipolar 1 disorder Contusion of knee, right Dissection of aorta, thoracic Hypertension Melanoma Pulmonary hypertension Systolic heart failure Surgical History History of appendectomy History of cholecystectomy Family History Other No family history of disorders Social History household members: none Smoking Status: Current some day smoker alcohol intake: never Assessment & Plan Assessment & Plan narrative: Yue Klein is admitted for an acute on chronic CHF exacerbation, echo now showing new reduced EF. #Acute respiratory failure secondary to acute on chronic systolic heart failure - prior echo with borderline EF, now EF 20-25% on limited TTE yesterday. - continue diuresis 60 mg IV BID, daily electrolytes ordered. - continue metoprolol, lisinopril - counseled on the importance of medication compliance. - mild desaturations today with exertion only, with improvement hopeful she can be discharged home without home O2. #Hypertension, poorly controlled - appears controlled currently on home medications. #myocardial injury - troponin peaked at 0.068, downtrended. No chest pain or acute ischemia on EKG. # Bipolar disorder, chronic, present on admission -no documented medications #Malnutrition, acute on chronic, present on admission -patient's malnutrition places them at high risk for medical and surgical complications because of her malnutrition. This increases the difficulty in complexity of medical management and increases the chances poor outcomes such as mortality and morbidity as well as impaired wound healing, and immune suppression. -dietary consult ordered to evaluate and implement steps to improve caloric intake and nutrition. # Obesity, mild, acute on chronic, present on admission -dietary consult ordered regarding nutritional education and information for dietary, lifestyle, exercise, and weight changes. -the patient is at much higher risk for medical and surgical complications due to obesity as it relates to chronic illnesses and acute illness.? The patient's obesity increases the difficulty and complexity of medical and/or surgical interventions, management and increases the chances of poor outcome such as morbidity and mortality. Reviewed outside records: Previous admissions, most recent echocardiogram VTE Prophylaxis:Enoxaparin 40 mg subQ once daily Patient is admitted to the inpatient service due to the severity of disease, risks of further disease progression and this stay is expected to exceed 2 midnights. Social determinants of health: Lack of access to half-way PCP, poor living conditions Dispo: PT / OT evaluations. Likely home with home health tomorrow if hypoxia resolved. Code status: full code as discussed with the patient who identifies friends Piero and Alba as her surrogate and POA. Time Spent With Patient Critical Care time: I spent a total of [] minutes of critical care time on this patient's care today; this time is exclusive of procedural time.
[2022-10-25 17:00] VITALS: BP 109/58; PULSE 70; RESP 19; TEMP 36.6; O2SAT 93
[2022-10-25 20:15] VITALS: BP 108/50; PULSE 72; RESP 22; TEMP 36.7; O2SAT 93
[2022-10-26 00:01] VITALS: BP 128/63; PULSE 73; RESP 18; TEMP 36.8; O2SAT 93
[2022-10-26 03:50] VITALS: BP 122/67; PULSE 72; RESP 18; TEMP 36.3; O2SAT 92
[2022-10-26 07:00] VITALS: BP 136/76; PULSE 76; RESP 22; TEMP 35.9; O2SAT 95
[2022-10-26] MEDS: FUROSEMIDE 60 MG in SODIUM CHLORIDE 0.9% 50 ML 112 MG IV (08:09)
[2022-10-26] MEDS: ENOXAPARIN 40 MG/0.4 ML SYRINGE SUBCUT (08:09)
[2022-10-26] MEDS: ASPIRIN EC 81 MG TABLET PO (08:09)
[2022-10-26] MEDS: METOPROLOL IR 25 MG TABLET PO (08:09)
[2022-10-26] MEDS: lisinopriL 5 MG TABLET PO (08:09)
[2022-10-26] MEDS: AMLODIPINE 5 MG TABLET 10 MG PO (08:09)
[2022-10-26] MEDS: SODIUM CHLORIDE 0.9% FLUSH 10 ML IV (08:16)
--- NOTE | 2022-10-26 09:43 | P.DS_ITS ---
History of Present Illness History of Present Illness Date Patient Seen: 10/23/22 Time Patient Seen: 05:21 Chief complaint: CHF exacerbation, dyspnea, med non-compliance Narrative: Per admitting provider: Yue Klein is an 82-year-old female smoker with a medical history of arterial pulmonary hypertension, bipolar disease, hyperlipidemia, obesity, congestive he art failure with preserved ejection fraction, type B aortic dissection, coronary artery disease with recent hospitalizations at [facility] 07/31/2022, [facility] 08/03 and 08/09/2022 for influenza presents today to the ED with shortness of breath.? She was diagnosed with congestive heart failure on 07/06/2022,she has an elevated BNP of 9650, a troponin leak and was mildly hypoxic on presentation to the ED.? Patient had previously been prescribed Lasix but had not picked up or started the medication. In ED She complained of shortness of breath, unable to get from her bed to the bathroom and is having incontinence episodes due to this. She continues to have chest pain described as twinges for the past several months.? She has chronic swelling of her right leg due to a lymph node dissection as a result of a malignant melanoma removed from her right foot years ago. She denies fever or chills and wants to know why she caught the flu despite receiving the flu vaccine.? Patient denied abdominal pain, nausea, vomiting, diarrhea, urinary symptoms. States she is pleased to be admitted as she has been without water for 3 months. States her water was cut off because a pollution control technician left the hose on. States her house is very dirty. She states she started smoking cigarettes 6 weeks ago to have fun. She states she is able to walk across the street to a medical center but that her insurance stopped covering Dr. Lima who she had been seeing and that now she has to go to [place]. She ran out of her lasix a while ago. Chest x-ray was ordered in the ED and the read is pending. She is afebrile, blood pressure 172/116 heart rate 97 respiratory rate 35 oxygen saturation of 9 0% on 2 L nasal cannula, she weighs 71.2 kg with a BMI 27.8. She she is mildly anemic with hemoglobin and hematocrit of 10.9 and 33.9 respectively, D-dimer is elevated at 14 78 though it has been previously much higher, sodium 131 chloride 95 glucose 133 troponin 0.51 proBNP 9650 procalcitonin is negative UA is negative for UTI and respiratory viral panel including COVID-19 PCRs are all negative. She did have an ultrasound done in June of 2022 during previous hospitalization and at that time she had an EF of 45-50% with elevated filling pressures. She has had a history of a class B aortic aneurysm which appears to be stable. It appeared to be dissecting slowly and at that time it was found, cardiology recommendations were made to control her blood pressure as prevention. FH: Patient states mother at the age of 90 of heart disease, father at the age of 77 due to traumatic motor vehicle accident and thinks he might have had a OR or CVA. Discharge Providers Provider Date of admission: 10/23/22 05:16 Discharge Date: 10/27/22 Primary care physician: Rohit Zuniga MD Consults: 10/23/22 05:10 Consult to Discharge Planning Routine Comment: Patient states no H20 at home X 3 months Consult to Occupational Therapy Evaluate & Treat Comment: Physician Instructions: Evaluate and treat Consult to Physical Therapy Evaluate & Treat Comment: Physician Instructions: Evaluate and Treat 10/23/22 06:18 Consult to Procurement Accountant Routine Comment: House has been w/o H20 for several months. 10/24/22 11:22 Consult to Dietitian, Adult Routine Comment: Reason For Exam: systolic heart failure, ? malnutrition Discharge provider: Jeffrey Perkins MD Summary Hospital Course Discharge Diagnosis: 1. Acute respiratory failure, hypoxic 2. Acute on chronic systolic heart failure 3. Hypertension 4. Cardiac demand ischemia 5. Bipolar 6. Malnutrition 7. Obesity Hospital Course: Ms. Klein was admitted with a CHF exacerbation. She had run out of medications. She had issues with her electricity was not able to fill her medications, and she also was eating canned foods because of the electricity issue. She was volume overloaded and her EF was newly depressed from prior with EF 20-25%. She was diuresed and felt well. She was discharged on beta-neetu and papo inhibitor. She was discharged 2L net negative and off oxygen at discharge. She should follow up with PCP within one week, and can consider follow up with cardiology which she is referred to in two weeks. Exam Vital Signs (past 8 hours): Oxygen Delivery Method Room Air Oxygen Flow Rate 0 Narrative Exam Narrative: Gen: no acute distress Resp: clear bilaterally CV: RRR, no murmur or rubs Objective Labs 10/25/22 05:41 10/25/22 05:41 PFSH Medical History Bipolar 1 disorder Contusion of knee, right Dissection of aorta, thoracic Hypertension Melanoma Pulmonary hypertension Systolic heart failure Surgical History History of appendectomy History of cholecystectomy Family History Other No family history of disorders Social History household members: none Smoking Status: Current some day smoker alcohol intake: never Discharge Plan Discharge Plan Patient Disposition: Home Health Service Provider Discharge Comment: Ms. Klein came in to the hospital with trouble breathing. She had a flare of her heart failure. She should take all her medications and get refills within a month. She should follow up with her PCP within one week. She should eat low amounts of salt, she should drink small amounts of fluids. She should weigh herself daily and if she gains 3 pounds she should call her doctor immediately as she is likely getting a heart failure flare. Discharge orders & Medications Prescriptions: New aspirin 81 mg Tablet,Delayed Release (Dr/Ec) 81 mg PO DAILY Qty: 30 0RF furosemide [Lasix] 40 mg tablet 40 mg PO BID Qty: 60 0RF Continued amlodipine [Norvasc] 5 mg Tablet 10 mg PO DAILY Qty: 30 0RF lisinopril 5 mg Tablet 5 mg PO DAILY Qty: 30 0RF metoprolol tartrate 25 mg Tablet 25 mg PO BID Qty: 60 0RF acetaminophen 325 mg Tablet 650 mg PO Q4H PRN (Reason: Fever/Mild Pain (1-3)) Qty: 90 0RF Discontinued oseltamivir [Tamiflu] 75 mg Capsule 75 mg PO BID Qty: 8 0RF furosemide [Lasix] 40 mg tablet 40 mg PO DAILY Qty: 30 0RF Label Comments: states just recently got the Rx, has not started Medication counseling provided by Pharmacist: Yes Follow up/Referrals: [facility] [Provider Group] - 2 Weeks (patient needs referal from primary ca re physcian prior to scheduling appointment this has been requested for Dr [place] you will need to schedule this appointment you where hospitalized for chf exacerbation, has low EF) Rohit Zuniga MD [Primary Care Provider] - 11/02/22 3:25 pm (appt:11/02 @ check in @ 3:25 for a 3:[address] Antonella Moore you where hospitalized chf exacrbation- ) Diet/Activity/Treatments Diet: Low-sodium Diet comment: 2L fluid restriction Visit Report/Discharge Packet Instructions: Congestive Heart Failure (Alternative Therapy), High Blood Pressure, DI for Heart Failure, Low-Sodium Diet, Furosemide Stand Alone Forms: Patient Portal/API, Stroke Signs & Symptoms Discharge Data Primary Care Provider: Rohit Zuniga
--- NOTE | 2022-10-26 10:20 | PT.IPTN ---
Current Diagnoses Adult failure to thrive (10/23/22) Physical Therapy Treatment Note M2 PT-IP Current Condition Start: 10/24/22 13:20 Freq: NEEDED Status: Active Protocol: Document 10/24/22 13:21 [facility]H (Rec: 10/24/22 13:38 [facility]H [id number]) Physical Therapy Current Condition Current Condition Evaluation Date 10/24/22 Treatment Diagnosis shortness of breath Onset Date last 2 weeks, pt seen in ER on 10/23/22 with severe dyspnea M3 PT-IP Subjective Start: 10/24/22 13:20 Freq: NEEDED Status: Active Protocol: Document 10/26/22 10:11 SAK (Rec: 10/26/22 10:20 SAK [id number]) Subjective Physical Therapy Visit Type Type Treatment Note Visit Start Time 09:50 Visit Stop Time 10:13 Total Visit Minutes 23 Number of [place]OWN [place] Visits 0 Physical Therapy Visit Comments Patient Comments Asleep in bed. Easily arousable and willing to ambulate. Denied pain or dizziness. Therapy Pain Assessment Pain Present Pain Present Denied Pain M4 PT-IP Mobility and Gait Start: 10/24/22 13:20 Freq: NEEDED Status: Active Protocol: Document 10/26/22 10:11 SAK (Rec: 10/26/22 10:20 SAK [id number]) PT-Bed Mobility Assessment Supine to Sit Supine to Sit Independent Sit to Supine Sit to Supine Independent Scooting Scooting to Edge of Bed Independent Scooting Up and Down in Bed Independent PT-Transfer Assessment Sit to and From Stand Sit to and from Stand Standby Assistance Equipment Transfer Assistive Device Gait Belt Transfers Transfer Technique ambulation Comments Mobility Comments Patient doesn't use mobility device at home and interested in trying without. Gait Assessment Gait Gait Assistance Required: Contact Guard Assist,Minimum Assistance Able to Maintain Weight Bearing Status Yes During Gait Assistive Devices Assistive Device Gait Belt Orthotic/Prosthetic Devices or Brace: No Gait Deviations General Gait Pattern Flexed Trunk Factors Limiting Gait Function Factors Limiting Gait Function Decreased Strength,Respiratory Distress Comments Gait Comments Patient ambulated in hallway with CGA, min assist x 2 due to LOB to left, patient mostly able to self-correct, reports feels between 50-75% of baseline, some weakness PT-Balance Assessment Standing Balance and Reactions Static Standing Balance Ability Good Dynamic Standing Balance Ability Fair Device Used none M5 PT-IP Objective Assessments Start: 10/24/22 13:20 Freq: NEEDED Status: Active Protocol: Document 10/26/22 10:11 SAK (Rec: 10/26/22 10:20 SAK [id number]) Orientation Orientation/Cognition Level of Alertness Alert M6 PT-IP Treatment Start: 10/24/22 13:20 Freq: NEEDED Status: Active Protocol: Document 10/26/22 10:11 SAK (Rec: 10/26/22 10:20 SAK [id number]) Physical Therapy Treatment Education Education Provided Safety M7 PT-IP Assessment and Plan Start: 10/24/22 13:20 Freq: NEEDED Status: Active Protocol: Document 10/26/22 10:11 SAK (Rec: 10/26/22 10:20 SAK [id number]) PT Summary Assessment and Plan Potential Rehabilitation Potential Excellent Status of Condition at Evaluation Evolving Summary Impairments Strength,Balance,Gait,Activity Tolerance Assessment Summary Pt able to complete hallway ambulation while wearing a mask without respiratory distress Denied SOB. Needed cues for direction, safety. Goals Bed Mobility Goal Independent Transfer Goal Independent Gait Goal Independent Gait Distance 350 Other Goals pt is able to maintain her O2 sats with RA only with gait. Days to Meet Goals 4 Frequency of Treatment Frequency Of Treatment Once a Day Treatment Plan Physical Therapy Treatment Plan Gait Training,Therapeutic Exercise Other Recommendations and Next Treatment progress gait without AD Focus Discharge Recommendations PT Discharge Recommendations Home Other Discharge Recommendations continue to assess O2 status but functionally Pt is demonstrating good mobility to be able to return home. She may benefit from cane or Equipment Needed for Home Before possibly fww or cane until Discharge strength is built back up Transportation Needs at Discharge Private Vehicle
[2022-10-26 11:00] VITALS: BP 107/52; PULSE 64; RESP 20; TEMP 35.8; O2SAT 94
--- NOTE | 2022-10-26 11:25 | OT.IP.TRT ---
Current Diagnoses Adult failure to thrive (10/23/22) Occupational Therapy Treatment Note M2 OT-IP Current Condition Start: 10/24/22 11:58 Freq: Status: Active Protocol: Document 10/24/22 11:58 CGR (Rec: 10/24/22 12:21 CGR [id number]) Occupational Therapy Current Condition Current Condition Evaluation Date 10/24/22 Treatment Diagnosis SOB, CHF exacerbation, failure to thrive Diagnosis Onset Date 10/23/22 M3 OT- IP Subjective and Pain Start: 10/24/22 11:58 Freq: Status: Active Protocol: Document 10/26/22 11:25 [facility] (Rec: 10/26/22 13:11 [facility] [id number]) OT- Subjective Occupational Therapy Visit Type Type Treatment Note Visit Start Time 11:25 Visit Stop Time 11:42 Total Visit Minutes 17 Occupational Therapy Visit Comments Patient Comments Pt willing to do a cognitive assessment. Patient/Caregiver Goals To go home. OT Pain Assessment Pain When Pain Assessed At Rest Pain Present Pain Present Denied Pain M4 OT- IP ADL's Start: 10/24/22 11:58 Freq: Status: Active Protocol: Document 10/26/22 11:25 [facility] (Rec: 10/26/22 13:11 [facility] [id number]) OT [id number] Comments OT Self-Feeding Comments NOt at meal time. OT ADL-Grooming Comments OT Grooming Comments Pt refused OT ADL-Oral Care Comments Oral Care Comments Pt refused OT ADL-Dressing Comments OT Dressing Comments Not performed OT ADL-Toileting Comments OT Toileting Comments Not performed OT ADL-Bathing Comments OT Bathing Comments Not performed M5 OT- IP IADL's Start: 10/24/22 11:58 Freq: Status: Active Protocol: Document 10/24/22 11:58 CGR (Rec: 10/24/22 12:21 R [id number]) OT-Instrumental Activities of Daily Living Deficits IADL Deficits Identified No Deficits Home Safety Awareness Awareness of Need for Assistance at Home Good Awareness Ability to Problem Solve Emergency Able to Problem Solve Situations Medication Management Medication Management Comments concerns regarding pts ability to perform Money Management Money Management Comments concerns regarding pts ability to perform however, nothing in chart states that pt has had difficulty with task. 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 M6 OT- IP Functional Cognition Start: 10/24/22 11:58 Freq: Status: Active Protocol: Document 10/26/22 11:25 [facility] (Rec: 10/26/22 13:11 [facility] [id number]) Cognitive Factors Limiting Selfcare Function Cognitive Ability Level of Alertness Alert Patient Orientation Name,Age,Birthday,Month,Date, Year,Day of Week,Place, Situation Attention Span Ability Capable of Focused Attention, Capable of Sustained Attention Ability to Follow Commands Able to Follow One Step Commands Memory Description Short Term Impaired Cognitive Tests SLUMS Pt scored 28/30 on the SLUMS which implies normal for cognitive needs. Pt able to recall 3/5 words. Cognitive Comments Cognitive Assessment Comments Pt scored 247seconds on [place] Making Part B which implies severe impairments for visual attention, task switching, speed of processing, mental flexibility. and executive functioning. Suggested that pt not drive at this time. Pt needing cues to remember the directions. Overall pt feels that she is close to her baseline with all needs. OT- Balance Assessment Sitting Balance and Reactions Static Sitting Balance Ability Normal Dynamic Sitting Balance Ability Normal Standing Balance and Reactions Static Standing Balance Ability Good Dynamic Standing Balance Ability Good M8 OT- IP Objective Assessments Start: 10/24/22 11:58 Freq: Status: Active Protocol: Document 10/24/22 11:58 [facility]GR (Rec: 10/24/22 12:21 CGR [id number]) OT Gross Range of Motion Upper Extremity Range of Motion Assessment Within Functional Limits OT Strength Upper Extremity Strength Assessment Within Functional Limits Shoulder L 3+/5, R 4 Elbow 4 Forearm 4 Wrist 4 Hand 4 Comments Strength Comments Pt states she had a sx in March 2022 on the L shld OT- Coordination Assessment Upper Extremity Finger to Nose Test Within Functional Limits Finger Tapping Test Within Functional Limits OT-Muscle Tone Assessment Muscle Tone WNL Yes OT Sensation Assessment Edema Edema Absent M9 OT- IP Assessment and Plan Start: 10/24/22 11:58 Freq: Status: Active Protocol: Document 10/26/22 11:25 [facility] (Rec: 10/26/22 13:11 [facility] [id number]) OT Summary Assessment and Plan Potential Rehabilitation Potential Excellent Analytic Complexity at Evaluation Low Summary OT Impairments Functional Cognition, Functional Mobility,Shower Transfers,Activity Tolerance Progress Towards Goals Progressing Toward Goals Assessment Summary Pt scored 28/30 on the SLUMS which implies normal for cognition, however scored 247 seconds which implies severe impairments for visual attention, speed of processing , mental flexibility, executive functioning, and task switching. Pt states aware that she was not taking her medications as needed by choice and states plans on taking them now. Pt to go home and looking to hire assist for IADL needs. Discharge Recommendations OT Discharge Recommendations Home with Assistance,Home Health Transportation Needs at Discharge Private Vehicle
--- NOTE | 2022-10-26 15:38 | CM.DPC ---
DCP: Plan is to discharge home with [facility] services. This CM has exhausted most resources for this pt for transportation services today. This CM contacted Pastor Trip Byrne who called around to senior resources requesting support for transportation. Stella called and spoke with Senior resources in [facility] who in return gave the phone # of Kylie Smith who is Mental Health professional at [facility] police dept. Kylie called around and exhausted all resources where she is. Pt agreeable to pay for a cab out of pocket. This CM set up A cab for you [phone]. He will call sales and support center agent on the floor at [phone] if there is a problem with the crop picker time. This CM called and spoke with Johanna at [facility], explained that pt's phone is not working. Johanna and this CM spoke about having pt reach out to [facility] tomorrow with a phone call when she is able to establish a time to start service. This CM gave pt a pamphlet and showed her the phone # to call. Pt agrees that she will be able to use a phone from the office across the street from her house to make the phone call. This CM let Johanna know that APS had been notified upon pt's arrival to the hospital due to her water being off for 3 months during the winter in which it is now back on and that pt would like [employer] to support her with filling out her medicaid application and attaining food stamps and lowering her phone bill. This DCP reviewed medicaid application with pt and gave her the application to take home with her and attempted to turn pt's phone on. Pt does not know her account # and so was unable to support her with turning on her phone. Gini Perea RN Case Manager
--- NOTE | 2022-10-26 17:06 | PC.NURSE ---
Day shift: Left unit at approx 1655. Krunal is taking her home to [facility]. She has all personal belongings. scripts sent electronic to her pharmacy. Paperwork signed and all questions answered. Taken to the Taxi via WC by EDGAR Spann.
== END 2022-10-26 17:08 | disposition home health service (06) | DRG 291 ==
LOC: ED 05:04 → AC 05:17
PROVIDERS: Admitting Provider Nurse Practitioner Family; Emergency Provider Emergency Medicine; PCP Internal Medicine; Referring Provider Emergency Medicine; Visit Provider Nurse Practitioner Family
DX: I11.0 Hypertensive heart disease with heart failure (principal); I50.23 Acute on chronic systolic (congestive) heart failure; J96.01 Acute respiratory failure with hypoxia; E46 Unspecified protein-calorie malnutrition; I24.8 Other forms of acute ischemic heart disease; R62.7 Adult failure to thrive; E66.9 Obesity, unspecified; F17.210 Nicotine dependence, cigarettes, uncomplicated; Z68.28 Body mass index [BMI] 28.0-28.9, adult; Z20.822 Contact with and (suspected) exposure to COVID-19
CPT/HCPCS: 0241U; 36415; 71045; 80053; 80061; 81001; 82805; 83605; 83735; 83880; 84145; 84484; 85025; 85379; 87040; 93005; 93010; 93307; 94762; 96365; 97116; 97161; 97165; 97530; 97535; 99284; J1650; J1940

== ENCOUNTER 2023-08-09 21:20 | Emergency (ER) | payer OTHER, SELFPAY ==
[2022-10-23 05:33] VITALS: BMI 27.3
[2023-08-09] VITALS (8 sets, daily range): BP systolic 129–153; BP diastolic 71–90; PULSE 79–90; RESP 22–31; TEMP 36.5; O2SAT 94–97; BMI 26.6
--- NOTE | 2023-08-09 21:32 | DI.RAD.S_ITS ---
PROCEDURE: XR CHEST 1V INDICATIONS: dyspnea TECHNIQUE: One view of the chest was acquired. COMPARISON: Located Within [facility], CR, XR CHEST 1V, 10/23/2022, 3:06. FINDINGS: Surgical changes and devices: Left humeral fixation gustavo. Lungs and pleura: Mild appearance of increased vascularity with trace blunting of the costophrenic angles. Mediastinum: Tortuous aortic arch, appearing slightly more prominent. Heart size is mildly prominent. Bones and chest wall: No suspicious bony lesions. Overlying soft tissues appear unremarkable. IMPRESSION: Cardiomegaly with increased vascularity trace effusions suggestive of edema. Slightly more prominent appearance aortic arch tortuosity. While this could be positional, recommend correlation patient's symptoms and further evaluation with CT if indicated. Dictated by: Amalia Orta M.D. on 08/09/2023 at 22:11 Approved by: Amalia Orta M.D. on 08/09/2023 at 22:12
--- NOTE | 2023-08-09 21:34 | ED.SOB ---
HPI - SOB/Dyspnea General Chief Complaint: Shortness of Breath/Dyspnea Stated Complaint: Weakness poss UR Time Seen by Provider: 08/09/23 21:20 Source: patient and EMS Mode of arrival: EMS Limitations: no limitations History of Present Illness HPI Narrative: 83-year-old female with history of congestive heart failure, hypertension presents by EMS from home for 3 days of gradually worsening shortness of breath. Patient states she feels generally weak and ?pants? when she exerts herself. She is been out of her Lasix for several months, she states that she is felt otherwise fine until the last 3 days. Denies unusual leg swelling. Patient has had previous lymph node resection in her RLE, it is currently mildly swollen, however patient states that is normal for her, as she has not been able to excercise over th last 3 days due to her dyspnea and when she doesn't exercise her leg swells. Related Data Previous Rx's Medication Instructions Recorded acetaminophen 325 mg tablet 650 mg (2 x 325 mg) PO Q4H PRN 07/07/22 Fever/Mild Pain (1-3) #90 tabs amlodipine 5 mg tablet (Norvasc) 10 mg (2 x 5 mg) PO DAILY #30 tabs 10/26/22 aspirin 81 mg tablet,delayed 81 mg PO DAILY #30 tabs 10/26/22 release furosemide 40 mg tablet (Lasix) 40 mg PO BID #60 tabs 10/26/22 lisinopril 5 mg tablet 5 mg PO DAILY #30 tabs 10/26/22 metoprolol tartrate 25 mg tablet 25 mg PO BID #60 tabs 10/26/22 furosemide 40 mg tablet 40 mg PO DAILY #30 tabs 08/09/23 Allergies Allergy/AdvReac Type Severity Reaction Status Date / Time No Known Drug Allergies Allergy Verified 08/17/22 22:58 Review of Systems Review of Systems Narrative: CONSTITUTIONAL- Denies: fever, chills, fatigue HEENT- Denies: sore throat, nosebleed, vision changes RESPIRATORY-reports: Shortness of breath, nonproductive cough Denies: wheezing CARDIAC- Denies: chest pain, edema, orthopnea GI- Denies: abdominal pain, nausea, vomiting, constipation, diarrhea - Denies: frequency, dysuria, hematuria, flank pain MSK- Denies: extremity pain, extremity swelling, joint pain, joint swelling SKIN- Denies: rash, itching, burn, swelling NEUROLOGICAL- Denies: headache, numbness, weakness, dizziness PSYCHIATRIC- Denies: anxiety, depression, suicidal ideation, homicidal ideation Patient History Medical History Bipolar 1 disorder Contusion of knee, right Dissection of aorta, thoracic Hypertension Melanoma Pulmonary hypertension Systolic heart failure Surgical History History of appendectomy History of cholecystectomy Family History Other No family history of disorders Social History household members: none Smoking Status: Current some day smoker alcohol intake: never Smoking Status: Current some day smoker alcohol intake frequency: holidays/special occasions only Substance Use Type: does not use Exam Initial Vital Signs Initial Vital Signs: Vital Signs Temperature 97.7 F 08/09/23 21:20 Pulse Rate 90 08/09/23 21:20 Respiratory Rate 22 08/09/23 21:20 Blood Pressure 140/80 08/09/23 21:20 Pulse Oximetry 97 08/09/23 21:20 Oxygen Delivery Method Room Air 08/09/23 21:20 Const: Awake, alert, no acute distress, nontoxic appearing Eyes: PERRL, EOMI, conjunctiva normal ENT: Atraumatic, dentition normal, mucous membranes moist Cardiac: regular rate, regular rhythm RESP: unlabored, faint bibasilar crackles, no wheezing GI: Atraumatic, soft, nontender, nondistended, no rebound, no guarding MSK: Atraumatic, full range of motion, pulses equal Skin: Warm, Dry, intact, no rashes Neuro: AO x3, CN II-XII grossly intact, moves all extremities Psych: affect normal, mood normal, not suicidal, not homicidal Course Orders Ordered: ED Orders 08/09/23 21:32 Chest [XR chest 1V] Stat EKG-12 Lead Stat 08/09/23 21:35 BNP [NT-proBNP (BNP-Adult 18+)] Stat CBC Auto Diff [Complete Blood Count AUTO DIFF] Stat CMP [Comprehensive Metabolic Panel] Stat Troponin & CK Cardiac Panel Stat 08/09/23 22:04 Covid-19 + FLU A/B + RSV - PCR Stat 08/09/23 23:25 Consult to DIRECTOR OF RELIGIOUS LIFE - Behavioral Health Director Stat Discontinued Medications Furosemide (Furosemide 40 Mg/4 Ml Vial) 40 mg IV NOW ONE Stop: 08/09/23 22:20 Last Admin: 08/09/23 22:36 Dose: 40 mg Documented By: HIRA Vital Signs Vital signs: Vital Signs - 8 hr 08/09/23 21:20 08/09/23 21:26 08/09/23 21:30 Temperature 97.7 F Pulse Rate 90 90 83 Respiratory Rate 22 30 H 31 H Blood Pressure 140/80 Pulse Oximetry 97 97 97 Oxygen Delivery Method Room Air 08/09/23 21:36 08/09/23 21:36 Temperature Pulse Rate 82 Respiratory Rate 29 H Blood Pressure 153/90 H Pulse Oximetry 97 Oxygen Delivery Method MDM - SOB/Dyspnea Differential Diagnosis Differential diagnosis: Likely acute exacerbation of chronic obstructive airways disease, congestive heart failure and community acquired pneumonia Lab Data 08/09/23 21:35 08/09/23 21:35 Labs: Lab Results 08/09/23 08/09/23 Range/Units 21:35 22:04 WBC 7.4 (4.5-11.0) X10^3/uL RBC 4.30 (4.0-5.2) X10^6/uL Hgb 12.2 (12.0-16.0) g/dL Hct 36.8 (36-46) % MCV 85.7 (80-100) fL MCH 28.3 (26-34) PG MCHC 33.0 (30-36) % RDW 14.0 (11.6-14.8) % Plt Count 223 (150-400) X10^3/uL Neut % (Auto) 74.7 (50-75) % Lymph % (Auto) 15.5 L (25-40) % [place] % (Auto) 5.9 (3-14) % Eos % (Auto) 2.6 (2-4) % Baso % (Auto) 1.3 (0-2) % Neut # (Auto) 5500 (3706-3840) /uL Lymph # (Auto) 1100 (0379-3725) /uL [place] # (Auto) 400 (0-900) /uL Eos # (Auto) 200 (0-450) /uL Baso # (Auto) 100 (0-100) /uL Sodium 137 (137-145) mmol/L Potassium 4.4 (3.4-5.1) mmol/L Chloride 102 (98-107) mmol/L Carbon Dioxide 28 (22-32) mmol/L BUN 27 H (7-17) mg/dL Creatinine 1.09 H (0.52-1.04) mg/dL Estimated GFR 50 L (>60) mL/min BUN/Creatinine Ratio 24.8 H (6-22) Glucose 110 (80-110) mg/dL Calcium 9.4 (8.4-10.2) mg/dL Total Bilirubin 0.6 (0.2-1.3) mg/dL AST 24 (14-36) IU/L ALT 15 (<35) IU/L Alkaline Phosphatase 71 (38-126) U/L Total Creatine Kinase 127 (30-135) U/L Troponin I 0.028 (0.01-0.034) ng/mL NT-Pro-B Natriuret Pep 7730 H (<450) pg/mL Total Protein 7.3 (6.3-8.2) g/dL Albumin 4.1 (3.5-5.0) g/dL Globulin 3.2 (1.7-4.1) g/dL Albumin/Globulin Ratio 1.3 (1.0-2.8) SARS-CoV-2 (PCR) Negative (Negative) Influenza A (RT-PCR) Flu a negative (NEGATIVE) Influenza B (RT-PCR) Flu b negative (NEGATIVE) RSV (PCR) Negative (Negative) ECG Data Interpretation: Normal sinus rhythm, rate 80 beats per minute, left ventricular hypertrophy, left axis deviation, no STEMI MDM Narrative Medical decision making narrative: Nontoxic appearing patient presenting for shortness of breath. Vital signs are stable on room air, patient not requiring any supplemental oxygen. No pitting edema in lower extremities. We will order laboratory work and imaging. Laboratory work is reviewed, creatinine today is 1.09, increased from 0.79 in October 2022, other electrolytes are within normal limits. Chest x-ray shows faint congestion suggestive of pulmonary edema. Given patient's history of congestive heart failure as well as noncompliance with Lasix this is likely the source of patient's dyspnea. Patient was given IV Lasix, she subsequently diuresed well. Patient was informed of all lab and imaging findings, I stated the patient would likely have to go back to taking daily Lasix, a prescription was sent to patient's pharmacy. We will give additional dose of p.o. Lasix prior to patient's departure tomorrow morning (no transportation currently), since the day will be Thanksgiving and pharmacies will be closed. Discharge Plan Departure Patient Disposition: Home Clinical Impression: Congestive heart failure Qualifiers: Heart failure type: unspecified Heart failure chronicity: acute on chronic Qualified Code(s): I50.9 - Heart failure, unspecified Instructions: DI for Heart Failure Activity Restrictions/Additional Instructions: Please start taking your Lasix again. A refill of Lasix has been sent to the [facility] pharmacy. Follow up as soon as possible with your primary care physician to ensure that you are getting rid of enough fluid. Prescriptions: New furosemide 40 mg tablet 40 mg PO DAILY Qty: 30 0RF No Action aspirin 81 mg Tablet,Delayed Release (Dr/Ec) 81 mg PO DAILY Qty: 30 0RF furosemide [Lasix] 40 mg tablet 40 mg PO BID Qty: 60 0RF amlodipine [Norvasc] 5 mg Tablet 10 mg PO DAILY Qty: 30 0RF lisinopril 5 mg Tablet 5 mg PO DAILY Qty: 30 0RF metoprolol tartrate 25 mg Tablet 25 mg PO BID Qty: 60 0RF acetaminophen 325 mg Tablet 650 mg PO Q4H PRN (Reason: Fever/Mild Pain (1-3)) Qty: 90 0RF Referrals: Rohit Zuniga MD [Primary Care Provider] - Stand Alone Forms: Patient Portal/API
[2023-08-09 21:44] LABS: Add Manual Diff / Slide Review NO; Basophils Absolute Auto 100 /uL (0-100); Basophils Percent Auto 1.3 % (0-2); Eosinophils Absolute Auto 200 /uL (0-450); Eosinophils Percent Auto 2.6 % (2-4); Hematocrit 36.8 % (36-46); Hemoglobin 12.2 g/dL (12.0-16.0); Lymphocytes Absolute Auto 1100 /uL (1100-4500); Lymphocytes Percent Auto 15.5 % (25-40); Mean Corpuscular Hemoglobin 28.3 PG (26-34); Mean Corpuscular Volume 85.7 fL (80-100); Monocytes Absolute Auto 400 /uL (0-900); Monocytes Percent Auto 5.9 % (3-14); Neutrophils Absolute Auto 5500 /uL (1500-7000); Neutrophils Percent Auto 74.7 % (50-75); Platelet Count 223 X10^3/uL (150-400); White Blood Cell Count 7.4 X10^3/uL (4.5-11.0)
[2023-08-09 22:00] LABS: Alanine Aminotransferase 15 IU/L (<35); Albumin 4.1 g/dL (3.5-5.0); Albumin Globulin Ratio 1.3 (1.0-2.8); Alkaline Phosphatase 71 U/L (38-126); Aspartate Aminotransferase 24 IU/L (14-36); BUN Creatinine Ratio 24.8 (6-22); Bilirubin Total 0.6 mg/dL (0.2-1.3); Blood Urea Nitrogen 27 mg/dL (7-17); Calcium 9.4 mg/dL (8.4-10.2); Carbon Dioxide 28 mmol/L (22-32); Chloride 102 mmol/L (98-107); Creatine Kinase 127 U/L (30-135); Estimated Glomerular Filt Rate 50 mL/min (>60); Globulin 3.2 g/dL (1.7-4.1); Glucose 110 mg/dL (80-110); HEMOLYSIS < 15 (0-50); Potassium 4.4 mmol/L (3.4-5.1); Sodium 137 mmol/L (137-145); Total Protein 7.3 g/dL (6.3-8.2)
[2023-08-09 22:11] LABS: NT-proBNP (BNP-Adult 18+) 7730 pg/mL (<450); Troponin I 0.028 ng/mL (0.01-0.034)
[2023-08-09] MEDS: FUROSEMIDE 40 MG/4 ML VIAL IV (22:36)
[2023-08-09 23:12] LABS: Influenza A - CEPHEID Flu A NEGATIVE (NEGATIVE); Influenza B - CEPHEID Flu B NEGATIVE (NEGATIVE); Respiratory Syncytial Virus Negative (Negative)
[2023-08-09 23:18] LABS: COVID-19 CEPHEID 4-PLEX PCR Negative (Negative)
--- NOTE | 2023-08-09 23:40 | PC.NURSE ---
Addendum entered by Anahi Thomason CNA 08/10/23 00:03: MICRO COMPUTER SPECIALIST note: Spoke to Angelica at [facility] again at [phone]. Asked what their hours were for the holiday, that I've exhausted all my options to get her home. She said she's the only one working tomorrow, she volunteered to work it. She said their hours are from [id number]. She offered to come in early at 1000 to take the patient home. Thanked her profusely. Will have a taxi voucher ready with patient. Informed propellant charge zone assembler Allyn about it. Addendum entered by Anahi Thomason CNA 08/09/23 23:47: EDGAR note [id number]: Spoke to [facility] dispatch. [facility], [facility], and [facility] all declined non-emergent transport. Let GIGI Ewing and Doctor Raffi know. Original Note: EDGAR note: Attempting to get patient a way home. Spoke to Angelica at [facility]'s taxi. Because of the holiday they are very busy, only have one taxi, and can't [place]. Asked if patient has any friends or family that could give her a ride. Patient said no. She said she knew of Andriy Mata, whom is currently staying on his dad's boat in [place], off the [facility], but didn't know his number. I asked if she had anyone else. She said the mayor of [place], Jalen, but didn't know his number either. I asked if he would pick her up if I could find his number and get a hold of him yeah, I think so. I went through the list for a possible BLS transport. Patient didn't meet any of the criteria. Talked to [employer]IG[employer] Ewing and Juanjo Ervin to try to find a solution. Kaylin suggested calling the [facility], because sometimes they can help with this, especially given the holiday. Called the [facility] non-emergent number at [phone], and spoke to dispatch. They said they would put a message in and maybe they could help. Waiting for a phone call.
[2023-08-10] VITALS: PULSE 78; RESP 26; O2SAT 94
[2023-08-10 00:30] VITALS: PULSE 78; RESP 23; O2SAT 94
[2023-08-10 01:00] VITALS: PULSE 76; RESP 19; O2SAT 94
[2023-08-10 01:30] VITALS: PULSE 74; RESP 19
[2023-08-10] MEDS: FUROSEMIDE 40 MG TABLET PO (08:26)
--- NOTE | 2023-08-10 08:32 | PC.NURSE ---
Pt received a call from a friend who she had left a voicemail for. Pt asked friend for a ride will you f-ing come and pick me up, [email or web address]. Pt states her friend is coming to get her.
[2023-08-10 08:50] VITALS: BP 148/73; PULSE 90; RESP 20; O2SAT 95
== END 2023-08-10 08:50 | disposition home or self-care (01) ==
PROVIDERS: Emergency Provider Emergency Medicine; PCP Internal Medicine
DX: I11.0 Hypertensive heart disease with heart failure (principal); I50.9 Heart failure, unspecified; F17.210 Nicotine dependence, cigarettes, uncomplicated
CPT/HCPCS: 0241U; 36415; 71045; 80053; 82550; 83880; 84484; 85025; 93005; 93010; 96374; 99284; J1940

== ENCOUNTER 2023-09-12 09:26 | Emergency (ER) | payer OTHER, SELFPAY ==
[2022-10-23 05:33] VITALS: BMI 27.3
[2023-09-12] VITALS (12 sets, daily range): BP systolic 157–177; BP diastolic 71–93; PULSE 76–90; RESP 19–31; O2SAT 82–100; BMI 29.1
--- NOTE | 2023-09-12 09:32 | ED.SOB ---
HPI - SOB/Dyspnea General Chief Complaint: Shortness of Breath/Dyspnea Stated Complaint: SOB Time Seen by Provider: 09/12/23 09:29 History of Present Illness HPI Narrative: Patient is a 83-year-old female history of pulmonary hypertension, hyperlipidemia, congestive heart failure, coronary artery disease, type B aortic dissection presenting today with some shortness of breath. She is not answering our questions but is following commands. She supposedly has been asking for water the water may have been turned off at her house. She is not hypoxic or in respiratory distress. She was seen and evaluated here August 09 with congestive heart failure. She is given water upon arrival. Related Data Previous Rx's Medication Instructions Recorded acetaminophen 325 mg tablet 650 mg (2 x 325 mg) PO Q4H PRN 07/07/22 Fever/Mild Pain (1-3) #90 tabs amlodipine 5 mg tablet (Norvasc) 10 mg (2 x 5 mg) PO DAILY #30 tabs 10/26/22 aspirin 81 mg tablet,delayed 81 mg PO DAILY #30 tabs 10/26/22 release furosemide 40 mg tablet (Lasix) 40 mg PO BID #60 tabs 10/26/22 lisinopril 5 mg tablet 5 mg PO DAILY #30 tabs 10/26/22 metoprolol tartrate 25 mg tablet 25 mg PO BID #60 tabs 10/26/22 furosemide 40 mg tablet 40 mg PO DAILY #30 tabs 08/09/23 Allergies Allergy/AdvReac Type Severity Reaction Status Date / Time No Known Drug Allergies Allergy Verified 08/17/22 22:58 Patient History Medical History Pulmonary hypertension Systolic heart failure Hypertension Bipolar 1 disorder Dissection of aorta, thoracic Melanoma Contusion of knee, right Surgical History History of cholecystectomy History of appendectomy Family History Other No family history of disorders Social History household members: none Smoking Status: Current some day smoker alcohol intake: never Smoking Status: Current some day smoker alcohol intake frequency: holidays/special occasions only Substance Use Type: does not use Exam Initial Vital Signs Initial Vital Signs: Vital Signs Pulse Rate 77 12/26/23 09:29 Blood Pressure 177/92 H 09/12/23 09:29 Pulse Oximetry 82 L 09/12/23 09:29 GENERAL: Alert 83-year-old female follows commands not answering questions no acute distress HEENT: Head atraumatic,EOMI, pupils reactive, face symmetric, moist mucous membranes CARDIOVASCULAR: Regular rate and rhythm without murmurs, rubs or gallops. RESPIRATORY: Mild tachypnea clear breath sounds no wheezes rales or rhonchi ABDOMEN: Soft, nontender. Normoactive bowel sounds all 4 quadrants. No guarding or rebound. EXTREMITIES: Normal range of motion, no clubbing or edema. Neurovascularly intact NEUROLOGICAL: No facial droop dentofacial orthopedics dentist strength equal bilaterally able to hold up both legs SKIN: Warm, dry, no laceration, no petechiae, no rashes or lesions. Course Orders Ordered: ED Orders 09/12/23 10:33 US periph venous low extrem rt Stat 09/12/23 11:08 Urine Drug Screen, Rapid Stat Discontinued Medications Furosemide (Furosemide 40 Mg Tablet) 40 mg PO NOW ONE Stop: 09/12/23 12:20 Last Admin: 09/12/23 12:23 Dose: 40 mg Documented By: LUIS Olanzapine (Olanzapine Odt 10 Mg Tab) 5 mg PO NOW ONE Stop: 09/12/23 12:20 Last Admin: 09/12/23 12:24 Dose: 5 mg Documented By: LUIS Vital Signs Vital signs: Vital Signs - 8 hr 09/12/23 11:30 09/12/23 11:30 09/12/23 12:00 Pulse Rate 79 82 Respiratory Rate 19 28 H Blood Pressure 157/81 H Pulse Oximetry 92 09/12/23 12:00 09/12/23 12:14 Pulse Rate 90 Respiratory Rate 22 Blood Pressure 164/71 H Pulse Oximetry 95 MDM - SOB/Dyspnea Lab Data 09/12/23 09:30 09/12/23 09:30 Labs: Lab Results 09/12/23 09/12/23 Range/Units 09:30 11:08 WBC 9.2 (4.5-11.0) X10^3/uL RBC 4.04 (4.0-5.2) X10^6/uL Hgb 11.3 L (12.0-16.0) g/dL Hct 34.3 L (36-46) % MCV 84.8 (80-100) fL MCH 27.9 (26-34) PG MCHC 32.9 (30-36) % RDW 14.8 (11.6-14.8) % Plt Count 253 (150-400) X10^3/uL Neut % (Auto) 74.3 (50-75) % Lymph % (Auto) 13.8 L (25-40) % Saline % (Auto) 6.8 (3-14) % Eos % (Auto) 4.0 (2-4) % Baso % (Auto) 1.1 (0-2) % Neut # (Auto) 6800 (3481-5129) /uL Lymph # (Auto) 1300 (3657-3777) /uL Saline # (Auto) 600 (0-900) /uL Eos # (Auto) 400 (0-450) /uL Baso # (Auto) 100 (0-100) /uL PT 11.1 (9.4-12.5) SECONDS INR 1.0 (0.9-1.3) APTT 26 (25.1-36.5) SECONDS D-Dimer 3532 H (<500) ng/ml Sodium 135 L (137-145) mmol/L Potassium 4.2 (3.4-5.1) mmol/L Chloride 106 (98-107) mmol/L Carbon Dioxide 23 (22-32) mmol/L BUN 17 (7-17) mg/dL Creatinine 0.67 (0.52-1.04) mg/dL Estimated GFR > 60 (>60) mL/min BUN/Creatinine Ratio 25.4 H (6-22) Glucose 103 (80-110) mg/dL Calcium 8.7 (8.4-10.2) mg/dL Total Bilirubin 0.5 (0.2-1.3) mg/dL AST 26 (14-36) IU/L ALT 17 (<35) IU/L Alkaline Phosphatase 73 (38-126) U/L Total Creatine Kinase 71 (30-135) U/L Troponin I 0.029 (0.01-0.034) ng/mL NT-Pro-B Natriuret Pep 5240 H (<450) pg/mL Total Protein 6.6 (6.3-8.2) g/dL Albumin 3.7 (3.5-5.0) g/dL Globulin 2.9 (1.7-4.1) g/dL Albumin/Globulin Ratio 1.3 (1.0-2.8) Lipase 59 (23-300) U/L TSH 0.761 (0.47-4.68) uIU/mL Salicylates < 1.0 (<20) mg/dL U Opiates 300ng/mL cut Negative (Negative) Ur Oxycodone Screen Negative (Negative) Urine Methadone Screen Negative (Negative) Acetaminophen < 10 (10-30) ug/mL Ur Barbiturates Screen Negative (Negative) U Tricyclic Antidepress Negative (Negative) Ur Phencyclidine Scrn Negative (Negative) Ur Amphetamines Screen Negative (Negative) U Methamphetamines Scrn Negative (Negative) Ur MDMA Scrn (Ecstasy) Negative (Negative) U Benzodiazepines Scrn Negative (Negative) Urine Cocaine Screen Negative (Negative) U Marijuana (THC) Screen Negative (Negative) Urine pH Normal (Normal) Urine Specific [place] Normal (Normal) Ethyl Alcohol < 10 ( - 10) mg/dL Ur Creatinine Normal (Normal) Chlamy pneumoniae PCR Not detected (Not Detect) Adenovirus (PCR) Not detected (Not Detect) B.parapertussis DNA PCR Not detected (Not Detecte) Coronavirus OC43 (PCR) Not detected (Not Detect) Coronavirus HKU1 (PCR) Not detected (Not Detect) Coronavirus 229E (PCR) Not detected (Not Detect) SARS-CoV-2 (PCR) Not detected (Not Detecte) Coronavirus NL63 (PCR) Not detected (Not Detect) Human Metapneumovir PCR Not detected (Not Detect) Influenza Type A (PCR) Not detected (Not Detect) Influenza Type B (PCR) Not detected (Not Detect) M. pneumoniae (PCR) Not detected (Not Detect) Parainfluenza 1 (PCR) Not detected (Not Detect) Parainfluenza 2 (PCR) Not detected (Not Detect) Parainfluenza 3 (PCR) Not detected (Not Detect) Parainfluenza 4 (PCR) Not detected (Not Detect) RSV (PCR) Not detected (Not Detect) Entero/Rhino (PCR) Not detected (Not Detect) Urine Dip Bedside Urine Glucose Negative Bedside Urine Bilirubin - Negative Bedside Urine Ketone - Negative Urine Specific [place] 1.015 Bedside Urine Occult Blood - Negative Bedside Urine pH 6.0 Bedside Urine Protein - Negative Bedside Urine Urobilinogen - Negative Bedside Urine Nitrite - Negative Bedside Urine Leukocytes - Negative Esterase Imaging Data US - DVT: Radiologist's Impression: PROCEDURE: US PERIP VENOUS LOW EXTREM RT INDICATIONS: EDEMA TECHNIQUE: Real-time imaging, as well as color and pulse Doppler interrogation, were performed of the lower extremity deep veins from the inguinal ligament to the popliteal fossa, with documentation of the visualized calf veins. COMPARISON: [facility], [place], US PERIP VENOUS LOW EXTREM RT, 07/05/2022, 19:59. FINDINGS: The common femoral, femoral, popliteal, and the visualized calf veins are normally compressible, and free of intraluminal thrombus. Color and pulse Doppler demonstrate normal phasic intraluminal flow. There is normal augmentation response to distal compression maneuver. Upper thigh greater saphenous vein and saphenofemoral junction are patent. IMPRESSION: Negative right lower extremity duplex venous ultrasound for DVT. Dictated by: Moshe Atkins M.D. on 09/12/2023 at 11:45 CT scan - chest: Radiologist's Impression: PROCEDURE: CT ANGIO CHEST PE PROTOCOL INDICATIONS: elevated dimer, prior type B dissection TECHNIQUE: After the administration of intravenous contrast, 2 mm thick sections acquired from the pulmonary apices to the posterior costophrenic angles. 3-dimensional maximum intensity projection (MIP) coronal and sagittal reformats were then acquired through the thorax. For radiation dose reduction, the following was used: automated exposure control, adjustment of mA and/or kV according to patient size. COMPARISON: [facility], [place], CT ANGIO CHEST PE PROTOCOL, 08/13/2022, 0:06. FINDINGS: Image quality: Diagnostic. Pulmonary arteries: Pulmonary arteries are normal in size, and demonstrate no intraluminal filling defects to suggest central pulmonary embolism. Lower Neck: No enlarged lymph nodes. Thyroid: The thyroid has a heterogeneous appearance and is incompletely characterized on this limited view. Axillae: No enlarged lymph nodes. Chest Wall: Unremarkable. Bones: Severe compression deformities are present throughout the thoracic spine the severe compression deformities at T5 and T6 are new when compared with the study dated August 13, 2022. Lungs and Pleura: Lung volumes are low. There are small bilateral low-density pleural effusions and compressive atelectasis in the dependent lung bases. Peripheral interlobular septal thickening is present suggesting either pulmonary edema or fibrotic changes. Paraseptal emphysema is present at the apices. No pneumothorax Heart: The heart is enlarged. No pericardial effusion. Thoracic Vessels: There is ectasia of the ascending thoracic aorta which measures up to 4.2 cm in oblique axial diameter. Scattered atheromatous calcifications are present within the aortic arch. Mediastinum and [place]: No enlarged lymph nodes. Esophagus: No wall thickening. No hiatal hernia. Upper Abdomen: Visualized upper abdomen solid organs and bowel loops appear normal. IMPRESSION: 1. No acute pulmonary embolus. 2. Low lung volumes, small pleural effusions, and mild pulmonary edema versus pulmonary fibrosis. 3. Cardiomegaly. 4. Ectasia of the ascending thoracic aorta. 5. New T5 and T6 compression deformities in addition to multiple other unchanged severe compression deformities of the thoracic spine. Dictated by: Amy Stephens M.D. on 09/12/2023 at 10:33 Approved by: Amy Stephens M.D. on 09/12/2023 at 10:40 CT scan - head: Radiologist's Impression: PROCEDURE: CT HEAD/BRAIN WO CON INDICATIONS: altered mental status TECHNIQUE: Noncontrast 4.5 mm thick angled axial sections acquired from the foramen magnum to the vertex, with coronal and sagittal reformats. For radiation dose reduction, the following was used: automated exposure control, adjustment of mA and/or kV according to patient size. COMPARISON: [facility], CT, CT HEAD/BRAIN WO CON, 07/04/2022, 0:59. FINDINGS: Image quality: Diagnostic. CSF spaces: Basal cisterns are patent. No extra-axial fluid collections. The ventricles are symmetric in size and shape. Brain: No intracranial bleeds or masses. There is cerebral volume loss for age, with resultant ventricular and sulcal prominence. There are moderate to severe periventricular and deep white matter chronic small vessel ischemic changes. There is intracranial internal carotid artery atherosclerosis. Skull and face: Calvarium and visualized facial bones appear intact, without suspicious lesions. Sinuses: Visualized sinuses and mastoids are clear. IMPRESSION: 1. Age-related volume loss and moderate to severe small vessel ischemic change. 2. No acute intracranial process. Dictated by: Moshe Atkins M.D. on 09/12/2023 at 10:05 Approved by: Moshe Atkins M.D. on 09/12/2023 at 10:07 Chest x-ray: Radiologist's Impression: PROCEDURE: XR CHEST 1V INDICATIONS: short of breath TECHNIQUE: One view of the chest was acquired. COMPARISON: [facility], [place], XR CHEST 1V, 08/09/2023, 21:33. FINDINGS: Surgical changes and devices: None. Lungs and pleura: Lung volumes are low. There is diffuse interstitial prominence and pulmonary vascular engorgement. Mediastinum: The aorta is markedly tortuous and appears ectatic, as before. Atheromatous calcifications are present throughout. The heart is enlarged. Bones and chest wall: No suspicious bony lesions. Overlying soft tissues appear unremarkable. IMPRESSION: 1. Cardiomegaly, interstitial prominence and pulmonary vascular engorgement suggesting fluid overload. 2. Interstitial radiopacities may also represent some underlying fibrotic change. 3. Aortic atherosclerosis. Dictated by: Amy Stephens M.D. on 09/12/2023 at 10:02 Approved by: Amy Stephens M.D. on 09/12/2023 at 10:03 ECG Data Interpretation: Sinus rhythm rate 77 NH interval 164 QRS 120 QTC 450 she does have some T-wave inversions in lead 3 V2 and V3 which are stable and similar to previous EKG in July 2022 MDM Narrative Medical decision making narrative: Patient 83-year-old female history of bipolar multiple comorbidities presenting today with shortness of breath but not answering questions initially Patient ultimately starts talking again. She was recently hospitalized with [facility] for about 6 days. She was released. She reports that due to [place] she was unable to get any of her medications. She is A&O x4. She has no idea why she is here or what EMS brought her here. She has absolutely no complaints. No chest pain shortness of breath. She does have significant swelling of her right leg. She reports that she has lymphedema in that leg secondary to cancer. Sometimes it is swollen and sometimes it is. She has significant workup: Blood work: No leukocytosis no anemia, no electrolyte abnormality, troponin is-0.029 previously 0.028, BNP 52 40, previously 7740 without evidence of fluid overload, toxicology screen negative Imaging reviewed head CT, no abnormalities chest x-ray, cardiomegaly with vascular engorgement suggesting fluid overload and CT angio new compression fractures T5 and T6 with cardiomegaly and no pulmonary embolus, DVT ultrasound is negative Patient does have some mild shortness of breath but not hypoxic she ambulated well. BNP is lower than what it has been previously. She has been evaluated by social work no need for involuntary placement. It does not need anymore voluntary placement for mental health She has given a dose of Lasix and olanzapine in the ED Discharge Plan Departure Patient Disposition: Home Clinical Impression: Congestive heart failure Instructions: Heart Failure Activity Restrictions/Additional Instructions: *You have been diagnosed with congestive heart failure *What to do: At this time please take your medications so that you do not have any difficulty breathing *Continue to take medications as directed Furosemide 40 mg once daily *Follow up with your primary care provider in 2-3 days or call [phone] *Return to ER if you should have increased chest pain shortness of breath confusion or any new, worsening or concerning symptoms Prescriptions: No Action aspirin 81 mg Tablet,Delayed Release (Dr/Ec) 81 mg PO DAILY Qty: 30 0RF furosemide [Lasix] 40 mg tablet 40 mg PO BID Qty: 60 0RF amlodipine [Norvasc] 5 mg Tablet 10 mg PO DAILY Qty: 30 0RF lisinopril 5 mg Tablet 5 mg PO DAILY Qty: 30 0RF metoprolol tartrate 25 mg Tablet 25 mg PO BID Qty: 60 0RF furosemide 40 mg tablet 40 mg PO DAILY Qty: 30 0RF acetaminophen 325 mg Tablet 650 mg PO Q4H PRN (Reason: Fever/Mild Pain (1-3)) Qty: 90 0RF Referrals: Rohit Zuniga MD [Primary Care Provider] - Stand Alone Forms: Patient Portal/API
[2023-09-12 09:39] LABS: Add Manual Diff / Slide Review NO; Basophils Absolute Auto 100 /uL (0-100); Basophils Percent Auto 1.1 % (0-2); Eosinophils Absolute Auto 400 /uL (0-450); Hematocrit 34.3 % (36-46); Hemoglobin 11.3 g/dL (12.0-16.0); Lymphocytes Absolute Auto 1300 /uL (1100-4500); Lymphocytes Percent Auto 13.8 % (25-40); Mean Corpuscular HGB Conc 32.9 % (30-36); Mean Corpuscular Hemoglobin 27.9 PG (26-34); Mean Corpuscular Volume 84.8 fL (80-100); Monocytes Absolute Auto 600 /uL (0-900); Monocytes Percent Auto 6.8 % (3-14); Neutrophils Absolute Auto 6800 /uL (1500-7000); Neutrophils Percent Auto 74.3 % (50-75); Platelet Count 253 X10^3/uL (150-400); Red Blood Cell Count 4.04 X10^6/uL (4.0-5.2); Red Cell Distribution Width 14.8 % (11.6-14.8); White Blood Cell Count 9.2 X10^3/uL (4.5-11.0)
[2023-09-12 09:49] LABS: Alanine Aminotransferase 17 IU/L (<35); Albumin 3.7 g/dL (3.5-5.0); Albumin Globulin Ratio 1.3 (1.0-2.8); Alkaline Phosphatase 73 U/L (38-126); Aspartate Aminotransferase 26 IU/L (14-36); BUN Creatinine Ratio 25.4 (6-22); Bilirubin Total 0.5 mg/dL (0.2-1.3); Blood Urea Nitrogen 17 mg/dL (7-17); Calcium 8.7 mg/dL (8.4-10.2); Carbon Dioxide 23 mmol/L (22-32); Chloride 106 mmol/L (98-107); Creatine Kinase 71 U/L (30-135); Estimated Glomerular Filt Rate > 60 mL/min (>60); Globulin 2.9 g/dL (1.7-4.1); Glucose 103 mg/dL (80-110); HEMOLYSIS 16 (0-50); Lipase 59 U/L (23-300); Potassium 4.2 mmol/L (3.4-5.1); Sodium 135 mmol/L (137-145); Total Protein 6.6 g/dL (6.3-8.2)
[2023-09-12 09:50] LABS: Prothrombin Time 11.1 SECONDS (9.4-12.5)
[2023-09-12 09:52] LABS: D Dimer 3532 ng/ml (<500)
[2023-09-12 09:53] LABS: PTT Partial Thromboplastin Tim 26 SECONDS (25.1-36.5)
--- NOTE | 2023-09-12 09:56 | DI.CT.S_ITS ---
PROCEDURE: CT HEAD/BRAIN WO CON INDICATIONS: altered mental status TECHNIQUE: Noncontrast 4.5 mm thick angled axial sections acquired from the foramen magnum to the vertex, with coronal and sagittal reformats. For radiation dose reduction, the following was used: automated exposure control, adjustment of mA and/or kV according to patient size. COMPARISON: [facility], CT, CT HEAD/BRAIN WO CON, 07/04/2022, 0:59. FINDINGS: Image quality: Diagnostic. CSF spaces: Basal cisterns are patent. No extra-axial fluid collections. The ventricles are symmetric in size and shape. Brain: No intracranial bleeds or masses. There is cerebral volume loss for age, with resultant ventricular and sulcal prominence. There are moderate to severe periventricular and deep white matter chronic small vessel ischemic changes. There is intracranial internal carotid artery atherosclerosis. Skull and face: Calvarium and visualized facial bones appear intact, without suspicious lesions. Sinuses: Visualized sinuses and mastoids are clear. IMPRESSION: 1. Age-related volume loss and moderate to severe small vessel ischemic change. 2. No acute intracranial process. Dictated by: Moshe Atkins M.D. on 09/12/2023 at 10:05 Approved by: Moshe Atkins M.D. on 09/12/2023 at 10:07
[2023-09-12 09:59] LABS: Troponin I 0.029 ng/mL (0.01-0.034)
--- NOTE | 2023-09-12 10:11 | DI.CT.S_ITS ---
PROCEDURE: CT ANGIO CHEST PE PROTOCOL INDICATIONS: elevated dimer, prior type B dissection TECHNIQUE: After the administration of intravenous contrast, 2 mm thick sections acquired from the pulmonary apices to the posterior costophrenic angles. 3-dimensional maximum intensity projection (MIP) coronal and sagittal reformats were then acquired through the thorax. For radiation dose reduction, the following was used: automated exposure control, adjustment of mA and/or kV according to patient size. COMPARISON: [facility], CT, CT ANGIO CHEST PE PROTOCOL, 08/13/2022, 0:06. FINDINGS: Image quality: Diagnostic. Pulmonary arteries: Pulmonary arteries are normal in size, and demonstrate no intraluminal filling defects to suggest central pulmonary embolism. Lower Neck: No enlarged lymph nodes. Thyroid: The thyroid has a heterogeneous appearance and is incompletely characterized on this limited view. Axillae: No enlarged lymph nodes. Chest Wall: Unremarkable. Bones: Severe compression deformities are present throughout the thoracic spine the severe compression deformities at T5 and T6 are new when compared with the study dated August 13, 2022. Lungs and Pleura: Lung volumes are low. There are small bilateral low-density pleural effusions and compressive atelectasis in the dependent lung bases. Peripheral interlobular septal thickening is present suggesting either pulmonary edema or fibrotic changes. Paraseptal emphysema is present at the apices. No pneumothorax Heart: The heart is enlarged. No pericardial effusion. Thoracic Vessels: There is ectasia of the ascending thoracic aorta which measures up to 4.2 cm in oblique axial diameter. Scattered atheromatous calcifications are present within the aortic arch. Mediastinum and [place]: No enlarged lymph nodes. Esophagus: No wall thickening. No hiatal hernia. Upper Abdomen: Visualized upper abdomen solid organs and bowel loops appear normal. IMPRESSION: 1. No acute pulmonary embolus. 2. Low lung volumes, small pleural effusions, and mild pulmonary edema versus pulmonary fibrosis. 3. Cardiomegaly. 4. Ectasia of the ascending thoracic aorta. 5. New T5 and T6 compression deformities in addition to multiple other unchanged severe compression deformities of the thoracic spine. Dictated by: Amy Stephens M.D. on 09/12/2023 at 10:33 Approved by: Amy Stephens M.D. on 09/12/2023 at 10:40
[2023-09-12 10:12] LABS: NT-proBNP (BNP-Adult 18+) 5240 pg/mL (<450)
--- NOTE | 2023-09-12 10:33 | DI.US.S_ITS ---
PROCEDURE: US PERIP VENOUS LOW EXTREM RT INDICATIONS: EDEMA TECHNIQUE: Real-time imaging, as well as color and pulse Doppler interrogation, were performed of the lower extremity deep veins from the inguinal ligament to the popliteal fossa, with documentation of the visualized calf veins. COMPARISON: [facility], , [facility] VENOUS LOW EXTREM RT, 07/05/2022, 19:59. FINDINGS: The common femoral, femoral, popliteal, and the visualized calf veins are normally compressible, and free of intraluminal thrombus. Color and pulse Doppler demonstrate normal phasic intraluminal flow. There is normal augmentation response to distal compression maneuver. Upper thigh greater saphenous vein and saphenofemoral junction are patent. IMPRESSION: Negative right lower extremity duplex venous ultrasound for DVT. Dictated by: Moshe Atkins M.D. on 09/12/2023 at 11:45 Approved by: Moshe Atkins M.D. on 09/12/2023 at 11:46
[2023-09-12 10:39] LABS: Acetaminophen < 10 ug/mL (10-30); Adenovirus Not Detected (Not Detect); B. parapertussis Not Detected (Not Detecte); Bordetella pertussis Not Detected (Not Detect); Chlamydophila pneumoniae Not Detected (Not Detect); Coronavirus 229E Not Detected (Not Detect); Coronavirus HKU1 Not Detected (Not Detect); Coronavirus NL 63 Not Detected (Not Detect); Coronavirus OC43 Not Detected (Not Detect); Ethanol (ETOH) < 10 mg/dL; Human Metapneumovirus Not Detected (Not Detect); Human Rhinovirus/Enterovirus Not Detected (Not Detect); Influenza A Not Detected (Not Detect); Influenza B Not Detected (Not Detect); Mycoplasma pneumoniae Not Detected (Not Detect); Parainfluenza Virus 1 Not Detected (Not Detect); Parainfluenza Virus 2 Not Detected (Not Detect); Parainfluenza Virus 3 Not Detected (Not Detect); Parainfluenza Virus 4 Not Detected (Not Detect); Respiratory Syncytial Virus Not Detected (Not Detect); SARS- CoV-2 Not Detected (Not Detecte); Salicylate < 1.0 mg/dL (<20)
[2023-09-12 10:43] LABS: Thyroid Stimulating Hormone 0.761 uIU/mL (0.47-4.68)
[2023-09-12 11:41] LABS: Ur Creatinine Normal (Normal); Ur Specific Gravity Normal (Normal); Urine Tetrahydrocannabinol Negative (Negative); Urine pH Normal (Normal)
[2023-09-12 11:42] LABS: UR Morphine/Opiate cutoff 300 Negative (Negative); Urine Amphetamines Negative (Negative); Urine Barbiturates Negative (Negative); Urine Benzodiazepines Negative (Negative); Urine Cocaine Negative (Negative); Urine MDMA Negative (Negative); Urine Methadone Negative (Negative); Urine Methamphetamines Negative (Negative); Urine Oxycodone Negative (Negative); Urine Phencyclidine Negative (Negative); Urine Tricyclic Antidepressant Negative (Negative)
--- NOTE | 2023-09-12 12:17 | CM.SWNOTE ---
Addendum entered by Jessica Valentin 09/12/23 13:11: [facility] [employer] calls ED after taking patient home and patient states that the hospital will pay for the taxi fare. Upon d/c patient clearly stated that she had money at home and would pay for taxi. ED staff reviews this with ED director and agrees to give Tyra a taxi voucher to cover cost of transport. Upon future d/c, patient likely not able to utilize [facility]. Jessica Valentin, [facility] Original Note: ED WEDDING DECORATOR Note Patient is 83 y/o female who presents to ED via EMS. Patient endorses she does not know why she is here, she states that she was at a coffee shop and someone at the coffee shop called 911. EMS reports that there have been a few EMS calls in the past week regarding patient's MH. EMS chief complaint for patient is SOB. Patient has [facility] insurance. WEDDING DECORATOR calls [facility] and leaves to inquire if patient has signed up for Medicaid or qualifies for medicaid insurance. Per [facility], patient had a week long inpatient stay at [facility] due to concern for bipolar disorder current episode manic with severe psychotic features. Per EMR, patient has hx of APS reports and [facility] referrals. Patient has medical hx of systolic heart failure, hypertension, SOB, elevated troponin, melanoma, Dissection of aorta -thoracic and CHF. WEDDING DECORATOR enters room to meet with patient, patient presents as calm and communicative. Patient presents as A/Ox4. Patient endorses she feels safe at home, patient denies SI or HI, patient presents as coherent. Patient requests to go home and states she can pay for a taxi. Patient endorses she lives alone in [place], patient states her neighbors check on her, patient states she has a son in [place] but he does not check on her. Patient endorses independence with ADLs, denies need for DME, patient endorses she has working water and denies issues at home. Patient endorses she has access to food. Patient endorses she gets around by walking or driving. Patient passes ambulation trial in ED. WEDDING DECORATOR asks about patient's PCP, she states that she has not seen PCP in quite some time because he is in [place]. Patient endorses preference for PCP is [place]. WEDDING DECORATOR attempts to call [facility] in [place] but they are closed today. Patient states she currently does not have a working phone but plans to get her phone fixed. WEDDING DECORATOR provides contact information for [facility] in [place] and reviews that they will be accepting patient's insurance in 2023. [facility] calls [employer] and they state they can transport patient home. Plan: patient to d/c to home upon medical clearance via taxi. Patient to f/u with establishing care with PCP. Jessica Valentin, MEDICAL CARE MANAGER
[2023-09-12] MEDS: FUROSEMIDE 40 MG TABLET PO (12:23)
[2023-09-12] MEDS: OLANZapine ODT 10 MG TAB 5 MG PO (12:24)
== END 2023-09-12 12:30 | disposition home or self-care (01) ==
PROVIDERS: Emergency Provider Emergency Medicine; PCP Internal Medicine
DX: I50.9 Heart failure, unspecified (principal); R06.02 Shortness of breath; R41.82 Altered mental status, unspecified; R60.9 Edema, unspecified
CPT/HCPCS: 70450; 71045; 71275; 80053; 80305; 80320; 80329; 81003; 82550; 83690; 83880; 84443; 84484; 85025; 85379; 85610; 85730; 87633; 93005; 93971; 99284; G0480; Q9967

== ENCOUNTER 2023-10-12 04:01 | Emergency (ER) | payer OTHER, SELFPAY ==
[2022-10-23 05:33] VITALS: BMI 27.3
[2023-10-12] VITALS (11 sets, daily range): BP systolic 101–123; BP diastolic 52–79; PULSE 61–70; RESP 19–32; TEMP 36.3–37.1; O2SAT 95–96; BMI 29.0
--- NOTE | 2023-10-12 04:17 | ED_ITS ---
HPI - General Adult General Chief complaint: Shortness of Breath/Dyspnea Stated complaint: SOB Time Seen by Provider: 10/12/23 04:05 History of Present Illness HPI narrative: 83-year-old female with history of hypertension, smoking, CHF presents by EMS for evaluation of increasing shortness of breath over the past few days. She complains of exertional dyspnea but denies orthopnea. She denies any weight gain but instead complains that she has been losing weight. She has a history of cancer with surgical resection between the toes of her right foot and has had problems with lymphedema ever since. She states that when she is fluid overloaded she tends to get significant swelling in her right leg but not so much in the left. She is admitted to this increased swelling for the past few days. She denies any change in medications or diet. She denies runny nose, sore throat or cough Related Data Previous Rx's Medication Instructions Recorded acetaminophen 325 mg tablet 650 mg (2 x 325 mg) PO Q4H PRN 07/07/22 Fever/Mild Pain (1-3) #90 tabs amlodipine 5 mg tablet (Norvasc) 10 mg (2 x 5 mg) PO DAILY #30 tabs 10/26/22 aspirin 81 mg tablet,delayed 81 mg PO DAILY #30 tabs 10/26/22 release furosemide 40 mg tablet (Lasix) 40 mg PO BID #60 tabs 10/26/22 lisinopril 5 mg tablet 5 mg PO DAILY #30 tabs 10/26/22 metoprolol tartrate 25 mg tablet 25 mg PO BID #60 tabs 10/26/22 furosemide 40 mg tablet 40 mg PO DAILY #30 tabs 08/09/23 Allergies Allergy/AdvReac Type Severity Reaction Status Date / Time No Known Drug Allergies Allergy Verified 08/17/22 22:58 Review of Systems Review of Systems Narrative: GENERAL: See HPI HEENT: Denies sinus pain, ear pain, sore throat, difficulty swallowing, dizziness. RESPIRATORY: See HPI CARDIOVASCULAR: See HPI GASTROINTESTINAL: Denies nausea, vomiting, abdominal pain, diarrhea, constipation, melena. : Denies dysuria, frequency, incontinence, hematuria, urinary retention. MUSCULOSKELETAL: denies weakness, joint pain, or bony pain SKIN: Denies rash, skin lesions, or other NEUROLOGIC: Denies weakness, headache, numbness, change in speech, confusion, seizures, incoordination. PSYCHIATRIC: No concerning psychosocial issues. 12 point review of systems is negative except for those stated above Patient History Medical History Pulmonary hypertension Systolic heart failure Hypertension Bipolar 1 disorder Dissection of aorta, thoracic Melanoma Contusion of knee, right Surgical History History of cholecystectomy History of appendectomy Family History Other No family history of disorders Social History household members: none Smoking Status: Current some day smoker alcohol intake: never Smoking Status: Current some day smoker alcohol intake frequency: holidays/special occasions only Substance Use Type: does not use Exam Narrative Exam Narrative: GENERAL: [83] year old patient appears stated age. Well-developed patient, in mild distress. HEAD: Atraumatic. Normocephalic. EYES: Pupils equal round and reactive. Extraocular motions intact. No scleral icterus. No injection or drainage. ENT: Nose without bleeding, purulent drainage. Throat without erythema, tonsillar hypertrophy or exudate. Airway patent. NECK: Trachea midline. Non tender CARDIOVASCULAR: Regular rate and rhythm without murmurs, gallops, or rubs. RESPIRATORY: Clear to auscultation. Breath sounds equal bilaterally. No wheezes, rales, or rhonchi. Episodic conversational dyspnea, no hypoxemia GASTROINTESTINAL: Abdomen soft, non-tender, nondistended. EXTREMITIES: Right lower extremity with 2+ pitting edema, left lower extremity with 1+ edema BACK: Nontender without deformity or crepitance. No flank tenderness. NEURO: AOx3. SKIN: No rash or erythema of visible areas Initial Vital Signs Initial Vital Signs: Vital Signs Pulse Oximetry 96 10/12/23 04:05 Course Orders Ordered: Discontinued Medications Furosemide (Furosemide 40 Mg/4 Ml Vial) 40 mg IV NOW ONE Stop: 10/12/23 04:20 Last Admin: 10/12/23 04:26 Dose: 40 mg Documented By: BB Vital Signs Vital signs: Vital Signs - 8 hr 10/12/23 04:05 10/12/23 04:08 10/12/23 04:08 Temperature Pulse Rate 70 Respiratory Rate Blood Pressure 123/79 Pulse Oximetry 96 96 Oxygen Delivery Method 10/12/23 04:23 10/12/23 04:30 10/12/23 05:00 Temperature 98.8 F Pulse Rate 61 69 70 Respiratory Rate 22 31 H 30 H Blood Pressure 123/79 Pulse Oximetry 96 96 96 Oxygen Delivery Method Room Air Room Air Room Air 10/12/23 05:29 10/12/23 05:29 10/12/23 05:30 Temperature Pulse Rate 66 67 Respiratory Rate 28 H 32 H Blood Pressure 101/52 L Pulse Oximetry 95 96 Oxygen Delivery Method 10/12/23 05:31 10/12/23 05:31 Temperature Pulse Rate 66 Respiratory Rate 22 Blood Pressure 103/53 L Pulse Oximetry 95 Oxygen Delivery Method Medical Decision Making Lab Data 10/12/23 04:10 10/12/23 04:10 Labs: Lab Results 10/12/23 10/12/23 Range/Units 04:10 04:21 WBC 8.1 (4.5-11.0) X10^3/uL RBC 4.15 (4.0-5.2) X10^6/uL Hgb 11.7 L (12.0-16.0) g/dL Hct 34.8 L (36-46) % MCV 83.9 (80-100) fL MCH 28.1 (26-34) PG MCHC 33.5 (30-36) % RDW 15.3 H (11.6-14.8) % Plt Count 215 (150-400) X10^3/uL Neut % (Auto) 72.7 (50-75) % Lymph % (Auto) 14.0 L (25-40) % [place] % (Auto) 6.9 (3-14) % Eos % (Auto) 5.6 H (2-4) % Baso % (Auto) 0.8 (0-2) % Neut # (Auto) 5900 (9696-7455) /uL Lymph # (Auto) 1100 (9002-9217) /uL [place] # (Auto) 600 (0-900) /uL Eos # (Auto) 500 H (0-450) /uL Baso # (Auto) 100 (0-100) /uL Sodium 135 L (137-145) mmol/L Potassium 4.1 (3.4-5.1) mmol/L Chloride 104 (98-107) mmol/L Carbon Dioxide 25 (22-32) mmol/L BUN 30 H (7-17) mg/dL Creatinine 1.03 (0.52-1.04) mg/dL Estimated GFR 54 L (>60) mL/min BUN/Creatinine Ratio 29.1 H (6-22) Glucose 126 H (80-110) mg/dL Calcium 9.3 (8.4-10.2) mg/dL Magnesium 2.0 (1.6-2.3) mg/dL Total Bilirubin 0.6 (0.2-1.3) mg/dL AST 19 (14-36) IU/L ALT 10 (<35) IU/L Alkaline Phosphatase 74 (38-126) U/L Total Creatine Kinase 50 (30-135) U/L Troponin I < 0.012 (0.01-0.034) ng/mL NT-Pro-B Natriuret Pep 1550 H (<450) pg/mL Total Protein 6.8 (6.3-8.2) g/dL Albumin 3.7 (3.5-5.0) g/dL Globulin 3.1 (1.7-4.1) g/dL Albumin/Globulin Ratio 1.2 (1.0-2.8) SARS-CoV-2 (PCR) Negative (Negative) Influenza A (RT-PCR) Flu a negative (NEGATIVE) Influenza B (RT-PCR) Flu b negative (NEGATIVE) RSV (PCR) Negative (Negative) Urine Dip Bedside Urine Glucose Negative Bedside Urine Bilirubin - Negative Bedside Urine Ketone - Negative Urine Specific [place] 1.01 Bedside Urine Occult Blood - Negative Bedside Urine pH 6 Bedside Urine Protein - Negative Bedside Urine Urobilinogen - Negative Bedside Urine Nitrite - Negative Bedside Urine Leukocytes - Negative Esterase Point of care testing: Urine Dip Bedside Urine Glucose Negative Bedside Urine Bilirubin - Negative Bedside Urine Ketone - Negative Urine Specific [place] 1.01 Bedside Urine Occult Blood - Negative Bedside Urine pH 6 Bedside Urine Protein - Negative Bedside Urine Urobilinogen - Negative Bedside Urine Nitrite - Negative Bedside Urine Leukocytes - Negative Esterase MDM Narrative Medical decision making narrative: [83] year old patient presents with shortness of breath Multiple etiologies for patient's symptoms considered including, but not limited to: [] CHF exacerbation versus pneumonia versus flu versus COVID versus other Prior Charts reviewed in our EMR Primary Historian: patient Labs reviewed and interpreted by myself: No leukocytosis or left shift. Patient relatively anemic though improved over her baseline, primarily electrolytes largely within normal limits. BNP elevated at 15 50. Troponin I undetectable Imaging reviewed: Chest x-ray without acute findings Patient's symptoms improved over duration of stay with above-stated therapies. Patient not hypoxemic, no significant work of breathing, will increase Lasix at home. She states that she has only been taking 20 mg of Lasix once or twice daily. After this discussion she confirmed that she understands she will increase her dosing to 40 mg twice daily for the next 3 days and then resume normal dosing. Findings and discharge diagnosis discussed with patient/family followed by verbalization of understanding Return precautions discussed with patient/family whom verbalize understanding of diagnosis and plan Discharge Plan Departure Patient Disposition: Home Clinical Impression: Congestive heart failure Instructions: DI for Heart Failure Activity Restrictions/Additional Instructions: *You have been diagnosed with [Acute CHF ] *What to do: *Please increase your Lasix (Furosemide) to 40mg by mouth twice daily for the next 3 days and then return to normal dosing. Otherwise, please take your medications as directed *Please follow up with your primary care provider in 2-3 days, call for an appointment. Let them know you were seen in the Emergency Department and that we ask that you be seen in follow up. We will electronically transmit a record of today's note if your PCP is in our system *Return to Emergency Department if you should have any new, worsening or concerning symptoms, such as [fever greater than 101 F, shaking chills, worsening pain, persistent vomiting or other bothersome symptoms] Prescriptions: No Action aspirin 81 mg Tablet,Delayed Release (Dr/Ec) 81 mg PO DAILY Qty: 30 0RF furosemide [Lasix] 40 mg tablet 40 mg PO BID Qty: 60 0RF amlodipine [Norvasc] 5 mg Tablet 10 mg PO DAILY Qty: 30 0RF lisinopril 5 mg Tablet 5 mg PO DAILY Qty: 30 0RF metoprolol tartrate 25 mg Tablet 25 mg PO BID Qty: 60 0RF furosemide 40 mg tablet 40 mg PO DAILY Qty: 30 0RF acetaminophen 325 mg Tablet 650 mg PO Q4H PRN (Reason: Fever/Mild Pain (1-3)) Qty: 90 0RF Referrals: Rohit Zuniga MD [Primary Care Provider] - Stand Alone Forms: Patient Portal/API
--- NOTE | 2023-10-12 04:18 | DI.RAD.S_ITS ---
PROCEDURE: XR CHEST 1V INDICATIONS: SOB TECHNIQUE: One view of the chest was acquired. COMPARISON: [facility], CT, CT ANGIO CHEST PE PROTOCOL, 09/12/2023, 10:22. [facility], CR, XR CHEST 1V, 09/12/2023, 9:30. [facility], CR, XR CHEST 1V, 08/09/2023, 21:33. FINDINGS: Surgical changes and devices: None. Lungs and pleura: Lungs are clear. No pleural effusions or pneumothorax. Mediastinum: Cardiac silhouette is enlarged. Aorta appears tortuous and ectatic, as before. Bones and chest wall: No suspicious bony lesions. Overlying soft tissues appear unremarkable. IMPRESSION: 1. No acute cardiopulmonary abnormality. 2. Stable cardiomegaly and aortic tortuosity and ectasia. There is no significant discrepancy when compared to the overnight preliminary report. Approved by: Hammad Mcmullen M.D. on 10/12/2023 at 8:23
[2023-10-12] MEDS: FUROSEMIDE 40 MG/4 ML VIAL IV (04:26)
--- NOTE | 2023-10-12 04:38 | PC.NURSE ---
Pt reports SOB, increasing with exertion. It is worth noting that the pt will sometimes only be able to say 1-3 words without gasping for air while at other times, within a 5 minute period approximately, is able to speak in full sentences. Pt says she does not smoke cigarettes but that this last week she has been stressed and has been smoking. Pt was placed on a pur-wick and urine sent. Pt requesting coffee, pt told we do not have coffee at this time and we would need to wait for some results first.
[2023-10-12 04:46] LABS: Add Manual Diff / Slide Review NO; Basophils Absolute Auto 100 /uL (0-100); Basophils Percent Auto 0.8 % (0-2); Eosinophils Absolute Auto 500 /uL (0-450); Eosinophils Percent Auto 5.6 % (2-4); Hematocrit 34.8 % (36-46); Hemoglobin 11.7 g/dL (12.0-16.0); Lymphocytes Absolute Auto 1100 /uL (1100-4500); Mean Corpuscular HGB Conc 33.5 % (30-36); Mean Corpuscular Hemoglobin 28.1 PG (26-34); Mean Corpuscular Volume 83.9 fL (80-100); Monocytes Absolute Auto 600 /uL (0-900); Monocytes Percent Auto 6.9 % (3-14); Neutrophils Absolute Auto 5900 /uL (1500-7000); Neutrophils Percent Auto 72.7 % (50-75); Platelet Count 215 X10^3/uL (150-400); Red Blood Cell Count 4.15 X10^6/uL (4.0-5.2); Red Cell Distribution Width 15.3 % (11.6-14.8); White Blood Cell Count 8.1 X10^3/uL (4.5-11.0)
[2023-10-12 04:47] LABS: Alanine Aminotransferase 10 IU/L (<35); Albumin 3.7 g/dL (3.5-5.0); Albumin Globulin Ratio 1.2 (1.0-2.8); Alkaline Phosphatase 74 U/L (38-126); Aspartate Aminotransferase 19 IU/L (14-36); BUN Creatinine Ratio 29.1 (6-22); Bilirubin Total 0.6 mg/dL (0.2-1.3); Blood Urea Nitrogen 30 mg/dL (7-17); Calcium 9.3 mg/dL (8.4-10.2); Carbon Dioxide 25 mmol/L (22-32); Chloride 104 mmol/L (98-107); Creatine Kinase 50 U/L (30-135); Estimated Glomerular Filt Rate 54 mL/min (>60); Globulin 3.1 g/dL (1.7-4.1); Glucose 126 mg/dL (80-110); HEMOLYSIS < 15 (0-50); Potassium 4.1 mmol/L (3.4-5.1); Sodium 135 mmol/L (137-145); Total Protein 6.8 g/dL (6.3-8.2)
[2023-10-12 04:59] LABS: NT-proBNP (BNP-Adult 18+) 1550 pg/mL (<450); Troponin I < 0.012 ng/mL (0.01-0.034)
[2023-10-12 05:04] LABS: Influenza A - CEPHEID Flu A NEGATIVE (NEGATIVE); Influenza B - CEPHEID Flu B NEGATIVE (NEGATIVE); Respiratory Syncytial Virus Negative (Negative)
[2023-10-12 05:13] LABS: COVID-19 CEPHEID 4-PLEX PCR Negative (Negative)
== END 2023-10-12 06:40 | disposition home or self-care (01) ==
PROVIDERS: Emergency Provider Emergency Medicine; PCP Internal Medicine
DX: I50.9 Heart failure, unspecified (principal); R06.02 Shortness of breath; Z79.01 Long term (current) use of anticoagulants; Z20.822 Contact with and (suspected) exposure to COVID-19; Z79.899 Other long term (current) drug therapy
CPT/HCPCS: 0241U; 36415; 71045; 80053; 81003; 82550; 83735; 83880; 84484; 85025; 93005; 96374; 99284; J1940

== ENCOUNTER 2023-10-25 00:22 | Emergency (ER) | payer OTHER, SELFPAY ==
[2022-10-23 05:33] VITALS: BMI 27.3
[2023-10-25] VITALS (8 sets, daily range): BP systolic 125–160; BP diastolic 63–81; PULSE 68–77; RESP 23–32; TEMP 36.4; O2SAT 95–98; BMI 26.4
--- NOTE | 2023-10-25 00:28 | ED.SOB ---
HPI - SOB/Dyspnea General Chief Complaint: Shortness of Breath/Dyspnea Stated Complaint: SOB Time Seen by Provider: 10/25/23 00:28 History of Present Illness HPI Narrative: Patient 83-year-old female history of congestive heart failure hypertension coronary artery disease type B aortic dissection, bipolar presenting today with some shortness of breath. He is here semi regularly in his noncompliant with medications. She was complaining of some shortness of breath with EMS but no reports that she is back to baseline she has no chest pain. Right leg is noted to be swollen she reports that she is some remote history of cancer and it normally swallows more than her left leg she is also found to be true in previous notes. She has not had any fever. She can not remember when the last time she ate was. But is not cachectic Related Data Previous Rx's Medication Instructions Recorded acetaminophen 325 mg tablet 650 mg (2 x 325 mg) PO Q4H PRN 07/07/22 Fever/Mild Pain (1-3) #90 tabs amlodipine 5 mg tablet (Norvasc) 10 mg (2 x 5 mg) PO DAILY #30 tabs 10/26/22 aspirin 81 mg tablet,delayed 81 mg PO DAILY #30 tabs 10/26/22 release furosemide 40 mg tablet (Lasix) 40 mg PO BID #60 tabs 10/26/22 lisinopril 5 mg tablet 5 mg PO DAILY #30 tabs 10/26/22 metoprolol tartrate 25 mg tablet 25 mg PO BID #60 tabs 10/26/22 furosemide 40 mg tablet 40 mg PO DAILY #30 tabs 08/09/23 Allergies Allergy/AdvReac Type Severity Reaction Status Date / Time No Known Drug Allergies Allergy Verified 08/17/22 22:58 Patient History Medical History Pulmonary hypertension Systolic heart failure Hypertension Bipolar 1 disorder Dissection of aorta, thoracic Melanoma Contusion of knee, right Surgical History History of cholecystectomy History of appendectomy Family History Other No family history of disorders Social History household members: none Smoking Status: Current some day smoker alcohol intake: never Smoking Status: Current some day smoker tobacco type: cigarettes alcohol intake frequency: holidays/special occasions only Substance Use Type: does not use Exam Initial Vital Signs Initial Vital Signs: Vital Signs Temperature 97.5 F L 10/25/23 00:31 Pulse Rate 77 10/25/23 00:31 Respiratory Rate 32 H 10/25/23 00:31 Blood Pressure 151/81 H 10/25/23 00:31 Pulse Oximetry 97 10/25/23 00:31 Oxygen Delivery Method Room Air 10/25/23 00:31 GENERAL: Alert 83-year-old female HEENT: Head atraumatic,EOMI, pupils reactive, face symmetric, [moist] mucous membranes CARDIOVASCULAR: Regular rate and rhythm without murmurs, rubs or gallops. RESPIRATORY: Breath sounds equal bilaterally, no wheezes rales or rhonchi. ABDOMEN: Soft, nontender. Normoactive bowel sounds all 4 quadrants. No guarding or rebound. EXTREMITIES: Normal range of motion, no clubbing or edema. Neurovascularly intact NEUROLOGICAL: Alert and oriented x4.Normal gait and speech. SKIN: Warm, dry, no laceration, no petechiae, no rashes or lesions. Course Orders Ordered: ED Orders 10/25/23 00:28 XR chest 1V Stat EKG-12 Lead Stat 10/25/23 00:48 Complete Blood Count AUTO DIFF Stat Comprehensive Metabolic Panel Stat Lipase Stat NT-proBNP (BNP-Adult 18+) Stat PTT Partial Thromboplastin Frances[place] Stat Prothrombin Time INR Stat Troponin & CK Cardiac Panel Stat Discontinued Medications Furosemide (Furosemide 40 Mg/4 Ml Vial) 40 mg IV NOW ONE Stop: 10/25/23 01:32 Last Admin: 10/25/23 02:19 Dose: Not Given Documented By: ROBERTO CARLOS Furosemide (Furosemide 40 Mg Tablet) 40 mg PO NOW ONE Stop: 10/25/23 02:10 Last Admin: 10/25/23 02:14 Dose: 40 mg Documented By: ROBERTO CARLOS Vital Signs Vital signs: Vital Signs - 8 hr 10/25/23 00:31 10/25/23 00:37 10/25/23 00:40 Temperature 97.5 F L Pulse Rate 77 69 Respiratory Rate 32 H Blood Pressure 151/81 H 160/77 H Pulse Oximetry 97 98 Oxygen Delivery Method Room Air 10/25/23 00:40 10/25/23 01:00 10/25/23 01:01 Temperature Pulse Rate 71 69 71 Respiratory Rate 30 H 31 H 30 H Blood Pressure Pulse Oximetry 97 97 98 Oxygen Delivery Method 10/25/23 01:01 10/25/23 01:30 10/25/23 01:30 Temperature Pulse Rate 70 Respiratory Rate 26 H Blood Pressure 138/81 143/63 H Pulse Oximetry 96 Oxygen Delivery Method 10/25/23 02:00 10/25/23 02:01 10/25/23 02:01 Temperature Pulse Rate 68 70 Respiratory Rate 23 27 H Blood Pressure 125/66 Pulse Oximetry 96 95 Oxygen Delivery Method MDM - SOB/Dyspnea Lab Data 10/25/23 00:48 10/25/23 00:48 Labs: Lab Results 10/25/23 Range/Units 00:48 WBC 6.4 (4.5-11.0) X10^3/uL RBC 4.04 (4.0-5.2) X10^6/uL Hgb 11.3 L (12.0-16.0) g/dL Hct 34.2 L (36-46) % MCV 84.6 (80-100) fL MCH 28.0 (26-34) PG MCHC 33.1 (30-36) % RDW 15.8 H (11.6-14.8) % Plt Count 190 (150-400) X10^3/uL Neut % (Auto) 62.8 (50-75) % Lymph % (Auto) 20.6 L (25-40) % [place] % (Auto) 8.3 (3-14) % Eos % (Auto) 7.6 H (2-4) % Baso % (Auto) 0.7 (0-2) % Neut # (Auto) 4000 (0037-7837) /uL Lymph # (Auto) 1300 (5591-4733) /uL [place] # (Auto) 500 (0-900) /uL Eos # (Auto) 500 H (0-450) /uL Baso # (Auto) 0 (0-100) /uL PT 11.5 (9.4-12.5) SECONDS INR 1.0 (0.9-1.3) APTT 31 (25.1-36.5) SECONDS Sodium 136 L (137-145) mmol/L Potassium 4.6 (3.4-5.1) mmol/L Chloride 106 (98-107) mmol/L Carbon Dioxide 25 (22-32) mmol/L BUN 30 H (7-17) mg/dL Creatinine 0.84 (0.52-1.04) mg/dL Estimated GFR > 60 (>60) mL/min BUN/Creatinine Ratio 35.7 H (6-22) Glucose 98 (80-110) mg/dL Calcium 9.0 (8.4-10.2) mg/dL Total Bilirubin 0.5 (0.2-1.3) mg/dL AST 18 (14-36) IU/L ALT 9 (<35) IU/L Alkaline Phosphatase 72 (38-126) U/L Total Creatine Kinase 43 (30-135) U/L Troponin I 0.020 (0.01-0.034) ng/mL NT-Pro-B Natriuret Pep 2740 H (<450) pg/mL Total Protein 6.4 (6.3-8.2) g/dL Albumin 3.4 L (3.5-5.0) g/dL Globulin 3.0 (1.7-4.1) g/dL Albumin/Globulin Ratio 1.1 (1.0-2.8) Lipase 60 (23-300) U/L Imaging Data Chest x-ray: Radiologist's Impression: PROCEDURE: XR CHEST 1V INDICATIONS: short of breath TECHNIQUE: One view of the chest was acquired. COMPARISON: [facility], , XR CHEST 1V, 10/12/2023, 4:22. FINDINGS: Surgical changes and devices: None. Lungs and pleura: Coarse interstitial markings, particularly in the lower lungs. No dense consolidations, effusion, or pneumothorax. Mediastinum: Stable cardiomediastinal contour with tortuous and ectatic thoracic aorta. Mild cardiomegaly. No central venous congestion. Bones and chest wall: Prior right rib fractures. No acute bone changes. Overlying soft tissues are normal. IMPRESSION: Chronically coarse interstitial markings without acute consolidation. There may be fibrosis or chronic edema present. Stable enlarged cardiomediastinal contour. Dictated by: Josee Garcia M.D. on 10/25/2023 at 1:32 Approved by: Josee Garcia M.D. on 10/25/2023 at 1:34 ECG Data Interpretation: Sinus rhythm with PACs rate 73 AL interval 148 QRS [address] changes similar to prior MDM Narrative Medical decision making narrative: Patient 83-year-old female presents supposed and shortness of breath but is in no obvious acute distress. On exam lung sounds are clear chest x-ray shows minimal edema clinically no worsening peripheral edema. Blood work has been reviewed leukocytosis or anemia no LELA BNP minimally elevated to 1740 previously 1550 but has been as high as 7000 past troponin not detectable. She likely has very mild congestive heart failure without obvious signs of respiratory distress. The respiratory rate is up slightly. She does not seem to have conversational dyspnea she has not clinically fluid overloaded. She is given p.o. Lasix here in the emergency department. Patient is demanding to be fed and have food. She would like us to also drive her home. I do questions patient's mental status. However she does not seem to be meeting involuntary criteria at this time. She is requesting to be discharged to the waiting room she will use a phone out there to call someone. I have offered her our phone but she declines. I called son Ashkan [phone] and left voicemail. Discharge Plan Departure Patient Disposition: Home Clinical Impression: Congestive heart failure Instructions: DI for Heart Failure Activity Restrictions/Additional Instructions: *You have been diagnosed with congestive heart failure *What to do: At this time you must take your medications to that you feel better *Continue to take medications as directed Furosemide 40 mg twice a day as prescribed *Follow up with your primary care provider in 2-3 days or call [phone] *Return to ER if you should have any new, worsening or concerning symptoms [employer] starts running 6am Prescriptions: No Action aspirin 81 mg Tablet,Delayed Release (Dr/Ec) 81 mg PO DAILY Qty: 30 0RF furosemide [Lasix] 40 mg tablet 40 mg PO BID Qty: 60 0RF amlodipine [Norvasc] 5 mg Tablet 10 mg PO DAILY Qty: 30 0RF lisinopril 5 mg Tablet 5 mg PO DAILY Qty: 30 0RF metoprolol tartrate 25 mg Tablet 25 mg PO BID Qty: 60 0RF furosemide 40 mg tablet 40 mg PO DAILY Qty: 30 0RF acetaminophen 325 mg Tablet 650 mg PO Q4H PRN (Reason: Fever/Mild Pain (1-3)) Qty: 90 0RF Referrals: Rohit Zuniga MD [Primary Care Provider] - Stand Alone Forms: Patient Portal/API
[2023-10-25 00:58] LABS: Add Manual Diff / Slide Review NO; Basophils Absolute Auto 0 /uL (0-100); Basophils Percent Auto 0.7 % (0-2); Eosinophils Absolute Auto 500 /uL (0-450); Eosinophils Percent Auto 7.6 % (2-4); Hematocrit 34.2 % (36-46); Hemoglobin 11.3 g/dL (12.0-16.0); Lymphocytes Absolute Auto 1300 /uL (1100-4500); Lymphocytes Percent Auto 20.6 % (25-40); Mean Corpuscular HGB Conc 33.1 % (30-36); Mean Corpuscular Volume 84.6 fL (80-100); Monocytes Absolute Auto 500 /uL (0-900); Monocytes Percent Auto 8.3 % (3-14); Neutrophils Absolute Auto 4000 /uL (1500-7000); Neutrophils Percent Auto 62.8 % (50-75); Platelet Count 190 X10^3/uL (150-400); Red Blood Cell Count 4.04 X10^6/uL (4.0-5.2); Red Cell Distribution Width 15.8 % (11.6-14.8); White Blood Cell Count 6.4 X10^3/uL (4.5-11.0)
[2023-10-25 01:05] LABS: Prothrombin Time 11.5 SECONDS (9.4-12.5)
[2023-10-25 01:07] LABS: PTT Partial Thromboplastin Tim 31 SECONDS (25.1-36.5)
[2023-10-25 01:17] LABS: Alanine Aminotransferase 9 IU/L (<35); Albumin 3.4 g/dL (3.5-5.0); Albumin Globulin Ratio 1.1 (1.0-2.8); Alkaline Phosphatase 72 U/L (38-126); Aspartate Aminotransferase 18 IU/L (14-36); BUN Creatinine Ratio 35.7 (6-22); Bilirubin Total 0.5 mg/dL (0.2-1.3); Blood Urea Nitrogen 30 mg/dL (7-17); Carbon Dioxide 25 mmol/L (22-32); Chloride 106 mmol/L (98-107); Creatine Kinase 43 U/L (30-135); Estimated Glomerular Filt Rate > 60 mL/min (>60); Glucose 98 mg/dL (80-110); HEMOLYSIS 19 (0-50); Lipase 60 U/L (23-300); Potassium 4.6 mmol/L (3.4-5.1); Sodium 136 mmol/L (137-145); Total Protein 6.4 g/dL (6.3-8.2)
[2023-10-25 01:28] LABS: NT-proBNP (BNP-Adult 18+) 2740 pg/mL (<450)
[2023-10-25] MEDS: FUROSEMIDE 40 MG TABLET PO (02:14)
--- NOTE | 2023-10-25 03:01 | PC.NURSE ---
Pt sitting in waiting room. Left voicemail for son to help for a ride home.
== END 2023-10-25 02:21 | disposition home or self-care (01) ==
PROVIDERS: Emergency Provider Emergency Medicine; PCP Internal Medicine
DX: I50.9 Heart failure, unspecified (principal); R06.02 Shortness of breath; Z79.01 Long term (current) use of anticoagulants; Z79.899 Other long term (current) drug therapy
CPT/HCPCS: 36415; 71045; 80053; 82550; 83690; 83880; 84484; 85025; 85610; 85730; 93005; 93010; 99284

== ENCOUNTER 2023-11-24 11:40 | Inpatient (IN) | payer OTHER, SELFPAY ==
[2022-10-23 05:33] VITALS: BMI 27.3
[2023-11-24] VITALS (27 sets, daily range): BP systolic 119–182; BP diastolic 67–114; PULSE 73–91; RESP 18–40; TEMP 35.9–36.6; O2SAT 92–97; BMI 26.6; BMI 27.6
--- NOTE | 2023-11-24 12:21 | DI.RAD.S_ITS ---
PROCEDURE: XR CHEST 1V INDICATIONS: dyspnea TECHNIQUE: One view of the chest was acquired. COMPARISON: [facility], CR, XR CHEST 1V, 10/25/2023, 0:33. [facility], CR, XR CHEST 1V, 10/12/2023, 4:22. FINDINGS: Surgical changes and devices: Left humeral medullary gustavo stable. Lungs and pleura: Lungs are abnormal with a chronic interstitial prominence accentuated by reduced inspiratory volume. Possible slight subpulmonic pleural effusions bilaterally. Mediastinum: Mediastinal contours appear normal. Heart size is globally enlarged, chronically. Bones and chest wall: No suspicious bony lesions. Overlying soft tissues appear unremarkable. IMPRESSION: Chronic CHF pattern, possible slight exacerbation with small bilateral pleural effusions suspected. Dictated by: Isak Blackwood M.D. on 11/24/2023 at 13:14 Approved by: Isak Blackwood M.D. on 11/24/2023 at 13:15
--- NOTE | 2023-11-24 12:27 | ED_ITS ---
HPI - SOB/Dyspnea General Chief Complaint: Shortness of Breath/Dyspnea Stated Complaint: SOB Time Seen by Provider: 11/24/23 12:19 Source: EMS Mode of arrival: EMS History of Present Illness HPI Narrative: 83-year-old woman with a history of heart failure, medication noncompliance, hypertension and type B aortic dissection presenting with dyspnea. Says she has been dyspneic this morning. She has had a nonproductive cough she has not had any fevers she has not noted any wheezing. She has not having chest pain. Patient says that she had been out of 1 for medications for a while but does not know which 1 of those it is. Does not think it is furosemide. Related Data Previous Rx's Medication Instructions Recorded acetaminophen 325 mg tablet 650 mg (2 x 325 mg) PO Q4H PRN 07/07/22 Fever/Mild Pain (1-3) #90 tabs amlodipine 5 mg tablet (Norvasc) 10 mg (2 x 5 mg) PO DAILY #30 tabs 10/26/22 aspirin 81 mg tablet,delayed 81 mg PO DAILY #30 tabs 10/26/22 release furosemide 40 mg tablet (Lasix) 40 mg PO BID #60 tabs 10/26/22 lisinopril 5 mg tablet 5 mg PO DAILY #30 tabs 10/26/22 metoprolol tartrate 25 mg tablet 25 mg PO BID #60 tabs 10/26/22 furosemide 40 mg tablet 40 mg PO DAILY #30 tabs 08/09/23 Allergies Allergy/AdvReac Type Severity Reaction Status Date / Time No Known Drug Allergies Allergy Verified 08/17/22 22:58 Patient History Medical History Pulmonary hypertension Systolic heart failure Hypertension Bipolar 1 disorder Dissection of aorta, thoracic Melanoma Contusion of knee, right Surgical History History of cholecystectomy History of appendectomy Family History Other No family history of disorders Social History household members: none Smoking Status: Current some day smoker alcohol intake: never Smoking Status: Current some day smoker tobacco type: cigarettes alcohol intake frequency: holidays/special occasions only Substance Use Type: does not use Exam Initial Vital Signs Initial Vital Signs: Vital Signs Temperature 96.6 F L 11/24/23 11:53 Pulse Rate 83 11/24/23 11:53 Respiratory Rate 18 11/24/23 11:53 Blood Pressure 168/114 H 11/24/23 11:53 Pulse Oximetry 94 11/24/23 11:53 Oxygen Delivery Method Room Air 11/24/23 11:53 Const General: No acute distress Neck Other: No jugular venous distention Resp Other: Appears dyspneic, breathing with pursed lips. A bit tachypneic. Rales in both bases good air movement no wheezing Cardio Other: Regular rhythm rate with a murmur or gallop Skin Other: Warm and dry Neuro General: patient alert, patient oriented x3 and moves all extremities Course Orders Ordered: ED Orders 11/24/23 11:58 Consult to EXHAUST MACHINE OPERATOR - Electric Range Servicer Stat 11/24/23 12:21 CXR [XR chest 1V] Stat BNP [NT-proBNP (BNP-Adult 18+)] Stat CMP [Comprehensive Metabolic Panel] Stat Troponin I Stat 11/24/23 12:39 CBC Auto Diff [Complete Blood Count AUTO DIFF] Stat Discontinued Medications Furosemide 60 mg/ Sodium (Chloride) 56 mls @ 112 mls/hr IV NOW ONE Stop: 11/24/23 14:11 Nitroglycerin (Nitroglycerin Oint 1 Inch/Gm Oint...G.) 1 inch TOP NOW ONE Stop: 11/24/23 12:34 Last Admin: 11/24/23 12:49 Dose: 1 inch Documented By: ANA LUISA Reevaluation(s) Reevaluation #1: at 2:00 p.m., patient was re-evaluated. She reports that she is still quite dyspneic she is breathing at 40 per minute. Oxygen saturations are good. I have just ordered IV furosemide in addition to the topical nitroglycerin. Patient is agreeable to hospitalization. I think that is appropriate Consultations Consultation #1: discussed with hospitalist, Dr. May, accepts admission Vital Signs Vital signs: Vital Signs - 8 hr 11/24/23 11:53 11/24/23 12:03 11/24/23 12:04 Temperature 96.6 F L Pulse Rate 83 81 80 Respiratory Rate 18 39 H 39 H Blood Pressure 168/114 H Pulse Oximetry 94 95 94 Oxygen Delivery Method Room Air Oxygen Flow Rate 11/24/23 12:04 11/24/23 12:16 11/24/23 12:16 Temperature Pulse Rate 85 Respiratory Rate 38 H Blood Pressure 165/101 H 160/103 H Pulse Oximetry 94 Oxygen Delivery Method Oxygen Flow Rate 11/24/23 12:30 11/24/23 12:49 11/24/23 12:53 Temperature Pulse Rate 82 84 83 Respiratory Rate 37 H 40 H Blood Pressure 182/91 H Pulse Oximetry 92 95 Oxygen Delivery Method Nasal Cannula Oxygen Flow Rate 1 11/24/23 12:53 11/24/23 13:00 Temperature Pulse Rate 85 Respiratory Rate 40 H Blood Pressure 182/91 H Pulse Oximetry 96 Oxygen Delivery Method Oxygen Flow Rate MDM - SOB/Dyspnea Medical Records Medical records narrative: reviewed echocardiogram from 2021 and most recent ED note October of this year Lab Data Lab results narrative: troponin is normal, she is hyponatremic with normal creatinine. ProBNP is quite elevated on the order of 10 times baseline 11/24/23 12:39 11/24/23 12:21 Labs: Lab Results 11/24/23 11/24/23 Range/Units 12:21 12:39 WBC 8.3 (4.5-11.0) X10^3/uL RBC 4.17 (4.0-5.2) X10^6/uL Hgb 11.7 L (12.0-16.0) g/dL Hct 35.7 L (36-46) % MCV 85.6 (80-100) fL MCH 28.0 (26-34) PG MCHC 32.7 (30-36) % RDW 17.0 H (11.6-14.8) % Plt Count 196 (150-400) X10^3/uL Neut % (Auto) 84.0 H (50-75) % Lymph % (Auto) 10.1 L (25-40) % [place] % (Auto) 4.9 (3-14) % Eos % (Auto) 0.4 L (2-4) % Baso % (Auto) 0.6 (0-2) % Neut # (Auto) 7000 (3097-9166) /uL Lymph # (Auto) 800 L (1938-7819) /uL [place] # (Auto) 400 (0-900) /uL Eos # (Auto) 0 (0-450) /uL Baso # (Auto) 100 (0-100) /uL Sodium 130 L (137-145) mmol/L Potassium 4.8 (3.4-5.1) mmol/L Chloride 104 (98-107) mmol/L Carbon Dioxide 21 L (22-32) mmol/L BUN 15 (7-17) mg/dL Creatinine 0.65 (0.52-1.04) mg/dL Estimated GFR > 60 (>60) mL/min BUN/Creatinine Ratio 23.1 H (6-22) Glucose 114 H (80-110) mg/dL Calcium 9.0 (8.4-10.2) mg/dL Total Bilirubin 1.0 (0.2-1.3) mg/dL AST 51 H (14-36) IU/L ALT 43 H (<35) IU/L Alkaline Phosphatase 90 (38-126) U/L Troponin I 0.021 (0.01-0.034) ng/mL NT-Pro-B Natriuret Pep 62978 H (<450) pg/mL Total Protein 6.8 (6.3-8.2) g/dL Albumin 3.8 (3.5-5.0) g/dL Globulin 3.0 (1.7-4.1) g/dL Albumin/Globulin Ratio 1.3 (1.0-2.8) Imaging Data Chest x-ray: My Impression: chest x-ray shows cardiomegaly, aortic ectasia, pulmonary edema Radiologist's Impression: [address] [address] XRay Report Signed Patient: Yue Klein MR#: [id number] : 1940 Acct:[id number] Age/Sex: 83 / F Date of Service: 11/24/23 Loc: ED Accession Number: [id number] Procedure: XR chest 1V Ordering Provider: Osman Markham MD PROCEDURE: XR CHEST 1V INDICATIONS: dyspnea TECHNIQUE: One view of the chest was acquired. COMPARISON: [facility], CR, XR CHEST 1V, 10/25/2023, 0:33. [facility], CR, XR CHEST 1V, 10/12/2023, 4:22. FINDINGS: Surgical changes and devices: Left humeral medullary gustavo stable. Lungs and pleura: Lungs are abnormal with a chronic interstitial prominence accentuated by reduced inspiratory volume. Possible slight subpulmonic pleural effusions bilaterally. Mediastinum: Mediastinal contours appear normal. Heart size is globally enlarged, chronically. Bones and chest wall: No suspicious bony lesions. Overlying soft tissues appear unremarkable. IMPRESSION: Chronic CHF pattern, possible slight exacerbation with small bilateral pleural effusions suspected. Dictated by: Isak Blackwood M.D. on 11/24/2023 at 13:14 Approved by: Isak Blackwood M.D. on 11/24/2023 at 13:15 ECG Data Interpretation: ECG shows sinus rhythm at 81 appears to be an old anterior infarct left axis deviation and LVH no acute ST segment changes appears similar to baseline tracing MDM Narrative Medical decision making narrative: 83-year-old female with a history of heart failure, aortic dissection and hypertension as well as medication noncompliance. Presents with acute dyspnea. Differential includes heart failure, ischemic disease, pneumonia and pulmonary embolism. I think pulmonary embolism is not consistent with the presentation, does not have an infiltrate on her chest x-ray or evidence of infection, troponin is normal she does not have ischemic EKG changes she does have a markedly elevated proBNP. Patient was given IV furosemide topical nitroglycerin she will be admitted to the hospitalist service. Discharge Plan Departure Patient Disposition: Admitted as Observation Clinical Impression: Congestive heart failure Qualifiers: Heart failure type: systolic Heart failure chronicity: acute on chronic Q ualified Code(s): I50.23 - Acute on chronic systolic (congestive) heart failure
[2023-11-24] MEDS: NITROGLYCERIN OINT 1 INCH/GM OINT...G. TOP (12:49)
[2023-11-24 12:51] LABS: Add Manual Diff / Slide Review NO; Basophils Absolute Auto 100 /uL (0-100); Basophils Percent Auto 0.6 % (0-2); Eosinophils Absolute Auto 0 /uL (0-450); Eosinophils Percent Auto 0.4 % (2-4); Hematocrit 35.7 % (36-46); Hemoglobin 11.7 g/dL (12.0-16.0); Lymphocytes Absolute Auto 800 /uL (1100-4500); Lymphocytes Percent Auto 10.1 % (25-40); Mean Corpuscular HGB Conc 32.7 % (30-36); Mean Corpuscular Volume 85.6 fL (80-100); Monocytes Absolute Auto 400 /uL (0-900); Monocytes Percent Auto 4.9 % (3-14); Neutrophils Absolute Auto 7000 /uL (1500-7000); Platelet Count 196 X10^3/uL (150-400); Red Blood Cell Count 4.17 X10^6/uL (4.0-5.2); White Blood Cell Count 8.3 X10^3/uL (4.5-11.0)
[2023-11-24 13:11] LABS: Alanine Aminotransferase 43 IU/L (<35); Albumin 3.8 g/dL (3.5-5.0); Albumin Globulin Ratio 1.3 (1.0-2.8); Alkaline Phosphatase 90 U/L (38-126); Aspartate Aminotransferase 51 IU/L (14-36); BUN Creatinine Ratio 23.1 (6-22); Blood Urea Nitrogen 15 mg/dL (7-17); Carbon Dioxide 21 mmol/L (22-32); Chloride 104 mmol/L (98-107); Estimated Glomerular Filt Rate > 60 mL/min (>60); Glucose 114 mg/dL (80-110); HEMOLYSIS < 15 (0-50); Potassium 4.8 mmol/L (3.4-5.1); Sodium 130 mmol/L (137-145); Total Protein 6.8 g/dL (6.3-8.2)
--- NOTE | 2023-11-24 13:37 | PC.NURSE ---
patient stood independently to turn and pivot to the commode. She was able to ambulate well but became SOB. Her 02 sat is 98% on 1L NC
[2023-11-24 13:59] LABS: NT-proBNP (BNP-Adult 18+) 17900 pg/mL (<450); Troponin I 0.021 ng/mL (0.01-0.034)
[2023-11-24] MEDS: FUROSEMIDE 60 MG in SODIUM CHLORIDE 0.9% 50 ML 112 MG IV (14:15)
--- NOTE | 2023-11-24 14:27 | PC.NURSE ---
Pt came tot he ED today because she has been feeling increasingly SOB with exertion over the last few days. Hx of chf and htn. Pt states that she has not been taking her medications because the [facility] closed and she moved. Pt is tachypneic with RR at 31 and states that she feels like she is unable to take a deep breath. O2 sat 95% on 1L NC. States that she takes lasix and a HTN medication but cannot recall the name. Pt lives alone and is able to drive to [facility] and to all appts. A&Ox4.
--- NOTE | 2023-11-24 14:47 | PM.HP.1 ---
History of Present Illness History of Present Illness Date Patient Seen: 11/24/23 Time Patient Seen: 14:47 Chief complaint: SOB Narrative: The patient is an 83-year-old female with a history of chronic systolic heart failure as well as hypertension and a distant type B aortic dissection. She presented to the emergency department today with progressive dyspnea over the last several days. She has been off her usual medications for several days. She notes that the [facility] has closed and this is where she gets her medications. Her primary physician is in [place], she is trying to find a new primary physician in [place]. She denies any chest pain but has extreme dyspnea with exertion and worse edema of her right leg than usual. 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 She also has some orthopnea. She denies any recent rhinorrhea, sore throat, cough, or fevers. She also denies any nausea, diaphoresis, diarrhea, blood per rectum, or melena. She has filled out the POLST before and notes that she would like to be full resuscitation and short-term intubation for reversible problems. She has not want to be maintained on machines for prolonged periods of time however. [facility] Medical History Pulmonary hypertension Systolic heart failure Hypertension Bipolar 1 disorder Dissection of aorta, thoracic Melanoma Contusion of knee, right Surgical History History of cholecystectomy History of appendectomy Family History Other No family history of disorders Social History household members: none Smoking Status: Current some day smoker alcohol intake: current Meds Home Medications and Allergies Home Medications Medication Instructions Recorded Confirmed Type acetaminophen 325 mg tablet 650 mg (2 x 325 mg) PO Q4H PRN 07/07/22 11/24/23 Rx Fever/Mild Pain (1-3) #90 tabs amlodipine 5 mg tablet (Norvasc) 10 mg (2 x 5 mg) PO DAILY #30 tabs 10/26/22 11/24/23 Rx aspirin 81 mg tablet,delayed 81 mg PO DAILY #30 tabs 10/26/22 11/24/23 Rx release lisinopril 5 mg tablet 5 mg PO DAILY #30 tabs 10/26/22 11/24/23 Rx metoprolol tartrate 25 mg tablet 25 mg PO BID #60 tabs 10/26/22 11/24/23 Rx furosemide 40 mg tablet 40 mg PO DAILY #30 tabs 08/09/23 11/24/23 Rx Allergies Allergy/AdvReac Type Severity Reaction Status Date / Time No Known Drug Allergies Allergy Verified 08/17/22 22:58 Review of Systems Review of Systems Narrative: All else reviewed and otherwise unremarkable except as noted in the history and physical. Exam Vital Signs (past 8 hours): - 11/24/23 11:53 11/24/23 12:03 11/24/23 12:04 Temperature 96.6 F L Pulse Rate 83 81 80 Respiratory Rate 18 39 H 39 H Blood Pressure 168/114 H Pulse Oximetry 94 95 94 Oxygen Delivery Method Room Air Oxygen Flow Rate 11/24/23 12:04 11/24/23 12:16 11/24/23 12:16 Temperature Pulse Rate 85 Respiratory Rate 38 H Blood Pressure 165/101 H 160/103 H Pulse Oximetry 94 Oxygen Delivery Method Oxygen Flow Rate 11/24/23 12:30 11/24/23 12:49 11/24/23 12:53 Temperature Pulse Rate 82 84 83 Respiratory Rate 37 H 40 H Blood Pressure 182/91 H Pulse Oximetry 92 95 Oxygen Delivery Method Nasal Cannula Oxygen Flow Rate 1 11/24/23 12:53 11/24/23 13:00 Temperature Pulse Rate 85 Respiratory Rate 40 H Blood Pressure 182/91 H Pulse Oximetry 96 Oxygen Delivery Method Oxygen Flow Rate Oxygen Delivery Method Nasal Cannula Oxygen Flow Rate 1 Narrative Exam Narrative: NAD, alert and oriented, fluent speech, calm. She had a tachypnea on oxygen nasal cannula. Normocephalic skull, EOMI, anicteric sclera, symmetric pupils. Oropharynx unremarkable, no droop. Neck supple, midline trachea, no adenopathy. Lungs clear, increased rate and normal effort. Heart regular, no murmur gallop or rub. Abdomen is soft, non distended and non tender. Extremities: Left leg has trace edema in the right leg has 1+ more global edema. Skin is free of rash or lesions. Joints are not swollen or deformed. Judgment appears to be normal. Objective ECG Impression: Pending. Imaging Chest x-ray: Radiologist's impression: Chronic CHF pattern, possible slight exacerbation with small bilateral pleural effusions suspected. Labs 11/24/23 12:39 11/24/23 12:21 Labs: Laboratory Results - last 24 hr 11/24/23 11/24/23 12:21 12:39 WBC 8.3 RBC 4.17 Hgb 11.7 L Hct 35.7 L MCV 85.6 MCH 28.0 MCHC 32.7 RDW 17.0 H Plt Count 196 Neut % (Auto) 84.0 H Lymph % (Auto) 10.1 L [place] % (Auto) 4.9 Eos % (Auto) 0.4 L Baso % (Auto) 0.6 Neut # (Auto) 7000 Lymph # (Auto) 800 L [place] # (Auto) 400 Eos # (Auto) 0 Baso # (Auto) 100 Sodium 130 L Potassium 4.8 Chloride 104 Carbon Dioxide 21 L BUN 15 Creatinine 0.65 Estimated GFR > 60 BUN/Creatinine Ratio 23.1 H Glucose 114 H Calcium 9.0 Total Bilirubin 1.0 AST 51 H ALT 43 H Alkaline Phosphatase 90 Troponin I 0.021 NT-Pro-B Natriuret Pep 60543 H Total Protein 6.8 Albumin 3.8 Globulin 3.0 Albumin/Globulin Ratio 1.3 Assessment & Plan Assessment & Plan narrative: 1. Acute on chronic systolic heart failure, present on admission and active. 2. Pulmonary hypertension, present on admission and active. 3. Essential hypertension, present on admission and active. 4. Bipolar 1, present on admission and active. 5. Dissection of thoracic aorta, remote. PLAN: -oxygen support, wean as able with diuresis. -Lasix 40 IV q.12 hours, monitor weight and I's and o's. -resume usual medications as she is diuresed over the next 12-24 hours. -physical therapy evaluation prior to discharge. -we will trend troponins over the next 12 hours to assure no evidence of coronary event. -ECG will be obtained to rule out acute changes. -interval echo will be ordered, her last echo was October 23, 2022 in revealed an EF of 20-25% with severe global hypokinesis. The left atrium and right atrium were severely dilated. She is full code. She has a daughter, proxy for healthcare. Time Spent With Patient Time with patient: 30 to 49 minutes with 50% spent counseling/coordinating care Quality MIPS - Admit I confirm the patient?s Advance Care Plan is present, Code status is documented, Surrogate decision maker is in patient?s record [If Yes, STOP here]: Yes MIPS - Meds 'Current medications' to include all prescriptions, [id number] products, herbals, cannabis/cannabidiol products, and vitamin/mineral/dietary (nutritional) supplements. I have utilized all available resources to obtain, update, or review the patient?s current medications. [If Yes, STOP here]: Yes
--- NOTE | 2023-11-24 15:45 | CM.IDA ---
Initial DCP Assessment Patient is 83 y/o female who presents to the ED via EMS due to concern for SOB. It is reported that patient ran out of her rx for Lasix and HTN and patient reports her pharmacy [facility] closed and patient has not been able to pickers material handlers rx. Patient reports she has not seen her PCP in quite some time. Patient's PCP is Dr. Rohit Zuniga in [place], patient has [facility] insurance. Patient has hx of Bipolar 1 Disorder, systolic heart failure, hypertension, SOB, elevated troponin, melanoma, Dissection of aorta -thoracic and CHF. DIRECTOR OF STRATEGIC PARTNERSHIPS enters room to meet with patient, patient presents as A/Ox4. Patient endorses that she called 911 due to concern for difficulty catching her breath and concern for not being able to pickers material handlers rx. Patient endorses she lives alone in [place], patient endorses she drives or hitch hikes to get around. Patient states that she believes APS was called because she was hitch hiking. Patient endorses independence with ADLs, denies concerns, states she can walk independently but has not been able to walk long distances due to SOB. Patient endorses she would benefit from a mechanical engineering manager to some clean up around the house. Patient states she has a son that his her DPOA named Ashkan that resides in [place], patient states her daughter resides in [place]. Patient states she does not see or hear from her children regularly. Patient states her daughter's just so she has been occupied caring for him and she is going through a lot of life changes right now. Patient states that she has not applied for Medicaid and she receives SSI each month. Patient states a APS SW is going to be mailing her a Medicaid application. Patient endorses she will need assistance in getting transportation upon d/c. Patient likely cannot utilize [employer] taxi due to patient's hx of not paying for taxi fare. DIRECTOR OF STRATEGIC PARTNERSHIPS searches patient's pharmacy online and identifies that [facility] did indeed close in September 2023 and patient's rx can be transferred to [facility] in [place]. DIRECTOR OF STRATEGIC PARTNERSHIPS calls Jose Ramon Brooke (Ph. # [phone]) [email or web address] and leaves VM regarding patient to inquire about current APS provider. It is reported that there is an open APS investigation and patient's APS SW is Nakita Munguia (Ph. # [phone]). It is reported that Nakita met with patient on 11/13/23 and there were not any concerns about patient's home condition and patient scored quite high on SLUMs score. Jose Ramon states he would appreciate discussing this case further with care management team as DIRECTOR OF STRATEGIC PARTNERSHIPS informs him that patient has been admitted to acute care. Jose Ramon states that if patient could have rx mailed to her that would be helpful. DIRECTOR OF STRATEGIC PARTNERSHIPS receives call from APS KARISHMA Mace (Ph. # [phone]) who states that she was just at patient's on recently and patient's home looked wheat cleaner than in the past. Nakita states she is quite familiar with patient and in comparison to patient's presentation in summer 2022, patient presented with good hygiene, patient had utilities on and patient hired someone to clean her home. It is reported that patient scored a 28/30 in SLUMS assessment. Nakita states that she spoke with patient's daughter and it is reported that daughter does not want to have a relationship with patient. Daughter informed Nakita that patient has hx of having a guardianship but guardianship was lifted when patient was found to be competent. Nakita states that she offered patient assistance with Medicaid application but patient endorsed preference to just mail her the application. Patient was admitted to acute care due to concern for CHF. Plan: patient admitted as OBS for further tx and evaluation. Patient would benefit from assistance with setting up new local PCP and convenient rx access, f/u with DAMON SCHWARZ regarding disposition. DAVID Dueñas Discharge Planning/Care Management CM Discharge Assessment Start: 11/24/23 15:34 Freq: Status: Active Protocol: Document 11/24/23 15:35 LN (Rec: 11/24/23 15:45 LN [id number]) Discharge Planning Assessment Assigned Brim Ironer Hand DAVID Lopez DPOA/Assigned Designee Name Son/Ashkan (resides in [place], [place]) Contact Information [phone] Advance Directives? Yes Advance Directives on File No History Provided By Patient,Medical Record Has Patient been admitted in last 30 No days? Prior Living Arrangements House Household Members none Type of transporation used prior to Drives own vehicle admit Comment Patient states she also tries to walk places or hitch hike. Independent with ADL's Yes Is patient alert and oriented? Yes Needs Assistance With Home Chores / Shopping Caregiver for Another No Comment none Comment Patient has not seen PCP in quite some time, would benefit from assistance establishing care with local PCP, patient's pharmacy closed and needs to establish rx with new pharmacy . Referrals Initiated Home Health Please Provide Date Initial DC 11/24/23 Assessment Was Performed
[2023-11-24 17:24] LABS: MRSA (Nasal) PCR DETECTED (Not Detect)
[2023-11-24] MEDS: FUROSEMIDE 40 MG/4 ML VIAL IV (20:07)
[2023-11-24] MEDS: SODIUM CHLORIDE 0.9% FLUSH 10 ML IV (20:07)
[2023-11-24] MEDS: HEPARIN 5,000 UNIT/ML VIAL 5000 UNIT SUBCUT (20:07)
[2023-11-25] VITALS (7 sets, daily range): BP systolic 88–150; BP diastolic 51–89; PULSE 70–80; RESP 18–32; TEMP 36.1–36.7; O2SAT 93–100
--- NOTE | 2023-11-25 | DI.CT.S_ITS ---
PROCEDURE: CT ANGIO HEAD AND NECK INDICATIONS: Acute onset slurred speech/word finding difficulties TECHNIQUE: After the administration of intravenous contrast, 1 mm thick sections acquired from the aortic arch through the [place] of [place]. 3-dimensional juhraoz-eiamvvuwq-hpkevfcxlk (MIP) and/or volume rendering reformats were acquired of the central intracranial vasculature and neck separately. For radiation dose reduction, the following was used: automated exposure control, adjustment of mA and/or kV according to patient size. COMPARISON: [facility], CT, CT ANGIO CHEST PE PROTOCOL, 09/12/2023, 10:22. FINDINGS: Image quality: Diagnostic. BRAIN: CSF spaces: Ventricles are normal in size and shape. Basal cisterns are patent. No extra-axial fluid collections. Brain: No significant abnormality of the brain can be seen. Skull and face: Calvarium and facial bones appear intact, without suspicious lesions. Orbits appear normal. Sinuses: Sinuses and mastoids are clear. HEAD CT ANGIOGRAPHY: Anterior circulation: Intracranial internal carotid arteries are normal in size and flow with atherosclerotic vascular calcifications. The flow within the paired anterior cerebral arteries is normal and symmetric. The flow within the middle cerebral arteries is normal and symmetric. The anterior communicating artery is seen. No aneurysms are seen. Posterior circulation: Visualized portions of the vertebral arteries demonstrate normal caliber, and join to form a normal appearing basilar artery. Flow within the posterior cerebral arteries is normal and symmetric. No aneurysms are seen. NECK CT ANGIOGRAPHY: Carotid system: The great vessels demonstrate a conventional anatomy as they arise from the aortic arch with atherosclerotic vascular calcifications. 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 The origins of the common carotid arteries appear patent. The common carotid arteries demonstrate normal caliber and tortuous courses. The bifurcation regions are both widely patent. Mild calcifications at the right bifurcation. The internal carotid arteries demonstrate normal calibers and courses. Posterior circulation: The origins of the vertebral arteries both appear widely patent. The left vertebral artery origin is directly from the aorta. The more superior extracranial portions of both vertebral arteries also demonstrate normal courses and calibers. They join to form a normal appearing basilar artery. Soft tissues: Visualized neck soft tissues demonstrate no suspicious abnormalities. Small bilateral pleural effusions with adjacent atelectasis versus consolidation. Heterogeneous thyroid with multiple nodules, largest measuring 1.5 centimeters. Bones: No suspicious bony lesions. Visualized cervical spine appears normally aligned. Diffusely decreased osseous mineralization. Multilevel degenerative changes of the spine. Upper thoracic free pelvic compression deformities are stable compared to prior. IMPRESSION: No significant intracranial arterial abnormality is seen. No significant abnormality is seen within the arteries of the neck. Atherosclerotic vascular calcifications of the aorta with aneurysmal dilatation of the posterior arch is stable compared to prior. Heterogeneous thyroid with multiple nodules measure up to 1.5 centimeters, consider thyroid ultrasound for further evaluation if not previously performed. Multiple compression deformities of the upper thoracic vertebral bodies are stable compared to prior. Any quantitative measurements of stenosis were performed using NASCET criteria. Dictated by: Aj Juárez M.D. on 11/25/2023 at 12:19 Approved by: Aj Juárez M.D. on 11/25/2023 at 12:26
[2023-11-25 03:42] LABS: Add Manual Diff / Slide Review NO; Basophils Absolute Auto 0 /uL (0-100); Basophils Percent Auto 0.6 % (0-2); Eosinophils Absolute Auto 200 /uL (0-450); Eosinophils Percent Auto 3.2 % (2-4); Hematocrit 33.1 % (36-46); Hemoglobin 11.2 g/dL (12.0-16.0); Lymphocytes Absolute Auto 1000 /uL (1100-4500); Lymphocytes Percent Auto 14.3 % (25-40); Mean Corpuscular HGB Conc 33.9 % (30-36); Mean Corpuscular Hemoglobin 28.7 PG (26-34); Mean Corpuscular Volume 84.6 fL (80-100); Monocytes Absolute Auto 500 /uL (0-900); Monocytes Percent Auto 6.7 % (3-14); Neutrophils Absolute Auto 5200 /uL (1500-7000); Neutrophils Percent Auto 75.2 % (50-75); Platelet Count 176 X10^3/uL (150-400); Red Blood Cell Count 3.91 X10^6/uL (4.0-5.2); Red Cell Distribution Width 16.5 % (11.6-14.8); White Blood Cell Count 6.9 X10^3/uL (4.5-11.0)
[2023-11-25 03:56] LABS: BUN Creatinine Ratio 18.9 (6-22); Blood Urea Nitrogen 18 mg/dL (7-17); Calcium 8.6 mg/dL (8.4-10.2); Carbon Dioxide 28 mmol/L (22-32); Chloride 101 mmol/L (98-107); Estimated Glomerular Filt Rate 59 mL/min (>60); Glucose 102 mg/dL (80-110); HEMOLYSIS < 15 (0-50); Potassium 3.7 mmol/L (3.4-5.1); Sodium 134 mmol/L (137-145)
[2023-11-25] MEDS: HEPARIN 5,000 UNIT/ML VIAL 5000 UNIT SUBCUT ×2 (08:33→20:10)
[2023-11-25] MEDS: AMLODIPINE 5 MG TABLET 10 MG PO (08:33)
[2023-11-25] MEDS: ASPIRIN EC 81 MG TABLET PO (08:33)
[2023-11-25] MEDS: lisinopriL 5 MG TABLET PO (08:33)
[2023-11-25] MEDS: SODIUM CHLORIDE 0.9% FLUSH 10 ML IV ×2 (08:33→20:11)
[2023-11-25] MEDS: FUROSEMIDE 40 MG/4 ML VIAL IV (08:33)
--- NOTE | 2023-11-25 09:35 | DI.ECHO.S_ITS ---
[facility] +[facility]+ : : [address] : : : : [id number] : : : : Phone: [phone]+ Echocardiogram Report + + :Name: JAYSON JUAREZ Study Date: 11/25/2023 Height: 64 in : :[facility] ReadingLocation: Weight: 160 lb : : Gender: Female BSA: 1.8 m2 : :: 1940 Age: 83 yrs BP: 101/55 mmHg: :Reason For Study: DYSPNEA, CHF : :Ordering Physician: DALE, : :DONALD Performed By: Angie Morales : :Referring: DONALD HUNTER : + + Interpretation Summary Normal sinus rhythm. Normal LV size and wall thickness; severe global hypokinesis. EF is 20-25%. Severe biatrial enlargement. No significant valvular abnormalities. Compared to prior study 07/30/2022 cardiomyopathy is new. Procedure: A two-dimensional transthoracic echocardiogram with color flow and Doppler was performed. Comparison is made with the echocardiogram of 07/30/2022. The study quality was technically difficult. A contrast injection of Definity was performed to improve assessment of LV function. The heart rate ranged between 64-75 bpm during the study. Left Ventricle: The left ventricle is normal in size. There is mild concentric left ventricular hypertrophy. The ejection fraction is estimated to be 20-25%. Right Ventricle: The right ventricle is moderately dilated. Right ventricular systolic function is mildly reduced. Atria: The left atrium is severely dilated. The right atrium is severely dilated. There is no Doppler evidence for an interatrial shunt. Mitral Valve: The mitral valve leaflets appear mildly thickened, but open well. There is mild to moderate mitral regurgitation. Aortic Valve: The aortic valve is trileaflet. The aortic valve opens well. There is no aortic valve stenosis. There is mild aortic regurgitation. Tricuspid Valve: The tricuspid valve leaflets are thin and pliable. There is mild to moderate tricuspid regurgitation. The right ventricular systolic pressure is estimated to be at least 43 mmHg based on an estimated right atrial pressure of 15 mm Hg. Pulmonic Valve: The pulmonic valve is not well seen, but is grossly normal. There is moderate pulmonic regurgitation. Great Vessels: The aortic root is normal size. The ascending aorta could not be visualized. The IVC is dilated (diameter is greater than 2.1 cm) and it collapses less than 50% with a sniff. This suggests a high right atrial pressure of 15 mm Hg. Pericardium/ Pleura There is no pericardial effusion. There is a moderate left-sided pleural effusion. MMode/2D Measurements & Calculations LVIDd: 4.8 cm LVOT diam: 2.1 cm LVIDs: 4.3 cm Ao root diam: 3.6 cm FS: 9.3 % asc Aorta Diam: 3.4 cm EPSS: 2.0 cm Ao Arch Diam (Prox Trans): 3.4 cm IVSd: 1.3 cm LVPWd: 1.2 cm LV quiñones. diameter/BSA (cm/m^2): 2.7 LV sys. diameter/BSA (cm/m^2): 2.4 LA A2 area: 28.0 cm2 RA long axis: 5.4 cm LA A4 area: 22.3 cm2 RA area: 24.5 cm2 LA length (vol): 5.8 cm RA vol: 94.0 ml LA vol: 92.1 ml RA : 52.8 ml/m2 LA vol index: 51.8 ml/m2 IVC diam: 2.7 cm RVD1 (basal): 5.2 cm TAPSE: 1.4 cm Doppler Measurements & Calculations Ao V2 max: 103.2 cm/sec LVOT Max Daniel: 55.2 cm/sec Ao V2 mean: 78.6 cm/sec LV V1 max P.2 mmHg Ao max P.3 mmHg LV V1 VTI: 8.8 cm Ao mean P.6 mmHg MIESHA(I,D): 1.6 cm2 Ao V2 VTI: 18.3 cm MIESHA(V,D): 1.8 cm2 sev ratio: 0.48 MIESHA indexed to BSA (cm^2/m^2): 0.91 MV E max daniel: 102.8 cm/sec TR max daniel: 264.2 cm/sec MV A max daniel: 54.8 cm/sec TR max P.4 mmHg MV E/A: 1.9 PA pr(Accel): 49.9 mmHg Med Peak E' Daniel: 4.2 cm/sec E/E' med: 24.8 Lat Peak E' Daniel: 6.4 cm/sec E/E' lat: 16.2 E/e' average: 20.5 MV dec time: 0.13 sec SV(LVOT): 29.5 ml Electronically signed by: Clarissa Wade M.D. on Reading Physician:11/25/2023 02:12 PM
--- NOTE | 2023-11-25 10:10 | PC.NURSE ---
Patient had difficulty finding words for roughly five minutes. Performed NIH assessment and everything normal except for word finding. Doctor Gong made aware, will continue to monitor.
--- NOTE | 2023-11-25 14:57 | PT-IP ANOTE ---
Attempted to see patient. Patient was sleeping and did awake when tapped gently, introduced self as a PT, and patient promptly fell back asleep. PT then tried to remove blankets to help patient stay awake, patient stayed awake for approximately 30 seconds and then fell back asleep. After about 2 minutes of attempting to keep patient awake, PT stated will return later. Discussed case with RN, who stated patient did not sleep at all last night. Attempted to see patient later in the afternoon, and patient was still sleeping, so will defer assessment to tomorrow.
--- NOTE | 2023-11-25 15:37 | CM.DPNOTE ---
DCP Note CRM FUNCTIONAL ANALYST reviewed EMR. Per hospitalist in morning rounds, potential dc tomorrow. Per hospitalist, pt attempting to start care with local PCP- unsure who. Per chart review, Hx of [facility]. unclear if could accept back if needed without PCP with H[facility] program. CRM FUNCTIONAL ANALYST attempt to meet with pt x3 today, pt sleeping soundly. Per PT note, PT attempted to see pt multiple times, also sleeping. Per RN, pt did not sleep at all last night. PT deferred assessment at this time. See initial dcp assessment for more information. Per previous CRM FUNCTIONAL ANALYST note, APS asking for dcp updates. APS previously sent in Medicaid application. Plan: PT rec pending. Anticipate home when stable- if HH would need [facility] program due to lack of PCP. Patient would likely benefit from assistance with setting up new local PCP and convenient rx access, f/u with APS SW regarding disposition. Likely need assistance with transport home. Follow closely for additional DCP needs. WILDA [place]
--- NOTE | 2023-11-25 19:45 | P.PN_ITS ---
Subjective Subjective Interval history: 83-year-old female with chronic systolic congestive heart failure, hypertension, remote type B aortic dissection, and pulmonary hypertension, who was admitted yesterday with CHF exacerbation. Patient reports she is feeling better overall today. She she has been urinating frequently. She is feeling less short of breath overall but notes she continues to get dyspneic with exertion. She feels as though her abdomen is softer and she is retaining less fluid. She states she was getting her medication through [facility], which was own by [employer]. However they recently abruptly close and she had no way to get transportation to another pharmacy to receive her medications. She denies any chest pain. She tells me she is very motivated to exercise and get better. Exam Vital Signs (past 8 hours): - 11/25/23 16:00 Temperature 97.2 F L Pulse Rate 70 Respiratory Rate 20 Blood Pressure 103/58 L Pulse Oximetry 97 Oxygen Flow Rate 2 Fraction of Inspired Oxygen 24 SaO2/FiO2 Ratio 395 Oxygen Delivery Method Nasal Cannula Oxygen Flow Rate 2 Narrative Exam Narrative: GEN: Elderly female, very pleasant, Alert and oriented x 3, NAD HEENT:NC, Face symmetric CHEST: Respiratory excursions symmetric, mild diffuse crackles bilaterally CV: RRR, no M/R/G ABD: Soft, NT/ND, BT present in all 4 quadrants, no organomegaly or masses EXTR: warm, well perfused, no C/C, 2+ bilateral lower extremity pitting edema SKIN: warm and dry, no rash NEURO: Alert and oriented x 3, nonfocal Objective Labs 11/25/23 03:07 11/25/23 03:07 Labs: Laboratory Results - last 24 hr 11/25/23 03:07 WBC 6.9 RBC 3.91 L Hgb 11.2 L Hct 33.1 L MCV 84.6 MCH 28.7 MCHC 33.9 RDW 16.5 H Plt Count 176 Neut % (Auto) 75.2 H Lymph % (Auto) 14.3 L [place] % (Auto) 6.7 Eos % (Auto) 3.2 Baso % (Auto) 0.6 Neut # (Auto) 5200 Lymph # (Auto) 1000 L [place] # (Auto) 500 Eos # (Auto) 200 Baso # (Auto) 0 Sodium 134 L Potassium 3.7 Chloride 101 Carbon Dioxide 28 BUN 18 H Creatinine 0.95 Estimated GFR 59 L BUN/Creatinine Ratio 18.9 Glucose 102 Calcium 8.6 PFSH Medical History Pulmonary hypertension Systolic heart failure Hypertension Bipolar 1 disorder Dissection of aorta, thoracic Melanoma Contusion of knee, right Surgical History History of cholecystectomy History of appendectomy Family History Other No family history of disorders Social History household members: none Smoking Status: Current some day smoker alcohol intake: current Assessment & Plan Assessment & Plan narrative: 1. Acute on chronic systolic congestive heart failure Patient remains on IV furosemide. She has been doing well overall. She is planning to use mail order pharmacy and states that she has benefits through [employer]. She also advises she is switching [facility]. She does note she has difficulty with transportation. Pharmacy did a medication check and notes some of her medications were last filled in November of 2022, so patient is clearly not adherent to her medication regimen. She has an active APS investigation secondary to self neglect. I am told that she is known to hitchhike in the community which given her advanced age puts her at significant risk as well. An echocardiogram was done today and reveals a significant change compared to the prior echocardiogram from July 30, 2022. The EF has decreased from 50-55% down to 20-25%. I spoke at length with Dr. Wade at [facility]. Given the patient's difficulties with medication adherence, it is felt that aggressive intervention would be contraindicated for this patient and would potentially lead to greater complications. For now will work towards better medication adherence. 2. Hypertension Overall, blood pressures are improving from admission. Continue amlodipine, lisinopril, metoprolol. 3. Bipolar 1 disorder Untreated, which likely contributes to ongoing difficulties with her medical care. Code status Full Prophylaxis On heparin Disposition Possible discharge tomorrow pending response to ongoing medication regimen Quality VTE Deep Vein Thrombosis/Pulmonary Embolism Present on Admission: No
[2023-11-26] VITALS (50 sets, daily range): BP systolic 80–121; BP diastolic 46–61; PULSE 58–78; RESP 14–48; TEMP 35.7–36.8; O2SAT 90–100
[2023-11-26 04:33] LABS: Add Manual Diff / Slide Review NO; Basophils Absolute Auto 100 /uL (0-100); Eosinophils Absolute Auto 300 /uL (0-450); Eosinophils Percent Auto 4.6 % (2-4); Hematocrit 33.6 % (36-46); Hemoglobin 11.1 g/dL (12.0-16.0); Lymphocytes Absolute Auto 1300 /uL (1100-4500); Lymphocytes Percent Auto 18.7 % (25-40); Mean Corpuscular HGB Conc 33.1 % (30-36); Mean Corpuscular Hemoglobin 28.3 PG (26-34); Mean Corpuscular Volume 85.5 fL (80-100); Monocytes Absolute Auto 600 /uL (0-900); Monocytes Percent Auto 7.8 % (3-14); Neutrophils Absolute Auto 4800 /uL (1500-7000); Neutrophils Percent Auto 67.9 % (50-75); Platelet Count 189 X10^3/uL (150-400); Red Blood Cell Count 3.93 X10^6/uL (4.0-5.2); Red Cell Distribution Width 16.9 % (11.6-14.8); White Blood Cell Count 7.1 X10^3/uL (4.5-11.0)
[2023-11-26 04:46] LABS: BUN Creatinine Ratio 27.5 (6-22); Blood Urea Nitrogen 30 mg/dL (7-17); Calcium 8.5 mg/dL (8.4-10.2); Carbon Dioxide 29 mmol/L (22-32); Chloride 100 mmol/L (98-107); Estimated Glomerular Filt Rate 50 mL/min (>60); Glucose 97 mg/dL (80-110); HEMOLYSIS < 15 (0-50); Potassium 3.7 mmol/L (3.4-5.1); Sodium 134 mmol/L (137-145)
[2023-11-26] MEDS: METOPROLOL IR 25 MG TABLET PO (08:51)
[2023-11-26] MEDS: AMLODIPINE 5 MG TABLET 10 MG PO (08:51)
[2023-11-26] MEDS: lisinopriL 5 MG TABLET PO (08:51)
[2023-11-26] MEDS: HEPARIN 5,000 UNIT/ML VIAL 5000 UNIT SUBCUT ×2 (08:51→20:21)
[2023-11-26] MEDS: ASPIRIN EC 81 MG TABLET PO (08:51)
[2023-11-26] MEDS: FUROSEMIDE 20 MG/2 ML VIAL IV (08:56)
[2023-11-26] MEDS: SODIUM CHLORIDE 0.9% FLUSH 10 ML IV ×2 (08:56→20:22)
--- NOTE | 2023-11-26 09:38 | PT.IIE ---
Surgical History (Last Reviewed 11/24/23 @ 14:47 by Luis Felipe Mata MD) History of appendectomy History of cholecystectomy Medical History (Last Reviewed 11/24/23 @ 14:47 by Luis Felipe Mata MD) Bipolar 1 disorder Contusion of knee, right Dissection of aorta, thoracic Hypertension Melanoma Pulmonary hypertension Systolic heart failure Physical Therapy Inpatient Evaluation/Re-Eval M1 PT/OT-IP Prior Functional Status Start: 11/25/23 11:03 Freq: NEEDED Status: Active Protocol: Document 11/26/23 08:55 MB (Rec: 11/26/23 09:38 MB [id number]) Medical Review Prior Functional Status Medical History Reviewed Yes Diet/Fluid Consistency Regular Communication WNLs Mobility and Gait I, lived alone in her home in [facility] Activities of Daily Living and IADL's Pt reports I, drove, no AD Social History Household Members none Living Arrangements House Number of Floors (Floors) One Floor Number of Stairs To Enter/Railing? 3-4 steps with rails to enter Employment Status Retired Additional Social History Comment Pt does not provide good information on home set-up and answers most yes no questions only M2 PT-IP Current Condition Start: 11/25/23 11:03 Freq: NEEDED Status: Active Protocol: Document 11/26/23 08:55 MB (Rec: 11/26/23 09:38 MB [id number]) Physical Therapy Current Condition Current Condition Evaluation Date 11/26/23 Treatment Diagnosis Acute on chronic CHF M3 PT-IP Subjective Start: 11/25/23 11:03 Freq: NEEDED Status: Active Protocol: Document 11/26/23 08:55 MB (Rec: 11/26/23 09:38 MB [id number]) Subjective Physical Therapy Visit Type Type Initial Evaluation Visit Start Time 08:55 Visit Stop Time 09:25 Number of JUNIOR NETWORK ADMINISTRATOR Visits 0 Physical Therapy Visit Comments Patient Comments Pt is hypoverbal, awakens to PT's voice and is agreeable to mobility Therapy Pain Assessment Pain When Pain Assessed At Rest Pain Present Pain Present Denied Pain M4 PT-IP Mobility and Gait Start: 11/25/23 11:03 Freq: NEEDED Status: Active Protocol: Document 11/26/23 08:55 MB (Rec: 11/26/23 09:38 MB [id number]) PT-Bed Mobility Assessment Rolling Level of Assist Standby Assistance,1 Person Assistance Supine to Sit Supine to Sit Standby Assistance,1 Person Assistance,Head of Bed Elevated,Bedrails Scooting Scooting to Edge of Bed Standby Assistance PT-Transfer Assessment Sit to and From Stand Sit to and from Stand Contact Guard Assistance Equipment Transfer Assistive Device Gait Belt Orthotic/Prosthetic Devices or Brace: No Transfers Transfer Destination Chair Transfer Technique Ambulation Transfer Ability Level of Assist Contact Guard Assistance,1 Person Assistance,Use of Upper Extremities Comments Mobility Comments Pt moves very quickly and has decreased command-following when asked to slow down for safety and for breathing. PT checks BP and HR in right UE hook lyin/58, 70s BPM and standing 106/57, 70s BPM and pt denies light-headedness. Nsg clears PT to disconnect tele line for gait in hallway Gait Assessment Gait Gait Assistance Required: Contact Guard Assist,1 Person Assist Distance (Feet) 100 Able to Maintain Weight Bearing Status Yes During Gait Assistive Devices Assistive Device Gait Belt Orthotic/Prosthetic Devices or Brace: No Gait Deviations General Gait Pattern Decreased Stride Length Factors Limiting Gait Function Factors Limiting Gait Function Decreased Activity Tolerance, Poor Balance,Poor Safety Awareness Comments Gait Comments Pt walks very quickly and favors her left and then right LE and has decreased step- length and foot clearance. She gait trains 100'x1, 50'x1, 50 'x1 with standing rest break in hallway d/t JOYNRE and O2 sats read 84-85% and pt reports 1/ 4 Dyspnea Scale though she appears much more dyspneic and pt con't to harg[place] through mobility and has decreased safety awareness and command- following Stair Climbing Assessment Evaluation Level of Assist On Stairs Contact Guard Assistance,1 Person Assistance Devices Stair Climbing Assistive Devices Left Railing,Right Railing Technique/Endurance Stair Climbing Direction Ascend and Descend Stair Climbing Technique Step Over Step Number of Steps Climbed 3 Query Text: Stair Climbing Set # Repetitions (reps) 1 Comments Stair Climbing Comments Pt also rushes through stair training, has impulsivity and increases risk for falling PT-Balance Assessment Sitting Balance and Reactions Static Sitting Balance Ability Good Dynamic Sitting Balance Ability Good Standing Balance and Reactions Static Standing Balance Ability Good Dynamic Standing Balance Ability Fair M5 PT-IP Objective Assessments Start: 11/25/23 11:03 Freq: NEEDED Status: Active Protocol: Document 11/26/23 08:55 MB (Rec: 11/26/23 09:38 MB [id number]) Orientation Orientation/Cognition Level of Alertness Alert Orientation Name,Age,Birthday,Place, Situation Language Function Ability No Deficits Noted Safety Awareness Decreased Safety Awareness Memory Description No Deficits Noted Gross Range of Motion Upper Extremity ROM Assessment Within Functional Limits Lower Extremity ROM Assessment Within Functional Limits Impairments Pt with right LE edema and some joint changes in her legs that may be arthritic in nature Strength Upper Extremity Strength Assessment Within Functional Limits Lower Extremity Strength Assessment Within Functional Limits M6 PT-IP Treatment Start: 11/25/23 11:03 Freq: NEEDED Status: Active Protocol: Document 11/26/23 08:55 MB (Rec: 11/26/23 09:38 MB [id number]) Physical Therapy Treatment Education Education Provided Safety Other Treatments Other Treatment Performed Gait training, O2 education, safety training, stair training M7 PT-IP Assessment and Plan Start: 11/25/23 11:03 Freq: NEEDED Status: Active Protocol: Document 11/26/23 08:55 MB (Rec: 11/26/23 09:38 MB [id number]) PT Summary Assessment and Plan Potential Rehabilitation Potential Fair Status of Condition at Evaluation Evolving Summary Impairments Balance,Bed Mobility,Transfers ,Gait,Activity Tolerance Progress Towards Goals Slow Progress due to Activity Tolerance Assessment Summary Pt is an 83 y/o female presenting with JOYNER and O2 sats dropping with mobility in hallway today. She is impulsive and rushes through activities and had decreased safety awareness and command- following. Per chart, pt with CHF and not having been able to fill medications JUNIOR NETWORK ADMINISTRATOR and she is looking for a new doctor. PT is concerned about pt's decreased safety, JOYNER and desaturation, high fall risk and right LE edema in setting of acute on chronic CHF and pt living at home alone. Recommend HH services at d/c at the very least. Ongoing PT to maximize safety and balance . Goals Bed Mobility Goal Independent Transfer Goal Independent Gait Goal Independent Gait Distance 100 Other Goals Pt will ascend and descend 3 steps with rail and mod I to allow safe home entrance. Days to Meet Goals 3 Frequency of Treatment Frequency Of Treatment Once a Day Treatment Plan Physical Therapy Treatment Plan Bed Mobility Training,Transfer Training,Gait Training, Therapeutic Exercise,Balance Retraining,Discharge Planning Precautions Other Precautions Fall risk, contact for MRSA in nares, O2 desaturation with mobility Weight Bearing Status Weight Bearing Status Weight Bear as Tolerated Recommendations To Nursing Amount of Assist Needed 1 Person Assist Discharge Recommendations PT Discharge Recommendations Home with Assistance,Home Health Other Discharge Recommendations Pt may need O2 for d/c Transportation Needs at Discharge Private Vehicle,Wheelchair/ Cabulance
--- NOTE | 2023-11-26 10:10 | PC.NURSE ---
Med rec. completed as best as possible, patient very poor health and medical secretary receptionist. Working with Pharmacy to complete list. Patient refusing to wear continuous finger pulse ox, will continue to check as frequently as possible.
--- NOTE | 2023-11-26 11:07 | CM.DPC ---
Addendum entered by Patricia Zheng R.N. 11/26/23 13:17: Called the [facility], the [phone] is out of service. The number at the [facility] in [place] is: [phone]. Was able to leave a message on their voice mail that there is a patient that is in need of transportation to home tomorrow, and if there are any volunteers available. Left this DC [employer]ra[employer] Worker's phone number to call back. Addendum entered by Patricia Zheng R.N. 11/26/23 13:02: Spoke to Keely, from [place]. Stated, we will not transport her, she owed us money at one time, and she is mentally unstable, don't feel comfortable transporting her. At this time, have no transportation for patient, only option is to attempt getting someone from [facility] in [place], can attempt calling them today. Addendum entered by Patricia Zheng R.N. 11/26/23 12:39: Hospitalist is feeling that patient could discharge home today. Spoke to patient, asked her if she had any money for a taxi, notes from previous visits indicate that Keely can't transport her anymore. Called [employer], stated that the ride would cost $57.00, and patient has $30.00. Left a message with Keely lemus to see if they may reconsider picking up patient, if not, will have to work on getting patient home through the [facility]. Original Note: DCP Cont: Met with patient, introduced self and role. Confirmed with patient that she does not have an active PCP. Printed out [facility] in [place], asked her if she is interested in getting established with one of their providers, stated, she was. Patient most likely will discharge home tomorrow, can set up appointment at their clinic with one of the providers. Barrier may be her getting the transportation that she needs. Did bring up [facility] phone number to call tomorrow to see if there are any volunteers to take her home. Their number is: [phone]. Did also leave a message with Kylie Mead, she is affiliated with the Sub[facility] Nurse[facility] department in [place], was notified at the last visit about getting her transportation. Left Anupama Benedito a message, with [facility] to see if patient is still part of the [facility] program, will send her an email as well. In the message let her know that care management is working on getting her an appointment with the [facility] in [place]. P: DCP to continue to follow, working on getting patient an appointment with [facility], will need transportation home, can contact [facility]. Will send Anupama at [facility] an email. Patricia Zheng RN/Main Line Assembler
[2023-11-26] MEDS: SODIUM CHLORIDE 0.9% 500 ML 250 ML IV (18:17)
--- NOTE | 2023-11-26 18:57 | PM.PN.1 ---
Subjective Subjective Interval history: Patient feeling better and now on room air. Breathing has improved. BP low so 250cc bolus given and IV lasix held. 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 Exam Vital Signs (past 8 hours): - 11/26/23 11:00 11/26/23 11:30 11/26/23 11:41 Temperature Pulse Rate 62 61 62 Respiratory Rate 28 H 47 H 26 H Blood Pressure Pulse Oximetry 94 Oxygen Delivery Method Oxygen Flow Rate 11/26/23 11:41 11/26/23 11:43 11/26/23 12:00 Temperature 96.5 F L Pulse Rate 62 58 L Respiratory Rate 26 H 19 Blood Pressure 96/53 L 96/53 L Pulse Oximetry 94 Oxygen Delivery Method Oxygen Flow Rate 0 11/26/23 12:30 11/26/23 13:00 11/26/23 13:30 Temperature Pulse Rate 61 62 72 Respiratory Rate 20 18 33 H Blood Pressure Pulse Oximetry Oxygen Delivery Method Oxygen Flow Rate 11/26/23 14:00 11/26/23 14:04 11/26/23 14:30 Temperature Pulse Rate 65 65 63 Respiratory Rate 28 H 16 20 Blood Pressure Pulse Oximetry 92 97 98 Oxygen Delivery Method Nasal Cannula Oxygen Flow Rate 2 11/26/23 15:00 11/26/23 15:30 11/26/23 15:35 Temperature Pulse Rate 61 62 Respiratory Rate 14 24 Blood Pressure 80/46 L Pulse Oximetry 100 96 Oxygen Delivery Method Oxygen Flow Rate 11/26/23 15:35 11/26/23 15:37 11/26/23 15:37 Temperature Pulse Rate 62 61 Respiratory Rate 22 20 Blood Pressure 88/52 L Pulse Oximetry 96 95 Oxygen Delivery Method Oxygen Flow Rate 11/26/23 15:38 11/26/23 16:00 11/26/23 16:30 Temperature 96.2 F L Pulse Rate 62 61 62 Respiratory Rate 18 17 18 Blood Pressure 88/52 L Pulse Oximetry 96 96 97 Oxygen Delivery Method Oxygen Flow Rate 0 11/26/23 17:00 11/26/23 17:02 11/26/23 17:02 Temperature Pulse Rate 61 61 Respiratory Rate 18 19 Blood Pressure 98/50 L Pulse Oximetry 98 97 Oxygen Delivery Method Oxygen Flow Rate Fraction of Inspired Oxygen 24 SaO2/FiO2 Ratio 395 Oxygen Delivery Method Nasal Cannula Oxygen Flow Rate 0 Narrative Exam Narrative: GEN: Elderly female, very pleasant, Alert and oriented x 3, NAD HEENT:NC, Face symmetric CHEST: Respiratory excursions symmetric, mild diffuse crackles bilaterally CV: RRR, no M/R/G ABD: Soft, NT/ND, BT present in all 4 quadrants, no organomegaly or masses EXTR: warm, well perfused, no C/C, 2+ bilateral lower extremity pitting edema SKIN: warm and dry, no rash NEURO: Alert and oriented x 3, nonfocal Objective Labs 11/26/23 04:04 11/26/23 04:04 Labs: Laboratory Results - last 24 hr 11/26/23 04:04 WBC 7.1 RBC 3.93 L Hgb 11.1 L Hct 33.6 L MCV 85.5 MCH 28.3 MCHC 33.1 RDW 16.9 H Plt Count 189 Neut % (Auto) 67.9 Lymph % (Auto) 18.7 L [place] % (Auto) 7.8 Eos % (Auto) 4.6 H Baso % (Auto) 1.0 Neut # (Auto) 4800 Lymph # (Auto) 1300 [place] # (Auto) 600 Eos # (Auto) 300 Baso # (Auto) 100 Sodium 134 L Potassium 3.7 Chloride 100 Carbon Dioxide 29 BUN 30 H Creatinine 1.09 H Estimated GFR 50 L BUN/Creatinine Ratio 27.5 H Glucose 97 Calcium 8.5 PFSH Medical History Pulmonary hypertension Systolic heart failure Hypertension Bipolar 1 disorder Dissection of aorta, thoracic Melanoma Contusion of knee, right Surgical History History of cholecystectomy History of appendectomy Family History Other No family history of disorders Social History household members: none Smoking Status: Current some day smoker alcohol intake: current Assessment & Plan Assessment & Plan narrative: 1. Acute on chronic systolic congestive heart failure Given diuresis with IV lasix and improving. She has been doing well overall. She is planning to use mail order pharmacy and states that she has benefits through [employer]. She also advises she is switching primary care providers from [facility]. She does note she has difficulty with transportation. Pharmacy did a medication check and notes some of her medications were last filled in November of 2022, so patient is clearly not adherent to her medication regimen. She has an active APS investigation secondary to self neglect. I am told that she is known to hitchhike in the community which given her advanced age puts her at significant risk as well. An echocardiogram was done today and reveals a significant change compared to the prior echocardiogram from July 30, 2022. The EF has decreased from 50-55% down to 20-25%. I spoke at length with Dr. Wade at [facility]. Given the patient's difficulties with medication adherence, it is felt that aggressive intervention would be contraindicated for this patient and would potentially lead to greater complications. For now will work towards better medication adherence. 2. Chronic hypertension, now hypotension BP low at 88/52. Holding amlodipine, lisinopril, and continuing metoprolol. Stopped IV lasix with Cr also up. Give 250cc bolus. 3. Bipolar 1 disorder Untreated, which likely contributes to ongoing difficulties with her medical care. Code status Full Prophylaxis On heparin Disposition Home on 11/26 if BP improves. Quality VTE Deep Vein Thrombosis/Pulmonary Embolism Present on Admission: No
--- NOTE | 2023-11-27 00:24 | PC.NURSE ---
Patient oriented except did not know day of week and vague about symptoms that brought her to the ER. Breath sounds CTA but takes shallow breaths and becomes tachypneic when up to bathroom; RA sat 90% so is currently on 2L/min oxygen per NC with sat of 96%. Did decrease her to 1L/min but sat dropped to 88% when asleep. HRR w/telemetry reading os SR. Denied nausea. BT present but hypoactive; stated she is passing flatus. Denied dysuria with urination. Is able to move herself in bed and provided SBA when out of bed for safety. Bilateral calf SCD's applied at time of assessment. 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 Denied pain. Fall risk score is moderate and bed alarm is activated.
[2023-11-27 04:00] VITALS: BP 114/59; PULSE 71; RESP 24; TEMP 36.6; O2SAT 94
[2023-11-27 08:00] VITALS: BP 130/59; PULSE 66; RESP 25; TEMP 36.6; O2SAT 96
[2023-11-27] MEDS: ASPIRIN EC 81 MG TABLET PO (08:58)
[2023-11-27] MEDS: HEPARIN 5,000 UNIT/ML VIAL 5000 UNIT SUBCUT (08:58)
[2023-11-27] MEDS: METOPROLOL IR 25 MG TABLET PO (08:58)
[2023-11-27] MEDS: SODIUM CHLORIDE 0.9% FLUSH 10 ML IV (08:59)
[2023-11-27 09:00] VITALS: O2SAT 94
--- NOTE | 2023-11-27 11:32 | PM.DS.1 ---
History of Present Illness History of Present Illness Chief complaint: SOB Narrative: The patient is an 83-year-old female with a history of chronic systolic heart failure as well as hypertension and a distant type B aortic dissection. She presented to the emergency department today with progressive dyspnea over the last several days. She has been off her usual medications for several days. She notes that the [facility] has closed and this is where she gets her medications. Her primary physician is in [place], she is trying to find a new primary physician in [place]. She denies any chest pain but has extreme dyspnea with exertion and worse edema of her right leg than usual. 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 She also has some orthopnea. She denies any recent rhinorrhea, sore throat, cough, or fevers. She also denies any nausea, diaphoresis, diarrhea, blood per rectum, or melena. She has filled out the POLST before and notes that she would like to be full resuscitation and short-term intubation for reversible problems. She has not want to be maintained on machines for prolonged periods of time however. Discharge Providers Provider Date of admission: 11/24/23 14:34 Discharge Date: 11/27/23 Primary care physician: Rohit Zuniga MD Consults: 11/24/23 11:58 Consult to CURING OVEN ATTENDANT - Workcell Operator Stat Comment: 11/24/23 14:44 Consult to Occupational Therapy Evaluate & Treat Comment: Physician Instructions: Evaluate and treat Consult to Physical Therapy Evaluate & Treat Comment: Physician Instructions: Evaluate and Treat Discharge provider: Luis Felipe Mata MD Summary Hospital Course Discharge Diagnosis: 1. Acute on chronic systolic heart failure, present on admission and active. 2. Pulmonary hypertension, present on admission and active. 3. Essential hypertension, present on admission and active. 4. Bipolar 1, present on admission and active. 5. Dissection of thoracic aorta, remote. Hospital Course: This pleasant lady was admitted and diuresed for her acute on chronic congestive heart failure. She had stopped taking her medications likely 2 weeks prior to her admission. She responded to diuresis and did well. She was able to wean off from oxygen and felt to be close to her baseline on the day of discharge. Her local pharmacy, [facility] has permanently closed. Her medications were filled at the pharmacy next to the hospital and in a taxi ride home was arranged. She does need new doctor, and social media marketing manager did assist her with looking at possible options. Her EF has been noted to decrease from 50-55% down to 20-25%. The case was discussed with [facility]. The patient did developed mild LELA with diuresis. Therefore at the time of discharge her lisinopril will be held due to her LELA. Status at Discharge Cognitive/behavioral status at discharge: oriented Functional status at discharge: independent ambulation Overall status at discharge: patient is back to baseline Time Spent with Patient Time spent: Greater than 30 minutes Exam Vital Signs (past 8 hours): - 11/27/23 04:00 11/27/23 08:00 11/27/23 08:00 Temperature 97.8 F 97.8 F Pulse Rate 71 66 Respiratory Rate 24 25 H Blood Pressure 114/59 L 130/59 L Pulse Oximetry 94 96 Oxygen Delivery Method Room Air Oxygen Flow Rate 0 0 11/27/23 09:00 Temperature Pulse Rate Respiratory Rate Blood Pressure Pulse Oximetry 94 Oxygen Delivery Method Room Air Oxygen Flow Rate 0 Fraction of Inspired Oxygen 24 SaO2/FiO2 Ratio 395 Oxygen Delivery Method Room Air Oxygen Flow Rate 0 Narrative Exam Narrative: NAD, alert and oriented. Fluent speech. Lungs are clear, normal rate and effort. Heart is regular, no murmur gallop or rub. Abdomen is soft, non distended. Extremities are free of edema. Objective Imaging Chest x-ray: Radiologist's impression: Chronic CHF pattern, possible slight exacerbation with small bilateral pleural effusions Labs 11/26/23 04:04 11/26/23 04:04 [facility] Medical History Pulmonary hypertension Systolic heart failure Hypertension Bipolar 1 disorder Dissection of aorta, thoracic Melanoma Contusion of knee, right Surgical History History of cholecystectomy History of appendectomy Family History Other No family history of disorders Social History household members: none Smoking Status: Current some day smoker alcohol intake: current Discharge Assessment & Plan Assessment and Plan Assessment: 1. Acute on chronic systolic heart failure, present on admission and active. 2. Pulmonary hypertension, present on admission and active. 3. Essential hypertension, present on admission and active. 4. Bipolar 1, present on admission and active. 5. Dissection of thoracic aorta, remote. Plan of Treatment: She was discharged home with beta neetu and her diuretic. Her lisinopril was held at the time of discharge due to LELA. She can have her renal function re-evaluated when she follows up with primary care. Discharge Plan Discharge Plan Patient Disposition: Home Provider Discharge Comment: Stable for discharge. You have exacerbation of heart failure. It is very important the take your heart pills every day including your water pills which make sure that water does not accumulate on your lungs. Discharge orders & Medications Prescriptions: Continued acetaminophen 325 mg Tablet 650 mg PO Q4H PRN (Reason: Fever/Mild Pain (1-3)) Qty: 90 0RF aspirin 81 mg Tablet,Delayed Release (Dr/Ec) 81 mg PO DAILY Qty: 30 2RF carvedilol 3.125 mg tablet 3.125 mg PO BID Qty: 60 2RF furosemide 20 mg tablet 10 mg PO DAILY Qty: 30 2RF Discontinued olanzapine 5 mg tablet 10 mg PO BEDTIME losartan 25 mg tablet 25 mg PO DAILY Follow up/Referrals: Rohit Zuniga MD [Primary Care Provider] - Karen Hickman DO [Physician] - 12/18/23 4:00 pm Discharge Health Status Multidrug resistant organism: No MDRO Diet/Activity/Treatments Diet: Low-sodium Activity: As tolerated. Visit Report/Discharge Packet Stand Alone Forms: Congestive Heart Failure, Patient Portal/API Discharge Data Primary Care Provider: Rohit Zuniga Quality VTE Deep Vein Thrombosis/Pulmonary Embolism Present on Admission: No
--- NOTE | 2023-11-27 11:55 | PT-IP ANOTE ---
Checked on pt before lunch, nurse present trying to coordinate prescriptions in order to DC.
--- NOTE | 2023-11-27 12:44 | CM.DPNOTE ---
DCP Note GLOBAL IMPLEMENTATION MANAGER reviewed EMR. Per chart review, pt medically stable to dc today. Barriers include transport home, establishing with PCP, getting meds, and set up with HH. GLOBAL IMPLEMENTATION MANAGER received call from Sandy Cortés'Motility Count and Sandy Terry Freta.lá- neither do transport for folks from hospital. GLOBAL IMPLEMENTATION MANAGER left voicemails with DAMON Mace and APS Second Grade Teacher Jose Ramon marrufo. No response. GLOBAL IMPLEMENTATION MANAGER met with pt in room. Confirm no ride home. Confirm in agreement with dc home. Confirm agreement with primary care here at - report able to get ride here to clinic. Agree to allow this GLOBAL IMPLEMENTATION MANAGER to share dc information with APS team following her case. [facility] clinic- unable to accept new pt's for primary care until Jul. GLOBAL IMPLEMENTATION MANAGER spoke with reception clerk at primary care. Arranged initial appt with Dr. Hickman December 17 at 4pm. GLOBAL IMPLEMENTATION MANAGER updated pt about new primary care appt. Pt In agreement. Confirm will be able to get ride there. Confirms eager to get started with care. GLOBAL IMPLEMENTATION MANAGER lvm with [facility] to inquire about Medicaid nicole. Per ED social work note, APS helped pt send Medicaid nicole. no response from [facility]. GLOBAL IMPLEMENTATION MANAGER spoke with Hammad Owens Comm Motor[employer]ach Operator. 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 Report no barriers from their end but appreciated the update that pt will be dc'ing home today. MARBIN Stella kindly agreed to send [facility] referral information. Anupama agreed to review- see no barriers in accepting again. GLOBAL IMPLEMENTATION MANAGER completed order and f2f. GLOBAL IMPLEMENTATION MANAGER worked closely with coordinator/RN to get meds here at [facility] for pt to dc with until SOC with PCP. RN got meds from pharmacy here and handed to pt. GLOBAL IMPLEMENTATION MANAGER spoke with Keely at [facility] [employer]. Hx of struggle working with this pt due to lack of payment. They KINDLY agreed to do one time transport for her with taxi voucher from this hospital. will roll picker at at 1pm. GLOBAL IMPLEMENTATION MANAGER completed taxi voucher form- signed by RN group home supervisor Myrna. Placed copy in bill folder. Placed original in pt's chart. GLOBAL IMPLEMENTATION MANAGER updated RN/CLINICAL OUTCOMES MANAGER/drinking water technician. CLINICAL OUTCOMES MANAGER in agreement to take pt to door on at 1pm. Spoke with DAMON Mace- sent in nicole for free phone for pt. Medicaid nicole in the works. Pt has burned a lot of bridges with family. Last SLUMS a week ago . Has been working with pt for months now. Pt is unmedicated bipolar, gets APS for her from community that seem to follow when she's manic. Nakita reports the community helps her care for her needs. Nakita reports she's just very eccentric. Pt can keep track of appts from her perspective. GLOBAL IMPLEMENTATION MANAGER emailed Nakita a brief sum of the dc plan for her records. [email or web address] Plan: [place] to [place] home today, transport with [employer] at 1pm payment with taxi voucher- CLINICAL OUTCOMES MANAGER/pt will meet them at [address] [facility]. [facility] to follow pending acceptance for RN/PT/GLOBAL IMPLEMENTATION MANAGER. Pt sent home with meds from here. Pt SOC with new PCP December [address] Hickman. CM team will continue to follow closely. WILDA [place]
== END 2023-11-27 13:05 | disposition home health service (06) | DRG 291 ==
LOC: ED 14:13 → AC 14:35 → ICU 15:11
PROVIDERS: Admitting Provider Hospitalist; Emergency Provider Emergency Medicine; PCP Internal Medicine; Referring Provider Emergency Medicine; Visit Provider Hospitalist
DX: I11.0 Hypertensive heart disease with heart failure (principal); I50.23 Acute on chronic systolic (congestive) heart failure; N17.9 Acute kidney failure, unspecified; I27.20 Pulmonary hypertension, unspecified; F31.9 Bipolar disorder, unspecified; I95.9 Hypotension, unspecified; F17.200 Nicotine dependence, unspecified, uncomplicated; Z86.79 Personal history of other diseases of the circulatory system
CPT/HCPCS: 36415; 70496; 70498; 71045; 80048; 80053; 83880; 84484; 85025; 87797; 93005; 93010; 94618; 94760; 96365; 97116; 97161; 99285; G0378; C8929; J1644; J1940; Q9957; Q9967

== ENCOUNTER 2024-04-01 04:02 | Emergency (ER) | payer OTHER, SELFPAY ==
[2023-11-24 15:57] VITALS: BMI 27.6
[2024-04-01 04:02] VITALS: BP 174/83; PULSE 85; RESP 18; TEMP 36.3; O2SAT 98
--- NOTE | 2024-04-01 04:08 | ED.CHESTPAIN ---
HPI - Chest Pain General Chief Complaint: Chest Pain Stated Complaint: chest pain Time Seen by Provider: 04/01/24 04:07 Source: EMS Mode of arrival: EMS History of Present Illness HPI narrative: 83-year-old female with history of congestive heart failure, pulmonary hypertension, coronary disease presents by EMS from home for chest pain. Patient states that she always has chest pain, but yesterday morning it worsened while she was at home, and this morning while getting up to feed her cat she decided to call 911. By the time of arrival to the emergency department patient stated that she was pain-free. Related Data Previous Rx's Medication Instructions Recorded acetaminophen 325 mg tablet 650 mg (2 x 325 mg) PO Q4H PRN 11/27/23 Fever/Mild Pain (1-3) #90 tabs aspirin 81 mg tablet,delayed 81 mg PO DAILY #30 tabs 11/27/23 release carvedilol 3.125 mg tablet 3.125 mg PO BID #60 tabs 11/27/23 furosemide 20 mg tablet 10 mg (1/2 x 20 mg) PO DAILY #30 11/27/23 tabs Allergies Allergy/AdvReac Type Severity Reaction Status Date / Time No Known Drug Allergies Allergy Verified 01/17/24 08:52 Patient History Medical History Pulmonary hypertension Systolic heart failure Hypertension Bipolar 1 disorder Dissection of aorta, thoracic Melanoma Contusion of knee, right Surgical History History of cholecystectomy History of appendectomy Family History Other No family history of disorders Social History household members: none Smoking Status: Former smoker alcohol intake: current Smoking Status: Former smoker tobacco type: cigarettes alcohol intake frequency: holidays/special occasions only Substance Use Type: does not use Exam Initial Vital Signs Initial Vital Signs: Vital Signs Temperature 97.4 F L 04/01/24 04:02 Pulse Rate 85 04/01/24 04:02 Respiratory Rate 18 04/01/24 04:02 Blood Pressure 174/83 H 04/01/24 04:02 Pulse Oximetry 98 04/01/24 04:02 Oxygen Delivery Method Room Air 07/15/24 04:02 Const: Awake, alert, disheveled Cardiac: regular rate, regular rhythm RESP: unlabored, clear bilaterally, no wheezing GI: Soft, nontender, nondistended Skin: Warm, Dry, intact, no rashes Neuro: AO x3, CN II-XII grossly intact, moves all extremities Course Orders Ordered: ED Orders 04/01/24 04:00 BNP [NT-proBNP (BNP-Adult 18+)] Stat CBC Auto Diff [Complete Blood Count AUTO DIFF] Stat CMP [Comprehensive Metabolic Panel] Stat PT [Prothrombin Time INR] Stat Troponin & CK Cardiac Panel Stat 04/01/24 04:08 Chest [XR chest 1V] Stat EKG-12 Lead Stat Vital Signs Vital signs: Vital Signs - 8 hr 04/01/24 04:02 Temperature 97.4 F L Pulse Rate 85 Respiratory Rate 18 Blood Pressure 174/83 H Pulse Oximetry 98 Oxygen Delivery Method Room Air MDM - Chest Pain Differential Diagnosis Differential diagnosis: Likely stable angina, unstable angina pectoris and atypical chest pain Lab Data 04/01/24 04:00 04/01/24 04:00 Labs: Lab Results 04/01/24 Range/Units 04:00 WBC 9.5 (4.5-11.0) X10^3/uL RBC 4.45 (4.0-5.2) X10^6/uL Hgb 12.8 (12.0-16.0) g/dL Hct 39.2 (36-46) % MCV 88.2 (80-100) fL MCH 28.7 (26-34) PG MCHC 32.5 (30-36) % RDW 15.0 H (11.6-14.8) % Plt Count 277 (150-400) X10^3/uL Neut % (Auto) 75.2 H (50-75) % Lymph % (Auto) 13.8 L (25-40) % [place] % (Auto) 6.3 (3-14) % Eos % (Auto) 4.0 (2-4) % Baso % (Auto) 0.7 (0-2) % Neut # (Auto) 7100 H (7034-2967) /uL Lymph # (Auto) 1300 (5275-8698) /uL [place] # (Auto) 600 (0-900) /uL Eos # (Auto) 400 (0-450) /uL Baso # (Auto) 100 (0-100) /uL PT 11.2 (9.4-12.5) SECONDS INR 1.0 (0.9-1.3) Sodium 140 (137-145) mmol/L Potassium 4.3 (3.4-5.1) mmol/L Chloride 108 H (98-107) mmol/L Carbon Dioxide 27 (22-32) mmol/L BUN 21 H (7-17) mg/dL Creatinine 0.75 (0.52-1.04) mg/dL Estimated GFR > 60 (>60) mL/min BUN/Creatinine Ratio 28.0 H (6-22) Glucose 108 (80-110) mg/dL Calcium 9.2 (8.4-10.2) mg/dL Total Bilirubin 0.5 (0.2-1.3) mg/dL AST 19 (14-36) IU/L ALT 9 (<35) IU/L Alkaline Phosphatase 88 (38-126) U/L Total Creatine Kinase 50 (30-135) U/L Troponin I 0.019 (0.01-0.034) ng/mL NT-Pro-B Natriuret Pep 4990 H (<450) pg/mL Total Protein 7.3 (6.3-8.2) g/dL Albumin 4.1 (3.5-5.0) g/dL Globulin 3.2 (1.7-4.1) g/dL Albumin/Globulin Ratio 1.3 (1.0-2.8) Urine Dip Bedside Urine Glucose Negative Bedside Urine Bilirubin - Negative Bedside Urine Ketone - Negative Urine Specific [place] 1.015 Bedside Urine Occult Blood +/- Bedside Urine pH 6.0 Bedside Urine Protein - Negative Bedside Urine Urobilinogen - Negative Bedside Urine Nitrite - Negative Bedside Urine Leukocytes +/- 15 Esterase Imaging Data Chest x-ray: Radiologist's Impression: PROCEDURE: XR CHEST 1V INDICATIONS: chest pain TECHNIQUE: One view of the chest was acquired. COMPARISON: [facility], , XR CHEST 1V, 11/24/2023, 12:23. FINDINGS: Surgical changes and devices: Overlying monitoring wires. Left humeral gustavo. Lungs and pleura: Mild hyperinflation. No focal consolidation, effusion, or pneumothorax. Mediastinum: Mild cardiomegaly and tortuous, ectatic thoracic aorta, stable. No central vascular congestion. Bones and chest wall: Deformities of remote, healed bilateral rib fractures and left humeral surgical changes as described. IMPRESSION: No acute cardiopulmonary disease. Final interpretation is concordant with preliminary report. Dictated by: Josee Garcia M.D. on 04/01/2024 at 8:41 Approved by: Josee Garcia M.D. on 04/01/2024 at 8:42 MDM Narrative Medical decision making narrative: Patient presenting from home with chest pain. Has resolved by the time of arrival to the emergency department. Numerous presentations for same. Patient initially requested to leave prior to receiving blood work and requested that we call her a cab. Explained to patient that CAB services were not currently active at this time of night and she would need to leave against medical advice. Patient is subsequently decided to stay for her laboratory results. High sensitivity troponin 0.019, which is baseline for the patient. BNP 4990, decreased from previous. Patient counseled on lab results and x-ray imaging findings. Counseled to follow up with her primary and vice president of compliance. Discharge Plan Departure Patient Disposition: Home Clinical Impression: Chest pain Instructions: DI for Chest Pain Activity Restrictions/Additional Instructions: Follow up with your heart doctor Prescriptions: No Action acetaminophen 325 mg Tablet 650 mg PO Q4H PRN (Reason: Fever/Mild Pain (1-3)) Qty: 90 0RF aspirin 81 mg Tablet,Delayed Release (Dr/Ec) 81 mg PO DAILY Qty: 30 2RF carvedilol 3.125 mg tablet 3.125 mg PO BID Qty: 60 2RF furosemide 20 mg tablet 10 mg PO DAILY Qty: 30 2RF Referrals: Karen Hickman DO [Primary Care Provider] - Stand Alone Forms: Patient Portal/API
[2024-04-01 04:11] VITALS: BP 174/83; PULSE 84; RESP 28; O2SAT 95
[2024-04-01 04:25] VITALS: BP 191/98; PULSE 87; RESP 33; O2SAT 97
[2024-04-01 04:30] VITALS: PULSE 82; RESP 30; O2SAT 96
[2024-04-01 04:33] LABS: Prothrombin Time 11.2 SECONDS (9.4-12.5)
[2024-04-01 04:36] LABS: Alanine Aminotransferase 9 IU/L (<35); Albumin 4.1 g/dL (3.5-5.0); Albumin Globulin Ratio 1.3 (1.0-2.8); Alkaline Phosphatase 88 U/L (38-126); Aspartate Aminotransferase 19 IU/L (14-36); Bilirubin Total 0.5 mg/dL (0.2-1.3); Blood Urea Nitrogen 21 mg/dL (7-17); Calcium 9.2 mg/dL (8.4-10.2); Carbon Dioxide 27 mmol/L (22-32); Chloride 108 mmol/L (98-107); Creatine Kinase 50 U/L (30-135); Estimated Glomerular Filt Rate > 60 mL/min (>60); Globulin 3.2 g/dL (1.7-4.1); Glucose 108 mg/dL (80-110); HEMOLYSIS < 15 (0-50); Potassium 4.3 mmol/L (3.4-5.1); Sodium 140 mmol/L (137-145); Total Protein 7.3 g/dL (6.3-8.2)
[2024-04-01 04:43] LABS: Add Manual Diff / Slide Review NO; Basophils Absolute Auto 100 /uL (0-100); Basophils Percent Auto 0.7 % (0-2); Eosinophils Absolute Auto 400 /uL (0-450); Hematocrit 39.2 % (36-46); Hemoglobin 12.8 g/dL (12.0-16.0); Lymphocytes Absolute Auto 1300 /uL (1100-4500); Lymphocytes Percent Auto 13.8 % (25-40); Mean Corpuscular HGB Conc 32.5 % (30-36); Mean Corpuscular Hemoglobin 28.7 PG (26-34); Mean Corpuscular Volume 88.2 fL (80-100); Monocytes Absolute Auto 600 /uL (0-900); Monocytes Percent Auto 6.3 % (3-14); Neutrophils Absolute Auto 7100 /uL (1500-7000); Neutrophils Percent Auto 75.2 % (50-75); Platelet Count 277 X10^3/uL (150-400); Red Blood Cell Count 4.45 X10^6/uL (4.0-5.2); White Blood Cell Count 9.5 X10^3/uL (4.5-11.0)
[2024-04-01 04:48] LABS: NT-proBNP (BNP-Adult 18+) 4990 pg/mL (<450); Troponin I 0.019 ng/mL (0.01-0.034)
[2024-04-01 05:00] VITALS: PULSE 81; RESP 34; O2SAT 96
[2024-04-01 05:19] VITALS: TEMP 36.6
== END 2024-04-01 05:20 | disposition home or self-care (01) ==
PROVIDERS: Emergency Provider Emergency Medicine; PCP Family Medicine
DX: R07.9 Chest pain, unspecified (principal)
CPT/HCPCS: 71045; 80053; 81003; 82550; 83880; 84484; 85025; 85610; 99282; 99284

== ENCOUNTER 2024-04-09 05:23 | Emergency (ER) | payer OTHER, SELFPAY ==
[2023-11-24 15:57] VITALS: BMI 27.6
[2024-04-09 05:38] VITALS: BP 142/77; PULSE 80; RESP 16; TEMP 37; O2SAT 95
--- NOTE | 2024-04-09 05:44 | DI.RAD.S_ITS ---
PROCEDURE: XR CHEST 1V INDICATIONS: chest pain TECHNIQUE: One view of the chest was acquired. COMPARISON: [facility], CR, XR CHEST 1V, 04/01/2024, 4:31. [facility], CR, XR CHEST 1V, 11/24/2023, 12:23. FINDINGS: Surgical changes and devices: None. Lungs and pleura: No new consolidation or pleural effusion. Prominent interstitial lung markings again seen. Mediastinum: Cardiomegaly and widened mediastinal contours are unchanged. Bones and chest wall: Degenerative findings. Partially seen left humeral hardware. Old rib fractures. IMPRESSION: No new consolidation or pleural effusion. Prominent pulmonary markings as before could represent underlying fibrosis or edema/atypical infection. Cardiomegaly and widened mediastinal contours again seen, not well assessed on radiograph. Dictated by: Anthony Leon M.D. on 04/09/2024 at 9:17 Approved by: Anthony Leon M.D. on 04/09/2024 at 9:18
[2024-04-09 05:54] LABS: INR 0.9 (0.9-1.3); Prothrombin Time 10.7 SECONDS (9.4-12.5)
[2024-04-09 05:56] LABS: PTT Partial Thromboplastin Tim 33 SECONDS (25.1-36.5)
[2024-04-09 05:57] LABS: Add Manual Diff / Slide Review NO; Basophils Absolute Auto 0 /uL (0-100); Basophils Percent Auto 0.4 % (0-2); Eosinophils Absolute Auto 600 /uL (0-450); Eosinophils Percent Auto 6.8 % (2-4); Hematocrit 38.2 % (36-46); Hemoglobin 12.5 g/dL (12.0-16.0); Lymphocytes Absolute Auto 1100 /uL (1100-4500); Lymphocytes Percent Auto 11.8 % (25-40); Mean Corpuscular HGB Conc 32.9 % (30-36); Mean Corpuscular Volume 88.2 fL (80-100); Monocytes Absolute Auto 600 /uL (0-900); Neutrophils Absolute Auto 6900 /uL (1500-7000); Platelet Count 261 X10^3/uL (150-400); Red Blood Cell Count 4.33 X10^6/uL (4.0-5.2); Red Cell Distribution Width 15.3 % (11.6-14.8); White Blood Cell Count 9.3 X10^3/uL (4.5-11.0)
[2024-04-09 05:59] LABS: Alanine Aminotransferase 10 IU/L (<35); Albumin 3.9 g/dL (3.5-5.0); Albumin Globulin Ratio 1.4 (1.0-2.8); Alkaline Phosphatase 84 U/L (38-126); Aspartate Aminotransferase 22 IU/L (14-36); BUN Creatinine Ratio 26.3 (6-22); Bilirubin Total 0.5 mg/dL (0.2-1.3); Blood Urea Nitrogen 21 mg/dL (7-17); Calcium 8.7 mg/dL (8.4-10.2); Carbon Dioxide 24 mmol/L (22-32); Chloride 107 mmol/L (98-107); Creatine Kinase 41 U/L (30-135); Estimated Glomerular Filt Rate > 60 mL/min (>60); Globulin 2.8 g/dL (1.7-4.1); Glucose 100 mg/dL (80-110); HEMOLYSIS 44 (0-50); Lipase 58 U/L (23-300); Magnesium 2.1 mg/dL (1.6-2.3); Potassium 4.4 mmol/L (3.4-5.1); Sodium 137 mmol/L (137-145); Total Protein 6.7 g/dL (6.3-8.2)
--- NOTE | 2024-04-09 06:00 | EKG_ITS ---
[facility] [address] [place] [address] Test Date: 2024-04-09 Pat Name: Yue Klein Department: [facility] Room: Gender: Female Drug Department Worker: CHRIS : 1940 Requested By: Order Number: [id number] Reading MD: Luis Felipe Mata Measurements Intervals [place] Rate: 75 P: 35 NE: 166 QRS: -56 QRSD: 118 T: 91 QT: 424 QTc: 473 Interpretive Statements Normal sinus rhythm Left axis deviation Left ventricular hypertrophy with QRS widening and repolarization abnormality ( R in aVL , [place] product , Romhilt-Araiza ) Electronically Signed On 04-10-2024 16:48:34 PDT by Luis Felipe Mata
[2024-04-09 06:10] LABS: NT-proBNP (BNP-Adult 18+) 3100 pg/mL (<450); Troponin I 0.014 ng/mL (0.01-0.034)
--- NOTE | 2024-04-09 07:56 | ED.CHESTPAIN ---
HPI - Chest Pain General Chief Complaint: Chest Pain Stated Complaint: chest pain Mode of arrival: EMS History of Present Illness HPI narrative: Patient left without seeing provider. Related Data Previous Rx's Medication Instructions Recorded acetaminophen 325 mg tablet 650 mg (2 x 325 mg) PO Q4H PRN 11/27/23 Fever/Mild Pain (1-3) #90 tabs aspirin 81 mg tablet,delayed 81 mg PO DAILY #30 tabs 11/27/23 release carvedilol 3.125 mg tablet 3.125 mg PO BID #60 tabs 11/27/23 furosemide 20 mg tablet 10 mg (1/2 x 20 mg) PO DAILY #30 11/27/23 tabs Allergies Allergy/AdvReac Type Severity Reaction Status Date / Time No Known Drug Allergies Allergy Verified 01/17/24 08:52 Patient History Medical History Pulmonary hypertension Systolic heart failure Hypertension Bipolar 1 disorder Dissection of aorta, thoracic Melanoma Contusion of knee, right Surgical History History of cholecystectomy History of appendectomy Family History Other No family history of disorders Social History household members: none Smoking Status: Former smoker alcohol intake: current Smoking Status: Former smoker tobacco type: cigarettes alcohol intake frequency: holidays/special occasions only Substance Use Type: does not use Exam Initial Vital Signs Initial Vital Signs: Vital Signs Temperature 98.6 F 04/09/24 05:38 Pulse Rate 80 04/09/24 05:38 Respiratory Rate 16 04/09/24 05:38 Blood Pressure 142/77 H 04/09/24 05:38 Pulse Oximetry 95 04/09/24 05:38 Oxygen Delivery Method Room Air 04/09/24 05:38 Course Orders Ordered: ED Orders 04/09/24 05:05 Complete Blood Count AUTO DIFF Stat Comprehensive Metabolic Panel Stat Lipase Stat Magnesium Stat NT-proBNP (BNP-Adult 18+) Stat PTT Partial Thromboplastin [place] Stat Prothrombin Time INR Stat Troponin & CK Cardiac Panel Stat 04/09/24 05:44 XR chest 1V Stat EKG-12 Lead Stat Vital Signs Vital signs: Vital Signs - 8 hr 04/09/24 05:38 Temperature 98.6 F Pulse Rate 80 Respiratory Rate 16 Blood Pressure 142/77 H Pulse Oximetry 95 Oxygen Delivery Method Room Air MDM - Chest Pain Lab Data 04/09/24 05:05 04/09/24 05:05 Labs: Lab Results 04/09/24 Range/Units 05:05 WBC 9.3 (4.5-11.0) X10^3/uL RBC 4.33 (4.0-5.2) X10^6/uL Hgb 12.5 (12.0-16.0) g/dL Hct 38.2 (36-46) % MCV 88.2 (80-100) fL MCH 29.0 (26-34) PG MCHC 32.9 (30-36) % RDW 15.3 H (11.6-14.8) % Plt Count 261 (150-400) X10^3/uL Neut % (Auto) 75.0 (50-75) % Lymph % (Auto) 11.8 L (25-40) % [place] % (Auto) 6.0 (3-14) % Eos % (Auto) 6.8 H (2-4) % Baso % (Auto) 0.4 (0-2) % Neut # (Auto) 6900 (2352-9172) /uL Lymph # (Auto) 1100 (5097-4295) /uL [place] # (Auto) 600 (0-900) /uL Eos # (Auto) 600 H (0-450) /uL Baso # (Auto) 0 (0-100) /uL PT 10.7 (9.4-12.5) SECONDS INR 0.9 (0.9-1.3) APTT 33 (25.1-36.5) SECONDS Sodium 137 (137-145) mmol/L Potassium 4.4 (3.4-5.1) mmol/L Chloride 107 (98-107) mmol/L Carbon Dioxide 24 (22-32) mmol/L BUN 21 H (7-17) mg/dL Creatinine 0.80 (0.52-1.04) mg/dL Estimated GFR > 60 (>60) mL/min BUN/Creatinine Ratio 26.3 H (6-22) Glucose 100 (80-110) mg/dL Calcium 8.7 (8.4-10.2) mg/dL Magnesium 2.1 (1.6-2.3) mg/dL Total Bilirubin 0.5 (0.2-1.3) mg/dL AST 22 (14-36) IU/L ALT 10 (<35) IU/L Alkaline Phosphatase 84 (38-126) U/L Total Creatine Kinase 41 (30-135) U/L Troponin I 0.014 (0.01-0.034) ng/mL NT-Pro-B Natriuret Pep 3100 H (<450) pg/mL Total Protein 6.7 (6.3-8.2) g/dL Albumin 3.9 (3.5-5.0) g/dL Globulin 2.8 (1.7-4.1) g/dL Albumin/Globulin Ratio 1.4 (1.0-2.8) Lipase 58 (23-300) U/L Discharge Plan Departure Patient Disposition: Left Without Being Seen Clinical Impression: Patient left after triage Prescriptions: No Action acetaminophen 325 mg Tablet 650 mg PO Q4H PRN (Reason: Fever/Mild Pain (1-3)) Qty: 90 0RF aspirin 81 mg Tablet,Delayed Release (Dr/Ec) 81 mg PO DAILY Qty: 30 2RF carvedilol 3.125 mg tablet 3.125 mg PO BID Qty: 60 2RF furosemide 20 mg tablet 10 mg PO DAILY Qty: 30 2RF
== END 2024-04-09 07:29 | disposition left against medical advice (07) ==
PROVIDERS: Emergency Provider Emergency Medicine; PCP Family Medicine
DX: R07.9 Chest pain, unspecified (principal)
CPT/HCPCS: 71045; 80053; 82550; 83690; 83735; 83880; 84484; 85025; 85610; 85730; 93005; 99281

== ENCOUNTER 2024-06-18 16:56 | Emergency (ER) | payer OTHER, SELFPAY ==
[2023-11-24 15:57] VITALS: BMI 27.6
[2024-06-18] VITALS (11 sets, daily range): BP systolic 119–166; BP diastolic 59–79; PULSE 66–77; RESP 14–27; TEMP 36.9; O2SAT 95–99; BMI 27.9
--- NOTE | 2024-06-18 17:12 | DI.RAD.S_ITS ---
PROCEDURE: XR CHEST 1V INDICATIONS: Shortness of breath TECHNIQUE: One view of the chest was acquired. COMPARISON: [facility], CR, XR CHEST 1V, 04/09/2024, 5:44. [facility], CR, XR CHEST 1V, 04/01/2024, 4:31. FINDINGS: Surgical changes and devices: Left humeral screw and gustavo fixation. Lungs and pleura: Lungs are clear. No pleural effusions or pneumothorax. Mediastinum: Mediastinal contours appear normal. Heart size is normal. Stable dilated aortic arch. Bones and chest wall: No suspicious bony lesions. Overlying soft tissues appear unremarkable. IMPRESSION: No acute cardiopulmonary abnormality is seen. Stable dilated aortic arch. Dictated by: Jim Torres M.D. on 06/18/2024 at 17:57 Approved by: Jim Torres M.D. on 06/18/2024 at 17:57
--- NOTE | 2024-06-18 17:12 | EKG_ITS ---
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
--- NOTE | 2024-06-18 17:48 | ED.SOB ---
HPI - SOB/Dyspnea <Rohit Ridley DO - Last Filed: 06/19/24 07:01> General Chief Complaint: Shortness of Breath/Dyspnea Stated Complaint: anxiety Time Seen by Provider: 06/18/24 17:47 Source: patient Mode of arrival: EMS History of Present Illness HPI Narrative: Patient is a 84-year-old female history of CHF, pulmonary hypertension, CAD comes into the emergency department from home for evaluation of shortness of breath, right lower extremity swelling. States that she has a history of this, states that she has been compliant with her Lasix, but states that she feels like she needs ?more doses. She has currently not complaining of any headache visual disturbances chest pain fever chills nausea vomiting abdominal pain or any other GI/ symptoms time. Not on any blood thinners no trauma no falls. States that she was seen for the same at [facility] on 06/17/2024. A supposed to see a vascular surgeon for an known aortic dissection on 06/19/2024. At time of evaluation patient is speaking full sentences protecting airway not requiring any supplemental oxygen Related Data Previous Rx's Medication Instructions Recorded acetaminophen 325 mg tablet 650 mg (2 x 325 mg) PO Q4H PRN 11/27/23 Fever/Mild Pain (1-3) #90 tabs aspirin 81 mg tablet,delayed 81 mg PO DAILY #30 tabs 11/27/23 release carvedilol 3.125 mg tablet 3.125 mg PO BID #60 tabs 11/27/23 furosemide 20 mg tablet 10 mg (1/2 x 20 mg) PO DAILY #30 11/27/23 tabs furosemide 40 mg tablet 40 mg PO DAILY #14 tabs 06/18/24 Allergies Allergy/AdvReac Type Severity Reaction Status Date / Time No Known Drug Allergies Allergy Verified 06/18/24 17:13 Review of Systems <Rohit Ridley DO - Last Filed: 06/19/24 07:01> Review of Systems Narrative: HEENT: Denies headache, eye drainage, eye irritation, head trauma, sore throat, voice change Cardiovascular: Denies any chest pain, palpitations, shortness of breath, tachycardia Respiratory: Positive shortness of breath, Denies cough, wheeze, stridor GI/: Denies any abdominal pain, nausea, vomiting, diarrhea, bright red blood per rectum, melanotic stools, urinary frequency, urinary retention, dysuria, hematuria MSK: Swelling to right lower extremity Skin: Denies any rashes, lesions, discoloration Neuro: Denies any headache, lightheadedness, dizziness, fainting, weakness Psych: Denies SI/HI Patient History <Rohit Ridley DO - Last Filed: 06/19/24 07:01> Medical History Pulmonary hypertension Systolic heart failure Hypertension Bipolar 1 disorder Dissection of aorta, thoracic Melanoma Contusion of knee, right Surgical History History of cholecystectomy History of appendectomy Family History (Reviewed 04/04/24 @ 00: by Margarita Nugent MD) Other No family history of disorders Social History household members: none Smoking Status: Former smoker alcohol intake: current Smoking Status: Former smoker tobacco type: cigarettes alcohol intake frequency: holidays/special occasions only Substance Use Type: does not use Exam <Rohit Hallnellie, DO - Last Filed: 06/19/24 07:01> Narrative Exam Narrative: General: Cooperative, comfortable, well-developed, not in acute distress HEENT: Normocephalic, atraumatic, PERRLA, normal sclera, eyelids normal, Neck: Active full range of motion, atraumatic Chest: Normal to inspection, negative crepitus, no overlying erythema ecchymosis Respiratory: Normal respiratory effort, not in acute respiratory distress, clear to auscultation bilaterally negative cough, wheeze, tachypnea, rhonchi, rales, speaking in full sentences protecting airway Cardiology: Regular rate rhythm negative gallop, murmur, rubs GI/: Normal to inspection, soft, nonrigid, no tenderness to palpation, exam deferred MSK: Full range of active range of motion of all 4 extremities, atraumatic, right lower extremity with +2 pitting edema but no overlying erythema ecchymosis, neurovascularly intact no crepitus Skin: No rashes lesions noted Neuro: Alert awake oriented x3, moves all 4 extremities spontaneously, cranial nerves intact, able to answer all questions appropriately follows commands appropriately Psych: Cooperative, negative suicidal or homicidal ideations Initial Vital Signs Initial Vital Signs: Vital Signs Temperature 98.5 F 06/18/24 17:07 Pulse Rate 77 06/18/24 17:07 Respiratory Rate 14 06/18/24 17:07 Blood Pressure 166/74 H 06/18/24 17:07 Pulse Oximetry 95 06/18/24 17:07 Oxygen Delivery Method Room Air 06/18/24 17:07 <Margarita Nugent MD - Last Filed: 06/18/24 20:06> Initial Vital Signs Initial Vital Signs: Vital Signs Temperature 98.5 F 06/18/24 17:07 Pulse Rate 77 06/18/24 17:07 Respiratory Rate 14 06/18/24 17:07 Blood Pressure 166/74 H 06/18/24 17:07 Pulse Oximetry 95 06/18/24 17:07 Oxygen Delivery Method Room Air 06/18/24 17:07 Course <Rohit Ridley DO - Last Filed: 06/19/24 07:01> Orders Ordered: Discontinued Medications Furosemide (Furosemide 40 Mg/4 Ml Vial) 40 mg IV NOW ONE Stop: 06/18/24 18:47 Last Admin: 06/18/24 19:20 Dose: 40 mg Documented By: ROBERTO CARLOS Vital Signs Vital signs: Vital Signs - 8 hr 06/18/24 17:07 06/18/24 17:50 06/18/24 17:51 Temperature 98.5 F Pulse Rate 77 71 Respiratory Rate 14 Blood Pressure 166/74 H 142/72 H Pulse Oximetry 95 96 Oxygen Delivery Method Room Air 06/18/24 17:51 06/18/24 17:55 06/18/24 17:55 Temperature Pulse Rate 72 71 Respiratory Rate 25 H Blood Pressure 144/74 H Pulse Oximetry 96 97 Oxygen Delivery Method 06/18/24 18:00 06/18/24 18:00 06/18/24 18:15 Temperature Pulse Rate 71 Respiratory Rate 27 H Blood Pressure 137/75 133/74 Pulse Oximetry 97 Oxygen Delivery Method 06/18/24 18:15 06/18/24 18:30 06/18/24 18:30 Temperature Pulse Rate 71 71 Respiratory Rate 26 H 27 H Blood Pressure 148/76 H Pulse Oximetry 97 98 Oxygen Delivery Method 06/18/24 18:45 06/18/24 18:45 06/18/24 19:00 Temperature Pulse Rate 74 Respiratory Rate 18 Blood Pressure 143/79 H 143/70 H Pulse Oximetry 99 Oxygen Delivery Method 06/18/24 19:00 06/18/24 19:15 06/18/24 19:15 Temperature Pulse Rate 66 68 Respiratory Rate 20 25 H Blood Pressure 142/75 H Pulse Oximetry 98 98 Oxygen Delivery Method 06/18/24 19:30 06/18/24 19:30 Temperature Pulse Rate 68 Respiratory Rate 24 Blood Pressure 119/59 L Pulse Oximetry 99 Oxygen Delivery Method <Margarita Nugent MD - Last Filed: 06/18/24 20:06> Orders Ordered: Discontinued Medications Furosemide (Furosemide 40 Mg/4 Ml Vial) 40 mg IV NOW ONE Stop: 06/18/24 18:47 Last Admin: 06/18/24 19:20 Dose: 40 mg Documented By: ROBERTO CARLOS Vital Signs Vital signs: Vital Signs - 8 hr 06/18/24 17:07 06/18/24 17:50 06/18/24 17:51 Temperature 98.5 F Pulse Rate 77 71 Respiratory Rate 14 Blood Pressure 166/74 H 142/72 H Pulse Oximetry 95 96 Oxygen Delivery Method Room Air 06/18/24 17:51 06/18/24 17:55 06/18/24 17:55 Temperature Pulse Rate 72 71 Respiratory Rate 25 H Blood Pressure 144/74 H Pulse Oximetry 96 97 Oxygen Delivery Method 06/18/24 18:00 06/18/24 18:00 06/18/24 18:15 Temperature Pulse Rate 71 Respiratory Rate 27 H Blood Pressure 137/75 133/74 Pulse Oximetry 97 Oxygen Delivery Method 06/18/24 18:15 06/18/24 18:30 06/18/24 18:30 Temperature Pulse Rate 71 71 Respiratory Rate 26 H 27 H Blood Pressure 148/76 H Pulse Oximetry 97 98 Oxygen Delivery Method 06/18/24 18:45 06/18/24 18:45 06/18/24 19:00 Temperature Pulse Rate 74 Respiratory Rate 18 Blood Pressure 143/79 H 143/70 H Pulse Oximetry 99 Oxygen Delivery Method 06/18/24 19:00 06/18/24 19:15 06/18/24 19:15 Temperature Pulse Rate 66 68 Respiratory Rate 20 25 H Blood Pressure 142/75 H Pulse Oximetry 98 98 Oxygen Delivery Method 06/18/24 19:30 06/18/24 19:30 Temperature Pulse Rate 68 Respiratory Rate 24 Blood Pressure 119/59 L Pulse Oximetry 99 Oxygen Delivery Method MDM - SOB/Dyspnea <Rohit Ridley DO - Last Filed: 06/19/24 07:01> Differential Diagnosis Differential diagnosis: Likely congestive heart failure, community acquired pneumonia and other (DVT) Lab Data 06/18/24 17:45 06/18/24 17:45 Labs: Lab Results 06/18/24 Range/Units 17:45 WBC 9.0 (4.5-11.0) X10^3/uL RBC 4.38 (4.0-5.2) X10^6/uL Hgb 12.7 (12.0-16.0) g/dL Hct 37.2 (36-46) % MCV 85.0 (80-100) fL MCH 29.1 (26-34) PG MCHC 34.2 (30-36) % RDW 14.2 (11.6-14.8) % Plt Count 272 (150-400) X10^3/uL Neut % (Auto) 75.1 H (50-75) % Lymph % (Auto) 15.6 L (25-40) % [place] % (Auto) 5.9 (3-14) % Eos % (Auto) 2.5 (2-4) % Baso % (Auto) 0.9 (0-2) % Neut # (Auto) 6800 (6882-2273) /uL Lymph # (Auto) 1400 (4503-2246) /uL [place] # (Auto) 500 (0-900) /uL Eos # (Auto) 200 (0-450) /uL Baso # (Auto) 100 (0-100) /uL PT 11.8 (9.4-12.5) SECONDS INR 1.0 (0.9-1.3) Sodium 130 L (137-145) mmol/L Potassium 4.0 (3.4-5.1) mmol/L Chloride 97 L (98-107) mmol/L Carbon Dioxide 27 (22-32) mmol/L BUN 26 H (7-17) mg/dL Creatinine 0.98 (0.52-1.04) mg/dL Estimated GFR 57 L (>60) mL/min BUN/Creatinine Ratio 26.5 H (6-22) Glucose 95 (80-110) mg/dL Lactate 1.0 (0.7-2.1) mmol/L Calcium 9.3 (8.4-10.2) mg/dL Total Bilirubin 0.7 (0.2-1.3) mg/dL AST 23 (14-36) IU/L ALT 11 (<35) IU/L Alkaline Phosphatase 74 (38-126) U/L Troponin I 0.017 (0.01-0.034) ng/mL NT-Pro-B Natriuret Pep 2370 H (<450) pg/mL Total Protein 7.1 (6.3-8.2) g/dL Albumin 4.0 (3.5-5.0) g/dL Globulin 3.1 (1.7-4.1) g/dL Albumin/Globulin Ratio 1.3 (1.0-2.8) MDM Narrative Medical decision making narrative: Patient is a 84-year-old female history of aortic dissection, CHF, hypertension hyperlipidemia presents for shortness of breath swelling to the right lower extremity. Was seen at [facility] at 06/17/2024 for similar symptoms. Was discharged home from there. 1803: Patient signed out to incoming physician, Patient pending lab work imaging to rule out DVT and CHF exacerbation. <Margarita Nugent MD - Last Filed: 06/18/24 20:06> Lab Data Labs: Lab Results 06/18/24 Range/Units 17:45 WBC 9.0 (4.5-11.0) X10^3/uL RBC 4.38 (4.0-5.2) X10^6/uL Hgb 12.7 (12.0-16.0) g/dL Hct 37.2 (36-46) % MCV 85.0 (80-100) fL MCH 29.1 (26-34) PG MCHC 34.2 (30-36) % RDW 14.2 (11.6-14.8) % Plt Count 272 (150-400) X10^3/uL Neut % (Auto) 75.1 H (50-75) % Lymph % (Auto) 15.6 L (25-40) % [place] % (Auto) 5.9 (3-14) % Eos % (Auto) 2.5 (2-4) % Baso % (Auto) 0.9 (0-2) % Neut # (Auto) 6800 (1280-0254) /uL Lymph # (Auto) 1400 (2197-5913) /uL [place] # (Auto) 500 (0-900) /uL Eos # (Auto) 200 (0-450) /uL Baso # (Auto) 100 (0-100) /uL PT 11.8 (9.4-12.5) SECONDS INR 1.0 (0.9-1.3) Sodium 130 L (137-145) mmol/L Potassium 4.0 (3.4-5.1) mmol/L Chloride 97 L (98-107) mmol/L Carbon Dioxide 27 (22-32) mmol/L BUN 26 H (7-17) mg/dL Creatinine 0.98 (0.52-1.04) mg/dL Estimated GFR 57 L (>60) mL/min BUN/Creatinine Ratio 26.5 H (6-22) Glucose 95 (80-110) mg/dL Lactate 1.0 (0.7-2.1) mmol/L Calcium 9.3 (8.4-10.2) mg/dL Total Bilirubin 0.7 (0.2-1.3) mg/dL AST 23 (14-36) IU/L ALT 11 (<35) IU/L Alkaline Phosphatase 74 (38-126) U/L Troponin I 0.017 (0.01-0.034) ng/mL NT-Pro-B Natriuret Pep 2370 H (<450) pg/mL Total Protein 7.1 (6.3-8.2) g/dL Albumin 4.0 (3.5-5.0) g/dL Globulin 3.1 (1.7-4.1) g/dL Albumin/Globulin Ratio 1.3 (1.0-2.8) MDM Narrative Medical decision making narrative: Patient is a 84-year-old female history of aortic dissection, CHF, hypertension hyperlipidemia presents for shortness of breath swelling to the right lower extremity. Was seen at [facility] at 06/17/2024 for similar symptoms. Was discharged home from there. 1803: Patient signed out to incoming physician, Patient pending lab work imaging to rule out DVT and CHF exacerbation. Dr. Nugent -care of patient is signed out to me by daytime physician at 6:00 p.m.. Independent review of chart and patient performed by myself. Patient states that she was here because she needs extra Lasix. She states that she was not given a ?strong enough? prescription yesterday when she left [facility]. She denies new chest pain, shortness of breath, other complaints. Records were obtained from [facility]. 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 Per record review case was discussed extensively with vascular surgery, who stated that patient was stable for discharge home. Patient was only here for her leg swelling, requesting additional IV doses of Lasix. No indication for repeat imaging at this time. Troponin stable, chest x-ray shows stable dilation of aorta. Patient already has scheduled follow up with vascular surgery. Patient was given IV dose of Lasix and instructed to increase her Lasix to 40 mg daily for the next week instead of 20 mg daily. She was counseled to keep her vascular surgery follow up as scheduled. Discharge Plan Departure Patient Disposition: Home Clinical Impression: Edema, peripheral Instructions: DI for Peripheral Edema-Unilateral Activity Restrictions/Additional Instructions: You may increase your dose of Lasix to 40 mg daily for the next week to help with swelling. Elevate your legs when at rest. You may also wear compression stockings. Follow up with vascular surgery as previously scheduled. Prescriptions: New furosemide 40 mg tablet 40 mg PO DAILY Qty: 14 0RF No Action acetaminophen 325 mg Tablet 650 mg PO Q4H PRN (Reason: Fever/Mild Pain (1-3)) Qty: 90 0RF aspirin 81 mg Tablet,Delayed Release (Dr/Ec) 81 mg PO DAILY Qty: 30 2RF carvedilol 3.125 mg tablet 3.125 mg PO BID Qty: 60 2RF furosemide 20 mg tablet 10 mg PO DAILY Qty: 30 2RF Referrals: Karen Hcikman DO [Primary Care Provider] - Stand Alone Forms: Patient Portal/API
--- NOTE | 2024-06-18 17:54 | DI.US.S_ITS ---
PROCEDURE: US [facility] VENOUS LOW EXTREM RT INDICATIONS: swelling TECHNIQUE: Real-time imaging, as well as color and pulse Doppler interrogation, were performed of the lower extremity deep veins from the inguinal ligament to the popliteal fossa, with documentation of the visualized calf veins. COMPARISON: [facility], , [facility] VENOUS LOW EXTREM RT, 09/12/2023, 11:13. FINDINGS: The common femoral, femoral, popliteal, and the visualized calf veins are normally compressible, and free of intraluminal thrombus. Color and pulse Doppler demonstrate normal phasic intraluminal flow. There is normal augmentation response to distal compression maneuver. Moderate lower extremity edema. IMPRESSION: No findings of lower extremity deep venous thrombosis. Dictated by: Jim Torres M.D. on 06/18/2024 at 19:00 Approved by: Jim Torres M.D. on 06/18/2024 at 19:00
[2024-06-18 17:56] LABS: Add Manual Diff / Slide Review NO; Basophils Absolute Auto 100 /uL (0-100); Basophils Percent Auto 0.9 % (0-2); Eosinophils Absolute Auto 200 /uL (0-450); Eosinophils Percent Auto 2.5 % (2-4); Hematocrit 37.2 % (36-46); Hemoglobin 12.7 g/dL (12.0-16.0); Lymphocytes Absolute Auto 1400 /uL (1100-4500); Lymphocytes Percent Auto 15.6 % (25-40); Mean Corpuscular HGB Conc 34.2 % (30-36); Mean Corpuscular Hemoglobin 29.1 PG (26-34); Monocytes Absolute Auto 500 /uL (0-900); Monocytes Percent Auto 5.9 % (3-14); Neutrophils Absolute Auto 6800 /uL (1500-7000); Neutrophils Percent Auto 75.1 % (50-75); Platelet Count 272 X10^3/uL (150-400); Red Blood Cell Count 4.38 X10^6/uL (4.0-5.2); Red Cell Distribution Width 14.2 % (11.6-14.8)
[2024-06-18 18:06] LABS: Prothrombin Time 11.8 SECONDS (9.4-12.5)
[2024-06-18 18:10] LABS: Alanine Aminotransferase 11 IU/L (<35); Albumin Globulin Ratio 1.3 (1.0-2.8); Alkaline Phosphatase 74 U/L (38-126); Aspartate Aminotransferase 23 IU/L (14-36); BUN Creatinine Ratio 26.5 (6-22); Bilirubin Total 0.7 mg/dL (0.2-1.3); Blood Urea Nitrogen 26 mg/dL (7-17); Calcium 9.3 mg/dL (8.4-10.2); Carbon Dioxide 27 mmol/L (22-32); Chloride 97 mmol/L (98-107); Estimated Glomerular Filt Rate 57 mL/min (>60); Globulin 3.1 g/dL (1.7-4.1); Glucose 95 mg/dL (80-110); HEMOLYSIS 29 (0-50); Sodium 130 mmol/L (137-145); Total Protein 7.1 g/dL (6.3-8.2)
[2024-06-18 18:22] LABS: NT-proBNP (BNP-Adult 18+) 2370 pg/mL (<450); Troponin I 0.017 ng/mL (0.01-0.034)
[2024-06-18] MEDS: FUROSEMIDE 40 MG/4 ML VIAL IV (19:20)
== END 2024-06-18 20:00 | disposition home or self-care (01) ==
PROVIDERS: Student in an Organized Health Care Education/Training Program; Emergency Provider Emergency Medicine; PCP Family Medicine
DX: R60.0 Localized edema (principal); Z79.01 Long term (current) use of anticoagulants; I50.9 Heart failure, unspecified; I25.10 Atherosclerotic heart disease of native coronary artery without angina pectoris
CPT/HCPCS: 36415; 71045; 80053; 83605; 83880; 84484; 85025; 85610; 93005; 93010; 93971; 96374; 99284; J1940

== ENCOUNTER 2024-06-29 09:53 | Emergency (ER) | payer OTHER, SELFPAY ==
[2023-11-24 15:57] VITALS: BMI 27.6
[2024-06-29] VITALS (43 sets, daily range): BP systolic 103–184; BP diastolic 52–79; PULSE 50–80; RESP 13–301; TEMP 36.6; O2SAT 91–98; BMI 26.3
--- NOTE | 2024-06-29 09:56 | DI.RAD.S_ITS ---
PROCEDURE: XR CHEST 1V INDICATIONS: altered mental status TECHNIQUE: One view of the chest was acquired. COMPARISON: [facility], CR, XR CHEST 1 VIEW, 06/27/2024, 11:52. [facility], CT, CT ANGIO CHEST PE, 06/17/2024, 19:46. [facility], CR, XR CHEST 1V, 06/18/2024, 17:24. FINDINGS: Surgical changes and devices: Left humeral hardware is partially seen. Lucency is seen surrounding the proximal screws. Lungs and pleura: Lungs are clear. No pleural effusions or pneumothorax. Mediastinum: The cardiac contours are within normal limits. The aorta demonstrates calcification and tortuosity. Bones and chest wall: No suspicious bony lesions. Age-appropriate bony degenerative changes are seen. Overlying soft tissues appear unremarkable. IMPRESSION: No acute cardiopulmonary abnormality is seen. No focal infiltrates are seen. Left proximal humeral hardware is seen, with lucency surrounding the screws. Screw loosening is suspected. Dictated by: Ruel Mae M.D. on 06/29/2024 at 9:57 Approved by: Ruel Mae M.D. on 06/29/2024 at 9:59
--- NOTE | 2024-06-29 10:02 | ED.AMS ---
HPI - Altered Mental Status General Chief Complaint: Altered Mental Status Stated Complaint: AMS Time Seen by Provider: 06/29/24 10:00 Related Data Previous Rx's Medication Instructions Recorded acetaminophen 325 mg tablet 650 mg (2 x 325 mg) PO Q4H PRN 11/27/23 Fever/Mild Pain (1-3) #90 tabs aspirin 81 mg tablet,delayed 81 mg PO DAILY #30 tabs 11/27/23 release carvedilol 3.125 mg tablet 3.125 mg PO BID #60 tabs 11/27/23 furosemide 20 mg tablet 10 mg (1/2 x 20 mg) PO DAILY #30 11/27/23 tabs furosemide 40 mg tablet 40 mg PO DAILY #14 tabs 06/18/24 Allergies Allergy/AdvReac Type Severity Reaction Status Date / Time No Known Drug Allergies Allergy Verified 06/18/24 17:13 Review of Systems Review of Systems Narrative: See HPI Patient History Medical History Pulmonary hypertension Systolic heart failure Hypertension Bipolar 1 disorder Dissection of aorta, thoracic Melanoma Contusion of knee, right Surgical History History of cholecystectomy History of appendectomy Family History Other No family history of disorders Social History household members: none Smoking Status: Former smoker alcohol intake: current Smoking Status: Former smoker tobacco type: cigarettes alcohol intake frequency: holidays/special occasions only Substance Use Type: does not use Exam Narrative Exam Narrative: GENERAL: Well-developed patient, in mild distress. HEAD: Atraumatic. Normocephalic. EYES: Pupils equal round and reactive. Extraocular motions intact. No scleral icterus. No injection or drainage. ENT: Nose without bleeding, purulent drainage. Throat without erythema, tonsillar hypertrophy or exudate. Airway patent. NECK: Trachea midline. Non tender CARDIOVASCULAR: Regular rate and rhythm without murmurs, gallops, or rubs. RESPIRATORY: Clear to auscultation. Breath sounds equal bilaterally. No wheezes, rales, or rhonchi. GASTROINTESTINAL: Abdomen soft, non-tender, nondistended. EXTREMITIES: No edema or joint tenderness. BACK: Nontender without deformity or crepitance. No flank tenderness. NEURO: AOx3. Motor functions grossly nonfocal. Psychiatric: Patient is constantly loudly expressing thanks to the elsa juarez, unclear mental status baseline SKIN: No rash or erythema of visible areas Initial Vital Signs Initial Vital Signs: Vital Signs Temperature 97.8 F 06/29/24 09:57 Pulse Rate 78 06/29/24 09:57 Respiratory Rate 20 06/29/24 09:57 Blood Pressure 184/79 H 06/29/24 09:57 Pulse Oximetry 95 06/29/24 09:57 Oxygen Delivery Method Room Air 06/29/24 09:57 Course Orders Ordered: ED Orders 06/29/24 10:31 Consult to MUSHROOM PRESS OPERATOR - Duplicate Maker Stat 06/29/24 11:00 Complete Blood Count AUTO DIFF Stat 06/29/24 11:10 Ammonia (NH3) Stat Comprehensive Metabolic Panel Stat 06/29/24 11:26 XR shoulder LT min 2V Stat 06/29/24 11:52 Urine Drug Screen, Rapid Stat Discontinued Medications Lorazepam (Lorazepam 2 Mg/Ml Inj) 1 mg IV NOW ONE Stop: 06/29/24 10:02 Last Admin: 06/29/24 10:29 Dose: 1 mg Documented By: PRERNA Vital Signs Vital signs: Vital Signs - 8 hr 06/29/24 11:30 06/29/24 11:50 06/29/24 11:50 Pulse Rate 71 70 Respiratory Rate 18 21 Blood Pressure 142/76 H Pulse Oximetry 96 96 06/29/24 12:00 06/29/24 12:00 06/29/24 12:30 Pulse Rate 70 70 Respiratory Rate 25 H 23 Blood Pressure 140/78 Pulse Oximetry 96 95 06/29/24 12:30 06/29/24 13:00 06/29/24 13:01 Pulse Rate 67 66 Respiratory Rate 23 19 Blood Pressure 158/74 H Pulse Oximetry 96 97 06/29/24 13:01 06/29/24 13:30 06/29/24 13:30 Pulse Rate 62 Respiratory Rate 16 Blood Pressure 111/58 L 124/65 Pulse Oximetry 96 06/29/24 14:00 06/29/24 14:01 06/29/24 14:01 Pulse Rate 64 65 Respiratory Rate 26 H 21 Blood Pressure 148/71 H Pulse Oximetry 94 95 06/29/24 14:30 06/29/24 14:30 06/29/24 15:00 Pulse Rate 63 64 Respiratory Rate 24 17 Blood Pressure 122/73 Pulse Oximetry 98 96 06/29/24 15:01 06/29/24 15:01 06/29/24 15:30 Pulse Rate 63 64 Respiratory Rate 23 18 Blood Pressure 103/57 L Pulse Oximetry 95 95 06/29/24 15:30 06/29/24 16:00 06/29/24 16:00 Pulse Rate 60 Respiratory Rate 20 Blood Pressure 110/58 L 162/76 H Pulse Oximetry 91 06/29/24 16:30 06/29/24 16:31 06/29/24 16:31 Pulse Rate 64 60 Respiratory Rate 24 27 H Blood Pressure 134/66 Pulse Oximetry 96 97 06/29/24 17:00 06/29/24 17:01 06/29/24 17:01 Pulse Rate 60 61 Respiratory Rate 22 19 Blood Pressure 131/62 Pulse Oximetry 06/29/24 17:30 06/29/24 17:31 06/29/24 17:31 Pulse Rate 63 60 Respiratory Rate 20 22 Blood Pressure 164/72 H Pulse Oximetry 06/29/24 18:00 06/29/24 18:01 06/29/24 18:01 Pulse Rate 72 63 Respiratory Rate 40 H 42 H Blood Pressure 158/70 H Pulse Oximetry MDM - Altered Mental Status Lab Data Attestation: I reviewed the patient's lab results. Lab results narrative: White blood cell count 6800, hemoglobin 14, platelets adequate. Sodium 126 with glucose 97 noted. Serum CO2 19 noted, renal function normal. Potassium normal. Liver functions unremarkable. Urinalysis negative. Urine drug screen negative. COVID/flu swab negative 06/29/24 11:00 06/29/24 11:10 Labs: Lab Results 06/29/24 06/29/24 06/29/24 Range/Units 10:08 10:14 11:00 WBC 6.8 (4.5-11.0) X10^3/uL RBC 4.99 (4.0-5.2) X10^6/uL Hgb 14.2 (12.0-16.0) g/dL Hct 43.1 (36-46) % MCV 86.2 (80-100) fL MCH 28.5 (26-34) PG MCHC 33.0 (30-36) % RDW 15.0 H (11.6-14.8) % Plt Count 169 (150-400) X10^3/uL Neut % (Auto) 81.2 H (50-75) % Lymph % (Auto) 10.3 L (25-40) % [place] % (Auto) 6.9 (3-14) % Eos % (Auto) 0.9 L (2-4) % Baso % (Auto) 0.7 (0-2) % Neut # (Auto) 5500 (5851-3785) /uL Lymph # (Auto) 700 L (1603-9705) /uL [place] # (Auto) 500 (0-900) /uL Eos # (Auto) 100 (0-450) /uL Baso # (Auto) 0 (0-100) /uL Sodium (137-145) mmol/L Potassium (3.4-5.1) mmol/L Chloride (98-107) mmol/L Carbon Dioxide (22-32) mmol/L BUN (7-17) mg/dL Creatinine (0.52-1.04) mg/dL Estimated GFR (>60) mL/min BUN/Creatinine Ratio (6-22) Glucose (80-110) mg/dL Calcium (8.4-10.2) mg/dL Total Bilirubin (0.2-1.3) mg/dL AST (14-36) IU/L ALT (<35) IU/L Alkaline Phosphatase (38-126) U/L Ammonia (9-30) umol/L Total Protein (6.3-8.2) g/dL Albumin (3.5-5.0) g/dL Globulin (1.7-4.1) g/dL Albumin/Globulin Ratio (1.0-2.8) Urine Color Yellow Urine Appearance Clear Urine pH 7.0 (4.5-8.0) Ur Specific [place] <=1.005 (1.000-1.035) Urine Protein Negative (Negative) Urine Glucose (UA) Negative (Negative) g/dL Urine Ketones Negative (NEGATIVE) Urine Occult Blood Negative (Negative) Urine Nitrate Negative (Negative) Urine Bilirubin Negative (NEGATIVE) Urine Urobilinogen 0.2 (0.2) E.U./dL Ur Leukocyte Esterase Negative (NEGATIVE) Urine RBC 0-1/hpf (0-5/HPF) Urine WBC 1-5/hpf (0-5/HPF) Ur Squamous Epith Cells 0-1 /hpf (0-5/HPF) Urine Bacteria Few (2-10) H (None) Ur Culture Indicated? Specimen cultured Vol Urine Centrifuged 10ml (spun) U Opiates 300ng/mL cut (Negative) Ur Oxycodone Screen (Negative) Urine Methadone Screen (Negative) Ur Barbiturates Screen (Negative) U Tricyclic Antidepress (Negative) Ur Phencyclidine Scrn (Negative) Ur Amphetamines Screen (Negative) U Methamphetamines Scrn (Negative) Ur MDMA Scrn (Ecstasy) (Negative) U Benzodiazepines Scrn (Negative) Urine Cocaine Screen (Negative) U Marijuana (THC) Screen (Negative) Urine Specific [place] (Normal) Ur Creatinine (Normal) SARS-CoV-2 (PCR) Negative (Negative) Influenza A (RT-PCR) Flu a negative (NEGATIVE) Influenza B (RT-PCR) Flu b negative (NEGATIVE) RSV (PCR) Negative (Negative) 06/29/24 06/29/24 Range/Units 11:10 11:52 WBC (4.5-11.0) X10^3/uL RBC (4.0-5.2) X10^6/uL Hgb (12.0-16.0) g/dL Hct (36-46) % MCV (80-100) fL MCH (26-34) PG MCHC (30-36) % RDW (11.6-14.8) % Plt Count (150-400) X10^3/uL Neut % (Auto) (50-75) % Lymph % (Auto) (25-40) % [place] % (Auto) (3-14) % Eos % (Auto) (2-4) % Baso % (Auto) (0-2) % Neut # (Auto) (2256-0016) /uL Lymph # (Auto) (1606-1594) /uL [place] # (Auto) (0-900) /uL Eos # (Auto) (0-450) /uL Baso # (Auto) (0-100) /uL Sodium 126 L (137-145) mmol/L Potassium 4.7 (3.4-5.1) mmol/L Chloride 96 L (98-107) mmol/L Carbon Dioxide 19 L (22-32) mmol/L BUN 12 (7-17) mg/dL Creatinine 0.76 (0.52-1.04) mg/dL Estimated GFR > 60 (>60) mL/min BUN/Creatinine Ratio 15.8 (6-22) Glucose 97 (80-110) mg/dL Calcium 9.2 (8.4-10.2) mg/dL Total Bilirubin 1.0 (0.2-1.3) mg/dL AST 32 (14-36) IU/L ALT 17 (<35) IU/L Alkaline Phosphatase 79 (38-126) U/L Ammonia < 9 L (9-30) umol/L Total Protein 7.6 (6.3-8.2) g/dL Albumin 4.3 (3.5-5.0) g/dL Globulin 3.3 (1.7-4.1) g/dL Albumin/Globulin Ratio 1.3 (1.0-2.8) Urine Color Urine Appearance Urine pH Normal (4.5-8.0) Ur Specific [place] (1.000-1.035) Urine Protein (Negative) Urine Glucose (UA) (Negative) g/dL Urine Ketones (NEGATIVE) Urine Occult Blood (Negative) Urine Nitrate (Negative) Urine Bilirubin (NEGATIVE) Urine Urobilinogen (0.2) E.U./dL Ur Leukocyte Esterase (NEGATIVE) Urine RBC (0-5/HPF) Urine WBC (0-5/HPF) Ur Squamous Epith Cells (0-5/HPF) Urine Bacteria (None) Ur Culture Indicated? Vol Urine Centrifuged U Opiates 300ng/mL cut Negative (Negative) Ur Oxycodone Screen Negative (Negative) Urine Methadone Screen Negative (Negative) Ur Barbiturates Screen Negative (Negative) U Tricyclic Antidepress Negative (Negative) Ur Phencyclidine Scrn Negative (Negative) Ur Amphetamines Screen Negative (Negative) U Methamphetamines Scrn Negative (Negative) Ur MDMA Scrn (Ecstasy) Negative (Negative) U Benzodiazepines Scrn Negative (Negative) Urine Cocaine Screen Negative (Negative) U Marijuana (THC) Screen Negative (Negative) Urine Specific [place] Normal (Normal) Ur Creatinine Normal (Normal) SARS-CoV-2 (PCR) (Negative) Influenza A (RT-PCR) (NEGATIVE) Influenza B (RT-PCR) (NEGATIVE) RSV (PCR) (Negative) Point of Care Testing Glucose POC 97 Imaging Data Extremity x-ray #1: Radiologist's Impression: [address] [address] XRay Report Signed Patient: Yue Klein MR#: [id number] : 1940 Acct:[id number] Age/Sex: 84 / F Date of Service: 06/29/24 Loc: ED Accession Number: [id number] Procedure: XR shoulder LT min 2V Ordering Provider: Brian Wise MD PROCEDURE: XR SHOULDER LT MIN 2V INDICATIONS: Please evaluate for fx TECHNIQUE: 3 views of the shoulder were acquired. COMPARISON: [facility], CR, XR HUMERUS LEFT, 12/19/2021, 13:43. [facility], CT, CT HUMERUS LEFT WITHOUT CONTRAST, 01/10/2022, 7:28. [facility], CT, CT HEAD/BRAIN WO CON, 06/29/2024, 10:43. [facility], CR, XR CHEST 1V, 06/29/2024, 10:19. FINDINGS: Bones: There is a left humeral shaft fracture, without good bony bridging. No new fracture is seen. There is a humeral gustavo seen, with 2 screws proximally and 2 screws distally. There is significant lucency seen adjacent to the screws, particularly distally. There is also lucency seen adjacent to the distal aspect of the humeral gustavo. Soft tissues: No suspicious soft tissue calcifications. IMPRESSION: Nonunion of the remote humerus fracture, with significant hardware loosening. Dictated by: Ruel Mae M.D. on 06/29/2024 at 11:47 Approved by: Ruel Mae M.D. on 06/29/2024 at 11:49 Chest x-ray: Radiologist's Impression: [address] [address] XRay Report Signed Patient: Yue Klein MR#: [id number] : 1940 Acct:[id number] Age/Sex: 84 / F Date of Service: 06/29/24 Loc: ED Accession Number: [id number] Procedure: XR chest 1V Ordering Provider: Brian Wise MD PROCEDURE: XR CHEST 1V INDICATIONS: altered mental status TECHNIQUE: One view of the chest was acquired. COMPARISON: [facility], CR, XR CHEST 1 VIEW, 06/27/2024, 11:52. [facility], CT, CT ANGIO CHEST PE, 06/17/2024, 19:46. [facility], CR, XR CHEST 1V, 06/18/2024, 17:24. FINDINGS: Surgical changes and devices: Left humeral hardware is partially seen. Lucency is seen surrounding the proximal screws. Lungs and pleura: Lungs are clear. No pleural effusions or pneumothorax. Mediastinum: The cardiac contours are within normal limits. The aorta demonstrates calcification and tortuosity. Bones and chest wall: No suspicious bony lesions. Age-appropriate bony degenerative changes are seen. Overlying soft tissues appear unremarkable. IMPRESSION: No acute cardiopulmonary abnormality is seen. No focal infiltrates are seen. Left proximal humeral hardware is seen, with lucency surrounding the screws. Screw loosening is suspected. Dictated by: Ruel Mae M.D. on 06/29/2024 at 9:57 Approved by: Ruel Mae M.D. on 06/29/2024 at 9:59 CT scan - head: Radiologist's Impression: [place] [address] CT Scan Report Signed Patient: Yue Klein MR#: [id number] : 1940 Acct:[id number] Age/Sex: 84 / F Date of Service: 06/29/24 Loc: ED Accession Number: [id number] Procedure: CT head/brain wo con Ordering Provider: Brian Wise MD PROCEDURE: CT HEAD/BRAIN WO CON INDICATIONS: fall, alt MSE/confusion TECHNIQUE: Noncontrast 4.5 mm thick angled axial sections acquired from the foramen magnum to the vertex, with coronal and sagittal reformats. For radiation dose reduction, the following was used: automated exposure control, adjustment of mA and/or kV according to patient size. COMPARISON: [facility], CR, XR SHOULDER LT MIN 2V, 06/29/2024, 11:32. [facility], CT, CT CERVICAL SPINE WO CON, 06/29/2024, 10:43. [facility], CT, CT HEAD/BRAIN WO CON, 09/12/2023, 9:55. FINDINGS: Image quality: This examination is limited by involuntary motion artifact. There is artifact associated with the metallic hardware. Artifact from the metallic hardware is reduced by metal reconstruction algorithm. Mild streak artifact can be seen through the skull base. CSF spaces: Basal cisterns are patent. No extra-axial fluid collections. The ventricles are symmetric in size and shape. Brain: No intracranial bleeds or masses. There is cerebral volume loss for age, with resultant ventricular and sulcal prominence. There are periventricular and deep white matter chronic small vessel ischemic changes. There is intracranial internal carotid artery atherosclerosis. Skull and face: Calvarium and visualized facial bones appear intact, without suspicious lesions. Sinuses: Abnormal soft tissue material can be seen within the left maxillary sinus. The paranasal sinuses otherwise appear clear. No abnormal fluid is seen within the mastoid air cells. IMPRESSION: No acute intracranial hemorrhage is seen. No acute intracranial pathology. There is likely mucus seen within the left maxillary sinus. Dictated by: Ruel Mae M.D. on 06/29/2024 at 10:54 Approved by: Ruel Mae M.D. on 06/29/2024 at 10:55 CT - cervical spine: Radiologist's Impression: [place] [address] CT Scan Report Signed Patient: Yue Klein MR#: [id number] : 1940 Acct:[id number] Age/Sex: 84 / F Date of Service: 06/29/24 Loc: ED Accession Number: [id number] Procedure: CT cervical spine wo con Ordering Provider: Brian Wise MD PROCEDURE: CT CERVICAL SPINE WO CON INDICATIONS: fall, alt MSE/Confused TECHNIQUE: Noncontrast 3 mm thick sections acquired from the skull base to the T6 level. Sagittal and coronal reformats were then constructed. For radiation dose reduction, the following was used: automated exposure control, adjustment of mA and/or kV according to patient size. COMPARISON: [facility], CT, CT ANGIO CHEST PE, 06/17/2024, 19:46. [facility], CR, XR SHOULDER LT MIN 2V, 06/29/2024, 11:32. [facility], CT, CT HEAD/BRAIN WO CON, 06/29/2024, 10:43. [facility], CT, CT ANGIO HEAD AND NECK, 11/25/2023, 11:52. FINDINGS: Image quality: This examination is limited by involuntary motion artifact. Bones: No acute appearing fractures or dislocations. Remote appearing fractures can be seen with central compression deformities at T4, T5, and T6, which are similar to the prior. Visualized superior ribs are intact. Focal degenerative change is seen involving the C1-C2 interface anteriorly. There is at least moderate disc space narrowing at C5-C6, with moderate disc space narrowing at C6-C7. Multiple levels facet hypertrophy can be seen. Soft tissues: Prevertebral soft tissues are normal in thickness. No paravertebral hematomas. No apical pneumothoraces. Stable irregularity of the aortic arch can be seen. Atherosclerotic calcification is noted. IMPRESSION: Negative for acute cervical spine fracture. Lower cervical spine degenerative changes. Stable remote T4, T5, and T6 central compression deformities. Motion limited study. Dictated by: Ruel Mae M.D. on 06/29/2024 at 10:48 Approved by: Ruel Mae M.D. on 06/29/2024 at 10:53 MDM Narrative Medical decision making narrative: 84-year-old with recent fall and agitation, frequent loud outbursts, unclear if she has dementia baseline, dementia not on her problem list, no family or other historian present. Consider traumatic brain injury, or other delirium state. Labs pending, including urinalysis. CT head, CT cervical spine imaging requested. Chest x-ray shows no obvious pneumonia, incidental left humeral ORIF with screw loosening noted. See radiology report CT head shows no acute changes, see radiology report. CT cervical spine shows DJD changes, see radiology report. Dedicated left shoulder x-ray imaging shows malunion of humeral head fracture, some loosening of screws noted. See radiology report. Persisting agitation, p.o. Ativan, calmer. Patient sleeping. No family present. transportation services representative consult, unclear disposition plan. transportation services representative consult, reports patient has a history of bipolar disorder, no family present, apparently sr. social media & mobile manager was able to figure out that patient had left Against Medical Advice recently from [facility] emergency department, and had recent admission to [facility], unclear diagnoses, we will attempt to obtain records. 1800, still sleeping. CT head imaging prior unremarkable. Sedation after single dose Ativan, history of bipolar disorder noted. Disposition unclear, might need correction placement. Signed out to oncoming ED physician Dr. Mandujano Discharge Plan Departure Clinical Impression: Fall from ground level, Confusion, Agitation, Fracture of left humerus with nonunion Prescriptions: No Action acetaminophen 325 mg Tablet 650 mg PO Q4H PRN (Reason: Fever/Mild Pain (1-3)) Qty: 90 0RF aspirin 81 mg Tablet,Delayed Release (Dr/Ec) 81 mg PO DAILY Qty: 30 2RF carvedilol 3.125 mg tablet 3.125 mg PO BID Qty: 60 2RF furosemide 20 mg tablet 10 mg PO DAILY Qty: 30 2RF furosemide 40 mg tablet 40 mg PO DAILY Qty: 14 0RF Referrals: Karen Hickman DO [Primary Care Provider] -
[2024-06-29 10:20] LABS: Appearance Urine UA CLEAR; Bilirubin Urine UA NEGATIVE (NEGATIVE); Color Urine UA YELLOW; Glucose Urine UA NEGATIVE (Negative); Ketones Urine UA NEGATIVE (NEGATIVE); Leukocyte Esterase Urine UA NEGATIVE (NEGATIVE); Nitrite Urine UA NEGATIVE (Negative); Occult Blood Urine UA NEGATIVE (Negative); Protein Urine UA NEGATIVE (Negative); Specific Gravity Urine UA <=1.005 (1.000-1.035); Urobilinogen Urine UA 0.2 E.U./dL (0.2)
[2024-06-29] MEDS: LORazepam 2 MG/ML INJ 1 MG IV (10:29)
[2024-06-29 10:39] LABS: Bacteria Urine Few (2-10); RBC Urine 0-1/HPF (0-5/HPF); Squamous Epithelial Cell Urine 0-1 /HPF (0-5/HPF); Urine Volume 10mL (spun); WBC Urine 1-5/HPF (0-5/HPF)
[2024-06-29 10:40] LABS: Culture Indicated Urine Specimen Cultured
[2024-06-29 11:21] LABS: Add Manual Diff / Slide Review NO; Basophils Absolute Auto 0 /uL (0-100); Basophils Percent Auto 0.7 % (0-2); Eosinophils Absolute Auto 100 /uL (0-450); Eosinophils Percent Auto 0.9 % (2-4); Hematocrit 43.1 % (36-46); Hemoglobin 14.2 g/dL (12.0-16.0); Lymphocytes Absolute Auto 700 /uL (1100-4500); Lymphocytes Percent Auto 10.3 % (25-40); Mean Corpuscular Hemoglobin 28.5 PG (26-34); Mean Corpuscular Volume 86.2 fL (80-100); Monocytes Absolute Auto 500 /uL (0-900); Monocytes Percent Auto 6.9 % (3-14); Neutrophils Absolute Auto 5500 /uL (1500-7000); Neutrophils Percent Auto 81.2 % (50-75); Platelet Count 169 X10^3/uL (150-400); Red Blood Cell Count 4.99 X10^6/uL (4.0-5.2); White Blood Cell Count 6.8 X10^3/uL (4.5-11.0)
--- NOTE | 2024-06-29 11:26 | DI.RAD.S_ITS ---
PROCEDURE: XR SHOULDER LT MIN 2V INDICATIONS: Please evaluate for fx TECHNIQUE: 3 views of the shoulder were acquired. COMPARISON: [facility], CR, XR HUMERUS LEFT, 12/19/2021, 13:43. [facility], CT, CT HUMERUS LEFT WITHOUT CONTRAST, 01/10/2022, 7:28. [facility], CT, CT HEAD/BRAIN WO CON, 06/29/2024, 10:43. [facility], CR, XR CHEST 1V, 06/29/2024, 10:19. FINDINGS: Bones: There is a left humeral shaft fracture, without good bony bridging. No new fracture is seen. There is a humeral gustavo seen, with 2 screws proximally and 2 screws distally. There is significant lucency seen adjacent to the screws, particularly distally. There is also lucency seen adjacent to the distal aspect of the humeral gustavo. Soft tissues: No suspicious soft tissue calcifications. IMPRESSION: Nonunion of the remote humerus fracture, with significant hardware loosening. Dictated by: Ruel Mae M.D. on 06/29/2024 at 11:47 Approved by: Ruel Mae M.D. on 06/29/2024 at 11:49
[2024-06-29 11:31] LABS: Ammonia (NH3) < 9 umol/L (9-30)
[2024-06-29 11:32] LABS: Alanine Aminotransferase 17 IU/L (<35); Albumin 4.3 g/dL (3.5-5.0); Albumin Globulin Ratio 1.3 (1.0-2.8); Alkaline Phosphatase 79 U/L (38-126); Aspartate Aminotransferase 32 IU/L (14-36); BUN Creatinine Ratio 15.8 (6-22); Blood Urea Nitrogen 12 mg/dL (7-17); Calcium 9.2 mg/dL (8.4-10.2); Carbon Dioxide 19 mmol/L (22-32); Chloride 96 mmol/L (98-107); Estimated Glomerular Filt Rate > 60 mL/min (>60); Globulin 3.3 g/dL (1.7-4.1); Glucose 97 mg/dL (80-110); HEMOLYSIS 23 (0-50); Potassium 4.7 mmol/L (3.4-5.1); Sodium 126 mmol/L (137-145); Total Protein 7.6 g/dL (6.3-8.2)
--- NOTE | 2024-06-29 12:05 | PC.NURSE ---
Addendum entered by Trung Clinton CNA 06/29/24 12:20: [facility] records fax no answer error. Re-faxed to main afterhours records fax @[phone]. Afterhours fax receipt shows received @[phone]. Original Note: Called [facility] to request records of recent ED visit @[phone]. Spoke to house sushma Lucas who will fax records. Faxed records request to [facility] medical records request fax @[phone].
[2024-06-29 12:21] LABS: UR Morphine/Opiate cutoff 300 Negative (Negative); Ur Creatinine Normal (Normal); Ur Specific Gravity Normal (Normal); Urine Amphetamines Negative (Negative); Urine Barbiturates Negative (Negative); Urine Benzodiazepines Negative (Negative); Urine Cocaine Negative (Negative); Urine MDMA Negative (Negative); Urine Methadone Negative (Negative); Urine Methamphetamines Negative (Negative); Urine Oxycodone Negative (Negative); Urine Phencyclidine Negative (Negative); Urine Tetrahydrocannabinol Negative (Negative); Urine Tricyclic Antidepressant Negative (Negative); Urine pH Normal (Normal)
[2024-06-29 12:55] LABS: Influenza A - CEPHEID Flu A NEGATIVE (NEGATIVE); Influenza B - CEPHEID Flu B NEGATIVE (NEGATIVE); Respiratory Syncytial Virus Negative (Negative)
[2024-06-29 12:57] LABS: COVID-19 CEPHEID 4-PLEX PCR Negative (Negative)
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
--- NOTE | 2024-06-29 18:34 | PC.NURSE ---
Pt manic upon arrival, given 1mg Ativan. Pt has been sleeping all day. VSS.
--- NOTE | 2024-06-29 23:49 | PC.NURSE ---
pt awake and alert asking appropriate questions, cooperative, food given
[2024-06-30] VITALS: BP 164/71; PULSE 72
[2024-06-30] MEDS: lamoTRIgine 100 MG TABLET 25 MG PO
--- NOTE | 2024-06-30 00:28 | PC.NURSE ---
pt ambulated without difficulty down the romano in front of the nurses station and back to the room
--- NOTE | 2024-07-01 11:26 | CM.SWNOTE ---
[facility]OSP[facility] PHARMACY TECHNICIAN Follow up Note Continued: Reviewed EMR and received a voice message from Amina NUNO regarding a referral sent by ED [facility] PHARMACY TECHNICIAN over the weekend. This HOSPITAL PHARMACY TECHNICIAN updated on patient's status (returned home); Amina NUNO to follow up with patient for home health services. Per Amina NUNO, no other clinicals needed, patient accepted for services and scheduling will follow up. ED HOSPITAL PHARMACY TECHNICIAN confirmed with [facility] Supervisor [place], Raoul Rae, that patient is on the caseload of [address] Supervisor [place] (Sandy Terry). [facility] Super[facility] [place] is aware of patient and is hopeful to work closely with [place] [id number] for vermin exterminator care coordination for patient. Plan: Patient has discharged from ED, follow up with Amina NUNO when available. LUCAS Singh
== END 2024-06-30 00:31 | disposition home or self-care (01) ==
PROVIDERS: Emergency Medicine; Emergency Provider Emergency Medicine; PCP Family Medicine
DX: R45.1 Restlessness and agitation (principal); R41.0 Disorientation, unspecified; S42.302A Unspecified fracture of shaft of humerus, left arm, initial encounter for closed fracture; W18.30XA Fall on same level, unspecified, initial encounter; Z11.52 Encounter for screening for COVID-19; Z86.16 Personal history of COVID-19; E87.1 Hypo-osmolality and hyponatremia
CPT/HCPCS: 0241U; 36415; 70450; 71045; 72125; 73030; 80053; 80305; 81001; 82140; 82962; 85025; 87086; 96374; 99284; J2060